=== PATIENT | female | born 1960 | race Caucasian/White ===

== ENCOUNTER 2020-05-23 21:23 | Inpatient (IN) | payer BC, OTHER ==
[2020-05-23] MEDS ORDERED: SODIUM CHLORIDE 0.9% 1,000 ML IV STA (22:02)
[2020-05-23] MEDS ORDERED: DILTIAZEM DRIP BOLUS FROM BAG 1 MG SOLN IV ONE (22:02)
--- NOTE | 2020-05-23 22:06 | ED ---
General Adult HPI - General Chief complaint: Arrhythmia/Palpitations Stated complaint: Chest Pain, Time Seen by Provider: 05/23/20 21:53 Source: patient, RN notes reviewed Mode of arrival: ambulatory Limitations: no limitations - History of Present Illness Initial comments: Patient is a pleasant 59-year-old female presenting to the emergency department chest discomfort. Onset of symptoms was a couple of hours ago. Discomfort is rated 7/10. Discomfort feels heavy. No radiation. He did have similar symptoms around 5 years ago associated with atrial fibrillation. No associated dyspnea. No palpitations. No leg pain or leg swelling. - Related Data Home Medications Medication Instructions Recorded Confirmed No Known Home Medications 05/23/20 05/23/20 Allergies Allergy/AdvReac Type Severity Reaction Status Date / Time No Known Allergies Allergy Verified 05/23/20 23:10 Review of Systems ROS Statement: Those systems with pertinent positive or pertinent negative responses have been documented in the HPI. ROS Other: All systems not noted in ROS Statement are negative. Constitutional: Denies: fever Eyes: Denies: eye pain ENT: Denies: ear pain Respiratory: Denies: cough Cardiovascular: Reports: chest pain. Denies: palpitations Endocrine: Denies: fatigue Gastrointestinal: Denies: abdominal pain Genitourinary: Denies: dysuria Musculoskeletal: Denies: back pain Skin: Denies: rash Neurological: Denies: weakness Past Medical History Past Medical History: Atrial Fibrillation, Thyroid Disorder Additional Past Medical History / Comment(s): 30 years ago hyperthyroidism had radioactive iodine tx History of Any Multi-Drug Resistant Organisms: None Reported Past Surgical History: Adenoidectomy, Tonsillectomy, Tubal Ligation Additional Past Surgical History / Comment(s): THYROID Past Psychological History: No Psychological Hx Reported Smoking Status: Current every day smoker Past Alcohol Use History: Daily Past Drug Use History: None Reported - Past Family History Mother Family Medical History: Dementia Additional Family Medical History / Comment(s): parkinsons Father Family Medical History: Cancer Additional Family Medical History / Comment(s): throat cancer(was heavy smoker) General Exam Limitations: no limitations General appearance: alert, in no apparent distress Head exam: Present: normocephalic Eye exam: Present: normal appearance Neck exam: Present: normal inspection Respiratory exam: Present: normal lung sounds bilaterally. Absent: chest wall tenderness Cardiovascular Exam: Present: tachycardia Expanded Peripheral pulses: 2+: Radial (R), Radial (L), Dorsalis Pedis (R), Dorsalis Pedis (L) GI/Abdominal exam: Present: soft. Absent: tenderness Extremities exam: Present: normal inspection. Absent: pedal edema, calf tenderness Neurological exam: Present: alert Psychiatric exam: Present: normal affect, normal mood Skin exam: Present: normal color Course Vital Signs 05/23/20 05/23/20 21:32 23:00 Temperature 98.3 F Pulse Rate 142 H Respiratory 20 Rate Blood Pressure 175/107 O2 Sat by Pulse 95 90 L Oximetry - Reevaluation(s) Reevaluation #1: 05/23/20 22:05 Patient is refusing adenosine. EKG has concern for likely atrial flutter with a 2-1 conduction. Cardizem will be started. 05/23/20 22:05 EKG #2 shows narrow complex tachycardia with a rate of 134. NH 148. QRS 86. QT to 72. QTC 406. Normal axis. Normal QRS. Nonspecific ST-T. EKG Findings - EKG Comments: EKG Findings:: Neuro complex a cardiac rate of 138. NH 148. QRS 86. QT 366. QTc 554. Normal axis. Normal QRS. Nonspecific ST-T. Medical Decision Making - Medical Decision Making Patient reevaluated and symptom-free. Heart rate 99 with sinus rhythm on the monitor. Patient and family updated on results and plan. Discussed with Dr. Lemon who agrees with heparin and will consult. He does want to be notified if patient's pain increases. Case also discussed with Dr. samson who will admit For hospital call. He is made aware of d-dimer being added. - Lab Data Result diagrams: 05/23/20 22:23 05/23/20 22:23 Lab Results 05/23/20 05/23/20 05/23/20 Range/Units 22:23 22:23 22:23 WBC 9.8 (3.8-10.6) k/uL RBC 4.13 (3.80-5.40) m/uL Hgb 13.6 (11.4-16.0) gm/dL Hct 40.0 (34.0-46.0) % MCV 96.9 (80.0-100.0) fL MCH 33.0 (25.0-35.0) pg MCHC 34.0 (31.0-37.0) g/dL RDW 13.2 (11.5-15.5) % Plt Count 238 (150-450) k/uL MPV 8.1 Neutrophils % 70 % Lymphocytes % 18 % Monocytes % 5 % Eosinophils % 3 % Basophils % 1 % Neutrophils # 6.9 (1.3-7.7) k/uL Lymphocytes # 1.8 (1.0-4.8) k/uL Monocytes # 0.5 (0-1.0) k/uL Eosinophils # 0.3 (0-0.7) k/uL Basophils # 0.1 (0-0.2) k/uL PT 9.5 (9.0-12.0) sec INR 0.9 (<1.2) APTT 24.8 (22.0-30.0) sec Sodium 141 (137-145) mmol/L Potassium 4.4 (3.5-5.1) mmol/L Chloride 110 H (98-107) mmol/L Carbon Dioxide 22 (22-30) mmol/L Anion Gap 9 mmol/L BUN 14 (7-17) mg/dL Creatinine 0.88 (0.52-1.04) mg/dL Est GFR (CKD-EPI)AfAm 84 (>60 ml/min/1.73 sqM) Est GFR (CKD-EPI)NonAf 73 (>60 ml/min/1.73 sqM) Glucose 104 H (74-99) mg/dL Calcium 10.1 (8.4-10.2) mg/dL Magnesium 2.1 (1.6-2.3) mg/dL Total Bilirubin 0.5 (0.2-1.3) mg/dL AST 56 H (14-36) U/L ALT 32 (4-34) U/L Alkaline Phosphatase 78 (38-126) U/L Troponin I (0.000-0.034) ng/mL Total Protein 8.0 (6.3-8.2) g/dL Albumin 4.8 (3.5-5.0) g/dL TSH 15.200 H (0.465-4.680) mIU/L 05/23/20 Range/Units 22:23 WBC (3.8-10.6) k/uL RBC (3.80-5.40) m/uL Hgb (11.4-16.0) gm/dL Hct (34.0-46.0) % MCV (80.0-100.0) fL MCH (25.0-35.0) pg MCHC (31.0-37.0) g/dL RDW (11.5-15.5) % Plt Count (150-450) k/uL MPV Neutrophils % % Lymphocytes % % Monocytes % % Eosinophils % % Basophils % % Neutrophils # (1.3-7.7) k/uL Lymphocytes # (1.0-4.8) k/uL Monocytes # (0-1.0) k/uL Eosinophils # (0-0.7) k/uL Basophils # (0-0.2) k/uL PT (9.0-12.0) sec INR (<1.2) APTT (22.0-30.0) sec Sodium (137-145) mmol/L Potassium (3.5-5.1) mmol/L Chloride (98-107) mmol/L Carbon Dioxide (22-30) mmol/L Anion Gap mmol/L BUN (7-17) mg/dL Creatinine (0.52-1.04) mg/dL Est GFR (CKD-EPI)AfAm (>60 ml/min/1.73 sqM) Est GFR (CKD-EPI)NonAf (>60 ml/min/1.73 sqM) Glucose (74-99) mg/dL Calcium (8.4-10.2) mg/dL Magnesium (1.6-2.3) mg/dL Total Bilirubin (0.2-1.3) mg/dL AST (14-36) U/L ALT (4-34) U/L Alkaline Phosphatase (38-126) U/L Troponin I 0.345 H* (0.000-0.034) ng/mL Total Protein (6.3-8.2) g/dL Albumin (3.5-5.0) g/dL TSH (0.465-4.680) mIU/L - Radiology Data Radiology results: image reviewed (Chest x-ray does show mild pulmonary interstitial increased density compared to previous.) Critical Care Time Critical Care Time: Yes Total Critical Care Time: 33 Disposition Clinical Impression: Atrial flutter, Tachycardia, NSTEMI (non-ST elevated myocardial infarction) Disposition: ADMITTED IP TO THIS HOSP Is patient prescribed a controlled substance at d/c from ED?: No Referrals: None,Stated [Primary Care Provider] - 1-2 days Decision Time: 23:19
[2020-05-23] MEDS ORDERED: DILTIAZEM 125 MG in SODIUM CHLORIDE 0.9% 100 ML IV SCH (22:30)
[2020-05-23 22:33] LABS: Basophils # (A) 0.1 k/uL (0-0.2); Basophils % (A) 1 %; Eosinophils # (A) 0.3 k/uL (0-0.7); Eosinophils % (A) 3 %; HGB 13.6 gm/dL (11.4-16.0); Lymphocytes # (A) 1.8 k/uL (1.0-4.8); Lymphocytes % (A) 18 %; MCV 96.9 fL (80.0-100.0); Mean Platelet Volume 8.1; Monocytes # (A) 0.5 k/uL (0-1.0); Monocytes % (A) 5 %; Neutrophils # (A) 6.9 k/uL (1.3-7.7); Neutrophils % (A) 70 %; Platelet Count 238 k/uL (150-450); RBC 4.13 m/uL (3.80-5.40); RDW 13.2 % (11.5-15.5); WBC 9.8 k/uL (3.8-10.6)
[2020-05-23 22:42] LABS: Albumin 4.8 g/dL (3.5-5.0); Calcium 10.1 mg/dL (8.4-10.2); Magnesium 2.1 mg/dL (1.6-2.3); Potassium 4.4 mmol/L (3.5-5.1); Total Bilirubin 0.5 mg/dL (0.2-1.3)
--- NOTE | 2020-05-23 22:42 | XR ---
EXAMINATION TYPE: XR chest 1V portable DATE OF EXAM: 05/23/2020 COMPARISON: 03/16/2015 HISTORY: Dysrhythmia. Chest pain TECHNIQUE: FINDINGS: There is mild pulmonary increased interstitial density. Heart size is normal. There is no c onsolidation. There is no heart failure. There is no pleural effusion. There are chest leads. Bony th orax is intact. IMPRESSION: Increased mild pulmonary interstitial density compared to old exam is nonspecific and cou ld relate to mild pneumonia.
[2020-05-23 22:52] LABS: INR 0.9 (<1.2); Partial Thromboplastin Time 24.8 sec (22.0-30.0); Prothrombin Time 9.5 sec (9.0-12.0)
[2020-05-23] MEDS ORDERED: NITROGLYCERIN SL TABS 0.4 MG TAB SUBLINGUAL PRN (23:20)
[2020-05-23] MEDS ORDERED: ASPIRIN 81 MG PO STA (23:20)
[2020-05-23] MEDS ORDERED: HEPARIN SODIUM,PORCINE 5,000 UNIT/ML 1 ML VIAL IV ONE (23:20)
[2020-05-23] MEDS ORDERED: HEPARIN SODIUM,PORCINE 5,000 UNIT/ML 1 ML VIAL IV PRN (23:20)
[2020-05-23] MEDS ORDERED: HEPARIN SOD,PORK IN 0.45% NACL 25,000 UNIT in 0.45% NACL 1 250ML.BAG IV SCH (23:30)
[2020-05-24] MEDS ORDERED: ATORVASTATIN 80 MG TAB PO STA ×2 (00:06→11:00)
[2020-05-24] MEDS ORDERED: CLOPIDOGREL 75 MG TAB PO STA (00:06)
--- NOTE | 2020-05-24 00:09 | P.HPIM ---
History of Present Illness H&P Date: 05/23/20 51-year-old female with a PMH of A. fib (not on anticoagulation due to poor follow-up), tobacco abuse (one pack per day for several decades) and hypothyroidism who presented to the emergency room with complaints of chest pain. Patient reports that over the past 1-1/2 years, she has been having exer tional substernal pressure-like chest discomfort, improved with rest, which began to worsen over the past 2 weeks. The pain would normally go away after resting for a few minutes. She notes that tonight at 7 PM, she was in her garage smoking a cigarette when she developed an 8 out of 10 substernal chest discomfort, similar nature but significantly more in intensity, nonpleuritic, with radiation to the left arm and associated nausea. She told her daughter who subsequently brought her to the emergency room. The patient notes that her pain began improving shortly after presenting to the emergency room, and had resolved by the time of interview. She reported feeling back to her baseline. Reported resolution of her nausea and also denied fever, chills, cough, abdominal pain, or diarrhea. The patient notes that she was previously following with Dr. Ambriz but has not seen him or any other provider for the past 2 years, and thereby has not been taking any medications. She underwent an extensive evaluation in the emergency room. Upon presentation her pulse was 142 with BP 175/107 and SpO2 95% on room air and afebrile at 98.3. EKG revealed sinus tachycardia at [address] depression inferolaterally in leads II, III, aVF, and V3 to V6. Chest x-ray revealed increased mild pulmonary interstitial density, suspicious for mild pneumonia. Laboratory evaluation was notable for troponin of 0.84 5, TSH 15.2, and a d-dimer of 0.35. Review of Systems Pertinent positives and negatives as discussed in HPI, a complete review of systems was performed and all other systems are negative. Past Medical History Past Medical History: Atrial Fibrillation, Thyroid Disorder Additional Past Medical History / Comment(s): 30 years ago hyperthyroidism had radioactive iodine tx History of Any Multi-Drug Resistant Organisms: None Reported Past Surgical History: Adenoidectomy, Tonsillectomy, Tubal Ligation Additional Past Surgical History / Comment(s): THYROID Past Psychological History: No Psychological Hx Reported Smoking Status: Current every day smoker Past Alcohol Use History: Daily Past Drug Use History: None Reported - Past Family History Mother Family Medical History: Dementia Additional Family Medical History / Comment(s): parkinsons Father Family Medical History: Cancer Additional Family Medical History / Comment(s): throat cancer(was heavy smoker) Medications and Allergies Home Medications Medication Instructions Recorded Confirmed Type No Known Home Medications 05/23/20 05/23/20 History Allergies Allergy/AdvReac Type Severity Reaction Status Date / Time No Known Allergies Allergy Verified 05/23/20 23:10 Physical Exam Vitals: Vital Signs Temp Pulse Resp BP Pulse Ox 05/23/20 23:00 90 L 05/23/20 21:32 98.3 F 142 H 20 175/107 95 Intake and Output 05/23/20 05/23/20 05/24/20 14:59 22:59 06:59 Other: Weight 69.853 kg General: non toxic, no distress, appears at stated age, normal weight Derm: no unusual rashes/lesions no unusual ecchymoses, warm, dry Head: atraumatic, normocephalic, symmetric Eyes: EOMI, no lid lag, anicteric sclera, pupils equal round reactive to light ENT: Nose and ears atraumatic, no thrush, no pharyngeal erythema Neck: No thyromegaly, no cervical lymphadenopathy, trachea midline, supple Mouth: no lip lesion, mucus membranes moist Cardiovascular: S1S2 reg, tachycardia, no murmur, positive posterior tibial pulse bilateral, no edema, capillary refill less than 2 seconds Lungs: CTA bilateral, no rhonchi, no rales , no accessory muscle use Abdominal: soft, nontender to palpation, no guarding, no appreciable organomegaly, normal bowel sounds Ext: no gross muscle atrophy, muscle strength 5 out of 5 in all 4 extremities grossly, no contractures, Neuro: CN II-XI grossly intact, light touch intact all 4 extremities, finger to nose within normal limits, Psych: Alert, oriented, appropriate affect Results CBC & Chem 7: 05/23/20 22:23 05/23/20 22:23 Labs: Abnormal Lab Results - Last 24 Hours (Table) 05/23/20 05/23/20 Range/Units 22:23 22:23 Chloride 110 H (98-107) mmol/L Glucose 104 H (74-99) mg/dL AST 56 H (14-36) U/L Troponin I 0.345 H* (0.000-0.034) ng/mL TSH 15.200 H (0.465-4.680) mIU/L Assessment and Plan Plan: Non-ST elevation FL -Case discussed with cardiology by ED physician -Continue with heparin infusion -Nitroglycerin when necessary -Start Plavix and Lipitor -Cardiac monitoring -Trend troponin -Cardiology consult -Check lipid panel and A1c Hypothyroidism -Patient will need to be started on Synthroid prior to discharge Medical abuse -Strongly advised on importance of cessation DVT prophylaxis -Heparin infusion The patient is admitted with an anticipated greater than 2 midnight stay for evaluation of NSTEMI CODE STATUS: Full Code Discussed with: Patient Anticipated discharge date: 2-[address]: Home A total of 40 minutes was spent on the care of this complex patient more than 50% of the time was spent in counseling and care coordination.
[2020-05-24 05:58] LABS: Platelet Count 223 k/uL (150-450)
[2020-05-24 06:15] LABS: Magnesium 2.1 mg/dL (1.6-2.3)
[2020-05-24] MEDS ORDERED: SODIUM CHLORIDE 0.9% 1,000 ML in EMPTY BAG 1 BAG IV ONE (08:22)
[2020-05-24] MEDS ORDERED: ALPRAZolam 0.5 MG TAB PO PRN (08:22)
[2020-05-24] MEDS: METOPROLOL TARTRATE 25 MG TAB PO SCH ×2 (08:31→20:49)
[2020-05-24] MEDS ORDERED: CLOPIDOGREL 75 MG TAB PO SCH (09:00)
[2020-05-24] MEDS ORDERED: ASPIRIN 325 MG TAB PO SCH (09:00)
[2020-05-24] MEDS ORDERED: IV FLUID CONTINUATION 400 ML IV ONE (09:00)
[2020-05-24 09:04] LABS: ALT 36 U/L (4-34); AST 220 U/L (14-36); African American GFR (CKD) >90 (>60 ml/min/1.73 sqM); Albumin 3.9 g/dL (3.5-5.0); Alkaline Phosphatase 61 U/L (38-126); Anion Gap 4 mmol/L; Blood Urea Nitrogen 14 mg/dL (7-17); Calcium 8.6 mg/dL (8.4-10.2); Carbon Dioxide 24 mmol/L (22-30); Chloride 111 mmol/L (98-107); Glucose 89 mg/dL (74-99); Non-African American GFR(CKD) 88 (>60 ml/min/1.73 sqM); Potassium 4.2 mmol/L (3.5-5.1); Sodium 139 mmol/L (137-145); Total Bilirubin 0.9 mg/dL (0.2-1.3); Total Protein 6.5 g/dL (6.3-8.2)
[2020-05-24] MEDS ORDERED: LIDOCAINE 1% INJ 10MG/ML (20 ML MDV) SQ ONE (09:25)
[2020-05-24] MEDS ORDERED: MIDAZOLAM 2 MG/2 ML VIAL IV ONE (09:25)
[2020-05-24] MEDS ORDERED: fentaNYL (PF) 50 MCG/ML 2 ML AMP IV ONE (09:29)
--- NOTE | 2020-05-24 09:40 | P.CRDCN ---
History of Present Illness History of present illness: HISTORY OF PRESENTING ILLNESS This is a pleasant 59-year-old female past medical history significant for supraventricular tachycardia, chronic nicotine dependence and daily alcohol intake. 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 We have been asked to see in consultation for chest pain. She states yesterday she was sitting out in her garage smoking cigarettes when she felt a heavy pressure sensation in the left precordial region that radiated down the left arm. It was associated with mild shortness of breath. She denies dizziness, nausea, vomiting or diaphores is. The discomfort lasted approximately 45 minutes. She was watching her grandchildren at the time and waited until her daughter got home from work to come to the hospital. On arrival she was having ongoing chest discomfort that did resolve slowly after she got here. She has had no further symptoms of chest discomfort since arriving at the hospital. DIAGNOSTICS EKG reveals sinus tachycardia heart rate of 138 with T-wave inversions in the inferior leads and ST depression anterior laterally. Telemetry tracings indicate sinus mechanism with nonsustained ventricular tachycardia this morning. Chest xray increased pulmonary interstitial density. Laboratory reviewed, CBC unremarkable, d-dimer 0.35, sodium 139, potassium 4.2, creatinine 0.75, magnesium 2.1, troponin 0.345, 15 and 31.4, LDL 221, HDL 59 and TSH 15.2 . She takes no daily cardiac medications. Most recent echocardiogram obtained in 2014 revealed preserved LV systolic function with ejection fraction 50-55% with mild tricuspid regurgitation noted. REVIEW OF SYSTEMS At the time of my exam: CONSTITUTIONAL: Denies fever or chills. CARDIOVASCULAR: Denies chest pain, shortness of breath, orthopnea, PND or palpitations. RESPIRATORY: Denies cough. GASTROINTESTINAL: Denies abdominal pain, diarrhea, constipation, nausea or vomit ing. MUSCULOSKELETAL: Denies myalgias. NEUROLOGIC: Denies numbness, tingling or weakness. ENDOCRINE: Denies fatigue, weight change, polydipsia or polyurina. GENITOURINARY: Denies burning, hematuria or urgency with micturation. HEMATOLOGIC: Denies history of anemia or bleeding. PHYSICAL EXAMINATION Blood pressure 126/77 heart rate 102 afebrile and maintaining oxygen saturation on room air. CONSTITUTIONAL: No apparent distress. HEENT: Head is normocephalic. Pupils are equal, round. Sclerae anicteric. Mucous membranes of the mouth are moist. No JVD. Left carotid bruit. CHEST EXAMINATION: Lungs are clear to auscultation. No chest wall tenderness is noted on palpation or with deep breathing. Diminished bilaterally. HEART EXAMINATION: Regular rate and rhythm. S1, S2 heard. Soft systolic ejection murmur at the left sternal border, no gallops or rub. ABDOMEN: Soft, nontender. Positive bowel sounds. EXTREMITIES: 2+ peripheral pulses, no lower extremity edema and no calf tenderness. NEUROLOGIC EXAMINATION: Patient is awake, alert and oriented x3. ASSESSMENT Non-ST elevated myocardial infarction Nonsustained ventricular tachycardia Dyslipidemia Hypertension Chronic nicotine dependence Daily alcohol use PLAN Recommend proceeding with cardiac catheterization. I have discussed the risks, benefits and alternative therapies for the above-mentioned procedure and for both sedation/analgesia as well as necessary blood product administration, if indicated, as they pertain to this patient. The patient has indicated understanding and acceptance of the risks and procedures discussed. Questions have been answered appropriately and she is agreeable to move forward with the above stated procedure. Her daughter has also been updated. Discontinue Cardizem infusion. Initiate Lopressor 25 mg twice a day. Echocardiogram reviewed at the bedside reveals wall motion abnormalities anterio rly. Obtain carotid Doppler secondary to bruit auscultated. Smoking and alcohol cessation recommended. Follow renal function in the morning. Further recommendations to follow based upon clinical course. Thank you kindly for this consultation. Nurse Practitioner note has been reviewed, I agree with a documented findings and plan of care. Patient was seen and examined. Past Medical History Past Medical History: Atrial Fibrillation, Thyroid Disorder Additional Past Medical History / Comment(s): 30 years ago hyperthyroidism had r adioactive iodine tx History of Any Multi-Drug Resistant Organisms: None Reported Past Surgical History: Adenoidectomy, Tonsillectomy, Tubal Ligation Additional Past Surgical History / Comment(s): THYROID Past Anesthesia/Blood Transfusion Reactions: No Reported Reaction Past Psychological History: No Psychological Hx Reported Additional Psychological History / Comment(s): pt lives at home with spouse and 1 daughter. is independant,works at [employer]. Smoking Status: Current every day smoker Past Alcohol Use History: Daily Additional Past Alcohol Use History / Comment(s): started smoking age 18 1ppd,smoking cessation booklet given to pt. pt admits to drinking 30 beers/week Past Drug Use History: None Reported - Past Family History Mother Family Medical History: Dementia Additional Family Medical History / Comment(s): parkinsons Father Family Medical History: Cancer Additional Family Medical History / Comment(s): throat cancer(was heavy smoker) Medications and Allergies Home Medications Medication Instructions Recorded Confirmed Type No Known Home Medications 05/23/20 05/23/20 History Allergies Allergy/AdvReac Type Severity Reaction Status Date / Time No Known Allergies Allergy Verified 05/23/20 23:10 Physical Exam Vitals: Vital Signs Temp Pulse Pulse Resp BP BP Pulse Ox 05/24/20 03:35 98.2 F 104 H 17 112/74 94 L 05/24/20 00:32 98 F 118 H 18 140/87 93 L 05/24/20 00:05 114 H 20 140/100 97 05/23/20 23:00 90 L 05/23/20 21:32 98.3 F 142 H 20 175/107 95 Intake and Output 05/23/20 05/24/20 05/24/20 22:59 06:59 14:59 Intake Total 61.468 Balance 61.468 Intake: Intake, IV Titration 61.468 Amount Heparin Sod,Pork in 0.45% 61.468 NaCl 25,000 unit In 0.45 % NaCl 1 250ml.bag @ 12 UNITS/KG/HR 8.382 mls/hr IV .Q24H [facility] Rx#: [id number] Other: # Voids 2 Weight 69.853 kg 64.3 kg Results 05/24/20 05:38 05/24/20 07:41 Cardiac Enzymes 05/23/20 05/23/20 05/24/20 Range/Units 22:23 22:23 01:31 AST 56 H (14-36) U/L Troponin I 0.345 H* 15.000 H* (0.000-0.034) ng/mL 05/24/20 Range/Units 05:38 AST (14-36) U/L Troponin I 31.400 H* (0.000-0.034) ng/mL Coagulation 05/23/20 05/24/20 Range/Units 22:23 05:38 PT 9.5 (9.0-12.0) sec APTT 24.8 70.9 H (22.0-30.0) sec Lipids 12/09/20 Range/Units 05:38 Triglycerides 122 (<150) mg/dL Cholesterol 304 H (<200) mg/dL HDL Cholesterol 59 (40-60) mg/dL CBC 05/23/20 05/24/20 Range/Units 22:23 05:38 WBC 9.8 (3.8-10.6) k/uL RBC 4.13 (3.80-5.40) m/uL Hgb 13.6 (11.4-16.0) gm/dL Hct 40.0 (34.0-46.0) % Plt Count 238 223 (150-450) k/uL Comprehensive Metabolic Panel 05/23/20 Range/Units 22:23 Sodium 141 (137-145) mmol/L Potassium 4.4 (3.5-5.1) mmol/L Chloride 110 H (98-107) mmol/L Carbon Dioxide 22 (22-30) mmol/L BUN 14 (7-17) mg/dL Creatinine 0.88 (0.52-1.04) mg/dL Glucose 104 H (74-99) mg/dL Calcium 10.1 (8.4-10.2) mg/dL AST 56 H (14-36) U/L ALT 32 (4-34) U/L Alkaline Phosphatase 78 (38-126) U/L Total Protein 8.0 (6.3-8.2) g/dL Albumin 4.8 (3.5-5.0) g/dL Current Medications Generic Name Dose Route Start Last Admin Trade Name Freq PRN Reason Stop Dose Admin Alprazolam 0.25 mg 05/24/20 08:22 Alprazolam 0.25 Mg Tab PO Q6HR PRN Mild Anxiety Alprazolam 0.5 mg 05/24/20 08:22 Alprazolam 0.5 Mg Tab PO Q6HR PRN Moderate Anxiety Aspirin 325 mg 05/24/20 09:00 12 08:31 Aspirin 325 Mg Tab PO 325 mg DAILY [facility] Administration Atorvastatin Calcium 80 mg 05/24/20 21:00 Atorvastatin 80 Mg Tab PO HS [facility] Clopidogrel Bisulfate 75 mg 05/24/20 09:00 12 08:31 Clopidogrel 75 Mg Tab PO 75 mg DAILY [facility] Administration Heparin Sodium (Porcine) 0 unit 05/23/20 23:20 Heparin Sodium,Porcine 5,000 Unit/Ml 1 Ml Vial IV Q6HR PRN Low PTT Protocol Sodium Chloride 1,000 mls @ 75 mls/hr 05/23/20 22:02 05/23/20 23:00 Saline 0.9% IV 05/24/20 11:21 75 mls/hr .[id number] STA Administration Heparin Sodium/Sodium Chloride 250 mls @ 8.382 mls/hr 05/23/20 23:30 05/24/20 07:21 25,000 unit/ Sodium Chloride IV 10 units/kg/hr .Q24H [facility] 6.985 mls/hr Titration Protocol 12 UNITS/KG/HR Sodium Chloride 1,000 ml/ IV 1,000 mls @ 64.3 mls/hr 05/24/20 08:22 Solution IV 05/24/20 23:55 .[id number] ONE 1 ML/KG/HR Metoprolol Tartrate 25 mg 05/24/20 09:00 05/24/20 08:31 Metoprolol Tartrate 25 Mg Tab PO 25 mg BID [facility] Administration Nitroglycerin 0.4 mg 05/23/20 23:20 Nitroglycerin Sl Tabs 0.4 Mg Tab SUBLINGUAL Q5M PRN Chest Pain Sodium Chloride 10 ml 05/24/20 09:00 Sodium Chloride 0.9% Flush 10 Ml Syringe IV BID [facility] Intake and Output 05/23/20 05/24/20 05/24/20 22:59 06:59 14:59 Intake Total 61.468 Balance 61.468 Intake: Intake, IV Titration 61.468 Amount Heparin Sod,Pork in 0.45% 61.468 NaCl 25,000 unit In 0.45 % NaCl 1 250ml.bag @ 12 UNITS/KG/HR 8.382 mls/hr IV .Q24H [facility] Rx#: [id number] Other: # Voids 2 Weight 69.853 kg 64.3 kg 05/24/20 05:38 05/23/20 22:23
[2020-05-24] MEDS ORDERED: IOPAMIDOL-370 125ML BTL INJ ONE (09:50)
[2020-05-24] MEDS ORDERED: HEPARIN SODIUM,PORCINE 5,000 UNIT/ML 1 ML VIAL IV PRN (10:26)
--- NOTE | 2020-05-24 11:46 | P.GSCN ---
History of Present Illness Consult date: 05/24/20 Reason for Consult: Triple-vessel coronary artery disease, non-STEMI Requesting physician: Mikel Flower History of present illness: This is a 59-year-old active female who does not follow with a primary care physician or any other physician on an outpatient basis. She has a previous medical history of SVT in 2015, hyperthyroidism treated with radioactive dye followed by hypothyroidism with initiation of Synthroid, hyperlipidemia, daily tobacco dependence, and near daily EtOH use. She presented to [facility] emergency room yesterday with complaints of constant aching in her chest with radiation to her jaw and arms, associated with shortness of breath and nausea. She states she has been having intermittent chest pain over the previous year and a half with activity and relieved with rest. This time her pain was at rest while sitting in her garage smoking a cigarette and she didn't experience any relief so she came into the emergency room for evaluation and treatment. Chest x-ray was completed demonstrating no acute cardiac process, EKG demonstrated sinus tach with rate in the 130s, with ST depression in the inferior leads. White blood cell count 9.8, hemoglobin 13.6, BUN 14, creatinine 0.75, troponin initially 0.345 which elevated to 31.4. By the time she got to the emergency room she states her pain was mostly resolved. She was admitted for evaluation and treatment with consultation placed to cardiology. She was recommended to undergo heart catheterization which was completed today and which demonstrated severe calcific triple-vessel coronary artery disease with 100% stenosis of the right coronary artery, and proximal LAD as well as circumflex stenosis of 95%. Due to these findings consultation was placed to Dr. Fernandes from cardiac thoracic surgery for surgical recommendations. Review of Systems Review of systems was completed and was negative except as noted - Cardiovascular Reports as per HPI, Reports chest pain, Reports shortness of breath - Gastrointestinal Reports as per HPI, Reports nausea Past Medical History Past Medical History: Atrial Fibrillation, Coronary Artery Disease (CAD), Hyperlipidemia, Hypertension, Myocardial Infarction (MS), Thyroid Disorder Additional Past Medical History / Comment(s): 30 years ago hyperthyroidism had radioactive iodine tx after which developed hypothyroidism and was placed on Synthroid, eventually stopped Synthroid, was hospitalized in 2014 with SVT and hypothyroidism and was discharged on Synthroid, not currently taking History of Any Multi-Drug Resistant Organisms: None Reported Past Surgical History: Adenoidectomy, Tonsillectomy, Tubal Ligation Additional Past Surgical History / Comment(s): THYROID Past Anesthesia/Blood Transfusion Reactions: No Reported Reaction Past Psychological History: No Psychological Hx Reported Additional Psychological History / Comment(s): pt lives at home with spouse and 1 daughter. 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 Smoking Status: Current every day smoker Past Alcohol Use History: Daily Additional Past Alcohol Use History / Comment(s): started smoking age 18 1ppd,smoking cessation booklet given to pt. pt admits to drinking 30 beers/week Past Drug Use History: None Reported - Past Family History Mother Family Medical History: Dementia Additional Family Medical History / Comment(s): parkinsons Father Family Medical History: Cancer, CVA/TIA Additional Family Medical History / Comment(s): Tongue cancer(was heavy smoker) Medications and Allergies Home Medications Medication Instructions Recorded Confirmed Type No Known Home Medications 05/23/20 05/23/20 History Allergies Allergy/AdvReac Type Severity Reaction Status Date / Time No Known Allergies Allergy Verified 05/23/20 23:10 Surgical - Exam Vital Signs Temp Pulse Resp BP Pulse Ox 98.3 F 142 H 20 175/107 95 05/23/20 21:32 05/23/20 21:32 05/23/20 21:32 05/23/20 21:32 05/23/20 21:32 - General well developed, well nourished, no distress, no pain - Eyes PERRL, normal ocular movement - ENT no hearing loss - Neck no masses, trachea midline carotid bruit: bilateral - Respiratory Lungs sounds diminished bilaterally. Respirations even, nonlabored. Currently on room air with oxygen saturation 94%. No chest wall deformities. No clubbing or cyanosis present. - Cardiovascular S1, S2 present. Regular rate and rhythm, sinus rhythm on telemetry. Palpable peripheral pulses bilaterally. No edema present. No calf pain or tenderness noted. Left radial Nura's test less than 8 seconds - Abdomen Abdomen: soft, non tender, bowel sounds - Genitourinary Deferred - Rectum Deferred - Integumentary no rash, no growths - Neurologic normal coordination, normal sensation - Musculoskeletal Laying flat in bed status post cardiac catheterization - Psychiatric oriented to time, oriented to person, oriented to place, speech is normal, memory intact Results - Labs 05/24/20 05:38 05/24/20 07:41 Abnormal Lab Results - Last 24 Hours (Table) 05/23/20 05/23/20 05/24/20 Range/Units 22:23 22:23 01:31 APTT (22.0-30.0) sec Chloride 110 H (98-107) mmol/L Glucose 104 H (74-99) mg/dL AST 56 H (14-36) U/L ALT (4-34) U/L Troponin I 0.345 H* 15.000 H* (0.000-0.034) ng/mL Cholesterol (<200) mg/dL LDL Cholesterol, Calc (0-99) mg/dL TSH 15.200 H (0.465-4.680) mIU/L 05/24/20 05/24/20 05/24/20 Range/Units 05:38 05:38 05:38 APTT 70.9 H (22.0-30.0) sec Chloride (98-107) mmol/L Glucose (74-99) mg/dL AST (14-36) U/L ALT (4-34) U/L Troponin I 31.400 H* (0.000-0.034) ng/mL Cholesterol 304 H (<200) mg/dL LDL Cholesterol, Calc 221 H (0-99) mg/dL TSH (0.465-4.680) mIU/L 05/24/20 Range/Units 07:41 APTT (22.0-30.0) sec Chloride 111 H (98-107) mmol/L Glucose (74-99) mg/dL AST 220 H (14-36) U/L ALT 36 H (4-34) U/L Troponin I (0.000-0.034) ng/mL Cholesterol (<200) mg/dL LDL Cholesterol, Calc (0-99) mg/dL TSH (0.465-4.680) mIU/L Diabetes panel 05/23/20 05/24/20 05/24/20 Range/Units 22:23 05:38 07:41 Sodium 141 139 (137-145) mmol/L Potassium 4.4 4.2 (3.5-5.1) mmol/L Chloride 110 H 111 H (98-107) mmol/L Carbon Dioxide 22 24 (22-30) mmol/L BUN 14 14 (7-17) mg/dL Creatinine 0.88 0.75 (0.52-1.04) mg/dL Glucose 104 H 89 (74-99) mg/dL Calcium 10.1 8.6 (8.4-10.2) mg/dL AST 56 H 220 H (14-36) U/L ALT 32 36 H (4-34) U/L Alkaline Phosphatase 78 61 (38-126) U/L Total Protein 8.0 6.5 (6.3-8.2) g/dL Albumin 4.8 3.9 (3.5-5.0) g/dL Triglycerides 122 (<150) mg/dL HDL Cholesterol 59 (40-60) mg/dL Thyroid panel 05/23/20 Range/Units 22:23 TSH 15.200 H (0.465-4.680) mIU/L Calcium panel 05/23/20 05/24/20 Range/Units 22:23 07:41 Calcium 10.1 8.6 (8.4-10.2) mg/dL Albumin 4.8 3.9 (3.5-5.0) g/dL Pituitary panel 05/23/20 05/24/20 Range/Units 22:23 07:41 Sodium 141 139 (137-145) mmol/L Potassium 4.4 4.2 (3.5-5.1) mmol/L Chloride 110 H 111 H (98-107) mmol/L Carbon Dioxide 22 24 (22-30) mmol/L BUN 14 14 (7-17) mg/dL Creatinine 0.88 0.75 (0.52-1.04) mg/dL Glucose 104 H 89 (74-99) mg/dL Calcium 10.1 8.6 (8.4-10.2) mg/dL TSH 15.200 H (0.465-4.680) mIU/L Adrenal panel 05/23/20 05/24/20 Range/Units 22:23 07:41 Sodium 141 139 (137-145) mmol/L Potassium 4.4 4.2 (3.5-5.1) mmol/L Chloride 110 H 111 H (98-107) mmol/L Carbon Dioxide 22 24 (22-30) mmol/L BUN 14 14 (7-17) mg/dL Creatinine 0.88 0.75 (0.52-1.04) mg/dL Glucose 104 H 89 (74-99) mg/dL Calcium 10.1 8.6 (8.4-10.2) mg/dL Total Bilirubin 0.5 0.9 (0.2-1.3) mg/dL AST 56 H 220 H (14-36) U/L ALT 32 36 H (4-34) U/L Alkaline Phosphatase 78 61 (38-126) U/L Total Protein 8.0 6.5 (6.3-8.2) g/dL Albumin 4.8 3.9 (3.5-5.0) g/dL - Imaging CT scan - chest: report reviewed, image reviewed EKG: image reviewed Additional studies: Heart catheterization images reviewed Assessment and Plan Assessment: 1. Triple-vessel coronary artery disease 2. Hypertension 3. Hyperlipidemia, cholesterol 304, LDL 221 4. History of SVT 5. Hypothyroidism, previous history of hyper-thyroid treated with radioactive dye, current TSH 15.2 6. Current daily tobacco dependence 7. Almost daily EtOH use without history of withdrawal Plan: The patient was seen and examined at the bedside in the extended stay unit. The chart/diagnostics were reviewed. The case was discussed in detail with Dr. Fernandes who will see the patient today. Our recommendation is to continue with aspirin, statin, beta ricky therapy. Hold Plavix. T4 was ordered, hypothyroidism should be treated by primary. The usual perioperative course of coronary artery bypass surgery was discussed in detail with the patient, risks and benefits were reviewed, all questions were answered and patient is willing to consent to surgery. Preoperative testing was initiated. Once testing has b een completed we will calculate STS risk score and discuss with the patient. More recommendations to follow regarding timing of surgery once Dr. Fernandes has had time to review the patient's heart catheterization films, dependent on preoperative testing completion. Thank you Dr. Flower for this consult. We look forward to working with you in the care of your patient Time with Patient: Greater than 30
--- NOTE | 2020-05-24 12:54 | US ---
EXAMINATION TYPE: US carotid duplex BILAT DATE OF EXAM: 05/24/2020 COMPARISON: NONE CLINICAL HISTORY: bruit. EXAM MEASUREMENTS: RIGHT: Peak Systolic Velocity (PSV) cm/sec ----- Right CCA: 65.5 ----- Right ICA: 127.2 ----- Right ECA: 67.2 ICA/CCA ratio: 2.0 RIGHT: End Diastole cm/sec ----- Right CCA: 23.7 ----- Right ICA: 64.0 ----- Right ECA: 11.6 LEFT: Peak Systolic Velocity (PSV) cm/sec ----- Left CCA: 51.7 ----- Left ICA: 140.2 ----- Left ECA: 135.3 ICA/CCA ratio: 2.7 LEFT: End Diastole cm/sec ----- Left CCA: 28.9 ----- Left ICA: 59.5 ----- Left ECA: 19.7 VERTEBRALS (direction of flow): Right Vertebral: Antegrade Left Vertebral: Antegrade Rhythm: normal Mild to moderate atherosclerotic changes with slight velocity increase seen on left, no significant v elocity increase seen on right. IMPRESSION: 1. Bilateral atherosclerotic plaque with findings suggestive of the 50-69% stenosis bilaterally great er involving the left internal carotid artery. Criteria for Assigning % of Stenosis / Diameter reduction (Estimation based on the indirect measurements of the internal carotid artery velocities (ICA PSV). 1. Normal (no stenosis)=ICA PSV < 125 cm/s: ratio < 2.0: ICA EDV<40 cm/s. 2. Less than 50% stenosis=ICA PSV < 125 cm/s: ratio < 2.0: ICA EDV<40 cm/s. 3. 50 to 69% stenosis=ICA PSV of 125 to 230 cm/s: ration 2.0 ? 4.0: ICA EDV 40-100 cm/s. 4. Greater than 70% stenosis to near occlusion= ICA PSV > 230 cm/s: ratio > 4.0: ICA EDV > 100 cm/s. 5. Near occlusion= ICA PSV velocities may be low or undetectable: variable ratio and ICA EDV. 6. Total occlusion=unable to detect flow.
[2020-05-24] MEDS ORDERED: SODIUM CHLORIDE 0.9% 1,000 ML IV ONE (13:00)
--- NOTE | 2020-05-24 13:02 | CC ---
CARDIAC CATHETERIZATION REPORT DATE OF SERVICE: 05/24/2020 PROCEDURE: Left heart catheterization, coronary angiography. PERFORMED BY: Dr. Gloria Flower. Moderate conscious sedation time was 25 minutes. The patient was administered Versed and fentanyl. Oxygen saturation, hemodynamics and EKG were monitored closely. CLINICAL INFORMATION: Mrs. Lacie Mack is a 59-year-old lady was has not seen a physician in the last couple of years. She smokes more than 1-1/2 pack daily. She also has a cholesterol which is high, LDL of about 221, also. Came into the hospital with episode of chest pain, had initial unremarkable EKG and troponin. Subsequently, troponin went up to 30. EKG revealed non ST elevation type picture, was advised cardiac cath after placing her on heparin through the night. Risks, benefits, options, rationale were explained. I talked to the patient and also spoke to her daughter by phone. Advised coronary angiography and intervention based on findings. PROCEDURE NOTE: Under local anesthesia and strict aseptic precautions, a 6-Maori sheath was placed in the right femoral artery. The patient has very diminished pulses in the lower extremities. A 6-Maori introducer was placed uneventfully using a micropuncture needle technique. Standard Ludwig catheters were used to perform coronary angiography and the same right catheter was used to check LV pressure but LV gram was not performed. The sheath was taken out and manual compression used to secure hemostasis and a Femstop applied. She will be sent to the ICU on heparin drip. Findings were discussed with the patient and also spoke to the daughter by phone and discussed with Dr. Fernandes for urgent aortocoronary bypass surgery. CARDIAC CATHETERIZATION FINDINGS: Left ventricular end-diastolic pressure was about 20 mmHg without any gradient across the aortic valve. CORONARY ANGIOGRAPHY FINDINGS: RIGHT CORONARY ARTERY: Dominant vessel, calcified, totally occluded in the midportion with limited antegrade flow. This appears to be a chronic occlusion. LEFT MAIN CORONARY ARTERY: Short patent vessel that immediately bifurcates into LAD and circumflex. No significant disease in the short left main. LEFT ANTERIOR DESCENDING CORONARY ARTERY: Very proximally there is a 90% stenosis in the LAD and again in the midportion is another 80% to 90% stenosis. There are septal branches which are free of significant disease in the fair-sized diagonal branch comes off in the midportion, supplies a sizable amount of myocardium. Distally, the caliber of the LAD is smaller in the distal 1/4. LAD provides rich collaterals to the RCA and the 2 distal branches of RCA are opacified and are visualized. RCA also appears to be graftable, based on the size of the vessel from the collaterals. LEFT POSTERIOR CIRCUMFLEX CORONARY ARTERY: Technically, a nondominant vessel of fair caliber and distribution, has a very proximal 80% to 90% lesion, long, calcified, tortuous vessel, but the distal branches, both of them are graftable. The circumflex therefore is a nondominant vessel with an 80% to 90% proximal lesion, graftable calcification noted. Left ventriculogram was not performed. IMPRESSION: This patient has elevated filling pressures. No gradient across the aortic valve. A right-dominant system has a total occlusion of mid RCA, fills by collaterals from the left system. LAD has a proximal and mid 90% and 85% lesion. Circumflex has a proximal 80% to 90% lesion. Collaterals are there from the left system mostly from the LAD to the distal branches of RCA. RECOMMENDATIONS: I am recommending IV heparin to ICU and urgent aortocoronary bypass surgery with a graft to the LAD, circumflex and the distal RCA/PDA branch of RCA. Discussed my thoughts with the patient, daughter and also spoke to Dr. Fernandes. MMODL / IJN: [id number] /
--- NOTE | 2020-05-24 13:27 | P.PN ---
Subjective Progress Note Date: 05/24/20 Patient underwent left heart catheterization showing triple-vessel disease. Cardiothoracic surgery consulted for CABG evaluation. Objective - Vital Signs Vital signs: Vital Signs Temp 98.3 F 05/24/20 08:20 Pulse 86 05/24/20 12:22 Resp 16 05/24/20 12:22 BP 112/72 05/24/20 12:22 Pulse Ox 94 L 05/24/20 12:22 Intake & Output 05/23/20 05/24/20 05/24/20 18:59 06:59 18:59 Intake Total 170.898 Balance 170.898 Weight 64.3 kg Intake: IV 100 Intake, IV Titration 70.898 Amount Heparin Sod,Pork in 0.45% 70.898 NaCl 25,000 unit In 0.45 % NaCl 1 250ml.bag @ 12 UNITS/KG/HR 8.382 mls/hr IV .Q24H MERISSA Rx#: [id number] Other: # Voids 2 - Exam General: The patient is awake and alert, in no distress Eye: there is normal conjunctiva bilaterally. Neck: The neck is supple, there is no JVD. Cardiovascular: Normal S1-S2, no S3-S4, no murmurs. Respiratory: Lungs clear to auscultation bilaterally Gastrointestinal: Abdomen is soft, nontender Musculoskeletal: There is no pedal edema. Neurological:. Speech is normal. Skin: Skin is warm and dry - Labs CBC & Chem 7: 05/24/20 05:38 05/24/20 07:41 Labs: Abnormal Lab Results - Last 24 Hours (Table) 05/23/20 05/23/20 05/24/20 Range/Units 22:23 22:23 01:31 APTT (22.0-30.0) sec Chloride 110 H (98-107) mmol/L Glucose 104 H (74-99) mg/dL AST 56 H (14-36) U/L ALT (4-34) U/L Troponin I 0.345 H* 15.000 H* (0.000-0.034) ng/mL Cholesterol (<200) mg/dL LDL Cholesterol, Calc (0-99) mg/dL TSH 15.200 H (0.465-4.680) mIU/L 05/24/20 05/24/20 05/24/20 Range/Units 05:38 05:38 05:38 APTT 70.9 H (22.0-30.0) sec Chloride (98-107) mmol/L Glucose (74-99) mg/dL AST (14-36) U/L ALT (4-34) U/L Troponin I 31.400 H* (0.000-0.034) ng/mL Cholesterol 304 H (<200) mg/dL LDL Cholesterol, Calc 221 H (0-99) mg/dL TSH (0.465-4.680) mIU/L 05/24/20 Range/Units 07:41 APTT (22.0-30.0) sec Chloride 111 H (98-107) mmol/L Glucose (74-99) mg/dL AST 220 H (14-36) U/L ALT 36 H (4-34) U/L Troponin I (0.000-0.034) ng/mL Cholesterol (<200) mg/dL LDL Cholesterol, Calc (0-99) mg/dL TSH (0.465-4.680) mIU/L Assessment and Plan Assessment: This is a 59-year-old female with past medical history noted below significant for medical noncompliance who presented to the emergency room with chest pain. Patient was evaluated in the ER and admitted to the hospital for further management of her medical problems noted below. 1. Non-ST elevation NC. Seen and evaluated by cardiology. Status post left heart catheterization showing triple-vessel disease. Continue optimal medical management. 2. Coronary artery disease: Noted on left heart catheterization. Cardiac surgery consulted for CABG evaluation. 3. Subclinical hypothyroidism, with elevated TSH and normal free T4. No need to start levothyroxine at this time. Repeat thyroid function tests in 3-4 weeks. 4. Tobacco abuse: Counseled to quit during this admission 5. Hyperlipidemia, started on Lipitor
[2020-05-24] MEDS: HEPARIN SOD,PORK IN 0.45% NACL 25,000 UNIT in 0.45% NACL 1 250ML.BAG IV SCH (15:30)
--- NOTE | 2020-05-24 16:17 | P.CNPUL ---
History of Present Illness Consult date: 05/24/20 Requesting physician: Nitesh Tong Reason for consult: other (Critical care management) Chief complaint: Chest pain History of present illness: This is a very pleasant 59-year-old female patient with a known history of hyperthyroidism with radioactive iodine, SVT approximately 5 years ago, daily alcohol use, chronic and ongoing tobacco dependence of 40 years at 1 pack per day. She presented to the emergency room last evening after developing chest heaviness with radiation into the left arm and jaw. She was found to have a non-ST segment elevation myocardial infarction and subsequently undergone cardiac catheterization today which revealed a 90% and 85% lesions in the LAD at the proximal and mid sections. Circumflex has a proximal 80 the 90 percent stenosis. Based on these findings she is recommended urgent coronary artery bypass surgery. She will be admitted to the intensive care unit. She is seen today in consultation on the extended stay unit. She is awake and alert in no a cute distress. She is currently pain-free. She is resting flat on the stretcher. No shortness of breath, cough or congestion. Maintaining O2 saturations in the low 90s on 2 L/m per nasal cannula. Sinus rhythm. Afebrile. Hemodynamically stable. White count 9.8. Hemoglobin 13.6. Platelet count 238. D-dimer 0.35. Sodium 141. Potassium 4.4. Chloride 110. Creatinine 0.88. Troponin 0.345, 15.0, 31.4. TSH 15.2. Cholesterol 304. LDH 221. HDL 59. Triglycerides 122. CoVID 19 screen pending. Chest x-ray revealed mild pulmonary interstitial edema. Carotid Dopplers revealed bilateral atherosclerotic plaque with findings suggested of the 50-69% stenosis bilaterally. Bedside spirometry pending. She remains on a heparin drip currently at 12 units per kilogram per hour. Review of Systems REVIEW OF SYSTEMS: CONSTITUTIONAL: Denies any recent significant weight loss or weight gain. EYES: Denies change in vision. EARS, NOSE, MOUTH, THROAT: Denies headaches, denies sore throat. CARDIOVASCULAR: Positive for chest pain radiating to the left arm and jaw, no palpitations or syncopal episodes. RESPIRATORY: Denies shortness of breath, cough, congestion or hemoptysis. GASTROINTESTINAL: Denies change in appetite, denies abdominal pain GENITOURINARY: Denies hematuria, denies infections. MUSKULOSKELETAL: Denies pain, denies swelling. INTEGUMENTARY: Denies rash, denies eczema. NEUROLOGICAL: Denies recent memory loss, no recent seizure activity. PSYCHIATRIC: Denies anxiety, denies depression. HEMATOLOGIC/LYMPHATIC: Denies anemia, denies enlarged lymph nodes. Past Medical History Past Medical History: Atrial Fibrillation, Coronary Artery Disease (CAD), Hyperlipidemia, Hypertension, Myocardial Infarction (AR), Thyroid Disorder Additional Past Medical History / Comment(s): 30 years ago hyperthyroidism had radioactive iodine tx after which developed hypothyroidism and was placed on Sy nthroid, eventually stopped Synthroid, was hospitalized in 2014 with SVT and hypothyroidism and was discharged on Synthroid, not currently taking History of Any Multi-Drug Resistant Organisms: None Reported Past Surgical History: Adenoidectomy, Tonsillectomy, Tubal Ligation Additional Past Surgical History / Comment(s): THYROID Past Anesthesia/Blood Transfusion Reactions: No Reported Reaction Past Psychological History: No Psychological Hx Reported Additional Psychological History / Comment(s): pt lives at home with spouse and 1 daughter. is independant,works at the [employer] in [employer]. Smoking Status: Current every day smoker Past Alcohol Use History: Daily Additional Past Alcohol Use History / Comment(s): started smoking age 18 1p pd,smoking cessation booklet given to pt. pt admits to drinking 30 beers/week Past Drug Use History: None Reported - Past Family History Mother Family Medical History: Dementia Additional Family Medical History / Comment(s): parkinsons Father Family Medical History: Cancer, CVA/TIA Additional Family Medical History / Comment(s): Tongue cancer(was heavy smoker) Medications and Allergies Home Medications Medication Instructions Recorded Confirmed Type No Known Home Medications 05/23/20 05/23/20 History Allergies Allergy/AdvReac Type Severity Reaction Status Date / Time No Known Allergies Allergy Verified 05/23/20 23:10 Physical Exam Vitals: Vital Signs Temp Pulse Pulse Resp BP BP Pulse Ox 05/24/20 13:22 88 16 108/74 91 L 05/24/20 12:22 86 16 112/72 94 L 05/24/20 11:52 89 16 111/69 92 L 05/24/20 11:22 81 16 108/67 91 L 05/24/20 11:07 84 16 113/75 91 L 05/24/20 10:52 83 16 123/75 98 05/24/20 10:37 82 16 111/74 97 05/24/20 10:22 84 16 110/69 98 05/24/20 08:20 98.3 F 102 H 16 126/77 94 L 05/24/20 03:35 98.2 F 104 H 17 112/74 94 L 05/24/20 00:32 98 F 118 H 18 140/87 93 L 05/24/20 00:05 114 H 20 140/100 97 05/23/20 23:00 90 L 05/23/20 21:32 98.3 F 142 H 20 175/107 95 Intake and Output 05/24/20 05/24/20 05/24/20 06:59 14:59 22:59 Intake Total 170.898 Balance 170.898 Intake: IV 100 Intake, IV Titration 70.898 Amount Heparin Sod,Pork in 0.45% 70.898 NaCl 25,000 unit In 0.45 % NaCl 1 250ml.bag @ 12 UNITS/KG/HR 8.382 mls/hr IV .Q24H [facility] Rx#: [id number] Other: # Voids 2 Weight 64.3 kg GENERAL EXAM: Alert, very pleasant 59-year-old female patient, on 2 L nasal cannula comfortable in no apparent distress. HEAD: Normocephalic. EYES: Normal reaction of pupils, equal size. NOSE: Clear with pink turbinates. THROAT: No erythema or exudates. NECK: No masses, no JVD. CHEST: No chest wall deformity. LUNGS: Equal air entry with no crackles, wheeze, rhonchi or dullness. CVS: S1 and S2 normal with no audible murmur, regular rhythm. ABDOMEN: No hepatosplenomegaly, normal bowel sounds, no guarding or rigidity. SPINE: No scoliosis or deformity SKIN: No rashes CENTRAL NERVOUS SYSTEM: No focal deficits, tone is normal in all 4 extremities. EXTREMITIES: There is no peripheral edema. No clubbing, no cyanosis. Peripheral pulses are intact. Results - Laboratory Findings CBC and BMP: 05/24/20 05:38 05/24/20 07:41 PT/INR, D-dimer PT 9.5 sec (9.0-12.0) 05/23/20 22:23 INR 0.9 (<1.2) 05/23/20 22:23 D-Dimer 0.35 mg/L FEU (<0.60) 05/23/20 22:23 Abnormal lab findings: Abnormal Labs 05/23/20 05/23/20 05/24/20 22:23 22:23 01:31 APTT Chloride 110 H Glucose 104 H AST 56 H ALT Troponin I 0.345 H* 15.000 H* Cholesterol LDL Cholesterol, Calc TSH 15.200 H 05/24/20 05/24/20 05/24/20 05:38 05:38 05:38 APTT 70.9 H Chloride Glucose AST ALT Troponin I 31.400 H* Cholesterol 304 H LDL Cholesterol, Calc 221 H TSH 05/24/20 07:41 APTT Chloride 111 H Glucose AST 220 H ALT 36 H Troponin I Cholesterol LDL Cholesterol, Calc TSH - Diagnostic Findings Chest x-ray: image reviewed Assessment and Plan Assessment: 1 Acute myocardial infarction was significant triple-vessel coronary artery disease pending coronary artery bypass grafting 2 Chronic and ongoing tobacco dependence 3 Hypertension 4 Hyperlipidemia 5 History of SVT 6 History of hyperthyroidism previously treated with radioactive iodine with subsequent hypothyroidism 7 Daily alcohol use Plan: The patient was seen and evaluated by Dr. Queen Chest x-ray and labs reviewed Bedside spirometry pending Continue aspirin, statins, beta blockers Continue heparin drip Surgical date and time pending We will continue to follow and make further recommendations based on her clinical status I, the cosigning physician, performed a history & physical examination of the patient. Lungs sounds are clear. Maintaining good O2 saturations in the 90s on 2 L/m per nasal cannula. I discussed the assessment and plan of care with my nurse practitioner, Radha Silva. I attest to the above consultation as dictated by her. Time with Patient: Greater than 30
[2020-05-24 16:38] LABS: Appearance,Urine Clear (Clear); Bilirubin,Urine Negative (Negative); Blood,Urine Small (Negative); Color,Urine Yellow; Glucose,Urine (UA) Negative (Negative); Ketones,Urine Negative (Negative); Leukocyte Esterase,Urine Negative (Negative); Mucus,Urine Rare /hpf; Nitrite,Urine Negative (Negative); PH, Urine 5.5 (5.0-8.0); Protein,Urine Negative (Negative); RBC,Urine 1 /hpf (0-5); Squamous Epithelial Cell,Urine 1 /hpf (0-4); Urobilinogen,Urine <2.0 mg/dL (<2.0); WBC,Urine <1 /hpf (0-5)
[2020-05-24 16:39] LABS: Specific Gravity,Urine >1.050 (1.001-1.035)
[2020-05-24 16:44] LABS: Hemoglobin A1C 5.8 % (4.0-6.0)
[2020-05-24 16:46] LABS: Glucose,Whole Blood 92 mg/dL (75-99)
[2020-05-24] MEDS: SODIUM CHLORIDE 0.9% 1,000 ML IV SCH (16:50)
[2020-05-24] MEDS: MUPIROCIN 2% OINT 22 GM TUBE NASAL SCH ×2 (20:49→20:50)
[2020-05-24] MEDS: LOSARTAN 25 MG TAB PO SCH (20:49)
[2020-05-24] MEDS: ALPRAZolam 0.25 MG TAB PO PRN (20:49)
[2020-05-24] MEDS: ATORVASTATIN 80 MG TAB PO SCH (20:52)
[2020-05-25 04:26] LABS: Basophils # (A) 0.1 k/uL (0-0.2); Basophils % (A) 1 %; Eosinophils # (A) 0.3 k/uL (0-0.7); Eosinophils % (A) 4 %; HGB 11.9 gm/dL (11.4-16.0); Lymphocytes # (A) 1.8 k/uL (1.0-4.8); Lymphocytes % (A) 23 %; MCH 31.7 pg (25.0-35.0); MCHC 32.1 g/dL (31.0-37.0); MCV 98.8 fL (80.0-100.0); Mean Platelet Volume 8.2; Monocytes # (A) 0.5 k/uL (0-1.0); Monocytes % (A) 6 %; Neutrophils # (A) 5.1 k/uL (1.3-7.7); Neutrophils % (A) 65 %; Platelet Count 217 k/uL (150-450); RBC 3.74 m/uL (3.80-5.40); RDW 13.7 % (11.5-15.5); WBC 7.9 k/uL (3.8-10.6)
[2020-05-25] MEDS: SODIUM CHLORIDE 0.9% 1,000 ML IV SCH ×2 (04:53→21:17)
[2020-05-25 05:13] LABS: African American GFR (CKD) >90 (>60 ml/min/1.73 sqM); Anion Gap 2 mmol/L; Blood Urea Nitrogen 13 mg/dL (7-17); Calcium 8.3 mg/dL (8.4-10.2); Carbon Dioxide 25 mmol/L (22-30); Chloride 112 mmol/L (98-107); Glucose 95 mg/dL (74-99); Non-African American GFR(CKD) 79 (>60 ml/min/1.73 sqM); Potassium 3.9 mmol/L (3.5-5.1); Sodium 139 mmol/L (137-145)
[2020-05-25] MEDS: METOPROLOL TARTRATE 25 MG TAB PO SCH ×2 (08:03→21:16)
[2020-05-25] MEDS: ASPIRIN 81 MG PO SCH (08:03)
[2020-05-25] MEDS: FOLIC ACID 1 MG TAB PO SCH (08:03)
[2020-05-25] MEDS: THIAMINE 100 MG TAB PO SCH (08:03)
--- NOTE | 2020-05-25 08:55 | P.PN ---
Subjective Progress Note Date: 05/25/20 Principal diagnosis: Triple-vessel coronary artery disease, nstemi this admission. Previous medical history of hypertension, hyperlipidemia, SVT, hypothyroidism, previous hyper-th yroid treated with radioactive dye, daily tobacco dependence, severe COPD with preoperative FEV1 45% of predicted, daily EtOH use without history of withdrawal. Bilateral internal carotid artery stenosis 50-69% The patient is sitting up in bed in the ICU in no acute distress. Denies chest pain, SOB. IV heparin infusing. Preoperative teaching continues, no new questions Objective - Vital Signs Vital signs: Vital Signs Temp 98.1 F 05/25/20 08:00 Pulse 85 05/25/20 08:00 Resp 22 05/25/20 08:00 BP 109/64 05/25/20 08:00 Pulse Ox 94 L 05/25/20 08:00 Intake & Output 05/24/20 05/25/20 05/25/20 18:59 06:59 18:59 Intake Total 730.360 7894.219 150 Output Total 0 Balance 471.522 3010.219 150 Weight 64.8 kg Intake: IV 700 900 150 Sodium Chloride 0.9% 1, 150 900 150 000 ml @ 75 mls/hr IV . [id number] [facility] Rx#:[id number] Intake, IV Titration 70.898 117.219 Amount Heparin Sod,Pork in 0.45% 117.219 NaCl 25,000 unit In 0.45 % NaCl 1 250ml.bag @ 12 UNITS/KG/HR 7.716 mls/hr IV .Q24H [facility] Rx#: [id number] Heparin Sod,Pork in 0.45% 70.898 NaCl 25,000 unit In 0.45 % NaCl 1 250ml.bag @ 12 UNITS/KG/HR 8.382 mls/hr IV .Q24H [facility] Rx#: [id number] Oral 250 Output: Urine 0 Other: Voiding Method Toilet # Voids 1 1 - Constitutional General appearance: Present: cooperative, no acute distress - Respiratory Details: Lungs sounds diminished bilaterally. Respirations even, nonlabored. Currently on room air with oxygen saturation 94%. Only able to achieve 750 mL on her incentive spirometry - Cardiovascular Details: S1, S2 present. Regular rate and rhythm, sinus rhythm on telemetry. Palpable peripheral pulses bilaterally. No edema present. No calf pain or tenderness noted. - Gastrointestinal Gastrointestinal Comment(s): Abdomen soft, non-tender, non-distentded. Active bowel sounds x 4 quadrants. Tolerating diet - Genitourinary Genitourinary Comment(s): Continues to void - Integumentary Integumentary Comment(s): Skin is warm and dry - Neurologic Neurologic: Present: CNII-XII intact - Musculoskeletal Musculoskeletal: Present: gait normal, strength equal bilaterally - Psychiatric Psychiatric: Present: A&O x's 3, appropriate affect, intact judgment & insight - Allied health notes Allied health notes reviewed: nursing - Labs CBC & Chem 7: 05/25/20 03:50 05/25/20 03:50 Labs: Abnormal Lab Results - Last 24 Hours (Table) 05/24/20 05/24/20 05/24/20 Range/Units 07:41 16:00 20:32 RBC (3.80-5.40) m/uL APTT 32.9 H (22.0-30.0) sec Chloride 111 H (98-107) mmol/L Calcium (8.4-10.2) mg/dL AST 220 H (14-36) U/L ALT 36 H (4-34) U/L Troponin I (0.000-0.034) ng/mL Ur Specific [place] >1.050 H (1.001-1.035) Urine Blood Small H (Negative) Urine Mucus Rare H (None) /hpf 05/25/20 05/25/20 05/25/20 Range/Units 03:50 03:50 03:50 RBC 3.74 L (3.80-5.40) m/uL APTT (22.0-30.0) sec Chloride 112 H (98-107) mmol/L Calcium 8.3 L (8.4-10.2) mg/dL AST (14-36) U/L ALT (4-34) U/L Troponin I 18.500 H* (0.000-0.034) ng/mL Ur Specific [place] (1.001-1.035) Urine Blood (Negative) Urine Mucus (None) /hpf 05/25/20 Range/Units 03:50 RBC (3.80-5.40) m/uL APTT 79.0 H (22.0-30.0) sec Chloride (98-107) mmol/L Calcium (8.4-10.2) mg/dL AST (14-36) U/L ALT (4-34) U/L Troponin I (0.000-0.034) ng/mL Ur Specific [place] (1.001-1.035) Urine Blood (Negative) Urine Mucus (None) /hpf Microbiology - Last 24 Hours (Table) 05/24/20 15:00 Nasal Screen MRSA/MSSA - Preliminary Nasal Swab Assessment and Plan Assessment: 1. Triple-vessel coronary artery disease, nstemi this admission 2. Hypertension 3. Hyperlipidemia, cholesterol 304, LDL 221 4. History of SVT 5. Hypothyroidism, previous history of hyper-thyroid treated with radioactive dye, current TSH 15.2, T4 2.16 6. Current daily tobacco dependence 7. Severe COPD with preoperative FEV1 45% of predicted 8. Almost daily EtOH use without history of withdrawal 9. Bilateral carotid artery stenosis 50-69% Plan: 1. Continue with aspirin, statin, beta ricky therapy, hold Plavix 2. Encourage incentive spirometry use 3. Smoking cessation counseling offered, encouraged 4. Increase activity as tolerated 5. 5 meter walk test completed without difficulty. #1 4.45 sec, #2 3.88 sec, #3 3.94 sec 6. CIWA protocol. Continue thiamine, folic acid 7. Will calculate STS risk score and discuss with the patient 8. Medical management of other comorbidities per primary care service 9. More recommendations to follow regarding timing of surgery Time with Patient: Greater than 30
--- NOTE | 2020-05-25 08:58 | P.PN ---
Subjective Progress Note Date: 05/25/20 Principal diagnosis: NSTEMI This is a very pleasant 59-year-old female patient with a known history of hyperthyroidism with radioactive iodine, SVT approximately 5 years ago, daily alcohol use, chronic and ongoing tobacco dependence of 40 years at 1 pack per day. She presented to the emergency room last evening after developing chest heaviness with radiation into the left arm and jaw. She was found to have a non-ST segment elevation myocardial infarction and subsequently undergone cardiac catheterization today which revealed a 90% and 85% lesions in the LAD at the proximal and mid sections. Circumflex has a proximal 80 the 90 percent stenosis. Based on these findings she is recommended urgent coronary artery bypass surgery. She will be admitted to the intensive care unit. She is seen today in consultation on the extended stay unit. She is awake and alert in no acute distress. She is currently pain-free. She is resting flat on the stretcher. No shortness of breath, cough or congestion. Maintaining O2 saturations in the low 90s on 2 L/m per nasal cannula. Sinus rhythm. Afebrile. Hemodynamically stable. White count 9.8. Hemoglobin 13.6. Platelet count 238. D-dimer 0.35. Sodium 141. Potassium 4.4. Chloride 110. Creatinine 0.88. Troponin 0.345, 15.0, 31.4. TSH 15.2. Cholesterol 304. LDH 221. HDL 59. Triglycerides 122. CoVID 19 screen pending. Chest x-ray revealed mild pulmonary interstitial edema. Carotid Dopplers revealed bilateral atherosclerotic plaque with findings suggested of the 50-69% stenosis bilaterally. Bedside spirometry pending. She remains on a heparin drip currently at 12 units per kilogram per hour. Patient is seen today 05/25/2020 in follow-up in the intensive care unit. She is currently awake and alert in no acute distress. Maintaining O2 saturations in the 90s on room air. She denies any recurrent chest discomfort. No left arm pain. No jaw pain. She remains hemodynamically stable. Her FEV1 value is 47% of predicted. Objective - Vital Signs Vital signs: Vital Signs Temp 98.1 F 05/25/20 08:00 Pulse 85 05/25/20 08:00 Resp 22 05/25/20 08:00 BP 109/64 05/25/20 08:00 Pulse Ox 94 L 05/25/20 08:00 Intake & Output 05/24/20 05/25/20 05/25/20 18:59 06:59 18:59 Intake Total 287.736 5561.219 150 Output Total 0 Balance 732.270 9113.219 150 Weight 64.8 kg Intake: IV 700 900 150 Sodium Chloride 0.9% 1, 150 900 150 000 ml @ 75 mls/hr IV . [id number] [facility] Rx#:[id number] Intake, IV Titration 70.898 117.219 Amount Heparin Sod,Pork in 0.45% 117.219 NaCl 25,000 unit In 0.45 % NaCl 1 250ml.bag @ 12 UNITS/KG/HR 7.716 mls/hr IV .Q24H [facility] Rx#: [id number] Heparin Sod,Pork in 0.45% 70.898 NaCl 25,000 unit In 0.45 % NaCl 1 250ml.bag @ 12 UNITS/KG/HR 8.382 mls/hr IV .Q24H [facility] Rx#: [id number] Oral 250 Output: Urine 0 Other: Voiding Method Toilet # Voids 1 1 - Exam GENERAL EXAM: Alert, active, very pleasant 59-year-old female patient, on room air, comfortable in no apparent distress. HEAD: Normocephalic. EYES: Normal reaction of pupils, equal size. NOSE: Clear with pink turbinates. THROAT: No erythema or exudates. NECK: No masses, no JVD. CHEST: No chest wall deformity. LUNGS: Equal air entry with no crackles, wheeze, rhonchi or dullness. CVS: S1 and S2 normal with no audible murmur, regular rhythm. ABDOMEN: No hepatosplenomegaly, normal bowel sounds, no guarding or rigidity. SPINE: No scoliosis or deformity SKIN: No rashes CENTRAL NERVOUS SYSTEM: No focal deficits, tone is normal in all 4 extremities. EXTREMITIES: There is no peripheral edema. No clubbing, no cyanosis. Peripheral pulses are intact. - Labs CBC & Chem 7: 05/25/20 03:50 05/25/20 03:50 Labs: Abnormal Lab Results - Last 24 Hours (Table) 05/24/20 05/24/20 05/24/20 Range/Units 07:41 16:00 20:32 RBC (3.80-5.40) m/uL APTT 32.9 H (22.0-30.0) sec Chloride 111 H (98-107) mmol/L Calcium (8.4-10.2) mg/dL AST 220 H (14-36) U/L ALT 36 H (4-34) U/L Troponin I (0.000-0.034) ng/mL Ur Specific [place] >1.050 H (1.001-1.035) Urine Blood Small H (Negative) Urine Mucus Rare H (None) /hpf 05/25/20 05/25/20 05/25/20 Range/Units 03:50 03:50 03:50 RBC 3.74 L (3.80-5.40) m/uL APTT (22.0-30.0) sec Chloride 112 H (98-107) mmol/L Calcium 8.3 L (8.4-10.2) mg/dL AST (14-36) U/L ALT (4-34) U/L Troponin I 18.500 H* (0.000-0.034) ng/mL Ur Specific [place] (1.001-1.035) Urine Blood (Negative) Urine Mucus (None) /hpf 05/25/20 Range/Units 03:50 RBC (3.80-5.40) m/uL APTT 79.0 H (22.0-30.0) sec Chloride (98-107) mmol/L Calcium (8.4-10.2) mg/dL AST (14-36) U/L ALT (4-34) U/L Troponin I (0.000-0.034) ng/mL Ur Specific [place] (1.001-1.035) Urine Blood (Negative) Urine Mucus (None) /hpf Microbiology - Last 24 Hours (Table) 05/24/20 15:00 Nasal Screen MRSA/MSSA - Preliminary Nasal Swab Assessment and Plan Assessment: 1 Acute myocardial infarction was significant triple-vessel coronary artery disease pending coronary artery bypass grafting 2 Chronic and ongoing tobacco dependence 3 Hypertension 4 Hyperlipidemia 5 History of SVT 6 History of hyperthyroidism previously treated with radioactive iodine with subsequent hypothyroidism 7 Daily alcohol use Plan: The patient was seen and evaluated by Dr. Queen Bedside spirometry with FEV1 value 47% of predicted Add NicoDerm patch per patient request Educated regarding the importance of complete smoking cessation Continue aspirin, statins, beta blockers Continue heparin drip Surgical date and time pending We will continue to follow and make further recommendations based on her clinical status I, the cosigning physician, performed a history & physical examination of the patient. Lungs sounds are clear. Maintaining good O2 saturations in the 90s on room air. I discussed the assessment and plan of care with my nurse practitioner, Radha Silva. I attest to the above consultation as dictated by her.
[2020-05-25] MEDS ORDERED: POTASSIUM CHLORIDE ER 20 MEQ TAB.ER PO SCH (09:00)
--- NOTE | 2020-05-25 09:17 | CONS ---
CONSULTATION DATE OF CONSULTATION: 05/24/20 I have seen, examined, and agree with the midlevel's findings. MMODL / IJN: [id number] /
--- NOTE | 2020-05-25 09:32 | PN ---
PROGRESS NOTE Mrs Mack is in sinus rhythm, comfortable, resting. No chest pain. Right groin is clean and dry. Vitals are stable. Labs are good. The patient was advised aortocoronary bypass surgery, was seen by Cardiac Surgery. I have no communication from them yet. I will try and reach Dr. Wolf in this regard. Plan is to continue intravenous heparin until surgery. I would recommend surgery to be performed tomorrow, given the patient's significant coronary disease. Prognosis remains guarded. Vitals are stable. Physical exam, otherwise, there are no new significant findings. MMODL / IJN: [id number] /
--- NOTE | 2020-05-25 10:00 | ECHOF ---
Referral Reason:septal wall motion MEASUREMENTS -------- HEIGHT: 157.5 cm WEIGHT: 64.0 kg BP: RVIDd: 2.0 cm (< 3.3) IVSd: 0.9 cm (0.6 - 1.1) LVIDd: 4.3 cm (3.9 - 5.3) LVPWd: 1.1 cm (0.6 - 1.1) IVSs: 1.4 cm LVIDs: 3.5 cm LVPWs: 1.5 cm LAESV Index (A-L): 29.08 ml/m Ao Diam: 2.5 cm (2.0 - 3.7) AV Cusp: 1.3 cm (1.5 - 2.6) LA Diam: 2.3 cm (2.7 - 3.8) MV EXCURSION: 12.703 mm (> 18.000) MV EF SLOPE: 86 mm/s (70 - 150) EPSS: 1.2 cm MV E Vern: 1.16 m/s MV DecT: 157 ms MV A Vern: 0.70 m/s MV E/A Ratio: 1.65 RAP: 5.00 mmHg RVSP: 31.10 mmHg FINDINGS -------- This was a technically difficult study with suboptimal views. The left ventricular size is normal. Left ventricular wall thickness is normal. Overall left vent ricular systolic function is moderately impaired with, an EF between 35 - 40 %. Normal LAP Grade 1 Diastolic Dysfunction Apical septum LV wall motion is hypokinetic. Lateral hypokinesis Inferio rlateral Hypokinesis The right ventricle is normal in size. The left atrial size is normal. Normal LA size by volume 22+/-6 ml/m2. The right atrial size is normal. 5.0mg of Lumason was utilized for enhancement of images The aortic valve is trileaflet and appears structurally normal. The mitral valve is normal. [id number]-[id number] mitral regurgitation is present. The tricuspid valve appears structurally normal. Mild tricuspid regurgitation present. Right vent ricular systolic pressure is normal at < 35 mmHg. There is no pulmonic regurgitation present. The aortic root size is normal. IVC Not well visulized. There is no pericardial effusion. CONCLUSIONS -------- 1. The left ventricular size is normal. 2. Left ventricular wall thickness is normal. 3. Overall left ventricular systolic function is moderately impaired with, an EF between 35 - 40 %. 4. Normal LAP Grade 1 Diastolic Dysfunction 5. Apical septum LV wall motion is hypokinetic. 6. Lateral hypokinesis 7. Inferiorlateral Hypokinesis 8. Ybpkevpl-[id number]-casdtg mitral regurgitation is present. 9. Mild tricuspid regurgitation present. 10. There is no pericardial effusion. HORSE SHOW JUDGE: Ginette Lowe RDCS
[2020-05-25] MEDS: NICOTINE 14MG/24HR PATCH TRANSDERM SCH (10:12)
[2020-05-25] MEDS: HEPARIN SOD,PORK IN 0.45% NACL 25,000 UNIT in 0.45% NACL 1 250ML.BAG IV SCH ×2 (12:28→21:18)
--- NOTE | 2020-05-25 17:52 | P.PN ---
Subjective Progress Note Date: 05/25/20 Objective - Vital Signs Vital signs: Vital Signs Temp 98.9 F 05/25/20 16:00 Pulse 103 H 05/25/20 17:00 Resp 18 05/25/20 17:00 BP 117/90 05/25/20 17:00 Pulse Ox 97 05/25/20 17:00 Intake & Output 05/24/20 05/25/20 05/25/20 18:59 06:59 18:59 Intake Total 399.337 4688.219 724.161 Output Total 0 Balance 386.398 9709.219 724.161 Weight 64.8 kg Intake: IV 700 900 660 Sodium Chloride 0.9% 1, 150 900 660 000 ml @ 75 mls/hr IV . [id number] [facility] Rx#:[id number] Intake, IV Titration 70.898 117.219 64.161 Amount Heparin Sod,Pork in 0.45% 117.219 64.161 NaCl 25,000 unit In 0.45 % NaCl 1 250ml.bag @ 12 UNITS/KG/HR 7.716 mls/hr IV .Q24H [facility] Rx#: [id number] Heparin Sod,Pork in 0.45% 70.898 NaCl 25,000 unit In 0.45 % NaCl 1 250ml.bag @ 12 UNITS/KG/HR 8.382 mls/hr IV .Q24H [facility] Rx#: [id number] Oral 250 Output: Urine 0 Other: Voiding Method Toilet Toilet # Voids 1 1 1 - Constitutional General appearance: Present: no acute distress - Respiratory Respiratory: bilateral: CTA - Cardiovascular Rhythm: regular - Gastrointestinal General gastrointestinal: Present: normal bowel sounds - Integumentary Integumentary: Present: normal - Labs CBC & Chem 7: 05/25/20 03:50 05/25/20 03:50 Labs: Abnormal Lab Results - Last 24 Hours (Table) 05/24/20 05/25/20 05/25/20 Range/Units 20:32 03:50 03:50 RBC 3.74 L (3.80-5.40) m/uL APTT 32.9 H (22.0-30.0) sec Chloride 112 H (98-107) mmol/L Calcium 8.3 L (8.4-10.2) mg/dL Troponin I (0.000-0.034) ng/mL 05/25/20 05/25/20 05/25/20 Range/Units 03:50 03:50 11:33 RBC (3.80-5.40) m/uL APTT 79.0 H 38.4 H (22.0-30.0) sec Chloride (98-107) mmol/L Calcium (8.4-10.2) mg/dL Troponin I 18.500 H* (0.000-0.034) ng/mL Microbiology - Last 24 Hours (Table) 05/24/20 15:00 Nasal Screen MRSA/MSSA - Preliminary Nasal Swab Assessment and Plan (1) NSTEMI (non-ST elevated myocardial infarction) Narrative/Plan: Status post cath, triple vessel disease, CABG pending on a heparin drip denies chest pain or shortness of breath Current Visit: Yes Status: Acute Code(s): I21.4 - NON-ST ELEVATION (NSTEMI) MYOCARDIAL INFARCTION SNOMED Code(s): 29051110 (2) Hypothyroidism Narrative/Plan: History of hyperthyroidism and radioactive treatment in the past, no need for medications at this time patient follow-up on repeat testing 3-4 weeks Current Visit: No Status: Acute Code(s): E03.9 - HYPOTHYROIDISM, UNSPECIFIED SNOMED Code(s): 29429220 (3) Tobacco abuse Narrative/Plan: Counseled about smoking cessation Current Visit: Yes Status: Acute Code(s): Z72.0 - TOBACCO USE SNOMED Code(s): 269789142
[2020-05-25] MEDS: LOSARTAN 25 MG TAB PO SCH (21:16)
[2020-05-25] MEDS: ATORVASTATIN 80 MG TAB PO SCH (21:16)
[2020-05-25] MEDS: ALPRAZolam 0.25 MG TAB PO PRN (21:16)
[2020-05-25] MEDS: MUPIROCIN 2% OINT 22 GM TUBE NASAL SCH (21:19)
[2020-05-26] MEDS: SODIUM CHLORIDE 0.9% 1,000 ML IV SCH (06:49)
--- NOTE | 2020-05-26 09:36 | XR ---
EXAMINATION TYPE: XR chest 2V DATE OF EXAM: 05/26/2020 COMPARISON: Prior chest x-ray 05/23/2020 HISTORY: Preop coronary artery bypass graft TECHNIQUE: Frontal and lateral views of the chest are obtained. FINDINGS: There is some blunting of the left costophrenic angle, patchy basilar density not seen on prior exam. Cardiac mediastinal silhouette is stable. Interstitium appears mildly increased. There is no evident pneumothorax. IMPRESSION: Possible basilar atelectasis, small effusion, correlate to exclude pneumonia, interstiti al edema.
--- NOTE | 2020-05-26 09:51 | P.PN ---
Subjective Progress Note Date: 05/26/20 Principal diagnosis: Triple-vessel coronary artery disease, nstemi this admission. Previous medical history of hypertension, hyperlipidemia, SVT, hypothyroidism, previous hyper-th yroid treated with radioactive dye, daily tobacco dependence, severe COPD with preoperative FEV1 45% of predicted, daily EtOH use without history of withdrawal. Bilateral internal carotid artery stenosis 50-69% The patient is walking around in her room on the cardiac stepdown unit in no acute distress. Denies chest pain, SOB. IV heparin infusing. Preoperative teaching continues, no new questions Objective - Vital Signs Vital signs: Vital Signs Temp 97.9 F 05/25/20 23:08 Pulse 66 05/26/20 04:00 Resp 18 05/26/20 04:00 BP 109/70 05/26/20 04:00 Pulse Ox 91 L 05/26/20 04:00 Intake & Output 05/25/20 05/26/20 05/26/20 18:59 06:59 18:59 Intake Total 724.161 125.197 Balance 724.161 125.197 Weight 66.8 kg Intake: IV 660 40 Invasive Line 2 10 Sodium Chloride 0.9% 1, 660 30 000 ml @ 75 mls/hr IV . [id number] [facility] Rx#:[id number] Intake, IV Titration 64.161 85.197 Amount Heparin Sod,Pork in 0.45% 64.161 85.197 NaCl 25,000 unit In 0.45 % NaCl 1 250ml.bag @ 12 UNITS/KG/HR 7.716 mls/hr IV .Q24H [facility] Rx#: [id number] Other: Voiding Method Toilet Toilet # Voids 1 - Constitutional General appearance: Present: cooperative, no acute distress - Respiratory Details: Lungs sounds diminished bilaterally. Respirations even, nonlabored. Currently on room air with oxygen saturation 91%. Only able to achieve 750 mL on her incentive spirometry - Cardiovascular Details: S1, S2 present. Regular rate and rhythm, sinus rhythm on telemetry. Palpable peripheral pulses bilaterally. No edema present. No calf pain or tenderness noted. - Gastrointestinal Gastrointestinal Comment(s): Abdomen soft, non-tender, non-distentded. Active bowel sounds x 4 quadrants. Tolerating diet - Genitourinary Genitourinary Comment(s): Continues to void - Integumentary Integumentary Comment(s): Skin is warm and dry - Neurologic Neurologic: Present: CNII-XII intact - Musculoskeletal Musculoskeletal: Present: gait normal, strength equal bilaterally - Psychiatric Psychiatric: Present: A&O x's 3, appropriate affect, intact judgment & insight - Allied health notes Allied health notes reviewed: nursing - Labs CBC & Chem 7: 05/25/20 03:50 05/25/20 03:50 Labs: Abnormal Lab Results - Last 24 Hours (Table) 05/25/20 05/25/20 Range/Units 11:33 17:51 APTT 38.4 H 60.2 H (22.0-30.0) sec Microbiology - Last 24 Hours (Table) 05/24/20 15:00 Nasal Screen MRSA/MSSA - Final Nasal Swab - Imaging and Cardiology Chest x-ray: report reviewed, image reviewed Assessment and Plan Assessment: 1. Triple-vessel coronary artery disease, nstemi this admission 2. Hypertension 3. Hyperlipidemia, cholesterol 304, LDL 221 4. History of SVT 5. Hypothyroidism, previous history of hyper-thyroid treated with radioactive dye, current TSH 15.2, T4 2.16 6. Current daily tobacco dependence 7. Severe COPD with preoperative FEV1 45% of predicted 8. Almost daily EtOH use without history of withdrawal 9. Bilateral carotid artery stenosis 50-69% Plan: 1. Continue with aspirin, statin, beta ricky therapy, hold Plavix. Will hold Cozaar 48 hours prior to surgery to decrease incidence of intraoperative and postoperative hypotension 2. Encourage incentive spirometry use 3. Smoking cessation counseling offered, encouraged 4. Increase activity as tolerated 5. CIWA protocol. Continue thiamine, folic acid 6. Our plan is for coronary artery bypass surgery with left internal mammary artery, endoscopic vein harvesting and intraoperative transesophageal echocardiogram to be completed 05/29/[address] Contreras. 7. Medical management of other comorbidities per primary care service 9. More recommendations to follow Time with Patient: Greater than 30
[2020-05-26] MEDS: THIAMINE 100 MG TAB PO SCH (10:18)
[2020-05-26] MEDS: METOPROLOL TARTRATE 25 MG TAB PO SCH ×2 (10:18→21:32)
[2020-05-26] MEDS: ASPIRIN 81 MG PO SCH (10:18)
[2020-05-26] MEDS: NICOTINE 14MG/24HR PATCH TRANSDERM SCH (10:18)
[2020-05-26] MEDS: FOLIC ACID 1 MG TAB PO SCH (10:18)
[2020-05-26] MEDS: MUPIROCIN 2% OINT 22 GM TUBE NASAL SCH ×2 (10:19→21:33)
[2020-05-26 10:41] LABS: Basophils # (A) 0.1 k/uL (0-0.2); Basophils % (A) 1 %; Eosinophils # (A) 0.4 k/uL (0-0.7); Eosinophils % (A) 4 %; HCT 35.7 % (34.0-46.0); HGB 11.8 gm/dL (11.4-16.0); Lymphocytes # (A) 1.7 k/uL (1.0-4.8); Lymphocytes % (A) 19 %; MCH 32.7 pg (25.0-35.0); MCV 99.1 fL (80.0-100.0); Mean Platelet Volume 8.8; Monocytes # (A) 0.6 k/uL (0-1.0); Monocytes % (A) 7 %; Neutrophils # (A) 5.8 k/uL (1.3-7.7); Neutrophils % (A) 67 %; Platelet Count 208 k/uL (150-450); RBC 3.61 m/uL (3.80-5.40); RDW 13.3 % (11.5-15.5); WBC 8.8 k/uL (3.8-10.6)
[2020-05-26 11:39] LABS: Albumin 3.7 g/dL (3.5-5.0); Calcium 9.3 mg/dL (8.4-10.2); Potassium 4.4 mmol/L (3.5-5.1); Total Bilirubin 0.5 mg/dL (0.2-1.3); Total Protein 6.3 g/dL (6.3-8.2)
--- NOTE | 2020-05-26 12:11 | P.PN ---
Subjective HISTORY OF PRESENTING ILLNESS This is a pleasant 59-year-old female past medical history significant for supraventricular tachycardia, chronic nicotine dependence and daily alcohol intake. 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 patient is seen and examined resting comfortably in bed in no acute distress. She has no symptoms of chest pain, shortness of breath, dizziness or palpitations. She is scheduled to undergo bypass grafting on Friday. Blood pressure 119/74 heart rate 84 afebrile maintaining oxygen saturation on room air. Laboratory data reviewed, WBC 8.8, hemoglobin 11.8, platelets 208, sodium 142, potassium 4.4, creatinine 0.84. PHYSICAL EXAMINATION CONSTITUTIONAL: No apparent distress. HEENT: Head is normocephalic. Pupils are equal, round. Sclerae anicteric. Mucous membranes of the mouth are moist. No JVD. Left carotid bruit. CHEST EXAMINATION: Lungs are clear to auscultation. No chest wall tenderness is noted on palpation or with deep breathing. Diminished bilaterally. HEART EXAMINATION: Regular rate and rhythm. S1, S2 heard. Soft systolic ejection murmur at the left sternal border, no gallops or rub. EXTREMITIES: 2+ peripheral pulses, no lower extremity edema and no calf tenderness. ASSESSMENT Non-ST elevated myocardial infarction coronary artery disease, severe triple vessel Nonsustained ventricular tachycardia acute systolic heart failure Dyslipidemia Hypertension Chronic nicotine dependence Daily alcohol use PLAN Discontinue IV heparin and initiate subcu Lovenox 60 mg twice a day to start tonight. Continue beta blockers, aspirin, atorvastatin and ARB as previously ordered. Scheduled for bypass grafting Friday. Nurse Practitioner note has been reviewed, I agree with a documented findings and plan of care. Patient was seen and examined. Objective - Vital Signs Vital signs: Vital Signs Temp 98.2 F 05/26/20 10:16 Pulse 80 05/26/20 10:16 Resp 16 05/26/20 10:16 BP 120/69 05/26/20 10:16 Pulse Ox 95 05/26/20 12:02 Intake & Output 05/25/20 05/26/20 05/26/20 18:59 06:59 18:59 Intake Total 724.161 125.197 Balance 724.161 125.197 Weight 66.8 kg Intake: IV 660 40 Invasive Line 2 10 Sodium Chloride 0.9% 1, 660 30 000 ml @ 75 mls/hr IV . [id number] [facility] Rx#:[id number] Intake, IV Titration 64.161 85.197 Amount Heparin Sod,Pork in 0.45% 64.161 85.197 NaCl 25,000 unit In 0.45 % NaCl 1 250ml.bag @ 12 UNITS/KG/HR 7.716 mls/hr IV .Q24H [facility] Rx#: [id number] Other: Voiding Method Toilet Toilet # Voids 1 - Labs CBC & Chem 7: 05/26/20 10:12 05/26/20 10:12 Labs: Abnormal Lab Results - Last 24 Hours (Table) 05/25/20 05/25/20 05/26/20 Range/Units 11:33 17:51 10:12 RBC 3.61 L (3.80-5.40) m/uL APTT 38.4 H 60.2 H (22.0-30.0) sec Chloride (98-107) mmol/L AST (14-36) U/L Troponin I (0.000-0.034) ng/mL 05/26/20 05/26/20 05/26/20 Range/Units 10:12 10:12 10:12 RBC (3.80-5.40) m/uL APTT 62.4 H (22.0-30.0) sec Chloride 112 H (98-107) mmol/L AST 79 H (14-36) U/L Troponin I 5.830 H* (0.000-0.034) ng/mL Microbiology - Last 24 Hours (Table) 05/24/20 15:00 Nasal Screen MRSA/MSSA - Final Nasal Swab
--- NOTE | 2020-05-26 15:15 | P.PN ---
Subjective Progress Note Date: 05/26/20 Objective - Vital Signs Vital signs: Vital Signs Temp 98.2 F 05/26/20 10:16 Pulse 84 05/26/20 12:00 Resp 16 05/26/20 12:00 BP 119/74 05/26/20 12:00 Pulse Ox 95 05/26/20 12:02 Intake & Output 05/25/20 05/26/20 05/26/20 18:59 06:59 18:59 Intake Total 724.161 125.197 Balance 724.161 125.197 Weight 66.8 kg Intake: IV 660 40 Invasive Line 2 10 Sodium Chloride 0.9% 1, 660 30 000 ml @ 75 mls/hr IV . [id number] [facility] Rx#:[id number] Intake, IV Titration 64.161 85.197 Amount Heparin Sod,Pork in 0.45% 64.161 85.197 NaCl 25,000 unit In 0.45 % NaCl 1 250ml.bag @ 12 UNITS/KG/HR 7.716 mls/hr IV .Q24H [facility] Rx#: [id number] Other: Voiding Method Toilet Toilet # Voids 1 - Respiratory Respiratory: bilateral: CTA - Cardiovascular Rhythm: regular - Gastrointestinal General gastrointestinal: Present: normal bowel sounds - Integumentary Integumentary: Present: normal - Psychiatric Psychiatric: Present: appropriate affect - Labs CBC & Chem 7: 05/26/20 10:12 05/26/20 10:12 Labs: Abnormal Lab Results - Last 24 Hours (Table) 05/25/20 05/26/20 05/26/20 Range/Units 17:51 10:12 10:12 RBC 3.61 L (3.80-5.40) m/uL APTT 60.2 H (22.0-30.0) sec Chloride 112 H (98-107) mmol/L AST 79 H (14-36) U/L Troponin I (0.000-0.034) ng/mL 05/26/20 05/26/20 Range/Units 10:12 10:12 RBC (3.80-5.40) m/uL APTT 62.4 H (22.0-30.0) sec Chloride (98-107) mmol/L AST (14-36) U/L Troponin I 5.830 H* (0.000-0.034) ng/mL Microbiology - Last 24 Hours (Table) 05/24/20 15:00 Nasal Screen MRSA/MSSA - Final Nasal Swab Assessment and Plan (1) NSTEMI (non-ST elevated myocardial infarction) Narrative/Plan: Non-ST elevation AR status post cardiac catheterization with evidence of severe triple vessel disease plan for CABG on Friday appreciated cardiology and surgery input. The patient will be started on Lovenox twice a day her heparin was discontinued Current Visit: Yes Status: Acute Code(s): I21.4 - NON-ST ELEVATION (NSTEMI) MYOCARDIAL INFARCTION SNOMED Code(s): 29429856 (2) Hypothyroidism Narrative/Plan: Recheck as an outpatient elevated TSH with normal T4 she has a history of hyperthyroidism status post DUFFY Current Visit: No Status: Acute Code(s): E03.9 - HYPOTHYROIDISM, UNSPECIFIED SNOMED Code(s): 92929585 (3) Tobacco abuse Narrative/Plan: The patient was counseled as a patient pulmonary input Current Visit: Yes Status: Acute Code(s): Z72.0 - TOBACCO USE SNOMED Code(s): 669312109 (4) COPD (chronic obstructive pulmonary disease) Narrative/Plan: Severe COPD appreciate pulmonary input not in any acute exacerbation Current Visit: Yes Status: Acute Code(s): J44.9 - CHRONIC OBSTRUCTIVE PULMONARY DISEASE, UNSPECIFIED SNOMED Code(s): 41255866 Plan: Patient is awaiting CABG on 05/29. Continue to monitor she is currently chest pain-free she doesn't his have a history of daily alcohol use but has had no evidence of withdrawal during her hospitalization.
--- NOTE | 2020-05-26 17:18 | P.PN ---
Subjective Progress Note Date: 05/26/20 This is a very pleasant 59-year-old female patient with a known history of hyperthyroidism with radioactive iodine, SVT approximately 5 years ago, daily alcohol use, chronic and ongoing tobacco dependence of 40 years at 1 pack per day. She presented to the emergency room last evening after developing chest heaviness with radiation into the left arm and jaw. She was found to have a non-ST segment elevation myocardial infarction and subsequently undergone cardiac catheterization today which revealed a 90% and 85% lesions in the LAD at the proximal and mid sections. Circumflex has a proximal 80 the 90 percent stenosis. Based on these findings she is recommended urgent coronary artery bypass surgery. She will be admitted to the intensive care unit. She is seen today in consultation on the extended stay unit. She is awake and alert in no acute distress. She is currently pain-free. She is resting flat on the stretcher. No shortness of breath, cough or congestion. Maintaining O2 saturat ions in the low 90s on 2 L/m per nasal cannula. Sinus rhythm. Afebrile. Hemodynamically stable. White count 9.8. Hemoglobin 13.6. Platelet count 238. D-dimer 0.35. Sodium 141. Potassium 4.4. Chloride 110. Creatinine 0.88. Troponin 0.345, 15.0, 31.4. TSH 15.2. Cholesterol 304. LDH 221. HDL 59. Triglycerides 122. CoVID 19 screen pending. Chest x-ray revealed mild pulmonary interstitial edema. Carotid Dopplers revealed bilateral atherosclerotic plaque with findings suggested of the 50-69% stenosis bilaterally. Bedside spirometry pending. She remains on a heparin drip current ly at 12 units per kilogram per hour. Patient is seen today 05/25/2020 in follow-up in the intensive care unit. She is currently awake and alert in no acute distress. Maintaining O2 saturations in the 90s on room air. She denies any recurrent chest discomfort. No left arm pain. No jaw pain. She remains hemodynamically stable. Her FEV1 value is 47% of predicted. On 05/26/2020, the patient is a specific complaints. She is free of any chest pain. She is emanating within her room. She is on Lovenox 60 mg subcu every 12 hours. She is also on high-dose statin with Lipitor 80 mg by mouth daily and metoprolol 25 mg by mouth twice a day and Cozaar 25 mg by mouth daily. No angina. No palpitations. No syncope. The tentative plan is to proceed with coronary artery bypass surgery on this patient on Friday. Objective - Vital Signs Vital signs: Vital Signs Temp 98.4 F 05/26/20 16:45 Pulse 89 05/26/20 16:45 Resp 16 05/26/20 16:45 BP 129/85 05/26/20 16:45 Pulse Ox 97 05/26/20 16:45 Intake & Output 05/25/20 05/26/20 05/26/20 18:59 06:59 18:59 Intake Total 724.161 125.197 20 Balance 724.161 125.197 20 Weight 66.8 kg Intake: IV 660 40 20 Invasive Line 2 10 20 Sodium Chloride 0.9% 1, 660 30 000 ml @ 75 mls/hr IV . [id number] [facility] Rx#:[id number] Intake, IV Titration 64.161 85.197 Amount Heparin Sod,Pork in 0.45% 64.161 85.197 NaCl 25,000 unit In 0.45 % NaCl 1 250ml.bag @ 12 UNITS/KG/HR 7.716 mls/hr IV .Q24H [facility] Rx#: [id number] Other: Voiding Method Toilet Toilet Toilet # Voids 1 - Exam GENERAL EXAM: Alert, active, very pleasant 59-year-old female patient, on room air, comfortable in no apparent distress. HEAD: Normocephalic. EYES: Normal reaction of pupils, equal size. NOSE: Clear with pink turbinates. THROAT: No erythema or exudates. NECK: No masses, no JVD. CHEST: No chest wall deformity. LUNGS: Equal air entry with no crackles, wheeze, rhonchi or dullness. CVS: S1 and S2 normal with no audible murmur, regular rhythm. ABDOMEN: No hepatosplenomegaly, normal bowel sounds, no guarding or rigidity. SPINE: No scoliosis or deformity SKIN: No rashes CENTRAL NERVOUS SYSTEM: No focal deficits, tone is normal in all 4 extremities. EXTREMITIES: There is no peripheral edema. No clubbing, no cyanosis. Peripheral pulses are intact. - Labs CBC & Chem 7: 05/26/20 10:12 05/26/20 10:12 Labs: Abnormal Lab Results - Last 24 Hours (Table) 05/25/20 05/26/20 05/26/20 Range/Units 17:51 10:12 10:12 RBC 3.61 L (3.80-5.40) m/uL APTT 60.2 H (22.0-30.0) sec Chloride 112 H (98-107) mmol/L AST 79 H (14-36) U/L Troponin I (0.000-0.034) ng/mL 05/26/20 05/26/20 Range/Units 10:12 10:12 RBC (3.80-5.40) m/uL APTT 62.4 H (22.0-30.0) sec Chloride (98-107) mmol/L AST (14-36) U/L Troponin I 5.830 H* (0.000-0.034) ng/mL Microbiology - Last 24 Hours (Table) 05/24/20 15:00 Nasal Screen MRSA/MSSA - Final Nasal Swab Assessment and Plan Plan: 1 Acute myocardial infarction was significant triple-vessel coronary artery disease pending coronary artery bypass grafting 2 Chronic and ongoing tobacco dependence 3 Hypertension 4 Hyperlipidemia 5 History of SVT 6 History of hyperthyroidism previously treated with radioactive iodine with subsequent hypothyroidism 7 Daily alcohol use Plan: Continue monitoring this patient Currently she is free of any chest pain Continue same cardiac medication Tentative plan is to proceed with coronary artery bypass surgery by Friday IV heparin has been switched to Lovenox Pulmonary status is stable and will continue to follow
[2020-05-26 20:24] LABS: Hepatitis A Antibody IgM Non-Reactive (Non-Reactive); Hepatitis B Core IgM Non-Reactive (Non-Reactive); Hepatitis B Surface Antigen Non-Reactive (Non-Reactive); Hepatitis C IgG Antibody Non-Reactive (Non-Reactive)
[2020-05-26] MEDS: LOSARTAN 25 MG TAB PO SCH (21:32)
[2020-05-26] MEDS: ENOXAPARIN 60 MG/0.6 ML SYRINGE SQ SCH (21:32)
[2020-05-26] MEDS: ATORVASTATIN 80 MG TAB PO SCH (21:32)
[2020-05-26] MEDS: ALPRAZolam 0.25 MG TAB PO PRN (21:46)
[2020-05-27] MEDS: SODIUM CHLORIDE 0.9% 1,000 ML IV SCH ×2 (05:52→05:53)
[2020-05-27] MEDS ORDERED: MD COMMUNICATION TO PHARMACY 1 EACH MISC PO ONE ×2 (08:40)
[2020-05-27] MEDS: ENOXAPARIN 60 MG/0.6 ML SYRINGE SQ SCH ×2 (09:30→21:55)
[2020-05-27] MEDS: NICOTINE 14MG/24HR PATCH TRANSDERM SCH (09:31)
[2020-05-27] MEDS: THIAMINE 100 MG TAB PO SCH (09:31)
[2020-05-27] MEDS: METOPROLOL TARTRATE 25 MG TAB PO SCH ×2 (09:31→21:55)
[2020-05-27] MEDS: FOLIC ACID 1 MG TAB PO SCH (09:31)
[2020-05-27] MEDS: ASPIRIN 81 MG PO SCH (09:31)
--- NOTE | 2020-05-27 09:42 | P.PN ---
Subjective Progress Note Date: 05/27/20 Principal diagnosis: Triple-vessel coronary artery disease, nstemi this admission. Previous medical history of hypertension, hyperlipidemia, SVT, hypothyroidism, previous hyper-th yroid treated with radioactive dye, daily tobacco dependence, severe COPD with preoperative FEV1 45% of predicted, daily EtOH use without history of withdrawal. Bilateral internal carotid artery stenosis 50-69% The patient is walking around in her room on the cardiac stepdown unit in no acute distress. Denies chest pain, SOB. Preoperative teaching continues, no new questions, anticipating surgery on Friday Objective - Vital Signs Vital signs: Vital Signs Temp 98.5 F 05/26/20 20:00 Pulse 75 05/27/20 04:00 Resp 18 05/27/20 04:00 BP 97/57 05/27/20 04:00 Pulse Ox 92 L 05/27/20 04:00 Intake & Output 05/26/20 05/27/20 05/27/20 18:59 06:59 18:59 Intake Total 20 20 Balance 20 20 Weight 65.9 kg Intake: IV 20 20 Invasive Line 2 20 20 Other: Voiding Method Toilet Toilet - Constitutional General appearance: Present: cooperative, no acute distress - Respiratory Details: Lungs sounds diminished bilaterally. Respirations even, nonlabored. Currently on room air with oxygen saturation 92%. Able to achieve 1000 mL on her incentive spirometry - Cardiovascular Details: S1, S2 present. Regular rate and rhythm, sinus rhythm on telemetry. Palpable peripheral pulses bilaterally. No edema present. No calf pain or tenderness noted. - Gastrointestinal Gastrointestinal Comment(s): Abdomen soft, non-tender, non-distentded. Active bowel sounds x 4 quadrants. Tolerating diet - Genitourinary Genitourinary Comment(s): Continues to void - Integumentary Integumentary Comment(s): Skin is warm and dry - Neurologic Neurologic: Present: CNII-XII intact - Musculoskeletal Musculoskeletal: Present: gait normal, strength equal bilaterally - Psychiatric Psychiatric: Present: A&O x's 3, appropriate affect, intact judgment & insight - Allied health notes Allied health notes reviewed: nursing - Labs CBC & Chem 7: 05/26/20 10:12 05/26/20 10:12 Labs: Abnormal Lab Results - Last 24 Hours (Table) 05/26/20 05/26/20 05/26/20 Range/Units 10:12 10:12 10:12 RBC 3.61 L (3.80-5.40) m/uL APTT 62.4 H (22.0-30.0) sec Chloride 112 H (98-107) mmol/L AST 79 H (14-36) U/L Troponin I (0.000-0.034) ng/mL 05/26/20 Range/Units 10:12 RBC (3.80-5.40) m/uL APTT (22.0-30.0) sec Chloride (98-107) mmol/L AST (14-36) U/L Troponin I 5.830 H* (0.000-0.034) ng/mL - Imaging and Cardiology Chest x-ray: report reviewed, image reviewed Assessment and Plan Assessment: 1. Triple-vessel coronary artery disease, nstemi this admission 2. Hypertension 3. Hyperlipidemia, cholesterol 304, LDL 221 4. History of SVT 5. Hypothyroidism, previous history of hyper-thyroid treated with radioactive dye, current TSH 15.2, T4 2.16 6. Current daily tobacco dependence 7. Severe COPD with preoperative FEV1 45% of predicted 8. Almost daily EtOH use without history of withdrawal 9. Bilateral carotid artery stenosis 50-69% Plan: 1. Continue with aspirin, statin, beta ricky therapy, hold Plavix. Will hold Cozaar 48 hours prior to surgery to decrease incidence of intraoperative and postoperative hypotension 2. Encourage incentive spirometry use 3. Smoking cessation counseling offered, encouraged 4. Increase activity as tolerated 5. CIWA protocol. Continue thiamine, folic acid 6. Our plan is for coronary artery bypass surgery with left internal mammary artery, endoscopic vein harvesting and intraoperative transesophageal echocardiogram to be completed 05/29/[address] Contreras. 7. Medical management of other comorbidities per primary care service 8. More recommendations to follow Time with Patient: Greater than 30
[2020-05-27] MEDS: MUPIROCIN 2% OINT 22 GM TUBE NASAL SCH ×2 (09:46→21:57)
--- NOTE | 2020-05-27 10:56 | P.PN ---
Subjective Progress Note Date: 05/27/20 This is a very pleasant 59-year-old female patient with a known history of hyperthyroidism with radioactive iodine, SVT approximately 5 years ago, daily alcohol use, chronic and ongoing tobacco dependence of 40 years at 1 pack per day. She presented to the emergency room last evening after developing chest heaviness with radiation into the left arm and jaw. She was found to have a non-ST segment elevation myocardial infarction and subsequently undergone cardiac catheterization today which revealed a 90% and 85% lesions in the LAD at the proximal and mid sections. Circumflex has a proximal 80 the 90 percent stenosis. Based on these findings she is recommended urgent coronary artery bypass surgery. She will be admitted to the intensive care unit. She is seen today in consultation on the extended stay unit. She is awake and alert in no acute distress. She is currently pain-free. She is resting flat on the stretcher. No shortness of breath, cough or congestion. Maintaining O2 saturat ions in the low 90s on 2 L/m per nasal cannula. Sinus rhythm. Afebrile. Hemodynamically stable. White count 9.8. Hemoglobin 13.6. Platelet count 238. D-dimer 0.35. Sodium 141. Potassium 4.4. Chloride 110. Creatinine 0.88. Troponin 0.345, 15.0, 31.4. TSH 15.2. Cholesterol 304. LDH 221. HDL 59. Triglycerides 122. CoVID 19 screen pending. Chest x-ray revealed mild pulmonary interstitial edema. Carotid Dopplers revealed bilateral atherosclerotic plaque with findings suggested of the 50-69% stenosis bilaterally. Bedside spirometry pending. She remains on a heparin drip current ly at 12 units per kilogram per hour. Patient is seen today 05/25/2020 in follow-up in the intensive care unit. She is currently awake and alert in no acute distress. Maintaining O2 saturations in the 90s on room air. She denies any recurrent chest discomfort. No left arm pain. No jaw pain. She remains hemodynamically stable. Her FEV1 value is 47% of predicted. On 05/26/2020, the patient is a specific complaints. She is free of any chest pain. She is emanating within her room. She is on Lovenox 60 mg subcu every 12 hours. She is also on high-dose statin with Lipitor 80 mg by mouth daily and metoprolol 25 mg by mouth twice a day and Cozaar 25 mg by mouth daily. No angina. No palpitations. No syncope. The tentative plan is to proceed with coronary artery bypass surgery on this patient on Friday. 05/27/2020, the patient is still free of any chest pain. She was switched to Lovenox and his injection. She still awaiting her bypass surgery this is tentatively scheduled on Friday. No new complaints. No cardiac arrhythmias features ambulate safely she's using incentive spirometer. She is on oxygen at room air and she is not having any Objective - Vital Signs Vital signs: Vital Signs Temp 98.1 F 05/27/20 08:00 Pulse 90 05/27/20 08:00 Resp 16 05/27/20 08:00 BP 103/66 05/27/20 08:00 Pulse Ox 97 05/27/20 08:00 Intake & Output 05/26/20 05/27/20 05/27/20 18:59 06:59 18:59 Intake Total 20 20 Balance 20 20 Weight 65.9 kg Intake: IV 20 20 Invasive Line 2 20 20 Other: Voiding Method Toilet Toilet - Exam GENERAL EXAM: Alert, active, very pleasant 59-year-old female patient, on room air, comfortable in no apparent distress. HEAD: Normocephalic. EYES: Normal reaction of pupils, equal size. NOSE: Clear with pink turbinates. THROAT: No erythema or exudates. NECK: No masses, no JVD. CHEST: No chest wall deformity. LUNGS: Equal air entry with no crackles, wheeze, rhonchi or dullness. CVS: S1 and S2 normal with no audible murmur, regular rhythm. ABDOMEN: No hepatosplenomegaly, normal bowel sounds, no guarding or rigidity. SPINE: No scoliosis or deformity SKIN: No rashes CENTRAL NERVOUS SYSTEM: No focal deficits, tone is normal in all 4 extremities. EXTREMITIES: There is no peripheral edema. No clubbing, no cyanosis. Peripheral pulses are intact. - Labs CBC & Chem 7: 05/26/20 10:12 05/26/20 10:12 Labs: Abnormal Lab Results - Last 24 Hours (Table) 05/26/20 05/26/20 05/26/20 Range/Units 10:12 10:12 10:12 APTT 62.4 H (22.0-30.0) sec Chloride 112 H (98-107) mmol/L AST 79 H (14-36) U/L Troponin I 5.830 H* (0.000-0.034) ng/mL Assessment and Plan Plan: 1 Acute myocardial infarction was significant triple-vessel coronary artery disease pending coronary artery bypass grafting 2 Chronic and ongoing tobacco dependence 3 Hypertension 4 Hyperlipidemia 5 History of SVT 6 History of hyperthyroidism previously treated with radioactive iodine with subsequent hypothyroidism 7 Daily alcohol use Plan: Continue monitoring this patient, No change in her condition over the past 24 hours. Currently she is free of any chest pain Continue same cardiac medication Tentative plan is to proceed with coronary artery bypass surgery by Friday IV heparin has been switched to Lovenox Pulmonary status is stable and will continue to follow
--- NOTE | 2020-05-27 13:20 | P.PN ---
Subjective HISTORY OF PRESENTING ILLNESS This is a pleasant 59-year-old female past medical history significant for supraventricular tachycardia, chronic nicotine dependence and daily alcohol intake. 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 patient is seen and examined resting comfortably in bed in no acute distress. She has no symptoms of chest pain, shortness of breath, dizziness or palpitations. She is scheduled to undergo bypass grafting on Friday. Blood pressure 112/70 heart rate 70 afebrile maintaining oxygen saturation on room air. PHYSICAL EXAMINATION CONSTITUTIONAL: No apparent distress. HEENT: Head is normocephalic. Pupils are equal, round. Sclerae anicteric. Mucous membranes of the mouth are moist. No JVD. Left carotid bruit. CHEST EXAMINATION: Lungs are clear to auscultation. No chest wall tenderness is noted on palpation or with deep breathing. Diminished bilaterally. HEART EXAMINATION: Regular rate and rhythm. S1, S2 heard. Soft systolic ejection murmur at the left sternal border, no gallops or rub. EXTREMITIES: 2+ peripheral pulses, no lower extremity edema and no calf tenderness. ASSESSMENT Non-ST elevated myocardial infarction coronary artery disease, severe triple vessel Nonsustained ventricular tachycardia acute systolic heart failure Dyslipidemia Hypertension Chronic nicotine dependence Daily alcohol use PLAN Continue beta blockers, aspirin, atorvastatin and ARB as previously ordered. Scheduled for bypass grafting Friday. Nurse Practitioner note has been reviewed, I agree with a documented findings and plan of care. Patient was seen and examined. Objective - Vital Signs Vital signs: Vital Signs Temp 98 F 05/27/20 11:44 Pulse 70 05/27/20 11:44 Resp 18 05/27/20 11:44 BP 112/70 05/27/20 11:44 Pulse Ox 99 05/27/20 11:44 Intake & Output 05/26/20 05/27/20 05/27/20 18:59 06:59 18:59 Intake Total 20 20 10 Balance 20 20 10 Weight 65.9 kg Intake: IV 20 20 10 Invasive Line 2 20 20 10 Other: Voiding Method Toilet Toilet - Labs CBC & Chem 7: 05/26/20 10:12 05/26/20 10:12
--- NOTE | 2020-05-27 20:41 | P.PN ---
Subjective Progress Note Date: 05/27/20 (delayed charting seen at 1130) Principal diagnosis: chest pain Patient is a 59-year-old female with a history of A. fib not on anticoagulation secondary to no follow-up with PCP, tobacco abuse, and hypothyroidism who presented to the emergency Department complaints of chest pain. She was ultimately found have a non-ST segment elevated myocardial infarction. She was placed on a heparin drip and admitted. She was seen by cardiology and underwent cardiac catheterization. She is requiring urgent cardiac bypass surgery which is planned for 05/28/2020. Patient seen and examined at bedside. She denies any current chest pain, shortness breath, nausea, or vomiting. We had a long discussion regarding anticipated postoperative course and need for help at home. All questions were answered best of my ability. General: non toxic, no distress, appears at stated age Derm: warm, dry Head: atraumatic, normocephalic, symmetric Eyes: EOMI, no lid lag, anicteric sclera Mouth: no lip lesion, mucus membranes moist Cardiovascular: S1S2 reg, no murmur, positive posterior tibial pulse bilateral, Lungs: CTA bilateral, no rhonchi, no rales , no accessory muscle use Abdominal: soft, nontender to palpation, no guarding, no appreciable organomegaly Ext: no gross muscle atrophy, no edema, no contractures Neuro: CN II-XI grossly intact, no focal neuro deficits Psych: Alert, oriented, appropriate affect Non-ST segment elevated myocardial infarction, triple vessel coronary artery disease -Cardiology and cardiothoracic surgery recommendations. Plan is for coronary artery bypass grafting on 05/29/2020 -Aspirin, statin, beta ricky -Hold Plavix -Heparin switched to Lovenox Dyslipidemia -Statin therapy Hypertension -controlled -Continue with metoprolol -Cozaar on hold secondary planned procedure Hypothyroidism -TSH is 15, T4 reportedly normal however I wonder if this is secondary to thyroid auto antibodies. Recommend outpatient follow-up with endocrinology -Repeat TSH adn Free T4 to confirm numbers. Severe COPD with FEV1 45% of the predicted - pulmonary recommendations Tobacco abuse -Cessation -Nicotine replacement EtOH misuse -Cessation encouraged Bilateral Clay artery disease 50-69% -Aspirin, statin, outpatient follow-up History of SVT DVT prophylaxis: Heparin Discussed with: Patient, nursing Anticipated discharge: 7-[address]: A total of 35 minutes was spent on the care of this complex patient more than 50% of the time was spent in counseling and care coordination. Objective - Vital Signs Vital signs: Vital Signs Temp 97.9 F 05/27/20 16:00 Pulse 82 05/27/20 16:00 Resp 16 05/27/20 16:00 BP 124/78 05/27/20 16:00 Pulse Ox 96 05/27/20 16:00 Intake & Output 05/27/20 05/27/20 05/28/20 06:59 18:59 06:59 Intake Total 20 20 Balance 20 20 Weight 65.9 kg Intake: IV 20 20 Invasive Line 2 20 20 Other: Voiding Method Toilet - Labs CBC & Chem 7: 05/26/20 10:12 05/26/20 10:12
[2020-05-27] MEDS: ALPRAZolam 0.25 MG TAB PO PRN (21:55)
[2020-05-27] MEDS: ATORVASTATIN 80 MG TAB PO SCH (21:55)
[2020-05-28 09:03] LABS: Basophils # (A) 0.1 k/uL (0-0.2); Basophils % (A) 1 %; Eosinophils # (A) 0.4 k/uL (0-0.7); Eosinophils % (A) 5 %; HGB 12.5 gm/dL (11.4-16.0); Lymphocytes # (A) 1.7 k/uL (1.0-4.8); Lymphocytes % (A) 21 %; MCH 33.5 pg (25.0-35.0); MCHC 33.8 g/dL (31.0-37.0); MCV 99.1 fL (80.0-100.0); Mean Platelet Volume 8.7; Monocytes # (A) 0.7 k/uL (0-1.0); Monocytes % (A) 9 %; Neutrophils # (A) 4.9 k/uL (1.3-7.7); Neutrophils % (A) 62 %; Platelet Count 251 k/uL (150-450); RBC 3.74 m/uL (3.80-5.40); RDW 13.4 % (11.5-15.5)
[2020-05-28 09:10] LABS: Calcium 9.6 mg/dL (8.4-10.2); Magnesium 2.1 mg/dL (1.6-2.3); Potassium 4.8 mmol/L (3.5-5.1); Total Bilirubin 0.4 mg/dL (0.2-1.3); Total Protein 6.6 g/dL (6.3-8.2)
[2020-05-28 09:20] LABS: INR 0.9 (<1.2)
[2020-05-28 09:21] LABS: Partial Thromboplastin Time 26.5 sec (22.0-30.0); Prothrombin Time 9.4 sec (9.0-12.0)
[2020-05-28] MEDS: MUPIROCIN 2% OINT 22 GM TUBE NASAL SCH ×2 (10:00→21:37)
[2020-05-28 10:06] LABS: T4, Free (Free Thyroxine) 1.05 ng/dL (0.78-2.19)
[2020-05-28] MEDS: THIAMINE 100 MG TAB PO SCH (10:31)
[2020-05-28] MEDS: ASPIRIN 81 MG PO SCH (10:31)
[2020-05-28] MEDS: NICOTINE 14MG/24HR PATCH TRANSDERM SCH (10:31)
[2020-05-28] MEDS: METOPROLOL TARTRATE 25 MG TAB PO SCH ×2 (10:32→21:37)
[2020-05-28] MEDS: FOLIC ACID 1 MG TAB PO SCH (10:33)
--- NOTE | 2020-05-28 10:45 | P.PN ---
Subjective Progress Note Date: 05/28/20 This is a very pleasant 59-year-old female patient with a known history of hyperthyroidism with radioactive iodine, SVT approximately 5 years ago, daily alcohol use, chronic and ongoing tobacco dependence of 40 years at 1 pack per day. She presented to the emergency room last evening after developing chest heaviness with radiation into the left arm and jaw. She was found to have a non-ST segment elevation myocardial infarction and subsequently undergone cardiac catheterization today which revealed a 90% and 85% lesions in the LAD at the proximal and mid sections. Circumflex has a proximal 80 the 90 percent stenosis. Based on these findings she is recommended urgent coronary artery bypass surgery. She will be admitted to the intensive care unit. She is seen today in consultation on the extended stay unit. She is awake and alert in no acute distress. She is currently pain-free. She is resting flat on the stretcher. No shortness of breath, cough or congestion. Maintaining O2 saturat ions in the low 90s on 2 L/m per nasal cannula. Sinus rhythm. Afebrile. Hemodynamically stable. White count 9.8. Hemoglobin 13.6. Platelet count 238. D-dimer 0.35. Sodium 141. Potassium 4.4. Chloride 110. Creatinine 0.88. Troponin 0.345, 15.0, 31.4. TSH 15.2. Cholesterol 304. LDH 221. HDL 59. Triglycerides 122. CoVID 19 screen pending. Chest x-ray revealed mild pulmonary interstitial edema. Carotid Dopplers revealed bilateral atherosclerotic plaque with findings suggested of the 50-69% stenosis bilaterally. Bedside spirometry pending. She remains on a heparin drip current ly at 12 units per kilogram per hour. Patient is seen today 05/25/2020 in follow-up in the intensive care unit. She is currently awake and alert in no acute distress. Maintaining O2 saturations in the 90s on room air. She denies any recurrent chest discomfort. No left arm pain. No jaw pain. She remains hemodynamically stable. Her FEV1 value is 47% of predicted. On 05/26/2020, the patient is a specific complaints. She is free of any chest pain. She is emanating within her room. She is on Lovenox 60 mg subcu every 12 hours. She is also on high-dose statin with Lipitor 80 mg by mouth daily and metoprolol 25 mg by mouth twice a day and Cozaar 25 mg by mouth daily. No angina. No palpitations. No syncope. The tentative plan is to proceed with coronary artery bypass surgery on this patient on Friday. 05/27/2020, the patient is still free of any chest pain. She was switched to Lovenox and his injection. She still awaiting her bypass surgery this is tentatively scheduled on Friday. No new complaints. No cardiac arrhythmias features ambulate safely she's using incentive spirometer. She is on oxygen at room air and she is not having any On 05/28/2020, the patient is status. The plan is for surgery tomorrow. Cardiology chest pain. She may to surgery yesterday. Her pulmonary status remains stable. She is using incentive spirometer. The tentative plan is to pr oceed with coronary artery bypass surgery tomorrow. Objective - Vital Signs Vital signs: Vital Signs Temp 98.4 F 05/28/20 09:00 Pulse 79 05/28/20 09:00 Resp 16 05/28/20 09:00 BP 123/83 05/28/20 09:00 Pulse Ox 97 05/28/20 09:00 Intake & Output 05/27/20 05/28/20 05/28/20 18:59 06:59 18:59 Intake Total 20 20 240 Balance 20 20 240 Weight 65.5 kg Intake: IV 20 20 Invasive Line 2 20 20 Oral 240 Other: Voiding Method Toilet # Voids 1 - Exam GENERAL EXAM: Alert, active, very pleasant 59-year-old female patient, on room a ir, comfortable in no apparent distress. HEAD: Normocephalic. EYES: Normal reaction of pupils, equal size. NOSE: Clear with pink turbinates. THROAT: No erythema or exudates. NECK: No masses, no JVD. CHEST: No chest wall deformity. LUNGS: Equal air entry with no crackles, wheeze, rhonchi or dullness. CVS: S1 and S2 normal with no audible murmur, regular rhythm. ABDOMEN: No hepatosplenomegaly, normal bowel sounds, no guarding or rigidity. SPINE: No scoliosis or deformity SKIN: No rashes CENTRAL NERVOUS SYSTEM: No focal deficits, tone is normal in all 4 extremities. EXTREMITIES: There is no peripheral edema. No clubbing, no cyanosis. Peripheral pulses are intact. - Labs CBC & Chem 7: 05/28/20 08:28 12/13/20 08:28 Labs: Abnormal Lab Results - Last 24 Hours (Table) 05/28/20 05/28/20 Range/Units 08:28 08:28 RBC 3.74 L (3.80-5.40) m/uL Chloride 109 H (98-107) mmol/L BUN 20 H (7-17) mg/dL AST 44 H (14-36) U/L TSH 15.500 H (0.465-4.680) mIU/L Free T3 pg/mL 2.6 L (2.8-5.3) pg/ml Assessment and Plan Plan: 1 Acute myocardial infarction was significant triple-vessel coronary artery disease pending coronary artery bypass grafting awaiting bypass surgery, methods surgery yesterday, no new complaints, no chest pain. 2 Chronic and ongoing tobacco dependence 3 Hypertension 4 Hyperlipidemia 5 History of SVT 6 History of hyperthyroidism previously treated with radioactive iodine with subsequent hypothyroidism 7 Daily alcohol use Plan: Continue monitoring this patient Currently she is free of any chest pain Continue same cardiac medication Tentative plan is to proceed with coronary artery bypass surgery by Friday IV heparin has been switched to Lovenox Pulmonary status is stable and will continue to follow
--- NOTE | 2020-05-28 11:35 | P.PN ---
Subjective Progress Note Date: 05/28/20 Principal diagnosis: Triple-vessel coronary artery disease, nstemi this admission. Previous medical history of hypertension, hyperlipidemia, SVT, hypothyroidism, previous hyper-th yroid treated with radioactive dye, daily tobacco dependence, severe COPD with preoperative FEV1 45% of predicted, daily EtOH use without history of withdrawal. Bilateral internal carotid artery stenosis 50-69% The patient is walking around in her room on the cardiac stepdown unit in no acute distress. Denies chest pain, SOB. Preoperative teaching continues, no new questions, anticipating surgery on Friday. No new issues overnight Objective - Vital Signs Vital signs: Vital Signs Temp 98.4 F 05/28/20 09:00 Pulse 79 05/28/20 09:00 Resp 16 05/28/20 09:00 BP 123/83 05/28/20 09:00 Pulse Ox 97 05/28/20 09:00 Intake & Output 05/27/20 05/28/20 05/28/20 18:59 06:59 18:59 Intake Total 20 20 240 Balance 20 20 240 Weight 65.5 kg Intake: IV 20 20 Invasive Line 2 20 20 Oral 240 Other: Voiding Method Toilet # Voids 1 - Constitutional General appearance: Present: cooperative, no acute distress - Respiratory Details: Lungs sounds diminished bilaterally. Respirations even, nonlabored. Currently on room air with oxygen saturation 94%. Able to achieve 1250 mL on her incentive spirometry - Cardiovascular Details: S1, S2 present. Regular rate and rhythm, sinus rhythm on telemetry. Palpable peripheral pulses bilaterally. No edema present. No calf pain or tenderness noted. - Gastrointestinal Gastrointestinal Comment(s): Abdomen soft, non-tender, non-distentded. Active bowel sounds x 4 quadrants. Tolerating diet - Genitourinary Genitourinary Comment(s): Continues to void - Integumentary Integumentary Comment(s): Skin is warm and dry - Neurologic Neurologic: Present: CNII-XII intact - Musculoskeletal Musculoskeletal: Present: gait normal, strength equal bilaterally - Psychiatric Psychiatric: Present: A&O x's 3, appropriate affect, intact judgment & insight - Allied health notes Allied health notes reviewed: nursing - Labs CBC & Chem 7: 05/28/20 08:28 05/28/20 08:28 Labs: Abnormal Lab Results - Last 24 Hours (Table) 05/28/20 05/28/20 Range/Units 08:28 08:28 RBC 3.74 L (3.80-5.40) m/uL Chloride 109 H (98-107) mmol/L BUN 20 H (7-17) mg/dL AST 44 H (14-36) U/L TSH 15.500 H (0.465-4.680) mIU/L Free T3 pg/mL 2.6 L (2.8-5.3) pg/ml Assessment and Plan Assessment: 1. Triple-vessel coronary artery disease, nstemi this admission 2. Hypertension 3. Hyperlipidemia, cholesterol 304, LDL 221 4. History of SVT 5. Hypothyroidism, previous history of hyper-thyroid treated with radioactive dye, current TSH 15.5, T4 1.05, T3 2.6 6. Current daily tobacco dependence 7. Severe COPD with preoperative FEV1 45% of predicted 8. Almost daily EtOH use without history of withdrawal 9. Bilateral carotid artery stenosis 50-69% Plan: 1. Continue with aspirin, statin, beta ricky therapy, hold Plavix. Will hold Cozaar 48 hours prior to surgery to decrease incidence of intraoperative and postoperative hypotension 2. Encourage incentive spirometry use 3. Smoking cessation counseling offered, encouraged 4. Increase activity as tolerated 5. CIWA protocol. Continue thiamine, folic acid 6. Our plan is for coronary artery bypass surgery with left internal mammary artery, endoscopic vein harvesting and intraoperative transesophageal echocardiogram to be completed 05/29/[address] Contreras. NPO after midnight. Hold evening dose of Lovenox 7. Medical management of other comorbidities per primary care service 8. More recommendations to follow Time with Patient: Greater than 30
--- NOTE | 2020-05-28 12:34 | P.PN ---
Subjective HISTORY OF PRESENTING ILLNESS This is a pleasant 59-year-old female past medical history significant for supraventricular tachycardia, chronic nicotine dependence and daily alcohol intake. She does not follow regularly with a benefits specialist. She is seen and examined up walking around the room getting ready to shower. she denies chest pain, shortness of breath, dizziness or palpitations. Blood pressure 123/83 heart rate 79 afebrile maintaining oxygen saturation on room air. PHYSICAL EXAMINATION CONSTITUTIONAL: No apparent distress. HEENT: Head is normocephalic. Pupils are equal, round. Sclerae anicteric. Mucous membranes of the mouth are moist. No JVD. Left carotid bruit. CHEST EXAMINATION: Lungs are clear to auscultation. No chest wall tenderness is noted on palpation or with deep breathing. Diminished bilaterally. HEART EXAMINATION: Regular rate and rhythm. S1, S2 heard. Soft systolic ejection murmur at the left sternal border, no gallops or rub. EXTREMITIES: 2+ peripheral pulses, no lower extremity edema and no calf tenderness. ASSESSMENT Non-ST elevated myocardial infarction coronary artery disease, severe triple vessel Nonsustained ventricular tachycardia acute systolic heart failure Dyslipidemia Hypertension Chronic nicotine dependence Daily alcohol use PLAN Continue beta blockers, aspirin, atorvastatin and ARB as previously ordered. Scheduled for bypass grafting Friday. Nurse Practitioner note has been reviewed, I agree with a documented findings and plan of care. Patient was seen and examined. Objective - Vital Signs Vital signs: Vital Signs Temp 98.4 F 05/28/20 09:00 Pulse 79 05/28/20 09:00 Resp 16 05/28/20 09:00 BP 123/83 05/28/20 09:00 Pulse Ox 97 05/28/20 09:00 Intake & Output 05/27/20 05/28/20 05/28/20 18:59 06:59 18:59 Intake Total 20 20 240 Balance 20 20 240 Weight 65.5 kg Intake: IV 20 20 Invasive Line 2 20 20 Oral 240 Other: Voiding Method Toilet # Voids 1 - Labs CBC & Chem 7: 05/28/20 08:28 05/28/20 08:28 Labs: Abnormal Lab Results - Last 24 Hours (Table) 05/28/20 05/28/20 05/28/20 Range/Units 08:28 08:28 08:28 RBC 3.74 L (3.80-5.40) m/uL Chloride 109 H (98-107) mmol/L BUN 20 H (7-17) mg/dL AST 44 H (14-36) U/L TSH 15.500 H (0.465-4.680) mIU/L Free T3 pg/mL 2.6 L (2.8-5.3) pg/ml Crossmatch See Detail
[2020-05-28] MEDS: ENOXAPARIN 60 MG/0.6 ML SYRINGE SQ SCH (12:46)
[2020-05-28] MEDS: SODIUM CHLORIDE 0.9% 1,000 ML IV SCH (16:01)
--- NOTE | 2020-05-28 20:04 | P.PN ---
Subjective Progress Note Date: 05/28/20 (delayed charting seen at 1015) Principal diagnosis: chest pain Patient is a 59-year-old female with a history of A. fib not on anticoagulation secondary to no follow-up with PCP, tobacco abuse, and hypothyroidism who presented to the emergency Department complaints of chest pain. She was ultimately found have a non-ST segment elevated myocardial infarction. She was placed on a heparin drip and admitted. She was seen by cardiology and underwent cardiac catheterization. She is requiring urgent cardiac bypass surgery which is planned for 05/29/2020. Patient seen and examined at bedside. Feeling slightly anxious about surgery tomorrow. No chest pain or shortness of breath. All questions answered. General: non toxic, no distress, appears at stated age Derm: warm, dry Head: atraumatic, normocephalic, symmetric Eyes: EOMI, no lid lag, anicteric sclera Mouth: no lip lesion, mucus membranes moist Cardiovascular: S1S2 reg, no murmur, positive posterior tibial pulse bilateral, Lungs: CTA bilateral, no rhonchi, no rales , no accessory muscle use Abdominal: soft, nontender to palpation, no guarding, no appreciable organomegaly Ext: no gross muscle atrophy, no edema, no contractures Neuro: CN II-XI grossly intact, no focal neuro deficits Psych: Alert, oriented, appropriate affect Non-ST segment elevated myocardial infarction, triple vessel coronary artery di sease -Cardiology and cardiothoracic surgery recommendations. Plan is for coronary artery bypass grafting on 05/29/2020 -Aspirin, statin, beta ricky -Hold Plavix -Heparin switched to Lovenox Dyslipidemia -Statin therapy Hypertension -controlled -Continue with metoprolol -Cozaar on hold secondary planned procedure Subclinical hypothyroidism, in the setting of prior Graves' disease with radioa ctive iodine -TSH is 15, this was repeated and confirmed at 15. Even though free T4 is normal she should be treated for the subclinical hypothyroidism as her TSH is greater than 10. She is suffering both from cardiovascular and dyslipidemia consequences of overt subclinical hypothyroidism and those in their 50s and 60s should be treated she was TSH of less than 10 and subclinical hypothyroidism to prevent further development of complications. I discussed with her at length that she should follow up with trousseau consultant for further identification. She has not had her TSH tested in 5 years. She was placed on Synthroid but stopped taking this when she was lost to follow-up. Severe COPD with FEV1 45% of the predicted - pulmonary recommendations Tobacco abuse -Cessation -Nicotine replacement EtOH misuse -Cessation encouraged Bilateral [place] artery disease 50-69% -Aspirin, statin, outpatient follow-up History of SVT DVT prophylaxis: Heparin Discussed with: Patient, nursing Anticipated discharge: 7-[address]: A total of 35 minutes was spent on the care of this complex patient more than 50% of the time was spent in counseling and care coordination. Objective - Vital Signs Vital signs: Vital Signs Temp 98.2 F 05/28/20 16:00 Pulse 82 05/28/20 16:00 Resp 16 05/28/20 16:00 BP 120/76 05/28/20 16:00 Pulse Ox 97 05/28/20 16:00 Intake & Output 05/28/20 05/28/20 05/29/20 06:59 18:59 06:59 Intake Total 20 500 10 Balance 20 500 10 Weight 65.5 kg Intake: IV 20 20 10 Invasive Line 2 20 20 10 Oral 480 Other: Voiding Method Toilet # Voids 1 - Labs CBC & Chem 7: 05/28/20 08:28 05/28/20 08:28 Labs: Abnormal Lab Results - Last 24 Hours (Table) 05/28/20 05/28/20 05/28/20 Range/Units 08:28 08:28 08:28 RBC 3.74 L (3.80-5.40) m/uL Chloride 109 H (98-107) mmol/L BUN 20 H (7-17) mg/dL AST 44 H (14-36) U/L TSH 15.500 H (0.465-4.680) mIU/L Free T3 pg/mL 2.6 L (2.8-5.3) pg/ml Crossmatch See Detail
[2020-05-28] MEDS: ATORVASTATIN 80 MG TAB PO SCH (21:37)
[2020-05-28] MEDS: ALPRAZolam 0.25 MG TAB PO PRN (21:39)
[2020-05-29] MEDS ORDERED: CALCIUM CHLORIDE 100 MG/ML 10 ML SYRINGE IVP ONE (05:00)
[2020-05-29] MEDS ORDERED: SODIUM BICARB 8.4% 50 ML SYR (1 MEQ/ML) IV ONE (05:00)
[2020-05-29] MEDS ORDERED: PAPAVERINE 360 MG in SODIUM CHLORIDE 0.9% 90 ML IV ONE (05:00)
[2020-05-29] MEDS ORDERED: ceFAZolin 2,000 MG in SODIUM CHLORIDE 0.9% 30 ML IVPB ONE (05:00)
[2020-05-29] MEDS ORDERED: NITROGLYCERIN-D5W PMX 50 MG in DEXTROSE/WATER 1 250ML.BAG IV SCH ×2 (05:00→13:46)
[2020-05-29] MEDS ORDERED: CHLORHEXIDINE GLUCONATE 15 ML CUP MUCOUS MEM ONE (05:00)
[2020-05-29] MEDS ORDERED: MAGNESIUM SULFATE SYG 4.06 MEQ/ML SYRINGE IV ONE (05:00)
[2020-05-29] MEDS ORDERED: NITROGLYCERIN-D5W PMX 25 MG/250 ML BTL IV ONE (05:00)
[2020-05-29] MEDS ORDERED: TRANEXAMIC ACID 2,000 MG in SODIUM CHLORIDE 0.9% 80 ML IV ONE (05:00)
[2020-05-29] MEDS ORDERED: INSULIN REGULAR 100 UNIT in SODIUM CHLORIDE 0.9% 100 ML IV SCH (05:00)
[2020-05-29] MEDS ORDERED: PROTAMINE SULFATE 250 MG in EMPTY BAG 1 BAG IV ONE (05:00)
[2020-05-29] MEDS ORDERED: ALBUMIN HUMAN 25% 50 ML in EMPTY BAG 1 BAG IVPB ONE (05:00)
[2020-05-29] MEDS ORDERED: DEXTROSE 5% IN WATER 1,000 ML with POTASSIUM CHLORIDE 110 MEQ, MAGNESIUM SULFATE 16 MEQ... IV SCH ×5 (05:00)
[2020-05-29] MEDS ORDERED: MANNITOL 25% 12.5 GM/50 ML VIAL IV ONE ×2 (05:00)
[2020-05-29] MEDS ORDERED: PHENYLEPHRINE 40 MG in SODIUM CHLORIDE 0.9% 250 ML IV ONE (05:00)
[2020-05-29] MEDS ORDERED: ALBUMIN HUMAN 5% 500 ML in EMPTY BAG 1 BAG IVPB ONE ×6 (05:00)
[2020-05-29] MEDS ORDERED: HEPARIN SODIUM,PORCINE 5,000 UNIT in SODIUM CHLORIDE 0.9% 500 ML 500 ML IV ONE (05:00)
[2020-05-29] MEDS ORDERED: DEXTROSE 5% IN WATER 1,000 ML with POTASSIUM CHLORIDE 25 MEQ, SODIUM CHLORIDE 2.5MEQ/ML... IV SCH ×6 (05:00)
[2020-05-29] MEDS ORDERED: ceFAZolin 2 GM in SODIUM CHLORIDE 0.9% 30 ML IVPB ONE (05:00)
[2020-05-29] MEDS ORDERED: HEPARIN SODIUM 1,000 UN/ML (10ML VL) IV ONE (05:00)
[2020-05-29] MEDS ORDERED: PHENYLEPHRINE 10 MG/ML VIAL IV ONE (05:00)
[2020-05-29] MEDS ORDERED: PROTAMINE SULFATE 10 MG/ML 25 ML VIAL IV ONE ×2 (05:00→07:53)
[2020-05-29] MEDS ORDERED: CLEVIDIPINE BUTYRATE 25 MG in EMPTY BAG 1 BAG IV SCH (05:00)
[2020-05-29] MEDS ORDERED: NOREPINEPHRINE 4 MG in SODIUM CHLORIDE 0.9% 250 ML IV SCH (05:00)
[2020-05-29] MEDS ORDERED: ATORVASTATIN 10 MG TAB PO STA (05:22)
[2020-05-29] MEDS ORDERED: METOPROLOL TARTRATE 12.5 MG TAB PO STA (05:22)
[2020-05-29] MEDS ORDERED: ASPIRIN 325 MG TAB PO STA (05:23)
[2020-05-29] MEDS ORDERED: IV FLUID CONTINUATION 1,000 ML IV ONE (06:30)
[2020-05-29] MEDS ORDERED: ALBUMIN HUMAN 5% (25gm) 500 ML VIAL IVPB ONE (07:53)
[2020-05-29] MEDS ORDERED: PROPOFOL 10 MG/ML 20 ML VIAL IV ONE (07:53)
[2020-05-29] MEDS ORDERED: MIDAZOLAM 2 MG/2 ML VIAL ONE (07:53)
[2020-05-29] MEDS ORDERED: fentaNYL (PF) 50 MCG/ML 50 ML VIAL ONE (07:53)
[2020-05-29] MEDS ORDERED: PHENYLEPHRINE 10 MG/ML VIAL ONE (07:53)
[2020-05-29] MEDS ORDERED: fentaNYL (PF) 50 MCG/ML 2 ML AMP ONE (07:53)
[2020-05-29] MEDS ORDERED: LIDOCAINE 2% SYG (PF) 100 MG/5 ML ONE (07:53)
[2020-05-29] MEDS ORDERED: POTASSIUM CHLORIDE OPEN HEART 20 MEQ/50 ML BAG IVPB ONE (07:53)
[2020-05-29] MEDS ORDERED: MAGNESIUM SULFATE 4 MEQ/ML 10ML VIAL ONE (07:53)
[2020-05-29] MEDS ORDERED: HEPARIN SODIUM,PORCINE 10,000 UNIT/ML 1 ML VIAL ONE (07:53)
[2020-05-29] MEDS ORDERED: SODIUM CHLORIDE 0.9% IRRIG 1,000 ML BTL IRRIGATION ONE (07:53)
[2020-05-29] MEDS ORDERED: VECURONIUM 10 MG VIAL IV ONE (07:53)
[2020-05-29] MEDS ORDERED: CALCIUM CHLORIDE 100 MG/ML 10 ML SYRINGE ONE (07:53)
[2020-05-29] MEDS ORDERED: ELECTROLYTE-R (PH 7.4) 1,000 ML IV.SOLN IV ONE (07:53)
[2020-05-29 08:37] LABS: ABG Base Excess 0.6 mmol/L; ABG Glucose Whole Blood 89 mg/dL (75-99); ABG HCO3 24 mmol/L (21-25); ABG Hematocrit 29 % (34.0-46.0); ABG Ionized Calcium 4.7 mg/dL (4.5-5.3); ABG Oxygen Saturation 99.9 % (94-97); ABG PCO2 33 mmHg (35-45); ABG PH 7.47 (7.35-7.45); ABG PO2 388 mmHg (83-108); ABG Potassium Whole Blood 3.7 mmol/L (3.4-4.5); ABG Sodium Whole Blood 141 mmol/L (135-146); ABG TCO2 25 mmol/L (19-24)
[2020-05-29] MEDS: ceFAZolin 1,000 MG in SODIUM CHLORIDE 0.9% IRRIGATIO 1,000 ML IRRIGATION ONE ×2 (09:56→13:08)
[2020-05-29 09:59] LABS: ABG Base Excess -0.4 mmol/L; ABG Glucose Whole Blood 109 mg/dL (75-99); ABG HCO3 25 mmol/L (21-25); ABG Hematocrit 26 % (34.0-46.0); ABG Ionized Calcium 4.8 mg/dL (4.5-5.3); ABG Oxygen Saturation 99.4 % (94-97); ABG PCO2 42 mmHg (35-45); ABG PH 7.38 (7.35-7.45); ABG PO2 193 mmHg (83-108); ABG Sodium Whole Blood 142 mmol/L (135-146); ABG TCO2 26 mmol/L (19-24)
[2020-05-29 10:37] LABS: ABG Base Excess 0.3 mmol/L; ABG Glucose Whole Blood 108 mg/dL (75-99); ABG HCO3 24 mmol/L (21-25); ABG Ionized Calcium 4.1 mg/dL (4.5-5.3); ABG PCO2 33 mmHg (35-45); ABG PH 7.47 (7.35-7.45); ABG Potassium Whole Blood 4.2 mmol/L (3.4-4.5); ABG Sodium Whole Blood 142 mmol/L (135-146); ABG TCO2 25 mmol/L (19-24)
[2020-05-29 11:15] LABS: ABG Base Excess 1.3 mmol/L; ABG Glucose Whole Blood 177 mg/dL (75-99); ABG HCO3 25 mmol/L (21-25); ABG Ionized Calcium 4.2 mg/dL (4.5-5.3); ABG PCO2 36 mmHg (35-45); ABG PH 7.46 (7.35-7.45); ABG PO2 376 mmHg (83-108); ABG Potassium Whole Blood 4.9 mmol/L (3.4-4.5); ABG Sodium Whole Blood 137 mmol/L (135-146); ABG TCO2 27 mmol/L (19-24)
--- NOTE | 2020-05-29 11:21 | P.ANPRN ---
Procedure Note - Anesthesia - Invasive Line Right Central Line Time Out Performed: Yes (714) Time of Procedure: 07:15 Location of Patient: Phase I Preparation: Sterile Prep Arterial Line Location: Brachial Ultrasound Used: Yes Purpose - Visualization and Identification of Vasculature: Yes Needle Guage: 18g angio Image Stored and Saved: Yes Narrative: Central line placement per sterile protocol utilized. right neck prepped. +local +cvp + jwire + uneventful dilation and introduction right IJ cordis. Lumen bled and flushed. Non pulsitile free flow. Right [place] Brandie Time Out Performed: Yes (714) Date of Procedure: 05/29/20 Time of Procedure: 07:28 Location of Patient: Phase I Preparation: Sterile Prep Arterial Line Location: Brachial Ultrasound Used: No Purpose - Visualization and Identification of Vasculature: No Image Stored and Saved: No Narrative: Central line placement per sterile protocol utilized. PA floated in sheath to PA wedge at 48cm. W/d and secured with balloon down at 43cm. CELENA
[2020-05-29 11:43] LABS: ABG Glucose Whole Blood 171 mg/dL (75-99); ABG HCO3 25 mmol/L (21-25); ABG Ionized Calcium 4.3 mg/dL (4.5-5.3); ABG PCO2 38 mmHg (35-45); ABG PH 7.44 (7.35-7.45); ABG PO2 365 mmHg (83-108); ABG Potassium Whole Blood 4.7 mmol/L (3.4-4.5); ABG Sodium Whole Blood 138 mmol/L (135-146); ABG TCO2 27 mmol/L (19-24)
[2020-05-29 12:12] LABS: ABG Base Excess -0.2 mmol/L; ABG Glucose Whole Blood 176 mg/dL (75-99); ABG HCO3 25 mmol/L (21-25); ABG Ionized Calcium 4.3 mg/dL (4.5-5.3); ABG PCO2 39 mmHg (35-45); ABG PH 7.41 (7.35-7.45); ABG Potassium Whole Blood 4.7 mmol/L (3.4-4.5); ABG Sodium Whole Blood 138 mmol/L (135-146); ABG TCO2 26 mmol/L (19-24)
[2020-05-29 13:07] LABS: ABG Base Excess -3.5 mmol/L; ABG Glucose Whole Blood 114 mg/dL (75-99); ABG HCO3 21 mmol/L (21-25); ABG Ionized Calcium 4.1 mg/dL (4.5-5.3); ABG PCO2 34 mmHg (35-45); ABG PO2 389 mmHg (83-108); ABG Sodium Whole Blood 143 mmol/L (135-146); ABG TCO2 22 mmol/L (19-24)
[2020-05-29] MEDS ORDERED: Phosphorus Replacement Protoco 1 EACH MISC MISCELLANE PRN (13:46)
[2020-05-29] MEDS ORDERED: AMIODARONE 300 MG in DEXTROSE 5% IN WATER 250 ML IV PRN ×2 (13:46)
[2020-05-29] MEDS ORDERED: Magnesium Replacement Protocol 1 EACH MISC MISCELLANE PRN (13:46)
[2020-05-29] MEDS ORDERED: CALCIUM GLUCONATE 2 GM in SODIUM CHLORIDE 0.9% 100 ML IVPB PRN (13:46)
[2020-05-29] MEDS ORDERED: METOCLOPRAMIDE 5 MG/ML 2 ML VIAL IVP PRN (13:46)
[2020-05-29] MEDS ORDERED: Potassium Replacement Protocol 1 EACH MISC MISCELLANE PRN (13:46)
[2020-05-29] MEDS ORDERED: DEXTROSE 5% IN WATER 100 ML with AMIODARONE 150 MG IV PRN (13:46)
[2020-05-29] MEDS ORDERED: DEXMEDETOMIDINE/0.9% NACL(PMX) 400 MCG in EMPTY BAG 1 BAG IV SCH (13:46)
[2020-05-29] MEDS ORDERED: hydrALAZINE HCL 20 MG/ML 1 ML VIAL IVP PRN (13:46)
[2020-05-29] MEDS ORDERED: IPRATROPIUM-ALBUTEROL 3 ML NEB INHALATION PRN (13:46)
[2020-05-29] MEDS ORDERED: BENZOCAINE/MENTHOL LOZENG 1 EACH LOZENGE MUCOUS MEM PRN (13:46)
[2020-05-29] MEDS ORDERED: ONDANSETRON 4 MG/2 ML VIAL IVP PRN (13:46)
[2020-05-29] MEDS ORDERED: AMIODARONE 360 MG in DEXTROSE 5% IN WATER 200 ML IV PRN ×2 (13:46)
[2020-05-29 13:52] LABS: ABG Lactic Acid Whole Blood 1.6 mmol/L (0.5-1.6)
[2020-05-29 13:53] LABS: ABG Hematocrit 21 % (34.0-46.0); ABG Lactic Acid Whole Blood 0.7 mmol/L (0.5-1.6); ABG PO2 >420 mmHg (83-108)
[2020-05-29 13:54] LABS: ABG Lactic Acid Whole Blood 0.9 mmol/L (0.5-1.6)
[2020-05-29 13:55] LABS: ABG Hematocrit 18 % (34.0-46.0)
[2020-05-29 13:55] LABS: ABG Lactic Acid Whole Blood 1.5 mmol/L (0.5-1.6)
[2020-05-29 13:56] LABS: ABG Hematocrit 18 % (34.0-46.0)
[2020-05-29 13:57] LABS: ABG Hematocrit 17 % (34.0-46.0); ABG Lactic Acid Whole Blood 2.2 mmol/L (0.5-1.6); ABG PO2 >420 mmHg (83-108)
[2020-05-29 13:58] LABS: ABG Hematocrit 18 % (34.0-46.0); ABG Lactic Acid Whole Blood 1.5 mmol/L (0.5-1.6); ABG Potassium Whole Blood 2.9 mmol/L (3.4-4.5)
[2020-05-29 14:02] LABS: Glucose,Whole Blood 105 mg/dL (75-99)
[2020-05-29 14:04] LABS: Basophils % (A) 0 %; Eosinophils # (A) 0.1 k/uL (0-0.7); Eosinophils % (A) 1 %; HCT 23.7 % (34.0-46.0); Lymphocytes # (A) 1.2 k/uL (1.0-4.8); Lymphocytes % (A) 16 %; MCH 33.2 pg (25.0-35.0); MCHC 34.8 g/dL (31.0-37.0); MCV 95.4 fL (80.0-100.0); Monocytes # (A) 0.5 k/uL (0-1.0); Monocytes % (A) 7 %; Neutrophils # (A) 5.4 k/uL (1.3-7.7); Neutrophils % (A) 74 %; RBC 2.48 m/uL (3.80-5.40); RDW 14.1 % (11.5-15.5); WBC 7.3 k/uL (3.8-10.6)
[2020-05-29 14:05] LABS: ABG Base Excess 1.6 mmol/L; ABG Glucose Whole Blood 109 mg/dL (75-99); ABG HCO3 26 mmol/L (21-25); ABG Ionized Calcium 4.7 mg/dL (4.5-5.3); ABG Oxygen Saturation 99.9 % (94-97); ABG PCO2 39 mmHg (35-45); ABG PH 7.43 (7.35-7.45); ABG PO2 362 mmHg (83-108); ABG Potassium Whole Blood 3.9 mmol/L (3.4-4.5); ABG Sodium Whole Blood 144 mmol/L (135-146); ABG TCO2 27 mmol/L (19-24)
[2020-05-29 14:06] LABS: ABG Hematocrit 24 % (34.0-46.0); ABG Lactic Acid Whole Blood 1.4 mmol/L (0.5-1.6)
--- NOTE | 2020-05-29 14:10 | XR ---
EXAMINATION TYPE: XR chest 1V portable DATE OF EXAM: 05/29/2020 COMPARISON: 05/26/2020 HISTORY: Post cardiac surgery TECHNIQUE: Single frontal view of the chest is obtained. FINDINGS: ET tube is approximately 2.5 cm above the ilda. NG tube is in left upper quadrant. Chest tube and mediastinal drain suspected with epicardial lead. [place]-Brandie catheter overlies proximal pulm onary outflow tract. Interstitial pattern seen with subsegmental areas of consolidation and no sizabl e pneumothorax. Does appear to be basilar consolidation. Tiny effusion suspected. Underlying COPD ashli pected. IMPRESSION: 1. Postoperative change with bilateral infiltrate and small effusion correlate for mild venous conges tion.
[2020-05-29 14:12] LABS: HGB 8.2 gm/dL (11.4-16.0)
[2020-05-29 14:16] LABS: INR 1.2 (<1.2); Partial Thromboplastin Time 38.8 sec (22.0-30.0); Prothrombin Time 12.1 sec (9.0-12.0)
[2020-05-29 14:22] LABS: Ionized Calcium 5.1 mg/dL (4.5-5.3)
[2020-05-29 14:22] LABS: ABG Base Excess 0.9 mmol/L; ABG HCO3 26 mmol/L (21-25); ABG PCO2 44 mmHg (35-45); ABG PH 7.38 (7.35-7.45); ABG PO2 293 mmHg (83-108); ABG TCO2 27 mmol/L (19-24)
[2020-05-29 14:23] LABS: Allen Test Performed? NO
[2020-05-29 14:33] LABS: ALT 12 U/L (4-34); AST 32 U/L (14-36); African American GFR (CKD) >90 (>60 ml/min/1.73 sqM); Albumin 2.2 g/dL (3.5-5.0); Alkaline Phosphatase <20 U/L (38-126); Anion Gap -1 mmol/L; Blood Urea Nitrogen 12 mg/dL (7-17); Calcium 7.7 mg/dL (8.4-10.2); Carbon Dioxide 27 mmol/L (22-30); Chloride 115 mmol/L (98-107); Glucose 99 mg/dL (74-99); Magnesium 2.5 mg/dL (1.6-2.3); Non-African American GFR(CKD) >90 (>60 ml/min/1.73 sqM); Potassium 3.5 mmol/L (3.5-5.1); Sodium 141 mmol/L (137-145); Total Bilirubin 0.4 mg/dL (0.2-1.3); Total Protein 3.7 g/dL (6.3-8.2)
[2020-05-29] MEDS: CLEVIDIPINE BUTYRATE 25 MG in EMPTY BAG 1 BAG IV SCH (14:45)
[2020-05-29 14:47] LABS: Toxic Granulation Present
[2020-05-29 14:51] LABS: Platelet Count 96 k/uL (150-450)
[2020-05-29 15:11] LABS: Glucose,Whole Blood 83 mg/dL (75-99)
[2020-05-29] MEDS: IPRATROPIUM-ALBUTEROL 3 ML NEB INHALATION SCH ×4 (15:16→18:37)
[2020-05-29] MEDS: NICOTINE 14MG/24HR PATCH TRANSDERM SCH (15:20)
[2020-05-29] MEDS: FOLIC ACID 1 MG TAB PO SCH (15:20)
[2020-05-29] MEDS: POTASSIUM CHLORIDE 20 MEQ in WATER FOR INJECTION 1 100ML.BAG IVPB SCH ×2 (15:21→17:47)
[2020-05-29] MEDS: THIAMINE 100 MG TAB PO SCH (15:21)
[2020-05-29] MEDS: SODIUM CHLORIDE 0.9% 1,000 ML IV SCH (15:22)
--- NOTE | 2020-05-29 15:41 | P.PN ---
Subjective Progress Note Date: 05/29/20 Principal diagnosis: chest pain Patient is a 59-year-old female with a history of A. fib not on anticoagulation secondary to no follow-up with PCP, tobacco abuse, and hypothyroidism who presented to the emergency Department complaints of chest pain. She was ultimately found have a non-ST segment elevated myocardial infarction. She was placed on a heparin drip and admitted. She was seen by cardiology and underwent cardiac catheterization. She underwent urgent 3 vessel cardiac bypass surgery on 05/29/2020. Patient seen and examined at bedside. sedated on vent in the ICU General: non toxic, no distress, appears at stated age Derm: warm, dry, dressings in place b/l LE Head: atraumatic, normocephalic, symmetric Eyes: EOMI, no lid lag, anicteric sclera Mouth: no lip lesion, mucus membranes moist Cardiovascular: S1S2 reg, no murmur, positive posterior tibial pulse bilateral, Lungs: Course bs bilateral, no rhonchi, no rales , no accessory muscle use, + vent, + chest tube and mediastinal tube Abdominal: soft, nontender to palpation, no guarding, no appreciable organ omegaly Ext: no gross muscle atrophy, no edema, no contractures Neuro: CN II-XI grossly intact, no focal neuro deficits Psych: Alert, oriented, appropriate affect Non-ST segment elevated myocardial infarction, triple vessel coronary artery disease s/p 3 vessel bypass. - Management per cardiothorasic surgery Acute blood loss anemia, and thrombocytopenia, an anticipated outcome of surgery - follow CBC - Transfuse as indicated Subclinical hypothyroidism, in the setting of prior Graves' disease with radioactive iodine -TSH is 15, this was repeated and confirmed at 15. Even though free T4 is normal she should be treated for the subclinical hypothyroidism as her TSH is greater than 10. She is suffering both from cardiovascular and dyslipidemia consequences of overt subclinical hypothyroidism and those in their 50s and 60s should be treated she was TSH of less than 10 and subclinical hypothyroidism to prevent further development of complications. I discussed with her at length that she should follow up with bessemer converter blower for further identification. She has not had her TSH tested in 5 years. She was placed on Synthroid but stopped taking this when she was lost to follow-up. Dyslipidemia -Statin therapy Hypertension -controlled -Continue with metoprolol -Cozaar on hold secondary planned procedure Severe COPD with FEV1 45% of the predicted - pulmonary recommendations Tobacco abuse -Cessation -Nicotine replacement EtOH misuse -Cessation encouraged Bilateral Carotid artery disease 50-69% -Aspirin, statin, outpatient follow-up History of SVT DVT prophylaxis: Heparin Discussed with: Patient, nursing, CT surgery Anticipated discharge: 5-[address]: A total of 35 minutes was spent on the care of this complex patient more than 50% of the time was spent in counseling and care coordination. Objective - Vital Signs Vital signs: Vital Signs Temp 98 F 05/29/20 06:11 Pulse 87 05/29/20 15:25 Resp 18 05/29/20 05:42 BP 124/80 05/29/20 06:11 Pulse Ox 99 05/29/20 06:11 Intake & Output 05/28/20 05/29/20 05/29/20 18:59 06:59 18:59 Intake Total 500 20 373 Output Total 2200 Balance 500 20 -1827 Weight 65.3 kg Intake: IV 20 20 63 Invasive Line 2 20 20 Oral 480 Blood Product 310 Rc As-1 Unit 310 [id number] Output: Urine 1200 Estimated Blood Loss 1000 Other: Voiding Method Toilet # Voids 1 - Labs CBC & Chem 7: 05/29/20 13:56 05/29/20 13:56 Labs: Abnormal Lab Results - Last 24 Hours (Table) 05/28/20 05/29/20 05/29/20 Range/Units 08:28 08:37 10:37 RBC (3.80-5.40) m/uL Hgb (11.4-16.0) gm/dL Hct (34.0-46.0) % Plt Count (150-450) k/uL PT (9.0-12.0) sec INR (<1.2) APTT (22.0-30.0) sec ABG pH 7.47 H (7.35-7.45) ABG pCO2 33 L (35-45) mmHg ABG pO2 388 H 193 H (83-108) mmHg ABG HCO3 (21-25) mmol/L ABG Total CO2 25 H 26 H (19-24) mmol/L ABG O2 Saturation 99.9 H 99.4 H (94-97) % ABG Hematocrit 29 L 26 L (34.0-46.0) % ABG Potassium (3.4-4.5) mmol/L ABG Ionized Calcium (4.5-5.3) mg/dL ABG Glucose 109 H (75-99) mg/dL ABG Lactic Acid (0.5-1.6) mmol/L Hemoglobin 9.4 L 8.6 L (11.4-16.0) gm/dL Chloride (98-107) mmol/L POC Glucose (mg/dL) (75-99) mg/dL Calcium (8.4-10.2) mg/dL Magnesium (1.6-2.3) mg/dL Alkaline Phosphatase (38-126) U/L Total Protein (6.3-8.2) g/dL Albumin (3.5-5.0) g/dL Arterial Blood Potassium (3.4-4.5) mmol/L Arterial Blood Glucose 109 H (75-99) mg/dL Crossmatch See Detail 05/29/20 05/29/20 05/29/20 Range/Units 10:40 11:15 11:43 RBC (3.80-5.40) m/uL Hgb (11.4-16.0) gm/dL Hct (34.0-46.0) % Plt Count (150-450) k/uL PT (9.0-12.0) sec INR (<1.2) APTT (22.0-30.0) sec ABG pH 7.47 H 7.46 H (7.35-7.45) ABG pCO2 33 L (35-45) mmHg ABG pO2 >420 H 376 H 365 H (83-108) mmHg ABG HCO3 (21-25) mmol/L ABG Total CO2 25 H 27 H 27 H (19-24) mmol/L ABG O2 Saturation 100.0 H 100.0 H 100.0 H (94-97) % ABG Hematocrit 21 L 18 L* 18 L* (34.0-46.0) % ABG Potassium 4.9 H 4.7 H (3.4-4.5) mmol/L ABG Ionized Calcium 4.1 L 4.2 L 4.3 L (4.5-5.3) mg/dL ABG Glucose 108 H 177 H 171 H (75-99) mg/dL ABG Lactic Acid (0.5-1.6) mmol/L Hemoglobin 6.9 L* 5.9 L* 5.8 L* (11.4-16.0) gm/dL Chloride (98-107) mmol/L POC Glucose (mg/dL) (75-99) mg/dL Calcium (8.4-10.2) mg/dL Magnesium (1.6-2.3) mg/dL Alkaline Phosphatase (38-126) U/L Total Protein (6.3-8.2) g/dL Albumin (3.5-5.0) g/dL Arterial Blood Potassium 4.9 H 4.7 H (3.4-4.5) mmol/L Arterial Blood Glucose 108 H 177 H 171 H (75-99) mg/dL Crossmatch 05/29/20 05/29/20 05/29/20 Range/Units 12:12 13:07 13:39 RBC (3.80-5.40) m/uL Hgb (11.4-16.0) gm/dL Hct (34.0-46.0) % Plt Count (150-450) k/uL PT (9.0-12.0) sec INR (<1.2) APTT (22.0-30.0) sec ABG pH (7.35-7.45) ABG pCO2 34 L (35-45) mmHg ABG pO2 >420 H 389 H 362 H (83-108) mmHg ABG HCO3 26 H (21-25) mmol/L ABG Total CO2 26 H 27 H (19-24) mmol/L ABG O2 Saturation 100.0 H 100.0 H 99.9 H (94-97) % ABG Hematocrit 17 L* 18 L* 24 L (34.0-46.0) % ABG Potassium 4.7 H 2.9 L* (3.4-4.5) mmol/L ABG Ionized Calcium 4.3 L 4.1 L (4.5-5.3) mg/dL ABG Glucose 176 H 114 H 109 H (75-99) mg/dL ABG Lactic Acid 2.2 H* (0.5-1.6) mmol/L Hemoglobin 5.5 L* 5.8 L* 7.9 L (11.4-16.0) gm/dL Chloride (98-107) mmol/L POC Glucose (mg/dL) (75-99) mg/dL Calcium (8.4-10.2) mg/dL Magnesium (1.6-2.3) mg/dL Alkaline Phosphatase (38-126) U/L Total Protein (6.3-8.2) g/dL Albumin (3.5-5.0) g/dL Arterial Blood Potassium 4.7 H 2.9 L* (3.4-4.5) mmol/L Arterial Blood Glucose 176 H 114 H 109 H (75-99) mg/dL Crossmatch 05/29/20 05/29/20 05/29/20 Range/Units 13:39 13:56 13:56 RBC 2.48 L (3.80-5.40) m/uL Hgb 8.2 L D (11.4-16.0) gm/dL Hct 23.7 L (34.0-46.0) % Plt Count 96 L D (150-450) k/uL PT 12.1 H (9.0-12.0) sec INR 1.2 H (<1.2) APTT 38.8 H (22.0-30.0) sec ABG pH (7.35-7.45) ABG pCO2 (35-45) mmHg ABG pO2 293 H (83-108) mmHg ABG HCO3 26 H (21-25) mmol/L ABG Total CO2 27 H (19-24) mmol/L ABG O2 Saturation 100.0 H (94-97) % ABG Hematocrit (34.0-46.0) % ABG Potassium (3.4-4.5) mmol/L ABG Ionized Calcium (4.5-5.3) mg/dL ABG Glucose (75-99) mg/dL ABG Lactic Acid (0.5-1.6) mmol/L Hemoglobin (11.4-16.0) gm/dL Chloride (98-107) mmol/L POC Glucose (mg/dL) (75-99) mg/dL Calcium (8.4-10.2) mg/dL Magnesium (1.6-2.3) mg/dL Alkaline Phosphatase (38-126) U/L Total Protein (6.3-8.2) g/dL Albumin (3.5-5.0) g/dL Arterial Blood Potassium (3.4-4.5) mmol/L Arterial Blood Glucose (75-99) mg/dL Crossmatch 05/29/20 05/29/20 Range/Units 13:56 13:56 RBC (3.80-5.40) m/uL Hgb (11.4-16.0) gm/dL Hct (34.0-46.0) % Plt Count (150-450) k/uL PT (9.0-12.0) sec INR (<1.2) APTT (22.0-30.0) sec ABG pH (7.35-7.45) ABG pCO2 (35-45) mmHg ABG pO2 (83-108) mmHg ABG HCO3 (21-25) mmol/L ABG Total CO2 (19-24) mmol/L ABG O2 Saturation (94-97) % ABG Hematocrit (34.0-46.0) % ABG Potassium (3.4-4.5) mmol/L ABG Ionized Calcium (4.5-5.3) mg/dL ABG Glucose (75-99) mg/dL ABG Lactic Acid (0.5-1.6) mmol/L Hemoglobin (11.4-16.0) gm/dL Chloride 115 H (98-107) mmol/L POC Glucose (mg/dL) 105 H (75-99) mg/dL Calcium 7.7 L (8.4-10.2) mg/dL Magnesium 2.5 H (1.6-2.3) mg/dL Alkaline Phosphatase <20 L (38-126) U/L Total Protein 3.7 L (6.3-8.2) g/dL Albumin 2.2 L (3.5-5.0) g/dL Arterial Blood Potassium (3.4-4.5) mmol/L Arterial Blood Glucose (75-99) mg/dL Crossmatch
[2020-05-29 15:45] LABS: ABG Base Excess -0.3 mmol/L; ABG HCO3 26 mmol/L (21-25); ABG Oxygen Saturation 97.3 % (94-97); ABG PCO2 48 mmHg (35-45); ABG PH 7.34 (7.35-7.45); ABG PO2 90 mmHg (83-108); ABG TCO2 27 mmol/L (19-24); Allen Test Performed? Yes
[2020-05-29 15:48] LABS: Glucose,Whole Blood 102 mg/dL (75-99)
--- NOTE | 2020-05-29 16:20 | XR ---
EXAMINATION TYPE: XR chest 1V portable DATE OF EXAM: 05/29/2020 CLINICAL HISTORY: Difficulty breathing and hypoxia progress study. Post open cardiac surgery. TECHNIQUE: Single AP portable supine view of the chest is obtained. COMPARISON: Chest x-ray from earlier today and older studies FINDINGS: Stable endotracheal and orogastric tubes. Stable bilateral chest tubes and mediastinal artemio inage catheters. Stable right internal jugular [place]-Brandie catheter. Overlying Sternal wires and mediastinal clips along with left atrial appendage clip are all redemonstrated. Car diac silhouette size stable and within normal limits. Multifocal increased alveolar interstitial opac ities bilaterally. Probable small left pleural effusion. No pneumothorax noted bilaterally. Osseous s tructures are intact. IMPRESSION: Persistent multiple tiny left pleural effusion and bilateral interstitial and alveolar ed reza and/or infiltrates. No significant change from most recent x-ray.
[2020-05-29] MEDS: MORPHINE SULFATE 2 MG/ML SYRINGE IVP PRN (16:21)
--- NOTE | 2020-05-29 16:50 | P.PN ---
Subjective Progress Note Date: 05/29/20 Principal diagnosis: Coronary artery disease, symptomatic This is a very pleasant 59-year-old female patient with a known history of hyperthyroidism with radioactive iodine, SVT approximately 5 years ago, daily alcohol use, chronic and ongoing tobacco dependence of 40 years at 1 pack per day. She presented to the emergency room last evening after developing chest heaviness with radiation into the left arm and jaw. She was found to have a non-ST segment elevation myocardial infarction and subsequently undergone cardiac catheterization today which revealed a 90% and 85% lesions in the LAD at the proximal and mid sections. Circumflex has a proximal 80 the 90 percent sten osis. Based on these findings she is recommended urgent coronary artery bypass surgery. She will be admitted to the intensive care unit. She is seen today in consultation on the extended stay unit. She is awake and alert in no acute distress. She is currently pain-free. She is resting flat on the stretcher. No shortness of breath, cough or congestion. Maintaining O2 saturations in the low 90s on 2 L/m per nasal cannula. Sinus rhythm. Afebrile. Hemodynamically stable. White count 9.8. Hemoglobin 13.6. Platelet count 238. D-dimer 0.35. Sodium 141. Potassium 4.4. Chloride 110. Creatinine 0.88. Troponin 0.345, 15.0, 31.4. TSH 15.2. Cholesterol 304. LDH 221. HDL 59. Triglycerides 122. CoVID 19 screen pending. Chest x-ray revealed mild pulmonary interstitial edema. Carotid Dopplers revealed bilateral atherosclerotic plaque with findings suggested of the 50-69% stenosis bilaterally. Bedside spirometry pending. She remains on a heparin drip currently at 12 units per kilogram per hour. Patient is seen today 05/25/2020 in follow-up in the intensive care unit. She is currently awake and alert in no acute distress. Maintaining O2 saturations in the 90s on room air. She denies any recurrent chest discomfort. No left arm pain. No jaw pain. She remains hemodynamically stable. Her FEV1 value is 47% of predicted. On 05/26/2020, the patient is a specific complaints. She is free of any chest pain. She is emanating within her room. She is on Lovenox 60 mg subcu every 12 hours. She is also on high-dose statin with Lipitor 80 mg by mouth daily and metoprolol 25 mg by mouth twice a day and Cozaar 25 mg by mouth daily. No angina. No palpitations. No syncope. The tentative plan is to proceed with coronary artery bypass surgery on this patient on Friday. 05/27/2020, the patient is still free of any chest pain. She was switched to Lovenox and his injection. She still awaiting her bypass surgery this is tentatively scheduled on Friday. No new complaints. No cardiac arrhythmias features ambulate safely she's using incentive spirometer. She is on oxygen at room air and she is not having any On 05/28/2020, the patient is status. The plan is for surgery tomorrow. Cardiology chest pain. She may to surgery yesterday. Her pulmonary status remains stable. She is using incentive spirometer. The tentative plan is to proceed with coronary artery bypass surgery tomorrow. On 05/19/2020 patient seen in follow-up in the intensive care unit following her 3 vessel cardiac bypass surgery. Patient remains intubated, sedated on mechanical ventilator, initial vent settings were assist control with a rate of 14, tidal vital 450, FiO2 of 70% and PEEP of 5, postoperative blood gases were reviewed showing pH of 7.38, pCO2 44, and pO2 of 293, and this was done on FiO2 of 100%, and subsequently FiO2 was dropped down to 70%. Patient is on 0.9 normal saline at a rate of 50 ML per hour, Diprivan is a 25 mics per kilo per minute, nitroglycerin at 5 mics per kilo per minute, including PACs was started at 6 mg/h. Cardiac output is 4.0, and cardiac index is 2.4, PEEP pressures of 44/32, CVP is 25, patient is sinus mechanism, with a controlled rate, epicardial pacemaker wires to external pacemaker with the backup rate. Postoperative labs revealed a white blood cell count is 7.3, hemoglobin is 8.2, INR is 1.2, sodium is 141, potassium is 3.5, chloride is 115, CO2 is 27, B1 is 12 crit 0.63. Chest x-ray showed bilateral infiltrates and small pleural effusion with mild venous congestion, and fluid overload, ET tube was approximately 2-1/2 cm above the ilda, NG tube in appropriate position, patient has 3 chest tubes, right common mediastinal and left with small amount of sanguinous output in the Pleur-evac, no evidence of any leak, no evidence of pneumothorax on chest x-ray. The initial postoperative blood gas was satisfactory, however in the course of the following 2 hours patient was noted to be desaturating to 85, and her PEEP was increased to 10, and FiO2 was increased to 100%, repeat chest x-ray was obtained, showing persistent tiny left pleural effusion and bilateral interstitial and alveolar edema. However patient is diuresing quite well, he has produced 2.2 L in urine output since arrival from the OR. Intraoperatively patient received 1 unit of packed red blood cells, current hemoglobin is 8.2. Objective - Vital Signs Vital signs: Vital Signs Temp 98 F 05/29/20 06:11 Pulse 87 05/29/20 15:25 Resp 18 05/29/20 05:42 BP 124/80 05/29/20 06:11 Pulse Ox 99 05/29/20 06:11 Intake & Output 05/28/20 05/29/20 05/29/20 18:59 06:59 18:59 Intake Total 500 20 373 Output Total 2200 Balance 500 20 -1827 Weight 65.3 kg Intake: IV 20 20 63 Invasive Line 2 20 20 Oral 480 Blood Product 310 Rc As-1 Unit 310 [id number] Output: Urine 1200 Estimated Blood Loss 1000 Other: Voiding Method Toilet # Voids 1 - Exam GENERAL EXAM: Sedated, intubated, 59-year-old white female, on assist control mode of ventilation with the FiO2 100% and PEEP of 10, seen in the postoperative period following her three-vessel coronary artery bypass grafting surgery HEAD: Normocephalic/atraumatic. EYES: Normal reaction of pupils, equal size. Conjunctiva pink, sclera white. NOSE: Clear with pink turbinates. THROAT: No erythema or exudates. NECK: No masses, no JVD, no thyroid enlargement, no adenopathy. CHEST: No chest wall deformity. Symmetrical expansion. Midsternal incision is clean dry and intact, 3 chest tubes including right, mediastinal and left chest tubes with small amount of serosanguineous output in the atrium's, with no evidence of air leak LUNGS: Equal air entry with no crackles, wheeze, rhonchi or dullness. CVS: Regular rate and rhythm, normal S1 and S2, no gallops, no murmurs, no rubs ABDOMEN: Soft, nontender. No hepatosplenomegaly, normal bowel sounds, no guarding or rigidity. EXTREMITIES: No clubbing, no edema, no cyanosis, 2+ pulses and upper and lower extremities. Left lower extremity harvest site, covered with surgical dressings, Ge wrapped MUSCULOSKELETAL: Muscle strength and tone normal. SPINE: No scoliosis or deformity SKIN: No rashes CENTRAL NERVOUS SYSTEM: Sedated, intubated No focal deficits, tone is normal in all 4 extremities. - Labs CBC & Chem 7: 05/29/20 13:56 05/29/20 13:56 Labs: Abnormal Lab Results - Last 24 Hours (Table) 05/28/20 05/29/20 05/29/20 Range/Units 08:28 08:37 10:37 RBC (3.80-5.40) m/uL Hgb (11.4-16.0) gm/dL Hct (34.0-46.0) % Plt Count (150-450) k/uL PT (9.0-12.0) sec INR (<1.2) APTT (22.0-30.0) sec ABG pH 7.47 H (7.35-7.45) ABG pCO2 33 L (35-45) mmHg ABG pO2 388 H 193 H (83-108) mmHg ABG HCO3 (21-25) mmol/L ABG Total CO2 25 H 26 H (19-24) mmol/L ABG O2 Saturation 99.9 H 99.4 H (94-97) % ABG Hematocrit 29 L 26 L (34.0-46.0) % ABG Potassium (3.4-4.5) mmol/L ABG Ionized Calcium (4.5-5.3) mg/dL ABG Glucose 109 H (75-99) mg/dL ABG Lactic Acid (0.5-1.6) mmol/L Hemoglobin 9.4 L 8.6 L (11.4-16.0) gm/dL Chloride (98-107) mmol/L POC Glucose (mg/dL) (75-99) mg/dL Calcium (8.4-10.2) mg/dL Magnesium (1.6-2.3) mg/dL Alkaline Phosphatase (38-126) U/L Total Protein (6.3-8.2) g/dL Albumin (3.5-5.0) g/dL Arterial Blood Potassium (3.4-4.5) mmol/L Arterial Blood Glucose 109 H (75-99) mg/dL Crossmatch See Detail 05/29/20 05/29/20 05/29/20 Range/Units 10:40 11:15 11:43 RBC (3.80-5.40) m/uL Hgb (11.4-16.0) gm/dL Hct (34.0-46.0) % Plt Count (150-450) k/uL PT (9.0-12.0) sec INR (<1.2) APTT (22.0-30.0) sec ABG pH 7.47 H 7.46 H (7.35-7.45) ABG pCO2 33 L (35-45) mmHg ABG pO2 >420 H 376 H 365 H (83-108) mmHg ABG HCO3 (21-25) mmol/L ABG Total CO2 25 H 27 H 27 H (19-24) mmol/L ABG O2 Saturation 100.0 H 100.0 H 100.0 H (94-97) % ABG Hematocrit 21 L 18 L* 18 L* (34.0-46.0) % ABG Potassium 4.9 H 4.7 H (3.4-4.5) mmol/L ABG Ionized Calcium 4.1 L 4.2 L 4.3 L (4.5-5.3) mg/dL ABG Glucose 108 H 177 H 171 H (75-99) mg/dL ABG Lactic Acid (0.5-1.6) mmol/L Hemoglobin 6.9 L* 5.9 L* 5.8 L* (11.4-16.0) gm/dL Chloride (98-107) mmol/L POC Glucose (mg/dL) (75-99) mg/dL Calcium (8.4-10.2) mg/dL Magnesium (1.6-2.3) mg/dL Alkaline Phosphatase (38-126) U/L Total Protein (6.3-8.2) g/dL Albumin (3.5-5.0) g/dL Arterial Blood Potassium 4.9 H 4.7 H (3.4-4.5) mmol/L Arterial Blood Glucose 108 H 177 H 171 H (75-99) mg/dL Crossmatch 05/29/20 05/29/20 05/29/20 Range/Units 12:12 13:07 13:39 RBC (3.80-5.40) m/uL Hgb (11.4-16.0) gm/dL Hct (34.0-46.0) % Plt Count (150-450) k/uL PT (9.0-12.0) sec INR (<1.2) APTT (22.0-30.0) sec ABG pH (7.35-7.45) ABG pCO2 34 L (35-45) mmHg ABG pO2 >420 H 389 H 362 H (83-108) mmHg ABG HCO3 26 H (21-25) mmol/L ABG Total CO2 26 H 27 H (19-24) mmol/L ABG O2 Saturation 100.0 H 100.0 H 99.9 H (94-97) % ABG Hematocrit 17 L* 18 L* 24 L (34.0-46.0) % ABG Potassium 4.7 H 2.9 L* (3.4-4.5) mmol/L ABG Ionized Calcium 4.3 L 4.1 L (4.5-5.3) mg/dL ABG Glucose 176 H 114 H 109 H (75-99) mg/dL ABG Lactic Acid 2.2 H* (0.5-1.6) mmol/L Hemoglobin 5.5 L* 5.8 L* 7.9 L (11.4-16.0) gm/dL Chloride (98-107) mmol/L POC Glucose (mg/dL) (75-99) mg/dL Calcium (8.4-10.2) mg/dL Magnesium (1.6-2.3) mg/dL Alkaline Phosphatase (38-126) U/L Total Protein (6.3-8.2) g/dL Albumin (3.5-5.0) g/dL Arterial Blood Potassium 4.7 H 2.9 L* (3.4-4.5) mmol/L Arterial Blood Glucose 176 H 114 H 109 H (75-99) mg/dL Crossmatch 05/29/20 05/29/20 05/29/20 Range/Units 13:39 13:56 13:56 RBC 2.48 L (3.80-5.40) m/uL Hgb 8.2 L D (11.4-16.0) gm/dL Hct 23.7 L (34.0-46.0) % Plt Count 96 L D (150-450) k/uL PT 12.1 H (9.0-12.0) sec INR 1.2 H (<1.2) APTT 38.8 H (22.0-30.0) sec ABG pH (7.35-7.45) ABG pCO2 (35-45) mmHg ABG pO2 293 H (83-108) mmHg ABG HCO3 26 H (21-25) mmol/L ABG Total CO2 27 H (19-24) mmol/L ABG O2 Saturation 100.0 H (94-97) % ABG Hematocrit (34.0-46.0) % ABG Potassium (3.4-4.5) mmol/L ABG Ionized Calcium (4.5-5.3) mg/dL ABG Glucose (75-99) mg/dL ABG Lactic Acid (0.5-1.6) mmol/L Hemoglobin (11.4-16.0) gm/dL Chloride (98-107) mmol/L POC Glucose (mg/dL) (75-99) mg/dL Calcium (8.4-10.2) mg/dL Magnesium (1.6-2.3) mg/dL Alkaline Phosphatase (38-126) U/L Total Protein (6.3-8.2) g/dL Albumin (3.5-5.0) g/dL Arterial Blood Potassium (3.4-4.5) mmol/L Arterial Blood Glucose (75-99) mg/dL Crossmatch 05/29/20 05/29/20 05/29/20 Range/Units 13:56 13:56 15:40 RBC (3.80-5.40) m/uL Hgb (11.4-16.0) gm/dL Hct (34.0-46.0) % Plt Count (150-450) k/uL PT (9.0-12.0) sec INR (<1.2) APTT (22.0-30.0) sec ABG pH 7.34 L (7.35-7.45) ABG pCO2 48 H (35-45) mmHg ABG pO2 (83-108) mmHg ABG HCO3 26 H (21-25) mmol/L ABG Total CO2 27 H (19-24) mmol/L ABG O2 Saturation 97.3 H (94-97) % ABG Hematocrit (34.0-46.0) % ABG Potassium (3.4-4.5) mmol/L ABG Ionized Calcium (4.5-5.3) mg/dL ABG Glucose (75-99) mg/dL ABG Lactic Acid (0.5-1.6) mmol/L Hemoglobin (11.4-16.0) gm/dL Chloride 115 H (98-107) mmol/L POC Glucose (mg/dL) 105 H (75-99) mg/dL Calcium 7.7 L (8.4-10.2) mg/dL Magnesium 2.5 H (1.6-2.3) mg/dL Alkaline Phosphatase <20 L (38-126) U/L Total Protein 3.7 L (6.3-8.2) g/dL Albumin 2.2 L (3.5-5.0) g/dL Arterial Blood Potassium (3.4-4.5) mmol/L Arterial Blood Glucose (75-99) mg/dL Crossmatch 05/29/20 Range/Units 15:46 RBC (3.80-5.40) m/uL Hgb (11.4-16.0) gm/dL Hct (34.0-46.0) % Plt Count (150-450) k/uL PT (9.0-12.0) sec INR (<1.2) APTT (22.0-30.0) sec ABG pH (7.35-7.45) ABG pCO2 (35-45) mmHg ABG pO2 (83-108) mmHg ABG HCO3 (21-25) mmol/L ABG Total CO2 (19-24) mmol/L ABG O2 Saturation (94-97) % ABG Hematocrit (34.0-46.0) % ABG Potassium (3.4-4.5) mmol/L ABG Ionized Calcium (4.5-5.3) mg/dL ABG Glucose (75-99) mg/dL ABG Lactic Acid (0.5-1.6) mmol/L Hemoglobin (11.4-16.0) gm/dL Chloride (98-107) mmol/L POC Glucose (mg/dL) 102 H (75-99) mg/dL Calcium (8.4-10.2) mg/dL Magnesium (1.6-2.3) mg/dL Alkaline Phosphatase (38-126) U/L Total Protein (6.3-8.2) g/dL Albumin (3.5-5.0) g/dL Arterial Blood Potassium (3.4-4.5) mmol/L Arterial Blood Glucose (75-99) mg/dL Crossmatch Assessment and Plan Plan: Assessment: #1. Multivessel coronary artery disease, status post three-vessel coronary artery bypass grafting, with JOSE to the LAD, SVG to the PDA, and SVG to the OM 1, with endoscopic vein harvest of the left lower extremity, exclusion of the left atrial appendage using a 35 mm atrial clip, and intraoperative transesophageal echocardiogram, postoperative day 0 #2. Acute hypoxic respiratory failure, related to possibility of fluid overload versus ARDS/acute lung injury. Shortly after arrival from the OR, patient's oxy genation has worsened, and patient had to have PEEP increased, and FiO2 increased to 100%. Chest x-ray showing bilateral infiltrates, and a small pleural effusions consistent with interstitial edema. Patient is diuresing extensively, has produced 2.2 L in urine output since arrival from the operating room #3. Postoperative blood loss anemia, expected outcome of bypass grafting surgery #4. Acute myocardial infarction #5. Chronic and ongoing tobacco dependence #5. Hypertension #6. Hyperlipidemia #7. History of SVT #8. History of hyperthyroidism status post radial active iodine with subsequent hypothyroidism #9. Daily alcohol use Plan: Ventilator adjustments have been made, PEEP was increased to 10, FiO2 was increased to 100%, repeat chest x-ray was obtained showing persistent interstitial edema, small pleural effusions, findings were consistent with acute fluid overload, pulmonary edema, patient is diuresing from the dose of mannitol given intraoperatively. No significant bleeding from the chest tubes, will not attempt to extubate tonight, keep the patient sedated, continue breathing treatments, continue diuresis, continue close hemodynamic monitoring, follow-up chest x-ray in the morning. GI and DVT prophylaxis per CT surgery follow up labs in the morning, and continue to closely monitor and follow up with CT surgery I performed a history & physical examination of the patient and discussed their management with my nurse practitioner, Micaela Cano. I reviewed the nurse practitioner's note and agree with the documented findings and plan of care. Lung sounds are positive for diminished breath sounds. The findings and the impression was discussed with the patient. I attest to the documentation by the nurse practitioner. Time with Patient: Greater than 30
[2020-05-29 16:53] LABS: Glucose,Whole Blood 108 mg/dL (75-99)
[2020-05-29 17:02] LABS: Basophils % (A) 0 %; Eosinophils # (A) 0.1 k/uL (0-0.7); Eosinophils % (A) 1 %; HCT 32.3 % (34.0-46.0); HGB 10.7 gm/dL (11.4-16.0); Lymphocytes # (A) 1.1 k/uL (1.0-4.8); Lymphocytes % (A) 11 %; MCH 31.6 pg (25.0-35.0); MCV 95.7 fL (80.0-100.0); Mean Platelet Volume 9.4; Monocytes # (A) 0.6 k/uL (0-1.0); Monocytes % (A) 7 %; Neutrophils # (A) 7.4 k/uL (1.3-7.7); Neutrophils % (A) 80 %; RBC 3.37 m/uL (3.80-5.40); WBC 9.3 k/uL (3.8-10.6)
[2020-05-29 17:05] LABS: Platelet Count 153 k/uL (150-450)
[2020-05-29 17:12] LABS: ABG Base Excess -1.6 mmol/L; ABG HCO3 25 mmol/L (21-25); ABG PCO2 49 mmHg (35-45); ABG PH 7.31 (7.35-7.45); ABG PO2 276 mmHg (83-108); ABG TCO2 26 mmol/L (19-24); Allen Test Performed? Yes
[2020-05-29] MEDS ORDERED: DEXAMETHASONE SOD PHOSPHATE 10 MG/ML 1 ML VIAL IV ONE (17:35)
--- NOTE | 2020-05-29 17:53 | OP ---
OPERATIVE REPORT DATE OF SURGERY: 05/29/2020. SURGEON: Dr. Jason Contreras. ASSISTANTS: 1. Rafael Lerner, RUPINDER. 2. RUPINDER Bush. PREOPERATIVE DIAGNOSES: 1. [id number] myocardial infarction. 2. Totally occluded chronic right coronary artery. 3. Moderate left ventricular dysfunction. 4. Moderate mitral valve regurgitation. 5. Hypertension. 6. Hyperlipidemia. 7. Tobacco abuse. 8. Chronic obstructive pulmonary disease. 9. Thyroid disorder. POSTOPERATIVE DIAGNOSES: 1. Gvj-MI-qmwwrnofs myocardial infarction. 2. Totally occluded chronic right coronary artery. 3. Moderate left ventricular dysfunction. 4. Moderate mitral valve regurgitation. 5. Hypertension. 6. Hyperlipidemia. 7. Tobacco abuse. 8. Chronic obstructive pulmonary disease. 9. Thyroid disorder. 10.Mild mitral valve regurgitation. PROCEDURES: 1. Triple-vessel coronary artery bypass grafting using the left internal mammary artery to the left anterior descending artery, reverse saphenous vein graft from the aorta to the first obtuse marginal artery before it bifurcated, reverse saphenous vein graft from the aorta to the posterior descending artery. 2. Exclusion of the left atrial appendage using a 35 mm AtriClip. 3. Intraoperative graft flow measurements using the [employer]-Stim system. 4. Endoscopic harvesting the left greater saphenous vein. 5. Intraoperative transesophageal echocardiogram and epiaortic scanning. INDICATION FOR SURGERY: The patient is a 59-year-old lady with the above risk factors, admitted with chest pain, and had positive troponins. Cardiac catheterization followed, and that showed a totally occluded collateralized right coronary artery system with severe stenosis of the LAD and the circumflex artery. Her ejection fraction was estimated around 35% to 40%. Mitral regurgitation was judged as moderate to severe by the official reading; however, that was checked and we did not think from a surgical standpoint that she had moderate mitral valve regurgitation. In any event, the mitral valve will be checked by MARCIE intraoperatively. Her left atrium is not dilated. The patient had a history of one episode of SVT five years ago, but no atrial fibrillation. The patient has been taken today for coronary artery bypass grafting with clipping of her appendage. The STS risk was discussed with her. She understood it and agreed to proceed. DESCRIPTION OF THE PROCEDURE: The patient was in supine position in the preoperative holding area. Right internal jugular [place]-Brandie catheter and right radial arterial line were placed. The patient's cardiac index was 2.1. Pressure was 30/15. Subsequently she was brought to the operating room, where general endotracheal anesthesia was induced uneventfully. Mcdonald catheter was inserted. The patient received 2 grams of cefazolin intravenously. The chest, abdomen and both lower extremities were prepped and draped using ChloraPrep. Ioban was used to cover the skin. Transesophageal echocardiogram confirmed the preoperative finding of moderate left ventricular dysfunction with inferior hypokinesia and mild mitral valve regurgitation despite high mean arterial pressure. Midline sternotomy was performed, and the bone was mildly osteoporotic. The left hemisternum was elevated and the left internal mammary artery was harvested in a somewhat skeletonized fashion. The left pleura was intentionally opened in this process and was drained with a 19-Green[place]ic Santi drain. The right pleura was also opened and was drained with another 19-Green[place]ic Santi drain. No bone wax was used. Bone Seal was applied to the sternal edges. In the same setting, the left greater saphenous vein was harvested endoscopically from groin to above ankle level after administration of 2000 units of heparin. The branches were tied. The leg incisions were closed over a drain. The vein appeared to be of good quality, around 4 mm in diameter. Mediastinal fat was transected between 2 ties and epiaortic scanning revealed concentric intimal thickening but no protruding atheroma in the ascending aorta. Pericardium was opened in an inverted T-fashion and a pericardial cradle was created. Findings included a normal soft short aorta and a mildly fatty heart with evidence of skipped intermediate calcific coronary artery disease. After systemic heparinization, after placement of respective pledgeted pursestrings, aortic cannulation with a 21-Green[place]ic Soft Flow cannula and venous cannulation with a two- stage 29/37 venous cannula was performed. Antegrade as well as retrograde cardioplegia catheters were placed. The mammary artery was clipped distally and transected. It had an excellent pulsatile flow in it and was around 1.5 mm in diameter. Cardiopulmonary bypass was initiated, and with the heart empty and beating we looked at the target. It appeared that the mid PDA after a plaque, the obtuse marginal artery by the left atrial appendage before it bifurcated, and the mid aspect of the left anterior descending artery, which was intraepicardial, would be the sites for bypass. Aorta was clamped, and during aortic clamping myocardial protection was achieved with an initial dose of antegrade cold blood cardioplegia followed by a dose of retrograde cold blood cardioplegia. All subsequent doses were given retrograde every 15 minutes and additional plegia was given via the constructed vein graft to the posterior descending artery to ensure optimal right ventricular protection. The first distal anastomosis was between a segment of vein of good quality and the mid aspect of the posterior descending artery which was opened through a plaque into a healthy artery, and the anastomosis was completed using Prolene 7-0 in continuous fashion. The second distal anastomosis was between another segment of vein and the obtuse marginal artery before it bifurcated. It was around 1.75 mm in diameter at that level and the anastomosis was completed using Prolene 7-0 in continuous fashion. The arterial wall was soft. The third and last distal anastomosis was between the left internal mammary artery and the mid aspect of the left anterior descending artery, which was around 1.5 mm in diameter, intrapericardial, using Prolene 7-0 in continuous fashion. At least 1 mm shunt in each anastomosis and the shunt was removed before completing it. At this point I excluded the left atrial appendage by deploying a 35 mm AtriClip at its base. The vein of the obtuse marginal artery passed posterior to that clip. Satisfied with the distal anastomoses, rewarming was started as we punched out 2 buttons of the ascending aorta and the 2 proximal anastomoses of the 2 vein grafts were completed using Prolene 6-0 in continuous fashion. The patient was given lidocaine and magnesium and de-airing maneuvers were done before unclamping the aorta. The patient regained spontaneous sinus rhythm. All anastomoses appeared to be hemostatic. Preliminary graft signal was satisfactory. After around 15 minutes of reperfusion, we were able to wean off cardiopulmonary bypass without the need of any inotropic or vasopressor support. MARCIE showed improved left ventricular function. At this point we proceeded with graft flow measurements. A 4 mm probe was selected, and the flow into the vein graft to the posterior descending artery was 26 mL/minute, pulsatility index of 3.6, diastolic filling of 40%, showing a well-functioning graft. The flow into the vein to the obtuse marginal artery was 18 mL/minute, pulsatility index of 1.7, diastolic filling of 67%, showing an excellent functioning graft. The flow into the JOSE to the LAD was 44 mL/minute, pulsatility index of 2.3, diastolic filling of 77%. With that, all pump suckers were stopped as we gave test-dose then full-dose protamine. Decannulation followed. The retrograde cardioplegia site required reinforcement with a couple of pledgeted 4-0 Prolene. Two monopolar atrial pacing wires were affixed, one to the pursestring of the right atrial appendage and another one at the medial aspect of the junction of the SVC to the right atrium. No ventricular pacing wires were placed. A groove was made in the left pleuropericardial fat to accommodate the mammary artery medial to the lung and away from the posterior sternal table. There was a paucity of pericardial fat. However, the mediastinal fat was approximated over the aorta and the graft going to the PDA. After ensuring adequate hemostasis and hemodynamics and after correct sponge, instrument and needle counts, the sternum was closed using 5 [id number] pineal cables after interposing Fibrillar between the sternal edges. Thorough irrigation of cefazolin followed. The rest of the closure proceeded in layers. Skin glue was applied. The patient received one unit of packed red blood cells and 300 mL of Cell Saver blood. She was transferred to the ICU in stable condition with a cardiac index of 2.8, mean arterial pressure of 86, atrial paced at 80 for sinus bradycardia at 60, CVP of 11, PA of 37/27. MMODL / IJN: [id number] / MTDD
[2020-05-29 18:00] LABS: Glucose,Whole Blood 107 mg/dL (75-99)
[2020-05-29] MEDS: BUDESONIDE 1 MG/2 ML NEBU INHALATION SCH (18:37)
[2020-05-29] MEDS: ACETAMINOPHEN IV (For NPO) 1,000 MG in EMPTY BAG 1 BAG IVPB SCH (18:41)
[2020-05-29 18:53] LABS: Glucose,Whole Blood 109 mg/dL (75-99)
[2020-05-29 20:08] LABS: Glucose,Whole Blood 136 mg/dL (75-99)
[2020-05-29 20:15] LABS: Basophils % (A) 0 %; Eosinophils # (A) 0.1 k/uL (0-0.7); Eosinophils % (A) 1 %; HCT 28.6 % (34.0-46.0); HGB 9.9 gm/dL (11.4-16.0); Lymphocytes # (A) 0.5 k/uL (1.0-4.8); Lymphocytes % (A) 6 %; MCH 33.1 pg (25.0-35.0); MCHC 34.7 g/dL (31.0-37.0); MCV 95.3 fL (80.0-100.0); Mean Platelet Volume 9.8; Monocytes # (A) 0.6 k/uL (0-1.0); Monocytes % (A) 7 %; Neutrophils # (A) 7.4 k/uL (1.3-7.7); Neutrophils % (A) 86 %; Platelet Count 127 k/uL (150-450); Poikilocytosis Slight; RDW 14.5 % (11.5-15.5); WBC 8.5 k/uL (3.8-10.6)
[2020-05-29 21:03] LABS: Glucose,Whole Blood 133 mg/dL (75-99)
[2020-05-29] MEDS: ATORVASTATIN 80 MG TAB PO SCH (21:13)
[2020-05-29] MEDS: HEPARIN SODIUM,PORCINE 5,000 UNIT/ML 1 ML VIAL SQ SCH (21:13)
[2020-05-29 22:02] LABS: Glucose,Whole Blood 146 mg/dL (75-99)
[2020-05-29] MEDS: INSULIN REGULAR 100 UNIT in SODIUM CHLORIDE 0.9% 100 ML IV SCH (22:04)
[2020-05-29 23:02] LABS: Glucose,Whole Blood 146 mg/dL (75-99)
[2020-05-30 00:07] LABS: Glucose,Whole Blood 129 mg/dL (75-99)
[2020-05-30] MEDS: ACETAMINOPHEN IV (For NPO) 1,000 MG in EMPTY BAG 1 BAG IVPB SCH (00:17)
[2020-05-30 01:09] LABS: Glucose,Whole Blood 132 mg/dL (75-99)
[2020-05-30 02:09] LABS: Glucose,Whole Blood 138 mg/dL (75-99)
[2020-05-30 02:59] LABS: Glucose,Whole Blood 123 mg/dL (75-99)
[2020-05-30 03:59] LABS: Glucose,Whole Blood 123 mg/dL (75-99)
[2020-05-30 04:04] LABS: Basophils # (A) 0.1 k/uL (0-0.2); Basophils % (A) 1 %; Eosinophils % (A) 0 %; HCT 28.9 % (34.0-46.0); HGB 9.8 gm/dL (11.4-16.0); Lymphocytes # (A) 0.7 k/uL (1.0-4.8); Lymphocytes % (A) 7 %; MCH 32.5 pg (25.0-35.0); MCHC 34.1 g/dL (31.0-37.0); MCV 95.3 fL (80.0-100.0); Mean Platelet Volume 10.5; Monocytes # (A) 0.7 k/uL (0-1.0); Monocytes % (A) 8 %; Neutrophils # (A) 7.4 k/uL (1.3-7.7); Neutrophils % (A) 83 %; Platelet Count 143 k/uL (150-450); RBC 3.03 m/uL (3.80-5.40); RDW 14.6 % (11.5-15.5)
[2020-05-30 04:22] LABS: ALT 16 U/L (4-34); AST 40 U/L (14-36); African American GFR (CKD) >90 (>60 ml/min/1.73 sqM); Alkaline Phosphatase 38 U/L (38-126); Anion Gap 2 mmol/L; Blood Urea Nitrogen 11 mg/dL (7-17); Calcium 8.2 mg/dL (8.4-10.2); Carbon Dioxide 25 mmol/L (22-30); Chloride 112 mmol/L (98-107); Glucose 119 mg/dL (74-99); Magnesium 2.4 mg/dL (1.6-2.3); Non-African American GFR(CKD) >90 (>60 ml/min/1.73 sqM); Potassium 4.7 mmol/L (3.5-5.1); Sodium 139 mmol/L (137-145); Total Bilirubin 0.3 mg/dL (0.2-1.3); Total Protein 4.9 g/dL (6.3-8.2)
[2020-05-30 05:23] LABS: ABG Base Excess -0.3 mmol/L; ABG HCO3 24 mmol/L (21-25); ABG PCO2 36 mmHg (35-45); ABG PH 7.43 (7.35-7.45); ABG PO2 110 mmHg (83-108); ABG TCO2 25 mmol/L (19-24)
[2020-05-30] MEDS: HEPARIN SODIUM,PORCINE 5,000 UNIT/ML 1 ML VIAL SQ SCH ×3 (05:54→22:29)
[2020-05-30 05:55] LABS: Glucose,Whole Blood 106 mg/dL (75-99)
[2020-05-30 06:55] LABS: Glucose,Whole Blood 116 mg/dL (75-99)
[2020-05-30] MEDS: KETOROLAC 15 MG/ML 1 ML VIAL IVP SCH ×3 (07:09→20:44)
[2020-05-30] MEDS: BUDESONIDE 1 MG/2 ML NEBU INHALATION SCH ×2 (07:28→19:55)
[2020-05-30] MEDS: IPRATROPIUM-ALBUTEROL 3 ML NEB INHALATION SCH ×4 (07:29→19:55)
[2020-05-30 07:56] LABS: Glucose,Whole Blood 108 mg/dL (75-99)
[2020-05-30] MEDS: FOLIC ACID 1 MG TAB PO SCH (08:10)
[2020-05-30] MEDS: CLOPIDOGREL 75 MG TAB PO SCH (08:10)
[2020-05-30] MEDS: THIAMINE 100 MG TAB PO SCH (08:10)
[2020-05-30] MEDS: ASPIRIN 325 MG TAB PO SCH (08:10)
--- NOTE | 2020-05-30 08:46 | XR ---
EXAMINATION TYPE: XR chest 1V portable DATE OF EXAM: 05/30/2020 COMPARISON: 05/29/2020 HISTORY: Shortness of breath TECHNIQUE: Single frontal view of the chest is obtained. FINDINGS: Postoperative change seen with mediastinal drain, chest tube, Spraggs-Brandie catheter, ET tube and NG tube stable in position. Diffuse interstitial pattern with bilateral areas of consolidation an d small effusion stable. No sizable pneumothorax. IMPRESSION: 1. Stable x-ray correlate for CHF with bilateral infiltrate and small effusion.
[2020-05-30] MEDS ORDERED: FUROSEMIDE 10 MG/ML 4 ML VIAL IV STA (08:51)
[2020-05-30 08:58] LABS: Glucose,Whole Blood 112 mg/dL (75-99)
[2020-05-30] MEDS ORDERED: MAGNESIUM HYDROXIDE 2,400 MG/10 ML CUP PO PRN (09:00)
[2020-05-30] MEDS ORDERED: ATORVASTATIN 40 MG TAB PO SCH (09:00)
[2020-05-30] MEDS ORDERED: METOPROLOL TARTRATE 12.5 MG TAB PO SCH (09:00)
[2020-05-30] MEDS ORDERED: METOPROLOL TARTRATE 25 MG TAB PO SCH (09:00)
[2020-05-30] MEDS ORDERED: bisacodyL 10 MG SUPP RECTAL PRN (09:00)
[2020-05-30] MEDS ORDERED: PANTOPRAZOLE 40 MG/10 ML VIAL IVP SCH (09:00)
--- NOTE | 2020-05-30 09:01 | P.PN ---
Subjective Progress Note Date: 05/30/20 Principal diagnosis: Triple-vessel coronary artery disease with totally occluded chronic right coronary artery, nstemi this admission, moderate left ventricular dysfunction, moderate mitral valve regurgitation. Previous medical history of hypertension, hyperlipidemia, SVT, hypothyroidism, previous hyper-thyroid treated with radioactive dye, daily tobacco dependence, severe COPD with preoperative FEV1 45% of predicted, daily EtOH use without history of withdrawal. Bilateral internal carotid artery stenosis 50-69% POD #1 triple vessel coronary artery bypass grafting using the left internal mammary artery to the left anterior descending artery, reverse saphenous vein graft from the aorta to the first obtuse marginal artery before its bifurcation, reverse saphenous vein graft from the aorta to the posterior descending artery, exclusion of the left atrial appendage using a 35 mm AtriClip, intraoperative graft flow measurements using the OneSpot system, endoscopic harvesting of the left greater saphenous vein from the groin to above the ankle level, intraoperative transesophageal echocardiogram and epi-aortic scanning. Acute blood loss anemia, expected outcome given hemodilution and cardiopulmonary bypass pump The patient is currently laying in the intensive care unit in no acute distress, continues on mechanical ventilation. Remains in normal sinus rhythm and hemodynamically stable on no inotropes or pressors. After OR yesterday afternoon she did have an episode of hypoxia, ventilator changes were made per pulmonology, patient was allowed to rest on the ventilator overnight, currently much more stable. Right internal jugular Gladstone/Cordis, right brachial arterial line, mediastinal/left/right pleural chest tubes all remain. Sedation is being changed from propofol to Precedex in anticipation of weaning and extubation this morning. The patient does open her eyes and follows commands. No other new concerns. Objective - Vital Signs Vital signs: Vital Signs Temp 98 F 05/29/20 06:11 Pulse 92 05/30/20 07:40 Resp 18 05/30/20 06:00 BP 125/77 05/30/20 06:00 Pulse Ox 99 05/30/20 06:00 Intake & Output 05/29/20 05/30/20 05/30/20 18:59 06:59 18:59 Intake Total 990.5 1197.267 79 Output Total 4717 1130 70 Balance -3726.5 67.267 9 Weight 68.9 kg Intake: IV 677 1002.5 79 ACETAMINOPHEN IV (For NPO 100 ) 1,000 mg In Empty Bag 1 bag @ 400 mls/hr IVPB Q6HR [facility] Rx#:[id number] Nitroglycerin-D5w Pmx 50 30 13.5 mg In Dextrose/Water 1 250ml.bag @ 5 MCG/MIN 1.5 mls/hr IV .Q24H [facility] Rx#: [id number] Sodium Chloride 0.9% 1, 300 550 50 000 ml @ 20 mls/hr IV . Q24H [facility] Rx#:[id number] cardiac output 180 140 20 ceFAZolin 2 gm In Sodium 50 100 Chloride 0.9% 50 ml @ 100 mls/hr IVPB Q8H [facility] Rx#: [id number] pressure bag 54 99 9 Intake, IV Titration 3.5 194.767 Amount Clevidipine Butyrate 25 3.5 mg In Empty Bag 1 bag @ 1 MG/HR 2 mls/hr IV .Q24H [facility] Rx#:[id number] Insulin Regular 100 unit 12.515 In Sodium Chloride 0.9% 100 ml @ Per Protocol IV .Q0M [facility] Rx#:[id number] propofoL 1,000 mg In 182.252 Empty Bag 1 bag @ Titrate IV .Q0M [facility] Rx#: [id number] Blood Product 310 Rc As-1 Unit 310 [id number] Output: Chest Tube Drainage 517 170 10 Left Pleural 200 40 0 Right Pleural 115 40 0 mediastinal 202 90 10 Urine 3200 960 60 Estimated Blood Loss 1000 Other: Voiding Method Indwelling Catheter Indwelling Catheter Indwelling Catheter ABP, PAP, CO, CI - Last Documented Arterial Blood Pressure 145/70 Pulmonary Artery Pressure 32/21 Cardiac Output 3.7 Cardiac Index 2.2 - Constitutional General appearance: Present: cooperative, no acute distress - Respiratory Details: Lungs sounds diminished bilaterally. Respirations even, nonlabored. Currently on mechanical ventilation, assist control mode, FiO2 50%, tidal volume 450, resp iratory rate 18, PEEP 5. ABGs on those settings 7.43/36/110/24/99%/ -0.3. 8.0 ET tube present, 24 at the lip. Mediastinal, left pleural, right pleural chest tubes all present and connected to continuous wall suction. Mediastinal chest tube with 72 mL serosanguineous drainage overnight, 350 mL since surgery. Left pleural chest tube with 10 mL serosanguineous drainage overnight, 250 mL since surgery. Right pleural chest tube with 20 mL serosanguineous drainage overnight, 150 mL since surgery. No air leaks present. - Cardiovascular Details: S1, S2 present. Regular rate and rhythm, sinus rhythm on telemetry. Sternum stable. Atrial epicardial pacemaker wires present, connected to generator, AAI mode with backup rate 50 bpm. Palpable peripheral pulses bilaterally. Trace generalized edema present. No calf pain or tenderness noted. Right internal jugular Gladstone/Cordis, right radial arterial line present. Last CO/CI 3.7/2.2 on no inotropes or pressors, CVP 13-14. Heart hugger, SCDs, antiembolism stockings present. - Gastrointestinal Gastrointestinal Comment(s): Abdomen soft, non-tender, non-distentded. Hypoactive bowel sounds x 4 quadrants. NG tube present to low intermittent suction with minimal output - Genitourinary Genitourinary Comment(s): Mcdonald present draining clear, yellow urine. Output 50-60 mL/h overnight - Integumentary Integumentary Comment(s): Skin is warm and dry with evidence of good perfusion. Anterior chest incision well approximated and covered with dry intact dressing. Left lower extremity EVH site well approximated without redness or drainage - Neurologic Neurologic: Present: CNII-XII intact - Musculoskeletal Musculoskeletal: Present: strength equal bilaterally - Psychiatric Psychiatric: Present: A&O x's 3, appropriate affect - Allied health notes Allied health notes reviewed: nursing - Labs CBC & Chem 7: 05/30/20 04:00 05/30/20 04:00 Labs: Abnormal Lab Results - Last 24 Hours (Table) 05/28/20 05/29/20 05/29/20 Range/Units 08:28 08:37 10:37 RBC (3.80-5.40) m/uL Hgb (11.4-16.0) gm/dL Hct (34.0-46.0) % Plt Count (150-450) k/uL Lymphocytes # (1.0-4.8) k/uL PT (9.0-12.0) sec INR (<1.2) APTT (22.0-30.0) sec ABG pH 7.47 H (7.35-7.45) ABG pCO2 33 L (35-45) mmHg ABG pO2 388 H 193 H (83-108) mmHg ABG HCO3 (21-25) mmol/L ABG Total CO2 25 H 26 H (19-24) mmol/L ABG O2 Saturation 99.9 H 99.4 H (94-97) % ABG Hematocrit 29 L 26 L (34.0-46.0) % ABG Potassium (3.4-4.5) mmol/L ABG Ionized Calcium (4.5-5.3) mg/dL ABG Glucose 109 H (75-99) mg/dL ABG Lactic Acid (0.5-1.6) mmol/L Hemoglobin 9.4 L 8.6 L (11.4-16.0) gm/dL Chloride (98-107) mmol/L Glucose (74-99) mg/dL POC Glucose (mg/dL) (75-99) mg/dL Calcium (8.4-10.2) mg/dL Magnesium (1.6-2.3) mg/dL AST (14-36) U/L Alkaline Phosphatase (38-126) U/L Total Protein (6.3-8.2) g/dL Albumin (3.5-5.0) g/dL Arterial Blood Potassium (3.4-4.5) mmol/L Arterial Blood Glucose 109 H (75-99) mg/dL Crossmatch See Detail 05/29/20 05/29/20 05/29/20 Range/Units 10:40 11:15 11:43 RBC (3.80-5.40) m/uL Hgb (11.4-16.0) gm/dL Hct (34.0-46.0) % Plt Count (150-450) k/uL Lymphocytes # (1.0-4.8) k/uL PT (9.0-12.0) sec INR (<1.2) APTT (22.0-30.0) sec ABG pH 7.47 H 7.46 H (7.35-7.45) ABG pCO2 33 L (35-45) mmHg ABG pO2 >420 H 376 H 365 H (83-108) mmHg ABG HCO3 (21-25) mmol/L ABG Total CO2 25 H 27 H 27 H (19-24) mmol/L ABG O2 Saturation 100.0 H 100.0 H 100.0 H (94-97) % ABG Hematocrit 21 L 18 L* 18 L* (34.0-46.0) % ABG Potassium 4.9 H 4.7 H (3.4-4.5) mmol/L ABG Ionized Calcium 4.1 L 4.2 L 4.3 L (4.5-5.3) mg/dL ABG Glucose 108 H 177 H 171 H (75-99) mg/dL ABG Lactic Acid (0.5-1.6) mmol/L Hemoglobin 6.9 L* 5.9 L* 5.8 L* (11.4-16.0) gm/dL Chloride (98-107) mmol/L Glucose (74-99) mg/dL POC Glucose (mg/dL) (75-99) mg/dL Calcium (8.4-10.2) mg/dL Magnesium (1.6-2.3) mg/dL AST (14-36) U/L Alkaline Phosphatase (38-126) U/L Total Protein (6.3-8.2) g/dL Albumin (3.5-5.0) g/dL Arterial Blood Potassium 4.9 H 4.7 H (3.4-4.5) mmol/L Arterial Blood Glucose 108 H 177 H 171 H (75-99) mg/dL Crossmatch 05/29/20 05/29/20 05/29/20 Range/Units 12:12 13:07 13:39 RBC (3.80-5.40) m/uL Hgb (11.4-16.0) gm/dL Hct (34.0-46.0) % Plt Count (150-450) k/uL Lymphocytes # (1.0-4.8) k/uL PT (9.0-12.0) sec INR (<1.2) APTT (22.0-30.0) sec ABG pH (7.35-7.45) ABG pCO2 34 L (35-45) mmHg ABG pO2 >420 H 389 H 362 H (83-108) mmHg ABG HCO3 26 H (21-25) mmol/L ABG Total CO2 26 H 27 H (19-24) mmol/L ABG O2 Saturation 100.0 H 100.0 H 99.9 H (94-97) % ABG Hematocrit 17 L* 18 L* 24 L (34.0-46.0) % ABG Potassium 4.7 H 2.9 L* (3.4-4.5) mmol/L ABG Ionized Calcium 4.3 L 4.1 L (4.5-5.3) mg/dL ABG Glucose 176 H 114 H 109 H (75-99) mg/dL ABG Lactic Acid 2.2 H* (0.5-1.6) mmol/L Hemoglobin 5.5 L* 5.8 L* 7.9 L (11.4-16.0) gm/dL Chloride (98-107) mmol/L Glucose (74-99) mg/dL POC Glucose (mg/dL) (75-99) mg/dL Calcium (8.4-10.2) mg/dL Magnesium (1.6-2.3) mg/dL AST (14-36) U/L Alkaline Phosphatase (38-126) U/L Total Protein (6.3-8.2) g/dL Albumin (3.5-5.0) g/dL Arterial Blood Potassium 4.7 H 2.9 L* (3.4-4.5) mmol/L Arterial Blood Glucose 176 H 114 H 109 H (75-99) mg/dL Crossmatch 05/29/20 05/29/20 05/29/20 Range/Units 13:39 13:56 13:56 RBC 2.48 L (3.80-5.40) m/uL Hgb 8.2 L D (11.4-16.0) gm/dL Hct 23.7 L (34.0-46.0) % Plt Count 96 L D (150-450) k/uL Lymphocytes # (1.0-4.8) k/uL PT 12.1 H (9.0-12.0) sec INR 1.2 H (<1.2) APTT 38.8 H (22.0-30.0) sec ABG pH (7.35-7.45) ABG pCO2 (35-45) mmHg ABG pO2 293 H (83-108) mmHg ABG HCO3 26 H (21-25) mmol/L ABG Total CO2 27 H (19-24) mmol/L ABG O2 Saturation 100.0 H (94-97) % ABG Hematocrit (34.0-46.0) % ABG Potassium (3.4-4.5) mmol/L ABG Ionized Calcium (4.5-5.3) mg/dL ABG Glucose (75-99) mg/dL ABG Lactic Acid (0.5-1.6) mmol/L Hemoglobin (11.4-16.0) gm/dL Chloride (98-107) mmol/L Glucose (74-99) mg/dL POC Glucose (mg/dL) (75-99) mg/dL Calcium (8.4-10.2) mg/dL Magnesium (1.6-2.3) mg/dL AST (14-36) U/L Alkaline Phosphatase (38-126) U/L Total Protein (6.3-8.2) g/dL Albumin (3.5-5.0) g/dL Arterial Blood Potassium (3.4-4.5) mmol/L Arterial Blood Glucose (75-99) mg/dL Crossmatch 05/29/20 05/29/20 05/29/20 Range/Units 13:56 13:56 15:40 RBC (3.80-5.40) m/uL Hgb (11.4-16.0) gm/dL Hct (34.0-46.0) % Plt Count (150-450) k/uL Lymphocytes # (1.0-4.8) k/uL PT (9.0-12.0) sec INR (<1.2) APTT (22.0-30.0) sec ABG pH 7.34 L (7.35-7.45) ABG pCO2 48 H (35-45) mmHg ABG pO2 (83-108) mmHg ABG HCO3 26 H (21-25) mmol/L ABG Total CO2 27 H (19-24) mmol/L ABG O2 Saturation 97.3 H (94-97) % ABG Hematocrit (34.0-46.0) % ABG Potassium (3.4-4.5) mmol/L ABG Ionized Calcium (4.5-5.3) mg/dL ABG Glucose (75-99) mg/dL ABG Lactic Acid (0.5-1.6) mmol/L Hemoglobin (11.4-16.0) gm/dL Chloride 115 H (98-107) mmol/L Glucose (74-99) mg/dL POC Glucose (mg/dL) 105 H (75-99) mg/dL Calcium 7.7 L (8.4-10.2) mg/dL Magnesium 2.5 H (1.6-2.3) mg/dL AST (14-36) U/L Alkaline Phosphatase <20 L (38-126) U/L Total Protein 3.7 L (6.3-8.2) g/dL Albumin 2.2 L (3.5-5.0) g/dL Arterial Blood Potassium (3.4-4.5) mmol/L Arterial Blood Glucose (75-99) mg/dL Crossmatch 05/29/20 05/29/20 05/29/20 Range/Units 15:46 16:50 16:55 RBC 3.37 L (3.80-5.40) m/uL Hgb 10.7 L (11.4-16.0) gm/dL Hct 32.3 L (34.0-46.0) % Plt Count (150-450) k/uL Lymphocytes # (1.0-4.8) k/uL PT (9.0-12.0) sec INR (<1.2) APTT (22.0-30.0) sec ABG pH (7.35-7.45) ABG pCO2 (35-45) mmHg ABG pO2 (83-108) mmHg ABG HCO3 (21-25) mmol/L ABG Total CO2 (19-24) mmol/L ABG O2 Saturation (94-97) % ABG Hematocrit (34.0-46.0) % ABG Potassium (3.4-4.5) mmol/L ABG Ionized Calcium (4.5-5.3) mg/dL ABG Glucose (75-99) mg/dL ABG Lactic Acid (0.5-1.6) mmol/L Hemoglobin (11.4-16.0) gm/dL Chloride (98-107) mmol/L Glucose (74-99) mg/dL POC Glucose (mg/dL) 102 H 108 H (75-99) mg/dL Calcium (8.4-10.2) mg/dL Magnesium (1.6-2.3) mg/dL AST (14-36) U/L Alkaline Phosphatase (38-126) U/L Total Protein (6.3-8.2) g/dL Albumin (3.5-5.0) g/dL Arterial Blood Potassium (3.4-4.5) mmol/L Arterial Blood Glucose (75-99) mg/dL Crossmatch 05/29/20 05/29/20 05/29/20 Range/Units 17:07 17:58 18:51 RBC (3.80-5.40) m/uL Hgb (11.4-16.0) gm/dL Hct (34.0-46.0) % Plt Count (150-450) k/uL Lymphocytes # (1.0-4.8) k/uL PT (9.0-12.0) sec INR (<1.2) APTT (22.0-30.0) sec ABG pH 7.31 L (7.35-7.45) ABG pCO2 49 H (35-45) mmHg ABG pO2 276 H (83-108) mmHg ABG HCO3 (21-25) mmol/L ABG Total CO2 26 H (19-24) mmol/L ABG O2 Saturation 99.0 H (94-97) % ABG Hematocrit (34.0-46.0) % ABG Potassium (3.4-4.5) mmol/L ABG Ionized Calcium (4.5-5.3) mg/dL ABG Glucose (75-99) mg/dL ABG Lactic Acid (0.5-1.6) mmol/L Hemoglobin (11.4-16.0) gm/dL Chloride (98-107) mmol/L Glucose (74-99) mg/dL POC Glucose (mg/dL) 107 H 109 H (75-99) mg/dL Calcium (8.4-10.2) mg/dL Magnesium (1.6-2.3) mg/dL AST (14-36) U/L Alkaline Phosphatase (38-126) U/L Total Protein (6.3-8.2) g/dL Albumin (3.5-5.0) g/dL Arterial Blood Potassium (3.4-4.5) mmol/L Arterial Blood Glucose (75-99) mg/dL Crossmatch 05/29/20 05/29/20 05/29/20 Range/Units 20:00 20:06 21:02 RBC 3.00 L (3.80-5.40) m/uL Hgb 9.9 L (11.4-16.0) gm/dL Hct 28.6 L (34.0-46.0) % Plt Count 127 L (150-450) k/uL Lymphocytes # 0.5 L (1.0-4.8) k/uL PT (9.0-12.0) sec INR (<1.2) APTT (22.0-30.0) sec ABG pH (7.35-7.45) ABG pCO2 (35-45) mmHg ABG pO2 (83-108) mmHg ABG HCO3 (21-25) mmol/L ABG Total CO2 (19-24) mmol/L ABG O2 Saturation (94-97) % ABG Hematocrit (34.0-46.0) % ABG Potassium (3.4-4.5) mmol/L ABG Ionized Calcium (4.5-5.3) mg/dL ABG Glucose (75-99) mg/dL ABG Lactic Acid (0.5-1.6) mmol/L Hemoglobin (11.4-16.0) gm/dL Chloride (98-107) mmol/L Glucose (74-99) mg/dL POC Glucose (mg/dL) 136 H 133 H (75-99) mg/dL Calcium (8.4-10.2) mg/dL Magnesium (1.6-2.3) mg/dL AST (14-36) U/L Alkaline Phosphatase (38-126) U/L Total Protein (6.3-8.2) g/dL Albumin (3.5-5.0) g/dL Arterial Blood Potassium (3.4-4.5) mmol/L Arterial Blood Glucose (75-99) mg/dL Crossmatch 05/29/20 05/29/20 05/30/20 Range/Units 22:01 23:01 00:06 RBC (3.80-5.40) m/uL Hgb (11.4-16.0) gm/dL Hct (34.0-46.0) % Plt Count (150-450) k/uL Lymphocytes # (1.0-4.8) k/uL PT (9.0-12.0) sec INR (<1.2) APTT (22.0-30.0) sec ABG pH (7.35-7.45) ABG pCO2 (35-45) mmHg ABG pO2 (83-108) mmHg ABG HCO3 (21-25) mmol/L ABG Total CO2 (19-24) mmol/L ABG O2 Saturation (94-97) % ABG Hematocrit (34.0-46.0) % ABG Potassium (3.4-4.5) mmol/L ABG Ionized Calcium (4.5-5.3) mg/dL ABG Glucose (75-99) mg/dL ABG Lactic Acid (0.5-1.6) mmol/L Hemoglobin (11.4-16.0) gm/dL Chloride (98-107) mmol/L Glucose (74-99) mg/dL POC Glucose (mg/dL) 146 H 146 H 129 H (75-99) mg/dL Calcium (8.4-10.2) mg/dL Magnesium (1.6-2.3) mg/dL AST (14-36) U/L Alkaline Phosphatase (38-126) U/L Total Protein (6.3-8.2) g/dL Albumin (3.5-5.0) g/dL Arterial Blood Potassium (3.4-4.5) mmol/L Arterial Blood Glucose (75-99) mg/dL Crossmatch 05/30/20 05/30/20 05/30/20 Range/Units 01:08 02:07 02:57 RBC (3.80-5.40) m/uL Hgb (11.4-16.0) gm/dL Hct (34.0-46.0) % Plt Count (150-450) k/uL Lymphocytes # (1.0-4.8) k/uL PT (9.0-12.0) sec INR (<1.2) APTT (22.0-30.0) sec ABG pH (7.35-7.45) ABG pCO2 (35-45) mmHg ABG pO2 (83-108) mmHg ABG HCO3 (21-25) mmol/L ABG Total CO2 (19-24) mmol/L ABG O2 Saturation (94-97) % ABG Hematocrit (34.0-46.0) % ABG Potassium (3.4-4.5) mmol/L ABG Ionized Calcium (4.5-5.3) mg/dL ABG Glucose (75-99) mg/dL ABG Lactic Acid (0.5-1.6) mmol/L Hemoglobin (11.4-16.0) gm/dL Chloride (98-107) mmol/L Glucose (74-99) mg/dL POC Glucose (mg/dL) 132 H 138 H 123 H (75-99) mg/dL Calcium (8.4-10.2) mg/dL Magnesium (1.6-2.3) mg/dL AST (14-36) U/L Alkaline Phosphatase (38-126) U/L Total Protein (6.3-8.2) g/dL Albumin (3.5-5.0) g/dL Arterial Blood Potassium (3.4-4.5) mmol/L Arterial Blood Glucose (75-99) mg/dL Crossmatch 05/30/20 05/30/20 05/30/20 Range/Units 03:57 04:00 04:00 RBC 3.03 L (3.80-5.40) m/uL Hgb 9.8 L (11.4-16.0) gm/dL Hct 28.9 L (34.0-46.0) % Plt Count 143 L (150-450) k/uL Lymphocytes # 0.7 L (1.0-4.8) k/uL PT (9.0-12.0) sec INR (<1.2) APTT (22.0-30.0) sec ABG pH (7.35-7.45) ABG pCO2 (35-45) mmHg ABG pO2 (83-108) mmHg ABG HCO3 (21-25) mmol/L ABG Total CO2 (19-24) mmol/L ABG O2 Saturation (94-97) % ABG Hematocrit (34.0-46.0) % ABG Potassium (3.4-4.5) mmol/L ABG Ionized Calcium (4.5-5.3) mg/dL ABG Glucose (75-99) mg/dL ABG Lactic Acid (0.5-1.6) mmol/L Hemoglobin (11.4-16.0) gm/dL Chloride 112 H (98-107) mmol/L Glucose 119 H (74-99) mg/dL POC Glucose (mg/dL) 123 H (75-99) mg/dL Calcium 8.2 L (8.4-10.2) mg/dL Magnesium 2.4 H (1.6-2.3) mg/dL AST 40 H (14-36) U/L Alkaline Phosphatase (38-126) U/L Total Protein 4.9 L (6.3-8.2) g/dL Albumin 3.0 L (3.5-5.0) g/dL Arterial Blood Potassium (3.4-4.5) mmol/L Arterial Blood Glucose (75-99) mg/dL Crossmatch 05/30/20 05/30/20 05/30/20 Range/Units 05:22 05:53 06:54 RBC (3.80-5.40) m/uL Hgb (11.4-16.0) gm/dL Hct (34.0-46.0) % Plt Count (150-450) k/uL Lymphocytes # (1.0-4.8) k/uL PT (9.0-12.0) sec INR (<1.2) APTT (22.0-30.0) sec ABG pH (7.35-7.45) ABG pCO2 (35-45) mmHg ABG pO2 110 H (83-108) mmHg ABG HCO3 (21-25) mmol/L ABG Total CO2 25 H (19-24) mmol/L ABG O2 Saturation 99.0 H (94-97) % ABG Hematocrit (34.0-46.0) % ABG Potassium (3.4-4.5) mmol/L ABG Ionized Calcium (4.5-5.3) mg/dL ABG Glucose (75-99) mg/dL ABG Lactic Acid (0.5-1.6) mmol/L Hemoglobin (11.4-16.0) gm/dL Chloride (98-107) mmol/L Glucose (74-99) mg/dL POC Glucose (mg/dL) 106 H 116 H (75-99) mg/dL Calcium (8.4-10.2) mg/dL Magnesium (1.6-2.3) mg/dL AST (14-36) U/L Alkaline Phosphatase (38-126) U/L Total Protein (6.3-8.2) g/dL Albumin (3.5-5.0) g/dL Arterial Blood Potassium (3.4-4.5) mmol/L Arterial Blood Glucose (75-99) mg/dL Crossmatch 05/30/20 Range/Units 07:55 RBC (3.80-5.40) m/uL Hgb (11.4-16.0) gm/dL Hct (34.0-46.0) % Plt Count (150-450) k/uL Lymphocytes # (1.0-4.8) k/uL PT (9.0-12.0) sec INR (<1.2) APTT (22.0-30.0) sec ABG pH (7.35-7.45) ABG pCO2 (35-45) mmHg ABG pO2 (83-108) mmHg ABG HCO3 (21-25) mmol/L ABG Total CO2 (19-24) mmol/L ABG O2 Saturation (94-97) % ABG Hematocrit (34.0-46.0) % ABG Potassium (3.4-4.5) mmol/L ABG Ionized Calcium (4.5-5.3) mg/dL ABG Glucose (75-99) mg/dL ABG Lactic Acid (0.5-1.6) mmol/L Hemoglobin (11.4-16.0) gm/dL Chloride (98-107) mmol/L Glucose (74-99) mg/dL POC Glucose (mg/dL) 108 H (75-99) mg/dL Calcium (8.4-10.2) mg/dL Magnesium (1.6-2.3) mg/dL AST (14-36) U/L Alkaline Phosphatase (38-126) U/L Total Protein (6.3-8.2) g/dL Albumin (3.5-5.0) g/dL Arterial Blood Potassium (3.4-4.5) mmol/L Arterial Blood Glucose (75-99) mg/dL Crossmatch - Imaging and Cardiology Chest x-ray: report reviewed, image reviewed Assessment and Plan Assessment: 1. Triple-vessel coronary artery disease, nstemi this admission, status post three-vessel CABG 2. Hypertension 3. Hyperlipidemia, cholesterol 304, LDL 221 4. History of SVT 5. Hypothyroidism, previous history of hyper-thyroid treated with radioactive dye, current TSH 15.5, T4 1.05, T3 2.6 6. Current daily tobacco dependence 7. Severe COPD with preoperative FEV1 45% of predicted 8. Almost daily EtOH use without history of withdrawal 9. Bilateral carotid artery stenosis 50-69% 10. Acute blood loss anemia, expected Plan: 1. Continue with aspirin, statin, Plavix, beta ricky therapy. Will increase beta ricky therapy as tolerated 2. Wean from mechanical ventilation per pulmonology. Once extubated encourage incentive spirometry is 10 times every hour while awake. Bronchodilators, inhaled steroids per pulmonology 3. Once extubated increase activity as tolerated, PT/OT/cardiac rehab consulted 4. Will monitor daily labs and x-rays. Electrolyte replacement per protocol. No transfusion. We'll give 40 mg IV push Lasix 1 today 5. CIWA protocol. Continue thiamine, folic acid 6. GI/DVT prophylaxis 7. Pain control with current medication regimen. Toradol added 8. Insulin management per primary care service. Patient is not diabetic, hemoglobin A1c 5.8% 9. Continue chest tubes, Cordis for another 24 hours. Likely will discontinue [place] later today 10. Continue Mcdonadl catheter for another 24 hours for strict accurate intake and output. Daily weights 11. Continue to encourage smoking cessation 12. More recommendations to follow Time with Patient: Greater than 30
[2020-05-30] MEDS: MORPHINE SULFATE 2 MG/ML SYRINGE IVP PRN (09:58)
[2020-05-30 10:12] LABS: Glucose,Whole Blood 97 mg/dL (75-99)
[2020-05-30 11:06] LABS: Glucose,Whole Blood 103 mg/dL (75-99)
[2020-05-30 11:14] VITALS: BMI 27.8
[2020-05-30] MEDS: HYDROcodone/APAP 5-325MG 1 EACH TAB PO PRN ×2 (12:03→17:02)
--- NOTE | 2020-05-30 12:13 | P.PN ---
Subjective Progress Note Date: 05/30/20 Principal diagnosis: Status post CABG, postoperative day #1. On 05/29/2020 patient seen in follow-up in the intensive care unit following her 3 vessel cardiac bypass surgery. Patient remains intubated, sedated on mechanical ventilator, initial vent settings were assist control with a rate of 14, tidal vital 450, FiO2 of 70% and PEEP of 5, postoperative blood gases were reviewed showing pH of 7.38, pCO2 44, and pO2 of 293, and this was done on FiO2 of 100%, and subsequently FiO2 was dropped down to 70%. Patient is on 0.9 normal saline at a rate of 50 ML per hour, Diprivan is a 25 mics per kilo per minute, nitroglycerin at 5 mics per kilo per minute, including PACs was started at 6 mg/h. Cardiac output is 4.0, and cardiac index is 2.4, PEEP pressures of 44/32, CVP is 25, patient is sinus mechanism, with a controlled rate, epicardial pacemaker wires to external pacemaker with the backup rate. Postoperative labs revealed a white blood cell count is 7.3, hemoglobin is 8.2, INR is 1.2, sodium is 141, potassium is 3.5, chloride is 115, CO2 is 27, B1 is 12 crit 0.63. Chest x-ray showed bilateral infiltrates and small pleural effusion with mild venous congestion, and fluid overload, ET tube was approximately 2-1/2 cm above the ilda, NG tube in appropriate position, patient has 3 chest tubes, right common mediastinal and left with small amount of sanguinous output in the Pleur-evac, no evidence of any leak, no evidence of pneumothorax on chest x-ray. The in itial postoperative blood gas was satisfactory, however in the course of the following 2 hours patient was noted to be desaturating to 85, and her PEEP was increased to 10, and FiO2 was increased to 100%, repeat chest x-ray was obtained, showing persistent tiny left pleural effusion and bilateral in terstitial and alveolar edema. However patient is diuresing quite well, he has produced 2.2 L in urine output since arrival from the OR. Intraoperatively patient received 1 unit of packed red blood cells, current hemoglobin is 8.2. Patient was reevaluated today on 05/30/20, patient remains intubated and mechanically ventilated. Patient is status post CABG, postoperative day #1. Her ventilator settings are assist control rate of 18 tidal volume is 450 FiO2 50% and PEEP of 5. Patient remains on multiple drips including nitro glycerin drip at 5 per hour, she is also on IV fluid at 50 mL per hour, patient is on propofol which I have discontinued. Her cardiac output is 4.0, cardiac index is 2.4, CVP is 13. Mediastinal and chest tube drainage was noted, roughly in the range of 150-270 mL over night from each. Patient is on minimal dose of propofol, 20 mcg/kg/m, I recommended stopping the propofol as soon as the evaluating the patient, shortly after I came back and switch the patient to a pressure support of 8 and CPAP. 20 minutes later, came back and evaluated the patient, she was doing very well on pressure support and CPAP, and she was moving good tidal volume in the range of 500 mL, and her rate was in the low 20s. Chest x-ray showed mild interstitial edema. Patient was extubated uneventfully to a nasal cannula. Objective - Vital Signs Vital signs: Vital Signs Temp 98 F 05/29/20 06:11 Pulse 87 05/30/20 11:37 Resp 22 05/30/20 11:00 BP 112/67 05/30/20 11:00 Pulse Ox 98 05/30/20 11:00 Intake & Output 05/29/20 05/30/20 05/30/20 18:59 06:59 18:59 Intake Total 990.5 1197.267 343.491 Output Total 4717 1130 580 Balance -3726.5 67.267 -236.509 Weight 68.9 kg 68.9 kg Intake: IV 677 1002.5 316 ACETAMINOPHEN IV (For NPO 100 ) 1,000 mg In Empty Bag 1 bag @ 400 mls/hr IVPB Q6HR [facility] Rx#:[id number] Nitroglycerin-D5w Pmx 50 30 13.5 mg In Dextrose/Water 1 250ml.bag @ 5 MCG/MIN 1.5 mls/hr IV .Q24H [facility] Rx#: [id number] Sodium Chloride 0.9% 1, 300 550 200 000 ml @ 20 mls/hr IV . Q24H [facility] Rx#:[id number] cardiac output 180 140 80 ceFAZolin 2 gm In Sodium 50 100 Chloride 0.9% 50 ml @ 100 mls/hr IVPB Q8H [facility] Rx#: [id number] pressure bag 54 99 36 Intake, IV Titration 3.5 194.767 27.491 Amount Clevidipine Butyrate 25 3.5 mg In Empty Bag 1 bag @ 1 MG/HR 2 mls/hr IV .Q24H [facility] Rx#:[id number] Insulin Regular 100 unit 12.515 In Sodium Chloride 0.9% 100 ml @ Per Protocol IV .Q0M [facility] Rx#:[id number] propofoL 1,000 mg In 182.252 27.491 Empty Bag 1 bag @ Titrate IV .Q0M [facility] Rx#: [id number] Blood Product 310 Rc As-1 Unit 310 [id number] Output: Chest Tube Drainage 517 170 90 Left Pleural 200 40 40 Right Pleural 115 40 20 mediastinal 202 90 30 Urine 3200 960 490 Estimated Blood Loss 1000 Other: Voiding Method Indwelling Catheter Indwelling Catheter Indwelling Catheter ABP, PAP, CO, CI - Last Documented Arterial Blood Pressure 121/65 Pulmonary Artery Pressure 35/21 Cardiac Output 4 Cardiac Index 2.4 - Exam GENERAL EXAM: Revealed a 59-year-old female, intubated, mechanically ventilated, arousable, follows simple instructions. HEAD: Normocephalic/atraumatic. EENT: PERRLA, EOMI, no icterus, moist mucous membranes. CHEST: No chest wall deformity. Symmetrical expansion. Midsternal incision is clean dry and intact, 3 chest tubes including right, mediastinal and left chest tubes with small amount of serosanguineous output in the atrium's, with no evidence of air leak LUNGS: Minimal fine crackles at the bases. No rhonchi and no wheezes. CVS: Regular rate and rhythm, normal S1 and S2, no gallops, no murmurs, no rubs ABDOMEN: Soft, nontender. No hepatosplenomegaly, normal bowel sounds, no guarding or rigidity. EXTREMITIES: No clubbing, no edema, no cyanosis, 2+ pulses and upper and lower extremities. Left lower extremity harvest site, covered with surgical dressings, Ge wrapped MUSCULOSKELETAL: Muscle strength and tone normal. SPINE: No scoliosis or deformity SKIN: No rashes CENTRAL NERVOUS SYSTEM: Patient seems to be arousable, oriented, no gross focal neurologic deficits.. - Labs CBC & Chem 7: 05/30/20 04:00 05/30/20 04:00 Labs: Abnormal Lab Results - Last 24 Hours (Table) 05/28/20 05/29/20 05/29/20 Range/Units 08:28 08:37 10:37 RBC (3.80-5.40) m/uL Hgb (11.4-16.0) gm/dL Hct (34.0-46.0) % Plt Count (150-450) k/uL Lymphocytes # (1.0-4.8) k/uL PT (9.0-12.0) sec INR (<1.2) APTT (22.0-30.0) sec ABG pH 7.47 H (7.35-7.45) ABG pCO2 33 L (35-45) mmHg ABG pO2 388 H 193 H (83-108) mmHg ABG HCO3 (21-25) mmol/L ABG Total CO2 25 H 26 H (19-24) mmol/L ABG O2 Saturation 99.9 H 99.4 H (94-97) % ABG Hematocrit 29 L 26 L (34.0-46.0) % ABG Potassium (3.4-4.5) mmol/L ABG Ionized Calcium (4.5-5.3) mg/dL ABG Glucose 109 H (75-99) mg/dL ABG Lactic Acid (0.5-1.6) mmol/L Hemoglobin 9.4 L 8.6 L (11.4-16.0) gm/dL Chloride (98-107) mmol/L Glucose (74-99) mg/dL POC Glucose (mg/dL) (75-99) mg/dL Calcium (8.4-10.2) mg/dL Magnesium (1.6-2.3) mg/dL AST (14-36) U/L Alkaline Phosphatase (38-126) U/L Total Protein (6.3-8.2) g/dL Albumin (3.5-5.0) g/dL Arterial Blood Potassium (3.4-4.5) mmol/L Arterial Blood Glucose 109 H (75-99) mg/dL Crossmatch See Detail 05/29/20 05/29/20 05/29/20 Range/Units 10:40 11:15 11:43 RBC (3.80-5.40) m/uL Hgb (11.4-16.0) gm/dL Hct (34.0-46.0) % Plt Count (150-450) k/uL Lymphocytes # (1.0-4.8) k/uL PT (9.0-12.0) sec INR (<1.2) APTT (22.0-30.0) sec ABG pH 7.47 H 7.46 H (7.35-7.45) ABG pCO2 33 L (35-45) mmHg ABG pO2 >420 H 376 H 365 H (83-108) mmHg ABG HCO3 (21-25) mmol/L ABG Total CO2 25 H 27 H 27 H (19-24) mmol/L ABG O2 Saturation 100.0 H 100.0 H 100.0 H (94-97) % ABG Hematocrit 21 L 18 L* 18 L* (34.0-46.0) % ABG Potassium 4.9 H 4.7 H (3.4-4.5) mmol/L ABG Ionized Calcium 4.1 L 4.2 L 4.3 L (4.5-5.3) mg/dL ABG Glucose 108 H 177 H 171 H (75-99) mg/dL ABG Lactic Acid (0.5-1.6) mmol/L Hemoglobin 6.9 L* 5.9 L* 5.8 L* (11.4-16.0) gm/dL Chloride (98-107) mmol/L Glucose (74-99) mg/dL POC Glucose (mg/dL) (75-99) mg/dL Calcium (8.4-10.2) mg/dL Magnesium (1.6-2.3) mg/dL AST (14-36) U/L Alkaline Phosphatase (38-126) U/L Total Protein (6.3-8.2) g/dL Albumin (3.5-5.0) g/dL Arterial Blood Potassium 4.9 H 4.7 H (3.4-4.5) mmol/L Arterial Blood Glucose 108 H 177 H 171 H (75-99) mg/dL Crossmatch 05/29/20 05/29/20 05/29/20 Range/Units 12:12 13:07 13:39 RBC (3.80-5.40) m/uL Hgb (11.4-16.0) gm/dL Hct (34.0-46.0) % Plt Count (150-450) k/uL Lymphocytes # (1.0-4.8) k/uL PT (9.0-12.0) sec INR (<1.2) APTT (22.0-30.0) sec ABG pH (7.35-7.45) ABG pCO2 34 L (35-45) mmHg ABG pO2 >420 H 389 H 362 H (83-108) mmHg ABG HCO3 26 H (21-25) mmol/L ABG Total CO2 26 H 27 H (19-24) mmol/L ABG O2 Saturation 100.0 H 100.0 H 99.9 H (94-97) % ABG Hematocrit 17 L* 18 L* 24 L (34.0-46.0) % ABG Potassium 4.7 H 2.9 L* (3.4-4.5) mmol/L ABG Ionized Calcium 4.3 L 4.1 L (4.5-5.3) mg/dL ABG Glucose 176 H 114 H 109 H (75-99) mg/dL ABG Lactic Acid 2.2 H* (0.5-1.6) mmol/L Hemoglobin 5.5 L* 5.8 L* 7.9 L (11.4-16.0) gm/dL Chloride (98-107) mmol/L Glucose (74-99) mg/dL POC Glucose (mg/dL) (75-99) mg/dL Calcium (8.4-10.2) mg/dL Magnesium (1.6-2.3) mg/dL AST (14-36) U/L Alkaline Phosphatase (38-126) U/L Total Protein (6.3-8.2) g/dL Albumin (3.5-5.0) g/dL Arterial Blood Potassium 4.7 H 2.9 L* (3.4-4.5) mmol/L Arterial Blood Glucose 176 H 114 H 109 H (75-99) mg/dL Crossmatch 05/29/20 05/29/20 05/29/20 Range/Units 13:39 13:56 13:56 RBC 2.48 L (3.80-5.40) m/uL Hgb 8.2 L D (11.4-16.0) gm/dL Hct 23.7 L (34.0-46.0) % Plt Count 96 L D (150-450) k/uL Lymphocytes # (1.0-4.8) k/uL PT 12.1 H (9.0-12.0) sec INR 1.2 H (<1.2) APTT 38.8 H (22.0-30.0) sec ABG pH (7.35-7.45) ABG pCO2 (35-45) mmHg ABG pO2 293 H (83-108) mmHg ABG HCO3 26 H (21-25) mmol/L ABG Total CO2 27 H (19-24) mmol/L ABG O2 Saturation 100.0 H (94-97) % ABG Hematocrit (34.0-46.0) % ABG Potassium (3.4-4.5) mmol/L ABG Ionized Calcium (4.5-5.3) mg/dL ABG Glucose (75-99) mg/dL ABG Lactic Acid (0.5-1.6) mmol/L Hemoglobin (11.4-16.0) gm/dL Chloride (98-107) mmol/L Glucose (74-99) mg/dL POC Glucose (mg/dL) (75-99) mg/dL Calcium (8.4-10.2) mg/dL Magnesium (1.6-2.3) mg/dL AST (14-36) U/L Alkaline Phosphatase (38-126) U/L Total Protein (6.3-8.2) g/dL Albumin (3.5-5.0) g/dL Arterial Blood Potassium (3.4-4.5) mmol/L Arterial Blood Glucose (75-99) mg/dL Crossmatch 05/29/20 05/29/20 05/29/20 Range/Units 13:56 13:56 15:40 RBC (3.80-5.40) m/uL Hgb (11.4-16.0) gm/dL Hct (34.0-46.0) % Plt Count (150-450) k/uL Lymphocytes # (1.0-4.8) k/uL PT (9.0-12.0) sec INR (<1.2) APTT (22.0-30.0) sec ABG pH 7.34 L (7.35-7.45) ABG pCO2 48 H (35-45) mmHg ABG pO2 (83-108) mmHg ABG HCO3 26 H (21-25) mmol/L ABG Total CO2 27 H (19-24) mmol/L ABG O2 Saturation 97.3 H (94-97) % ABG Hematocrit (34.0-46.0) % ABG Potassium (3.4-4.5) mmol/L ABG Ionized Calcium (4.5-5.3) mg/dL ABG Glucose (75-99) mg/dL ABG Lactic Acid (0.5-1.6) mmol/L Hemoglobin (11.4-16.0) gm/dL Chloride 115 H (98-107) mmol/L Glucose (74-99) mg/dL POC Glucose (mg/dL) 105 H (75-99) mg/dL Calcium 7.7 L (8.4-10.2) mg/dL Magnesium 2.5 H (1.6-2.3) mg/dL AST (14-36) U/L Alkaline Phosphatase <20 L (38-126) U/L Total Protein 3.7 L (6.3-8.2) g/dL Albumin 2.2 L (3.5-5.0) g/dL Arterial Blood Potassium (3.4-4.5) mmol/L Arterial Blood Glucose (75-99) mg/dL Crossmatch 05/29/20 05/29/20 05/29/20 Range/Units 15:46 16:50 16:55 RBC 3.37 L (3.80-5.40) m/uL Hgb 10.7 L (11.4-16.0) gm/dL Hct 32.3 L (34.0-46.0) % Plt Count (150-450) k/uL Lymphocytes # (1.0-4.8) k/uL PT (9.0-12.0) sec INR (<1.2) APTT (22.0-30.0) sec ABG pH (7.35-7.45) ABG pCO2 (35-45) mmHg ABG pO2 (83-108) mmHg ABG HCO3 (21-25) mmol/L ABG Total CO2 (19-24) mmol/L ABG O2 Saturation (94-97) % ABG Hematocrit (34.0-46.0) % ABG Potassium (3.4-4.5) mmol/L ABG Ionized Calcium (4.5-5.3) mg/dL ABG Glucose (75-99) mg/dL ABG Lactic Acid (0.5-1.6) mmol/L Hemoglobin (11.4-16.0) gm/dL Chloride (98-107) mmol/L Glucose (74-99) mg/dL POC Glucose (mg/dL) 102 H 108 H (75-99) mg/dL Calcium (8.4-10.2) mg/dL Magnesium (1.6-2.3) mg/dL AST (14-36) U/L Alkaline Phosphatase (38-126) U/L Total Protein (6.3-8.2) g/dL Albumin (3.5-5.0) g/dL Arterial Blood Potassium (3.4-4.5) mmol/L Arterial Blood Glucose (75-99) mg/dL Crossmatch 05/29/20 05/29/20 05/29/20 Range/Units 17:07 17:58 18:51 RBC (3.80-5.40) m/uL Hgb (11.4-16.0) gm/dL Hct (34.0-46.0) % Plt Count (150-450) k/uL Lymphocytes # (1.0-4.8) k/uL PT (9.0-12.0) sec INR (<1.2) APTT (22.0-30.0) sec ABG pH 7.31 L (7.35-7.45) ABG pCO2 49 H (35-45) mmHg ABG pO2 276 H (83-108) mmHg ABG HCO3 (21-25) mmol/L ABG Total CO2 26 H (19-24) mmol/L ABG O2 Saturation 99.0 H (94-97) % ABG Hematocrit (34.0-46.0) % ABG Potassium (3.4-4.5) mmol/L ABG Ionized Calcium (4.5-5.3) mg/dL ABG Glucose (75-99) mg/dL ABG Lactic Acid (0.5-1.6) mmol/L Hemoglobin (11.4-16.0) gm/dL Chloride (98-107) mmol/L Glucose (74-99) mg/dL POC Glucose (mg/dL) 107 H 109 H (75-99) mg/dL Calcium (8.4-10.2) mg/dL Magnesium (1.6-2.3) mg/dL AST (14-36) U/L Alkaline Phosphatase (38-126) U/L Total Protein (6.3-8.2) g/dL Albumin (3.5-5.0) g/dL Arterial Blood Potassium (3.4-4.5) mmol/L Arterial Blood Glucose (75-99) mg/dL Crossmatch 05/29/20 05/29/20 05/29/20 Range/Units 20:00 20:06 21:02 RBC 3.00 L (3.80-5.40) m/uL Hgb 9.9 L (11.4-16.0) gm/dL Hct 28.6 L (34.0-46.0) % Plt Count 127 L (150-450) k/uL Lymphocytes # 0.5 L (1.0-4.8) k/uL PT (9.0-12.0) sec INR (<1.2) APTT (22.0-30.0) sec ABG pH (7.35-7.45) ABG pCO2 (35-45) mmHg ABG pO2 (83-108) mmHg ABG HCO3 (21-25) mmol/L ABG Total CO2 (19-24) mmol/L ABG O2 Saturation (94-97) % ABG Hematocrit (34.0-46.0) % ABG Potassium (3.4-4.5) mmol/L ABG Ionized Calcium (4.5-5.3) mg/dL ABG Glucose (75-99) mg/dL ABG Lactic Acid (0.5-1.6) mmol/L Hemoglobin (11.4-16.0) gm/dL Chloride (98-107) mmol/L Glucose (74-99) mg/dL POC Glucose (mg/dL) 136 H 133 H (75-99) mg/dL Calcium (8.4-10.2) mg/dL Magnesium (1.6-2.3) mg/dL AST (14-36) U/L Alkaline Phosphatase (38-126) U/L Total Protein (6.3-8.2) g/dL Albumin (3.5-5.0) g/dL Arterial Blood Potassium (3.4-4.5) mmol/L Arterial Blood Glucose (75-99) mg/dL Crossmatch 05/29/20 05/29/20 05/30/20 Range/Units 22:01 23:01 00:06 RBC (3.80-5.40) m/uL Hgb (11.4-16.0) gm/dL Hct (34.0-46.0) % Plt Count (150-450) k/uL Lymphocytes # (1.0-4.8) k/uL PT (9.0-12.0) sec INR (<1.2) APTT (22.0-30.0) sec ABG pH (7.35-7.45) ABG pCO2 (35-45) mmHg ABG pO2 (83-108) mmHg ABG HCO3 (21-25) mmol/L ABG Total CO2 (19-24) mmol/L ABG O2 Saturation (94-97) % ABG Hematocrit (34.0-46.0) % ABG Potassium (3.4-4.5) mmol/L ABG Ionized Calcium (4.5-5.3) mg/dL ABG Glucose (75-99) mg/dL ABG Lactic Acid (0.5-1.6) mmol/L Hemoglobin (11.4-16.0) gm/dL Chloride (98-107) mmol/L Glucose (74-99) mg/dL POC Glucose (mg/dL) 146 H 146 H 129 H (75-99) mg/dL Calcium (8.4-10.2) mg/dL Magnesium (1.6-2.3) mg/dL AST (14-36) U/L Alkaline Phosphatase (38-126) U/L Total Protein (6.3-8.2) g/dL Albumin (3.5-5.0) g/dL Arterial Blood Potassium (3.4-4.5) mmol/L Arterial Blood Glucose (75-99) mg/dL Crossmatch 05/30/20 05/30/20 05/30/20 Range/Units 01:08 02:07 02:57 RBC (3.80-5.40) m/uL Hgb (11.4-16.0) gm/dL Hct (34.0-46.0) % Plt Count (150-450) k/uL Lymphocytes # (1.0-4.8) k/uL PT (9.0-12.0) sec INR (<1.2) APTT (22.0-30.0) sec ABG pH (7.35-7.45) ABG pCO2 (35-45) mmHg ABG pO2 (83-108) mmHg ABG HCO3 (21-25) mmol/L ABG Total CO2 (19-24) mmol/L ABG O2 Saturation (94-97) % ABG Hematocrit (34.0-46.0) % ABG Potassium (3.4-4.5) mmol/L ABG Ionized Calcium (4.5-5.3) mg/dL ABG Glucose (75-99) mg/dL ABG Lactic Acid (0.5-1.6) mmol/L Hemoglobin (11.4-16.0) gm/dL Chloride (98-107) mmol/L Glucose (74-99) mg/dL POC Glucose (mg/dL) 132 H 138 H 123 H (75-99) mg/dL Calcium (8.4-10.2) mg/dL Magnesium (1.6-2.3) mg/dL AST (14-36) U/L Alkaline Phosphatase (38-126) U/L Total Protein (6.3-8.2) g/dL Albumin (3.5-5.0) g/dL Arterial Blood Potassium (3.4-4.5) mmol/L Arterial Blood Glucose (75-99) mg/dL Crossmatch 05/30/20 05/30/20 05/30/20 Range/Units 03:57 04:00 04:00 RBC 3.03 L (3.80-5.40) m/uL Hgb 9.8 L (11.4-16.0) gm/dL Hct 28.9 L (34.0-46.0) % Plt Count 143 L (150-450) k/uL Lymphocytes # 0.7 L (1.0-4.8) k/uL PT (9.0-12.0) sec INR (<1.2) APTT (22.0-30.0) sec ABG pH (7.35-7.45) ABG pCO2 (35-45) mmHg ABG pO2 (83-108) mmHg ABG HCO3 (21-25) mmol/L ABG Total CO2 (19-24) mmol/L ABG O2 Saturation (94-97) % ABG Hematocrit (34.0-46.0) % ABG Potassium (3.4-4.5) mmol/L ABG Ionized Calcium (4.5-5.3) mg/dL ABG Glucose (75-99) mg/dL ABG Lactic Acid (0.5-1.6) mmol/L Hemoglobin (11.4-16.0) gm/dL Chloride 112 H (98-107) mmol/L Glucose 119 H (74-99) mg/dL POC Glucose (mg/dL) 123 H (75-99) mg/dL Calcium 8.2 L (8.4-10.2) mg/dL Magnesium 2.4 H (1.6-2.3) mg/dL AST 40 H (14-36) U/L Alkaline Phosphatase (38-126) U/L Total Protein 4.9 L (6.3-8.2) g/dL Albumin 3.0 L (3.5-5.0) g/dL Arterial Blood Potassium (3.4-4.5) mmol/L Arterial Blood Glucose (75-99) mg/dL Crossmatch 05/30/20 05/30/20 05/30/20 Range/Units 05:22 05:53 06:54 RBC (3.80-5.40) m/uL Hgb (11.4-16.0) gm/dL Hct (34.0-46.0) % Plt Count (150-450) k/uL Lymphocytes # (1.0-4.8) k/uL PT (9.0-12.0) sec INR (<1.2) APTT (22.0-30.0) sec ABG pH (7.35-7.45) ABG pCO2 (35-45) mmHg ABG pO2 110 H (83-108) mmHg ABG HCO3 (21-25) mmol/L ABG Total CO2 25 H (19-24) mmol/L ABG O2 Saturation 99.0 H (94-97) % ABG Hematocrit (34.0-46.0) % ABG Potassium (3.4-4.5) mmol/L ABG Ionized Calcium (4.5-5.3) mg/dL ABG Glucose (75-99) mg/dL ABG Lactic Acid (0.5-1.6) mmol/L Hemoglobin (11.4-16.0) gm/dL Chloride (98-107) mmol/L Glucose (74-99) mg/dL POC Glucose (mg/dL) 106 H 116 H (75-99) mg/dL Calcium (8.4-10.2) mg/dL Magnesium (1.6-2.3) mg/dL AST (14-36) U/L Alkaline Phosphatase (38-126) U/L Total Protein (6.3-8.2) g/dL Albumin (3.5-5.0) g/dL Arterial Blood Potassium (3.4-4.5) mmol/L Arterial Blood Glucose (75-99) mg/dL Crossmatch 05/30/20 05/30/20 05/30/20 Range/Units 07:55 08:56 11:04 RBC (3.80-5.40) m/uL Hgb (11.4-16.0) gm/dL Hct (34.0-46.0) % Plt Count (150-450) k/uL Lymphocytes # (1.0-4.8) k/uL PT (9.0-12.0) sec INR (<1.2) APTT (22.0-30.0) sec ABG pH (7.35-7.45) ABG pCO2 (35-45) mmHg ABG pO2 (83-108) mmHg ABG HCO3 (21-25) mmol/L ABG Total CO2 (19-24) mmol/L ABG O2 Saturation (94-97) % ABG Hematocrit (34.0-46.0) % ABG Potassium (3.4-4.5) mmol/L ABG Ionized Calcium (4.5-5.3) mg/dL ABG Glucose (75-99) mg/dL ABG Lactic Acid (0.5-1.6) mmol/L Hemoglobin (11.4-16.0) gm/dL Chloride (98-107) mmol/L Glucose (74-99) mg/dL POC Glucose (mg/dL) 108 H 112 H 103 H (75-99) mg/dL Calcium (8.4-10.2) mg/dL Magnesium (1.6-2.3) mg/dL AST (14-36) U/L Alkaline Phosphatase (38-126) U/L Total Protein (6.3-8.2) g/dL Albumin (3.5-5.0) g/dL Arterial Blood Potassium (3.4-4.5) mmol/L Arterial Blood Glucose (75-99) mg/dL Crossmatch Assessment and Plan Assessment: Impression: Status post CABG, three-vessel bypass surgery, JOSE to LAD, SVG to PDA, SVG to obtuse marginal 1. Postoperative day #1. Postoperative blood loss anemia, expected. Hypertension. Dyslipidemia. History of SVT. History of hyperthyroidism Postoperative fluid overload, no evidence of acute lung injury, resolved, expected. He required temporary increase in FiO2 on mechanical ventilation. However it has resolved overnight Recommendation: Awaken to the patient and propofol was discontinued. Given a trial of pressure support and CPAP while I was at bedside. Extubated the patient to a nasal cannula. We'll continue present supportive care measures, patient would benefit from gentle diuresis this morning. We'll continue to follow. Continue GI and DVT prophylaxis. Continue aspirin statins Plavix and beta blockers Continue CIWA protocol. Continue pain control management. Continue sugar control management. Early ambulation. Discontinue unnecessary catheters. We'll continue to follow. Time with Patient: Less than 30
[2020-05-30 12:26] LABS: Glucose,Whole Blood 110 mg/dL (75-99)
[2020-05-30] MEDS ORDERED: fentaNYL (PF) 50 MCG/ML 2 ML AMP IVP ONE (12:30)
[2020-05-30 12:54] LABS: Glucose,Whole Blood 104 mg/dL (75-99)
[2020-05-30] MEDS: CLEVIDIPINE BUTYRATE 25 MG in EMPTY BAG 1 BAG IV SCH (14:09)
[2020-05-30] MEDS: SODIUM CHLORIDE 0.9% 1,000 ML IV SCH (14:10)
[2020-05-30 15:18] LABS: Glucose,Whole Blood 109 mg/dL (75-99)
[2020-05-30 16:13] LABS: Glucose,Whole Blood 111 mg/dL (75-99)
[2020-05-30] MEDS: METOPROLOL TARTRATE 25 MG TAB PO SCH ×2 (17:02→22:30)
[2020-05-30 17:08] LABS: Glucose,Whole Blood 109 mg/dL (75-99)
--- NOTE | 2020-05-30 17:10 | P.PN ---
Subjective Progress Note Date: 05/30/20 (delayed charting seen at 0830) Principal diagnosis: chest pain Patient is a 59-year-old female with a history of A. fib not on anticoagulation secondary to no follow-up with PCP, tobacco abuse, and hypothyroidism who presented to the emergency Department complaints of chest pain. She was ultimately found have a non-ST segment elevated myocardial infarction. She was placed on a heparin drip and admitted. She was seen by cardiology and underwent cardiac catheterization. She underwent urgent 3 vessel cardiac bypass surgery on 05/29/2020. She returned to the ICU intubated. She remained intubated overnight on 05/29. Patient seen and examined at bedside. Awake on vent in the ICU General: non toxic, no distress, appears at stated age Derm: warm, dry, dressings in place b/l LE Head: atraumatic, normocephalic, symmetric Eyes: EOMI, no lid lag, anicteric sclera Mouth: no lip lesion, mucus membranes moist Cardiovascular: S1S2 reg, no murmur, positive posterior tibial pulse bilateral, Lungs: Course bs bilateral, no rhonchi, no rales , no accessory muscle use, + vent, + chest tube and mediastinal tube Abdominal: soft, nontender to palpation, no guarding, no appreciable organomegaly Ext: no gross muscle atrophy, no edema, no contractures Neuro: CN II-XI grossly intact, no focal neuro deficits Psych: awake, following commands, nodding yes and no appropriately. Non-ST segment elevated myocardial infarction, triple vessel coronary artery disease s/p 3 vessel bypass. - Management per cardiothorasic surgery - ASA, plavix, lipitor, metoprolol Acute blood loss anemia, and thrombocytopenia, an anticipated outcome of surgery - follow CBC - Transfuse as indicated Subclinical hypothyroidism, in the setting of prior Graves' disease with radioactive iodine -TSH is 15, this was repeated and confirmed at 15. Even though free T4 is normal she should be treated for the subclinical hypothyroidism as her TSH is greater than 10. She is suffering both from cardiovascular and dyslipidemia consequences of overt subclinical hypothyroidism and those in their 50s and 60s should be treated she was TSH of less than 10 and subclinical hypothyroidism to prevent further development of complications. I discussed with her at length that she should follow up with [facility] for further identification. She has not had her TSH tested in 5 years. She was placed on Synthroid but stopped taking this when she was lost to follow-up. Dyslipidemia -Statin therapy Hypertension -controlled -Continue with metoprolol -Cozaar on hold Severe COPD with FEV1 45% of the predicted - pulmonary recommendations Tobacco abuse -Cessation -Nicotine replacement EtOH misuse -Cessation encouraged Bilateral Carotid artery disease 50-69% -Aspirin, statin, outpatient follow-up History of SVT DVT prophylaxis: Heparin Discussed with: Patient, nursing, CT surgery Anticipated discharge: per CT surgery Anticipated discharge place: A total of 35 minutes was spent on the care of this complex patient more than 50% of the time was spent in counseling and care coordination. Objective - Vital Signs Vital signs: Vital Signs Temp 98 F 05/29/20 06:11 Pulse 87 05/30/20 11:37 Resp 22 05/30/20 11:00 BP 112/67 05/30/20 11:00 Pulse Ox 98 05/30/20 11:00 Intake & Output 05/29/20 05/30/20 05/30/20 18:59 06:59 18:59 Intake Total 990.5 1197.267 343.491 Output Total 4717 1130 580 Balance -3726.5 67.267 -236.509 Weight 68.9 kg 68.9 kg Intake: IV 677 1002.5 316 ACETAMINOPHEN IV (For NPO 100 ) 1,000 mg In Empty Bag 1 bag @ 400 mls/hr IVPB Q6HR [facility] Rx#:[id number] Nitroglycerin-D5w Pmx 50 30 13.5 mg In Dextrose/Water 1 250ml.bag @ 5 MCG/MIN 1.5 mls/hr IV .Q24H [facility] Rx#: [id number] Sodium Chloride 0.9% 1, 300 550 200 000 ml @ 20 mls/hr IV . Q24H [facility] Rx#:[id number] cardiac output 180 140 80 ceFAZolin 2 gm In Sodium 50 100 Chloride 0.9% 50 ml @ 100 mls/hr IVPB Q8H [facility] Rx#: [id number] pressure bag 54 99 36 Intake, IV Titration 3.5 194.767 27.491 Amount Clevidipine Butyrate 25 3.5 mg In Empty Bag 1 bag @ 1 MG/HR 2 mls/hr IV .Q24H [facility] Rx#:[id number] Insulin Regular 100 unit 12.515 In Sodium Chloride 0.9% 100 ml @ Per Protocol IV .Q0M [facility] Rx#:[id number] propofoL 1,000 mg In 182.252 27.491 Empty Bag 1 bag @ Titrate IV .Q0M COUNTS INCLUDE 234 BEDS AT THE [facility] Rx#: [id number] Blood Product 310 Rc As-1 Unit 310 [id number] Output: Chest Tube Drainage 517 170 90 Left Pleural 200 40 40 Right Pleural 115 40 20 mediastinal 202 90 30 Urine 3200 960 490 Estimated Blood Loss 1000 Other: Voiding Method Indwelling Catheter Indwelling Catheter Indwelling Catheter ABP, PAP, CO, CI - Last Documented Arterial Blood Pressure 121/65 Pulmonary Artery Pressure 35/21 Cardiac Output 4 Cardiac Index 2.4 - Labs CBC & Chem 7: 05/30/20 04:00 05/30/20 04:00 Labs: Abnormal Lab Results - Last 24 Hours (Table) 05/28/20 05/29/20 05/29/20 Range/Units 08:28 08:37 10:37 RBC (3.80-5.40) m/uL Hgb (11.4-16.0) gm/dL Hct (34.0-46.0) % Plt Count (150-450) k/uL Lymphocytes # (1.0-4.8) k/uL PT (9.0-12.0) sec INR (<1.2) APTT (22.0-30.0) sec ABG pH 7.47 H (7.35-7.45) ABG pCO2 33 L (35-45) mmHg ABG pO2 388 H 193 H (83-108) mmHg ABG HCO3 (21-25) mmol/L ABG Total CO2 25 H 26 H (19-24) mmol/L ABG O2 Saturation 99.9 H 99.4 H (94-97) % ABG Hematocrit 29 L 26 L (34.0-46.0) % ABG Potassium (3.4-4.5) mmol/L ABG Ionized Calcium (4.5-5.3) mg/dL ABG Glucose 109 H (75-99) mg/dL ABG Lactic Acid (0.5-1.6) mmol/L Hemoglobin 9.4 L 8.6 L (11.4-16.0) gm/dL Chloride (98-107) mmol/L Glucose (74-99) mg/dL POC Glucose (mg/dL) (75-99) mg/dL Calcium (8.4-10.2) mg/dL Magnesium (1.6-2.3) mg/dL AST (14-36) U/L Alkaline Phosphatase (38-126) U/L Total Protein (6.3-8.2) g/dL Albumin (3.5-5.0) g/dL Arterial Blood Potassium (3.4-4.5) mmol/L Arterial Blood Glucose 109 H (75-99) mg/dL Crossmatch See Detail 05/29/20 05/29/20 05/29/20 Range/Units 10:40 11:15 11:43 RBC (3.80-5.40) m/uL Hgb (11.4-16.0) gm/dL Hct (34.0-46.0) % Plt Count (150-450) k/uL Lymphocytes # (1.0-4.8) k/uL PT (9.0-12.0) sec INR (<1.2) APTT (22.0-30.0) sec ABG pH 7.47 H 7.46 H (7.35-7.45) ABG pCO2 33 L (35-45) mmHg ABG pO2 >420 H 376 H 365 H (83-108) mmHg ABG HCO3 (21-25) mmol/L ABG Total CO2 25 H 27 H 27 H (19-24) mmol/L ABG O2 Saturation 100.0 H 100.0 H 100.0 H (94-97) % ABG Hematocrit 21 L 18 L* 18 L* (34.0-46.0) % ABG Potassium 4.9 H 4.7 H (3.4-4.5) mmol/L ABG Ionized Calcium 4.1 L 4.2 L 4.3 L (4.5-5.3) mg/dL ABG Glucose 108 H 177 H 171 H (75-99) mg/dL ABG Lactic Acid (0.5-1.6) mmol/L Hemoglobin 6.9 L* 5.9 L* 5.8 L* (11.4-16.0) gm/dL Chloride (98-107) mmol/L Glucose (74-99) mg/dL POC Glucose (mg/dL) (75-99) mg/dL Calcium (8.4-10.2) mg/dL Magnesium (1.6-2.3) mg/dL AST (14-36) U/L Alkaline Phosphatase (38-126) U/L Total Protein (6.3-8.2) g/dL Albumin (3.5-5.0) g/dL Arterial Blood Potassium 4.9 H 4.7 H (3.4-4.5) mmol/L Arterial Blood Glucose 108 H 177 H 171 H (75-99) mg/dL Crossmatch 05/29/20 05/29/20 05/29/20 Range/Units 12:12 13:07 13:39 RBC (3.80-5.40) m/uL Hgb (11.4-16.0) gm/dL Hct (34.0-46.0) % Plt Count (150-450) k/uL Lymphocytes # (1.0-4.8) k/uL PT (9.0-12.0) sec INR (<1.2) APTT (22.0-30.0) sec ABG pH (7.35-7.45) ABG pCO2 34 L (35-45) mmHg ABG pO2 >420 H 389 H 362 H (83-108) mmHg ABG HCO3 26 H (21-25) mmol/L ABG Total CO2 26 H 27 H (19-24) mmol/L ABG O2 Saturation 100.0 H 100.0 H 99.9 H (94-97) % ABG Hematocrit 17 L* 18 L* 24 L (34.0-46.0) % ABG Potassium 4.7 H 2.9 L* (3.4-4.5) mmol/L ABG Ionized Calcium 4.3 L 4.1 L (4.5-5.3) mg/dL ABG Glucose 176 H 114 H 109 H (75-99) mg/dL ABG Lactic Acid 2.2 H* (0.5-1.6) mmol/L Hemoglobin 5.5 L* 5.8 L* 7.9 L (11.4-16.0) gm/dL Chloride (98-107) mmol/L Glucose (74-99) mg/dL POC Glucose (mg/dL) (75-99) mg/dL Calcium (8.4-10.2) mg/dL Magnesium (1.6-2.3) mg/dL AST (14-36) U/L Alkaline Phosphatase (38-126) U/L Total Protein (6.3-8.2) g/dL Albumin (3.5-5.0) g/dL Arterial Blood Potassium 4.7 H 2.9 L* (3.4-4.5) mmol/L Arterial Blood Glucose 176 H 114 H 109 H (75-99) mg/dL Crossmatch 05/29/20 05/29/20 05/29/20 Range/Units 13:39 13:56 13:56 RBC 2.48 L (3.80-5.40) m/uL Hgb 8.2 L D (11.4-16.0) gm/dL Hct 23.7 L (34.0-46.0) % Plt Count 96 L D (150-450) k/uL Lymphocytes # (1.0-4.8) k/uL PT 12.1 H (9.0-12.0) sec INR 1.2 H (<1.2) APTT 38.8 H (22.0-30.0) sec ABG pH (7.35-7.45) ABG pCO2 (35-45) mmHg ABG pO2 293 H (83-108) mmHg ABG HCO3 26 H (21-25) mmol/L ABG Total CO2 27 H (19-24) mmol/L ABG O2 Saturation 100.0 H (94-97) % ABG Hematocrit (34.0-46.0) % ABG Potassium (3.4-4.5) mmol/L ABG Ionized Calcium (4.5-5.3) mg/dL ABG Glucose (75-99) mg/dL ABG Lactic Acid (0.5-1.6) mmol/L Hemoglobin (11.4-16.0) gm/dL Chloride (98-107) mmol/L Glucose (74-99) mg/dL POC Glucose (mg/dL) (75-99) mg/dL Calcium (8.4-10.2) mg/dL Magnesium (1.6-2.3) mg/dL AST (14-36) U/L Alkaline Phosphatase (38-126) U/L Total Protein (6.3-8.2) g/dL Albumin (3.5-5.0) g/dL Arterial Blood Potassium (3.4-4.5) mmol/L Arterial Blood Glucose (75-99) mg/dL Crossmatch 05/29/20 05/29/20 05/29/20 Range/Units 13:56 13:56 15:40 RBC (3.80-5.40) m/uL Hgb (11.4-16.0) gm/dL Hct (34.0-46.0) % Plt Count (150-450) k/uL Lymphocytes # (1.0-4.8) k/uL PT (9.0-12.0) sec INR (<1.2) APTT (22.0-30.0) sec ABG pH 7.34 L (7.35-7.45) ABG pCO2 48 H (35-45) mmHg ABG pO2 (83-108) mmHg ABG HCO3 26 H (21-25) mmol/L ABG Total CO2 27 H (19-24) mmol/L ABG O2 Saturation 97.3 H (94-97) % ABG Hematocrit (34.0-46.0) % ABG Potassium (3.4-4.5) mmol/L ABG Ionized Calcium (4.5-5.3) mg/dL ABG Glucose (75-99) mg/dL ABG Lactic Acid (0.5-1.6) mmol/L Hemoglobin (11.4-16.0) gm/dL Chloride 115 H (98-107) mmol/L Glucose (74-99) mg/dL POC Glucose (mg/dL) 105 H (75-99) mg/dL Calcium 7.7 L (8.4-10.2) mg/dL Magnesium 2.5 H (1.6-2.3) mg/dL AST (14-36) U/L Alkaline Phosphatase <20 L (38-126) U/L Total Protein 3.7 L (6.3-8.2) g/dL Albumin 2.2 L (3.5-5.0) g/dL Arterial Blood Potassium (3.4-4.5) mmol/L Arterial Blood Glucose (75-99) mg/dL Crossmatch 05/29/20 05/29/20 05/29/20 Range/Units 15:46 16:50 16:55 RBC 3.37 L (3.80-5.40) m/uL Hgb 10.7 L (11.4-16.0) gm/dL Hct 32.3 L (34.0-46.0) % Plt Count (150-450) k/uL Lymphocytes # (1.0-4.8) k/uL PT (9.0-12.0) sec INR (<1.2) APTT (22.0-30.0) sec ABG pH (7.35-7.45) ABG pCO2 (35-45) mmHg ABG pO2 (83-108) mmHg ABG HCO3 (21-25) mmol/L ABG Total CO2 (19-24) mmol/L ABG O2 Saturation (94-97) % ABG Hematocrit (34.0-46.0) % ABG Potassium (3.4-4.5) mmol/L ABG Ionized Calcium (4.5-5.3) mg/dL ABG Glucose (75-99) mg/dL ABG Lactic Acid (0.5-1.6) mmol/L Hemoglobin (11.4-16.0) gm/dL Chloride (98-107) mmol/L Glucose (74-99) mg/dL POC Glucose (mg/dL) 102 H 108 H (75-99) mg/dL Calcium (8.4-10.2) mg/dL Magnesium (1.6-2.3) mg/dL AST (14-36) U/L Alkaline Phosphatase (38-126) U/L Total Protein (6.3-8.2) g/dL Albumin (3.5-5.0) g/dL Arterial Blood Potassium (3.4-4.5) mmol/L Arterial Blood Glucose (75-99) mg/dL Crossmatch 05/29/20 05/29/20 05/29/20 Range/Units 17:07 17:58 18:51 RBC (3.80-5.40) m/uL Hgb (11.4-16.0) gm/dL Hct (34.0-46.0) % Plt Count (150-450) k/uL Lymphocytes # (1.0-4.8) k/uL PT (9.0-12.0) sec INR (<1.2) APTT (22.0-30.0) sec ABG pH 7.31 L (7.35-7.45) ABG pCO2 49 H (35-45) mmHg ABG pO2 276 H (83-108) mmHg ABG HCO3 (21-25) mmol/L ABG Total CO2 26 H (19-24) mmol/L ABG O2 Saturation 99.0 H (94-97) % ABG Hematocrit (34.0-46.0) % ABG Potassium (3.4-4.5) mmol/L ABG Ionized Calcium (4.5-5.3) mg/dL ABG Glucose (75-99) mg/dL ABG Lactic Acid (0.5-1.6) mmol/L Hemoglobin (11.4-16.0) gm/dL Chloride (98-107) mmol/L Glucose (74-99) mg/dL POC Glucose (mg/dL) 107 H 109 H (75-99) mg/dL Calcium (8.4-10.2) mg/dL Magnesium (1.6-2.3) mg/dL AST (14-36) U/L Alkaline Phosphatase (38-126) U/L Total Protein (6.3-8.2) g/dL Albumin (3.5-5.0) g/dL Arterial Blood Potassium (3.4-4.5) mmol/L Arterial Blood Glucose (75-99) mg/dL Crossmatch 05/29/20 05/29/20 05/29/20 Range/Units 20:00 20:06 21:02 RBC 3.00 L (3.80-5.40) m/uL Hgb 9.9 L (11.4-16.0) gm/dL Hct 28.6 L (34.0-46.0) % Plt Count 127 L (150-450) k/uL Lymphocytes # 0.5 L (1.0-4.8) k/uL PT (9.0-12.0) sec INR (<1.2) APTT (22.0-30.0) sec ABG pH (7.35-7.45) ABG pCO2 (35-45) mmHg ABG pO2 (83-108) mmHg ABG HCO3 (21-25) mmol/L ABG Total CO2 (19-24) mmol/L ABG O2 Saturation (94-97) % ABG Hematocrit (34.0-46.0) % ABG Potassium (3.4-4.5) mmol/L ABG Ionized Calcium (4.5-5.3) mg/dL ABG Glucose (75-99) mg/dL ABG Lactic Acid (0.5-1.6) mmol/L Hemoglobin (11.4-16.0) gm/dL Chloride (98-107) mmol/L Glucose (74-99) mg/dL POC Glucose (mg/dL) 136 H 133 H (75-99) mg/dL Calcium (8.4-10.2) mg/dL Magnesium (1.6-2.3) mg/dL AST (14-36) U/L Alkaline Phosphatase (38-126) U/L Total Protein (6.3-8.2) g/dL Albumin (3.5-5.0) g/dL Arterial Blood Potassium (3.4-4.5) mmol/L Arterial Blood Glucose (75-99) mg/dL Crossmatch 05/29/20 05/29/20 05/30/20 Range/Units 22:01 23:01 00:06 RBC (3.80-5.40) m/uL Hgb (11.4-16.0) gm/dL Hct (34.0-46.0) % Plt Count (150-450) k/uL Lymphocytes # (1.0-4.8) k/uL PT (9.0-12.0) sec INR (<1.2) APTT (22.0-30.0) sec ABG pH (7.35-7.45) ABG pCO2 (35-45) mmHg ABG pO2 (83-108) mmHg ABG HCO3 (21-25) mmol/L ABG Total CO2 (19-24) mmol/L ABG O2 Saturation (94-97) % ABG Hematocrit (34.0-46.0) % ABG Potassium (3.4-4.5) mmol/L ABG Ionized Calcium (4.5-5.3) mg/dL ABG Glucose (75-99) mg/dL ABG Lactic Acid (0.5-1.6) mmol/L Hemoglobin (11.4-16.0) gm/dL Chloride (98-107) mmol/L Glucose (74-99) mg/dL POC Glucose (mg/dL) 146 H 146 H 129 H (75-99) mg/dL Calcium (8.4-10.2) mg/dL Magnesium (1.6-2.3) mg/dL AST (14-36) U/L Alkaline Phosphatase (38-126) U/L Total Protein (6.3-8.2) g/dL Albumin (3.5-5.0) g/dL Arterial Blood Potassium (3.4-4.5) mmol/L Arterial Blood Glucose (75-99) mg/dL Crossmatch 05/30/20 05/30/20 05/30/20 Range/Units 01:08 02:07 02:57 RBC (3.80-5.40) m/uL Hgb (11.4-16.0) gm/dL Hct (34.0-46.0) % Plt Count (150-450) k/uL Lymphocytes # (1.0-4.8) k/uL PT (9.0-12.0) sec INR (<1.2) APTT (22.0-30.0) sec ABG pH (7.35-7.45) ABG pCO2 (35-45) mmHg ABG pO2 (83-108) mmHg ABG HCO3 (21-25) mmol/L ABG Total CO2 (19-24) mmol/L ABG O2 Saturation (94-97) % ABG Hematocrit (34.0-46.0) % ABG Potassium (3.4-4.5) mmol/L ABG Ionized Calcium (4.5-5.3) mg/dL ABG Glucose (75-99) mg/dL ABG Lactic Acid (0.5-1.6) mmol/L Hemoglobin (11.4-16.0) gm/dL Chloride (98-107) mmol/L Glucose (74-99) mg/dL POC Glucose (mg/dL) 132 H 138 H 123 H (75-99) mg/dL Calcium (8.4-10.2) mg/dL Magnesium (1.6-2.3) mg/dL AST (14-36) U/L Alkaline Phosphatase (38-126) U/L Total Protein (6.3-8.2) g/dL Albumin (3.5-5.0) g/dL Arterial Blood Potassium (3.4-4.5) mmol/L Arterial Blood Glucose (75-99) mg/dL Crossmatch 05/30/20 05/30/20 05/30/20 Range/Units 03:57 04:00 04:00 RBC 3.03 L (3.80-5.40) m/uL Hgb 9.8 L (11.4-16.0) gm/dL Hct 28.9 L (34.0-46.0) % Plt Count 143 L (150-450) k/uL Lymphocytes # 0.7 L (1.0-4.8) k/uL PT (9.0-12.0) sec INR (<1.2) APTT (22.0-30.0) sec ABG pH (7.35-7.45) ABG pCO2 (35-45) mmHg ABG pO2 (83-108) mmHg ABG HCO3 (21-25) mmol/L ABG Total CO2 (19-24) mmol/L ABG O2 Saturation (94-97) % ABG Hematocrit (34.0-46.0) % ABG Potassium (3.4-4.5) mmol/L ABG Ionized Calcium (4.5-5.3) mg/dL ABG Glucose (75-99) mg/dL ABG Lactic Acid (0.5-1.6) mmol/L Hemoglobin (11.4-16.0) gm/dL Chloride 112 H (98-107) mmol/L Glucose 119 H (74-99) mg/dL POC Glucose (mg/dL) 123 H (75-99) mg/dL Calcium 8.2 L (8.4-10.2) mg/dL Magnesium 2.4 H (1.6-2.3) mg/dL AST 40 H (14-36) U/L Alkaline Phosphatase (38-126) U/L Total Protein 4.9 L (6.3-8.2) g/dL Albumin 3.0 L (3.5-5.0) g/dL Arterial Blood Potassium (3.4-4.5) mmol/L Arterial Blood Glucose (75-99) mg/dL Crossmatch 05/30/20 05/30/2005/30/20 Range/Units 05:22 05:53 06:54 RBC (3.80-5.40) m/uL Hgb (11.4-16.0) gm/dL Hct (34.0-46.0) % Plt Count (150-450) k/uL Lymphocytes # (1.0-4.8) k/uL PT (9.0-12.0) sec INR (<1.2) APTT (22.0-30.0) sec ABG pH (7.35-7.45) ABG pCO2 (35-45) mmHg ABG pO2 110 H (83-108) mmHg ABG HCO3 (21-25) mmol/L ABG Total CO2 25 H (19-24) mmol/L ABG O2 Saturation 99.0 H (94-97) % ABG Hematocrit (34.0-46.0) % ABG Potassium (3.4-4.5) mmol/L ABG Ionized Calcium (4.5-5.3) mg/dL ABG Glucose (75-99) mg/dL ABG Lactic Acid (0.5-1.6) mmol/L Hemoglobin (11.4-16.0) gm/dL Chloride (98-107) mmol/L Glucose (74-99) mg/dL POC Glucose (mg/dL) 106 H 116 H (75-99) mg/dL Calcium (8.4-10.2) mg/dL Magnesium (1.6-2.3) mg/dL AST (14-36) U/L Alkaline Phosphatase (38-126) U/L Total Protein (6.3-8.2) g/dL Albumin (3.5-5.0) g/dL Arterial Blood Potassium (3.4-4.5) mmol/L Arterial Blood Glucose (75-99) mg/dL Crossmatch 05/30/20 05/30/20 05/30/20 Range/Units 07:55 08:56 11:04 RBC (3.80-5.40) m/uL Hgb (11.4-16.0) gm/dL Hct (34.0-46.0) % Plt Count (150-450) k/uL Lymphocytes # (1.0-4.8) k/uL PT (9.0-12.0) sec INR (<1.2) APTT (22.0-30.0) sec ABG pH (7.35-7.45) ABG pCO2 (35-45) mmHg ABG pO2 (83-108) mmHg ABG HCO3 (21-25) mmol/L ABG Total CO2 (19-24) mmol/L ABG O2 Saturation (94-97) % ABG Hematocrit (34.0-46.0) % ABG Potassium (3.4-4.5) mmol/L ABG Ionized Calcium (4.5-5.3) mg/dL ABG Glucose (75-99) mg/dL ABG Lactic Acid (0.5-1.6) mmol/L Hemoglobin (11.4-16.0) gm/dL Chloride (98-107) mmol/L Glucose (74-99) mg/dL POC Glucose (mg/dL) 108 H 112 H 103 H (75-99) mg/dL Calcium (8.4-10.2) mg/dL Magnesium (1.6-2.3) mg/dL AST (14-36) U/L Alkaline Phosphatase (38-126) U/L Total Protein (6.3-8.2) g/dL Albumin (3.5-5.0) g/dL Arterial Blood Potassium (3.4-4.5) mmol/L Arterial Blood Glucose (75-99) mg/dL Crossmatch 05/30/20 05/30/20 Range/Units 12:25 12:53 RBC (3.80-5.40) m/uL Hgb (11.4-16.0) gm/dL Hct (34.0-46.0) % Plt Count (150-450) k/uL Lymphocytes # (1.0-4.8) k/uL PT (9.0-12.0) sec INR (<1.2) APTT (22.0-30.0) sec ABG pH (7.35-7.45) ABG pCO2 (35-45) mmHg ABG pO2 (83-108) mmHg ABG HCO3 (21-25) mmol/L ABG Total CO2 (19-24) mmol/L ABG O2 Saturation (94-97) % ABG Hematocrit (34.0-46.0) % ABG Potassium (3.4-4.5) mmol/L ABG Ionized Calcium (4.5-5.3) mg/dL ABG Glucose (75-99) mg/dL ABG Lactic Acid (0.5-1.6) mmol/L Hemoglobin (11.4-16.0) gm/dL Chloride (98-107) mmol/L Glucose (74-99) mg/dL POC Glucose (mg/dL) 110 H 104 H (75-99) mg/dL Calcium (8.4-10.2) mg/dL Magnesium (1.6-2.3) mg/dL AST (14-36) U/L Alkaline Phosphatase (38-126) U/L Total Protein (6.3-8.2) g/dL Albumin (3.5-5.0) g/dL Arterial Blood Potassium (3.4-4.5) mmol/L Arterial Blood Glucose (75-99) mg/dL Crossmatch
[2020-05-30 18:13] LABS: Glucose,Whole Blood 123 mg/dL (75-99)
[2020-05-30 19:16] LABS: Glucose,Whole Blood 148 mg/dL (75-99)
[2020-05-30] MEDS: INSULIN REGULAR 100 UNIT in SODIUM CHLORIDE 0.9% 100 ML IV SCH (20:45)
[2020-05-30] MEDS: ATORVASTATIN 80 MG TAB PO SCH (20:45)
[2020-05-30] MEDS: SENNOSIDES-DOCUSATE SODIUM 1 EACH TAB PO SCH (20:45)
[2020-05-30 20:55] LABS: Glucose,Whole Blood 131 mg/dL (75-99)
[2020-05-30 22:10] LABS: Glucose,Whole Blood 136 mg/dL (75-99)
[2020-05-30] MEDS: ALBUMIN HUMAN 5% 250 ML in EMPTY BAG 1 BAG IVPB PRN (22:28)
[2020-05-30 23:11] LABS: Glucose,Whole Blood 117 mg/dL (75-99)
[2020-05-31 00:17] LABS: Glucose,Whole Blood 120 mg/dL (75-99)
[2020-05-31] MEDS: HYDROcodone/APAP 5-325MG 1 EACH TAB PO PRN ×5 (00:25→20:52)
[2020-05-31] MEDS: KETOROLAC 15 MG/ML 1 ML VIAL IVP SCH ×4 (02:01→20:18)
[2020-05-31 02:06] LABS: Glucose,Whole Blood 118 mg/dL (75-99)
[2020-05-31 03:43] LABS: Glucose,Whole Blood 106 mg/dL (75-99)
[2020-05-31 05:08] LABS: Glucose,Whole Blood 109 mg/dL (75-99)
[2020-05-31 05:40] LABS: Glucose,Whole Blood 115 mg/dL (75-99)
[2020-05-31 05:53] LABS: Basophils % (A) 0 %; Eosinophils # (A) 0.2 k/uL (0-0.7); Eosinophils % (A) 2 %; HCT 27.9 % (34.0-46.0); HGB 9.5 gm/dL (11.4-16.0); Lymphocytes % (A) 9 %; MCH 33.1 pg (25.0-35.0); MCHC 34.1 g/dL (31.0-37.0); Mean Platelet Volume 9.9; Monocytes # (A) 0.6 k/uL (0-1.0); Monocytes % (A) 6 %; Neutrophils # (A) 8.6 k/uL (1.3-7.7); Neutrophils % (A) 81 %; Platelet Count 147 k/uL (150-450); RBC 2.88 m/uL (3.80-5.40); RDW 14.1 % (11.5-15.5); WBC 10.6 k/uL (3.8-10.6)
[2020-05-31] MEDS: HEPARIN SODIUM,PORCINE 5,000 UNIT/ML 1 ML VIAL SQ SCH ×3 (06:01→20:53)
[2020-05-31 06:27] LABS: Ionized Calcium 5.1 mg/dL (4.5-5.3)
[2020-05-31 06:38] LABS: Albumin 3.4 g/dL (3.5-5.0); Calcium 8.4 mg/dL (8.4-10.2); Potassium 4.3 mmol/L (3.5-5.1); Total Bilirubin 0.9 mg/dL (0.2-1.3); Total Protein 5.6 g/dL (6.3-8.2)
[2020-05-31 07:27] LABS: Glucose,Whole Blood 106 mg/dL (75-99)
[2020-05-31] MEDS: ASPIRIN 325 MG TAB PO SCH (07:56)
[2020-05-31] MEDS: CLOPIDOGREL 75 MG TAB PO SCH (07:56)
[2020-05-31] MEDS: FOLIC ACID 1 MG TAB PO SCH (07:57)
[2020-05-31] MEDS: METOPROLOL TARTRATE 25 MG TAB PO SCH ×2 (07:57→22:12)
[2020-05-31] MEDS: THIAMINE 100 MG TAB PO SCH (07:57)
[2020-05-31] MEDS: PANTOPRAZOLE 40 MG TABLET PO SCH (07:59)
[2020-05-31] MEDS ORDERED: FUROSEMIDE 10 MG/ML 4 ML VIAL IV STA (08:05)
--- NOTE | 2020-05-31 08:40 | P.PN ---
Subjective Progress Note Date: 05/31/20 Principal diagnosis: chest pain Patient is a 59-year-old female with a history of A. fib not on anticoagulation secondary to no follow-up with PCP, tobacco abuse, and hypothyroidism who presented to the emergency Department complaints of chest pain. She was ultimately found have a non-ST segment elevated myocardial infarction. She was placed on a heparin drip and admitted. She was seen by cardiology and underwent cardiac catheterization. She underwent urgent 3 vessel cardiac bypass surgery on 05/29/2020. She returned to the ICU intubated. She remained intubated overnight on 05/29 and was successfully extubated on 05/30. Patient seen and examined at bedside. having pain that is controlled, intermittent shortness of breath, no lightheadedness, no nausea, no vomiting. General: non toxic, no distress, appears at stated age Derm: warm, dry, Head: atraumatic, normocephalic, symmetric Eyes: EOMI, no lid lag, anicteric sclera Mouth: no lip lesion, mucus membranes moist Cardiovascular: S1S2 reg, no murmur, positive posterior tibial pulse bilateral, Lungs: decreased bs bilateral, no rhonchi, no rales , no accessory muscle use, + chest tube and mediastinal tube Abdominal: soft, nontender to palpation, no guarding, no appreciable organomegaly Ext: no gross muscle atrophy, trace edema bilateral, no contractures Neuro: CN II-XI grossly intact, no focal neuro deficits Psych: awake, following commands, nodding yes and no appropriately. Non-ST segment elevated myocardial infarction, triple vessel coronary artery disease s/p 3 vessel bypass. - Management per cardiothorasic surgery - ASA, plavix, lipitor, metoprolol Acute blood loss anemia, and thrombocytopenia, an anticipated outcome of surgery, stable and improving - follow CBC - Transfuse as indicated Subclinical hypothyroidism, in the setting of prior Graves' disease with radioactive iodine - start levothyroxine 50 mcg on 06/01. -TSH is 15, this was repeated and confirmed at 15. Even though free T4 is normal she should be treated for the subclinical hypothyroidism as her TSH is greater than 10. She is suffering both from cardiovascular and dyslipidemia consequences of overt subclinical hypothyroidism and those in their 50s and 60s should be treated she was TSH of less than 10 and subclinical hypothyroidism to prevent further development of complications. 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 She has not had her TSH tested in 5 years. She was placed on Synthroid but stopped taking this when she was lost to follow-up. Dyslipidemia -Statin therapy Hypertension -controlled -Continue with metoprolol -Cozaar on hold Severe COPD with FEV1 45% of the predicted - pulmonary recommendations Tobacco abuse -Cessation -Nicotine replacement EtOH misuse -Cessation encouraged Bilateral Carotid artery disease 50-69% -Aspirin, statin, outpatient follow-up History of SVT DVT prophylaxis: Heparin Discussed with: Patient, nursing Anticipated discharge: per CT surgery Anticipated discharge place: A total of 35 minutes was spent on the care of this complex patient more than 50% of the time was spent in counseling and care coordination. Objective - Vital Signs Vital signs: Vital Signs Temp 98.7 F 05/31/20 08:00 Pulse 96 05/31/20 08:00 Resp 30 H 05/31/20 08:00 BP 90/53 05/31/20 02:00 Pulse Ox 89 L 05/31/20 08:00 Intake & Output 05/30/20 05/31/20 05/31/20 18:59 06:59 18:59 Intake Total 820.491 693.451 72 Output Total 1735 522 60 Balance -914.509 171.451 12 Weight 68.9 kg 69.1 kg Intake: IV 643 679 72 Albumin Human 5% 250 ml 250 In Empty Bag 1 bag @ 250 mls/hr IVPB Q1HR PRN Rx#: [id number] Sodium Chloride 0.9% 1, 410 360 60 000 ml @ 20 mls/hr IV . Q24H [facility] Rx#:[id number] cardiac output 140 pressure bag 93 69 12 Intake, IV Titration 27.491 14.451 Amount Insulin Regular 100 unit 14.451 In Sodium Chloride 0.9% 100 ml @ Per Protocol IV .Q0M [facility] Rx#:[id number] propofoL 1,000 mg In 27.491 Empty Bag 1 bag @ Titrate IV .Q0M [facility] Rx#: [id number] Oral 150 Output: Chest Tube Drainage 260 170 20 Left Pleural 160 30 10 Right Pleural 40 70 10 mediastinal 60 70 Urine 1475 352 40 Other: Voiding Method Indwelling Catheter Indwelling Catheter ABP, PAP, CO, CI - Last Documented Arterial Blood Pressure 103/46 Pulmonary Artery Pressure 33/18 Cardiac Output 4.3 Cardiac Index 2.6 - Labs CBC & Chem 7: 05/31/20 05:40 05/31/20 05:40 Labs: Abnormal Lab Results - Last 24 Hours (Table) 05/30/20 05/30/20 05/30/20 Range/Units 08:56 11:04 12:25 RBC (3.80-5.40) m/uL Hgb (11.4-16.0) gm/dL Hct (34.0-46.0) % Plt Count (150-450) k/uL Neutrophils # (1.3-7.7) k/uL Chloride (98-107) mmol/L BUN (7-17) mg/dL Glucose (74-99) mg/dL POC Glucose (mg/dL) 112 H 103 H 110 H (75-99) mg/dL Total Protein (6.3-8.2) g/dL Albumin (3.5-5.0) g/dL 05/30/20 05/30/20 05/30/20 Range/Units 12:53 15:17 16:11 RBC (3.80-5.40) m/uL Hgb (11.4-16.0) gm/dL Hct (34.0-46.0) % Plt Count (150-450) k/uL Neutrophils # (1.3-7.7) k/uL Chloride (98-107) mmol/L BUN (7-17) mg/dL Glucose (74-99) mg/dL POC Glucose (mg/dL) 104 H 109 H 111 H (75-99) mg/dL Total Protein (6.3-8.2) g/dL Albumin (3.5-5.0) g/dL 05/30/20 05/30/20 05/30/20 Range/Units 17:06 18:11 19:13 RBC (3.80-5.40) m/uL Hgb (11.4-16.0) gm/dL Hct (34.0-46.0) % Plt Count (150-450) k/uL Neutrophils # (1.3-7.7) k/uL Chloride (98-107) mmol/L BUN (7-17) mg/dL Glucose (74-99) mg/dL POC Glucose (mg/dL) 109 H 123 H 148 H (75-99) mg/dL Total Protein (6.3-8.2) g/dL Albumin (3.5-5.0) g/dL 05/30/20 05/30/20 05/30/20 Range/Units 20:54 22:09 23:09 RBC (3.80-5.40) m/uL Hgb (11.4-16.0) gm/dL Hct (34.0-46.0) % Plt Count (150-450) k/uL Neutrophils # (1.3-7.7) k/uL Chloride (98-107) mmol/L BUN (7-17) mg/dL Glucose (74-99) mg/dL POC Glucose (mg/dL) 131 H 136 H 117 H (75-99) mg/dL Total Protein (6.3-8.2) g/dL Albumin (3.5-5.0) g/dL 05/31/20 05/31/20 05/31/20 Range/Units 00:16 02:05 03:41 RBC (3.80-5.40) m/uL Hgb (11.4-16.0) gm/dL Hct (34.0-46.0) % Plt Count (150-450) k/uL Neutrophils # (1.3-7.7) k/uL Chloride (98-107) mmol/L BUN (7-17) mg/dL Glucose (74-99) mg/dL POC Glucose (mg/dL) 120 H 118 H 106 H (75-99) mg/dL Total Protein (6.3-8.2) g/dL Albumin (3.5-5.0) g/dL 05/31/20 05/31/20 05/31/20 Range/Units 05:07 05:38 05:40 RBC 2.88 L (3.80-5.40) m/uL Hgb 9.5 L (11.4-16.0) gm/dL Hct 27.9 L (34.0-46.0) % Plt Count 147 L (150-450) k/uL Neutrophils # 8.6 H (1.3-7.7) k/uL Chloride (98-107) mmol/L BUN (7-17) mg/dL Glucose (74-99) mg/dL POC Glucose (mg/dL) 109 H 115 H (75-99) mg/dL Total Protein (6.3-8.2) g/dL Albumin (3.5-5.0) g/dL 05/31/20 05/31/20 Range/Units 05:40 07:25 RBC (3.80-5.40) m/uL Hgb (11.4-16.0) gm/dL Hct (34.0-46.0) % Plt Count (150-450) k/uL Neutrophils # (1.3-7.7) k/uL Chloride 109 H (98-107) mmol/L BUN 19 H (7-17) mg/dL Glucose 107 H (74-99) mg/dL POC Glucose (mg/dL) 106 H (75-99) mg/dL Total Protein 5.6 L (6.3-8.2) g/dL Albumin 3.4 L (3.5-5.0) g/dL
--- NOTE | 2020-05-31 08:53 | P.PN ---
Subjective Progress Note Date: 05/31/20 Principal diagnosis: Triple-vessel coronary artery disease with a totally occluded chronic right coronary artery, non-ST elevated myocardial infarction this admission, moderate left ventricular dysfunction, moderate mitral valve regurgitation. Past medical history significant for hypertension, hyperlipidemia, SVT, hypothyroidism, previous hyperthyroid treated with radioactive dye, ongoing daily tobacco dependence, severe COPD with preoperative FEV1 45% of predicted, daily EtOH use without history of withdrawal. Bilateral internal carotid artery stenosis 50- 69%. POD #2 triple vessel coronary artery bypass grafting using the left internal mammary artery to the left anterior descending artery, a reverse greater saphenous vein graft from the aorta to the first obtuse marginal artery before its bifurcation, a reverse greater saphenous vein graft from the aorta to the p osterior descending coronary artery, exclusion of the left atrial appendage using a 35 mm AtriClip, intraoperative graft flow measurements using the Medistim system, endoscopic harvesting of the left greater saphenous vein from the groin to above the ankle level, intraoperative transesophageal echoc ardiogram and epi-aortic scanning. Acute blood loss anemia, expected outcome given hemodilution and cardiopulmonary bypass pump. The patient was seen in follow-up today on 05/31/2020 at her bedside in the intensive care unit. She is currently sitting up to the bedside chair, is awake, alert and oriented 3 and denies any complaints of shortness of breath or pain at this time. She does complain of some intermittent surgical type pain to her chest tube insertion sites with taking a deep breath and coughing. She remained hemodynamically stable and is currently on no inotropic or pressor supp ort. Right IJ cordis remains in place with continuous CVP monitoring, current CVP pressure is 10 mmHg. Oxygen saturations are 92% on 4 L nasal cannula. She is achieving 500 mL on her incentive spirometry with much encouragement. Mediastinal, left and right pleural chest tubes remain in place to low continuous wall suction -20 cm H2O. No air leak is present. Draining thin serosanguineous drainage. The patient reports that she has been ambulating in her room with minimal assistance from nursing staff. Objective - Vital Signs Vital signs: Vital Signs Temp 98.7 F 05/31/20 08:00 Pulse 96 05/31/20 08:00 Resp 30 H 05/31/20 08:00 BP 90/53 05/31/20 02:00 Pulse Ox 89 L 05/31/20 08:00 Intake & Output 05/30/20 05/31/20 05/31/20 18:59 06:59 18:59 Intake Total 820.491 693.451 72 Output Total 1735 522 60 Balance -914.509 171.451 12 Weight 68.9 kg 69.1 kg Intake: IV 643 679 72 Albumin Human 5% 250 ml 250 In Empty Bag 1 bag @ 250 mls/hr IVPB Q1HR PRN Rx#: [id number] Sodium Chloride 0.9% 1, 410 360 60 000 ml @ 20 mls/hr IV . Q24H [facility] Rx#:[id number] cardiac output 140 pressure bag 93 69 12 Intake, IV Titration 27.491 14.451 Amount Insulin Regular 100 unit 14.451 In Sodium Chloride 0.9% 100 ml @ Per Protocol IV .Q0M [facility] Rx#:[id number] propofoL 1,000 mg In 27.491 Empty Bag 1 bag @ Titrate IV .Q0M [facility] Rx#: [id number] Oral 150 Output: Chest Tube Drainage 260 170 20 Left Pleural 160 30 10 Right Pleural 40 70 10 mediastinal 60 70 Urine 1475 352 40 Other: Voiding Method Indwelling Catheter Indwelling Catheter ABP, PAP, CO, CI - Last Documented Arterial Blood Pressure 103/46 Pulmonary Artery Pressure 33/18 Cardiac Output 4.3 Cardiac Index 2.6 - Constitutional General appearance: Present: average body habitus, cooperative, no acute distress - EENT Eyes: Present: PERRLA, normal appearance. Absent: scleral icterus ENT: Present: hearing grossly normal - Neck Details: Neck is supple, no JVD. - Respiratory Details: Lung sounds essentially clear throughout, diminished bilateral bases. No wheezes, rhonchi or crackles. Respirations are symmetrical and nonlabored. Oxy gen saturation 92% on 4 L nasal cannula. Achieving 500 mL on her incentive spirometry with much encouragement. Mediastinal, left and right pleural chest tubes remain in place to low continuous wall suction -20 cm H2O. No air leak is present. Draining thin serosanguineous drainage. Left pleural chest tube drained 170 mL output in the last 24 hours, 10 mL output in the last 8 hours. Right pleural chest tube drained 130 mL output in the last 24 hours, 60 mL output in the last 8 hours. It is tunneled chest tube drained 110 mL output in the last 24 hours, 60 mL output in the last 8 hours. - Cardiovascular Details: Regular rhythm and rate. S1 and S2 present, negative for S3, gallop or murmur. Sternum is stable. Bedside telemetry showing normal sinus rhythm heart rate 99 BPM. Trace pedal edema. Knee-high MOE hose and sequential compression devices in place to bilateral lower externally's. Heart hugger is in place and she is demonstrating appropriate use. Atrial epicardial pacemaker wires in place and grounded. Right IJ Cordis with continuous CVP monitoring, Current CVP pressure 10 mmHg. - Gastrointestinal Gastrointestinal Comment(s): Abdomen is soft, nontender and nondistended. Active bowel sounds present in all 4 abdominal quadrants. No guarding or rigidity. No organomegaly appreciated. Tolerating oral intake. - Genitourinary Genitourinary Comment(s): Mcdonald catheter for accurate I&O. Draining clear donita urine. - Integumentary Integumentary Comment(s): Skin is warm and dry. No clubbing or cyanosis is present. Midline sternal incision is clean, dry and approximated. No drainage or redness is present. Left lower extremity EVH site is clean, dry and approximated. No drainage or redness is present. - Neurologic Neurologic: Present: CNII-XII intact - Musculoskeletal Musculoskeletal: Present: gait normal, generalized weakness, strength equal bilaterally - Psychiatric Psychiatric: Present: A&O x's 3, appropriate affect, intact judgment & insight - Allied health notes Allied health notes reviewed: nursing - Labs CBC & Chem 7: 05/31/20 05:40 05/31/20 05:40 Labs: Abnormal Lab Results - Last 24 Hours (Table) 05/30/20 05/30/20 05/30/20 Range/Units 08:56 11:04 12:25 RBC (3.80-5.40) m/uL Hgb (11.4-16.0) gm/dL Hct (34.0-46.0) % Plt Count (150-450) k/uL Neutrophils # (1.3-7.7) k/uL Chloride (98-107) mmol/L BUN (7-17) mg/dL Glucose (74-99) mg/dL POC Glucose (mg/dL) 112 H 103 H 110 H (75-99) mg/dL Total Protein (6.3-8.2) g/dL Albumin (3.5-5.0) g/dL 05/30/20 05/30/20 05/30/20 Range/Units 12:53 15:17 16:11 RBC (3.80-5.40) m/uL Hgb (11.4-16.0) gm/dL Hct (34.0-46.0) % Plt Count (150-450) k/uL Neutrophils # (1.3-7.7) k/uL Chloride (98-107) mmol/L BUN (7-17) mg/dL Glucose (74-99) mg/dL POC Glucose (mg/dL) 104 H 109 H 111 H (75-99) mg/dL Total Protein (6.3-8.2) g/dL Albumin (3.5-5.0) g/dL 05/30/20 05/30/20 05/30/20 Range/Units 17:06 18:11 19:13 RBC (3.80-5.40) m/uL Hgb (11.4-16.0) gm/dL Hct (34.0-46.0) % Plt Count (150-450) k/uL Neutrophils # (1.3-7.7) k/uL Chloride (98-107) mmol/L BUN (7-17) mg/dL Glucose (74-99) mg/dL POC Glucose (mg/dL) 109 H 123 H 148 H (75-99) mg/dL Total Protein (6.3-8.2) g/dL Albumin (3.5-5.0) g/dL 05/30/20 05/30/20 05/30/20 Range/Units 20:54 22:09 23:09 RBC (3.80-5.40) m/uL Hgb (11.4-16.0) gm/dL Hct (34.0-46.0) % Plt Count (150-450) k/uL Neutrophils # (1.3-7.7) k/uL Chloride (98-107) mmol/L BUN (7-17) mg/dL Glucose (74-99) mg/dL POC Glucose (mg/dL) 131 H 136 H 117 H (75-99) mg/dL Total Protein (6.3-8.2) g/dL Albumin (3.5-5.0) g/dL 05/31/20 05/31/20 05/31/20 Range/Units 00:16 02:05 03:41 RBC (3.80-5.40) m/uL Hgb (11.4-16.0) gm/dL Hct (34.0-46.0) % Plt Count (150-450) k/uL Neutrophils # (1.3-7.7) k/uL Chloride (98-107) mmol/L BUN (7-17) mg/dL Glucose (74-99) mg/dL POC Glucose (mg/dL) 120 H 118 H 106 H (75-99) mg/dL Total Protein (6.3-8.2) g/dL Albumin (3.5-5.0) g/dL 05/31/20 05/31/20 05/31/20 Range/Units 05:07 05:38 05:40 RBC 2.88 L (3.80-5.40) m/uL Hgb 9.5 L (11.4-16.0) gm/dL Hct 27.9 L (34.0-46.0) % Plt Count 147 L (150-450) k/uL Neutrophils # 8.6 H (1.3-7.7) k/uL Chloride (98-107) mmol/L BUN (7-17) mg/dL Glucose (74-99) mg/dL POC Glucose (mg/dL) 109 H 115 H (75-99) mg/dL Total Protein (6.3-8.2) g/dL Albumin (3.5-5.0) g/dL 05/31/20 05/31/20 Range/Units 05:40 07:25 RBC (3.80-5.40) m/uL Hgb (11.4-16.0) gm/dL Hct (34.0-46.0) % Plt Count (150-450) k/uL Neutrophils # (1.3-7.7) k/uL Chloride 109 H (98-107) mmol/L BUN 19 H (7-17) mg/dL Glucose 107 H (74-99) mg/dL POC Glucose (mg/dL) 106 H (75-99) mg/dL Total Protein 5.6 L (6.3-8.2) g/dL Albumin 3.4 L (3.5-5.0) g/dL - Imaging and Cardiology Chest x-ray: report reviewed, image reviewed Assessment and Plan Assessment: 1. Triple-vessel coronary artery disease, non-ST elevated by color infarction this admission, status post three-vessel CABG 2. Hypertension 3. Hyperlipidemia, cholesterol 304, LDL 221 4. History of preoperative SVT 5. Hypothyroidism, previous history of hyper-thyroid treated with radioactive dye, current TSH 15.5, T4 1.05, T3 2.6 6. Current daily tobacco dependence 7. Severe COPD with preoperative FEV1 45% of predicted 8. Almost daily EtOH use without history of withdrawal 9. Bilateral carotid artery stenosis 50-69% 10. Acute blood loss anemia, expected Plan: 1. Continue with aspirin, statin, Plavix, beta ricky. Will increase metoprolol tartrate to 50 mg by mouth twice a day. 2. Wean oxygen as tolerated. Encourage incentive spirometry 10 times every hour while awake. Bronchodilators, inhaled steroids per pulmonology support/critical care management. 3. Increase activity as tolerated. Out of bed for all meals. PT/OT/cardiac rehab following. 4. Will monitor daily labs and chest x-rays. Electrolyte replacement per protocol. No transfusion. Lasix 40 mg IV 1 now. 5. CIWA protocol. Continue thiamine, folic acid. 6. GI/DVT prophylaxis. 7. Pain control with current medication regimen. 8. Insulin management per primary care service. Patient is not diabetic, preoperative hemoglobin A1c 5.8%. 9. Discontinue mediastinal chest tube. Keep right and left pleural chest tubes in place to low continuous wall suction -20 cm H2O. 10. Discontinue Mcdonald catheter, continue to record strict accurate intake and output. Daily weights with standing scale. 11. Continue to encourage smoking cessation. 12. More recommendations to follow based on patient's clinical course. Time with Patient: Greater than 30
[2020-05-31] MEDS ORDERED: METOPROLOL TARTRATE 50 MG TAB PO SCH (09:00)
--- NOTE | 2020-05-31 09:02 | XR ---
EXAMINATION TYPE: XR chest 1V portable DATE OF EXAM: 05/31/2020 COMPARISON: 05/30/2020 HISTORY: Postop TECHNIQUE: Single frontal view of the chest is obtained. FINDINGS: Diffuse bilateral airspace disease with small effusions. Suggestion of a mediastinal drain and chest tubes. No sizable pneumothorax. Vascular sheath is seen and there is been removal of the S wan-Brandie catheter, ET tube and NG tube. Question epicardial lead. IMPRESSION: Diffuse bilateral airspace disease correlate for pulmonary edema versus diffuse pneumoni a. Findings are mildly progressed from prior exam.
[2020-05-31] MEDS: BUDESONIDE 1 MG/2 ML NEBU INHALATION SCH ×2 (09:04→21:09)
[2020-05-31] MEDS: IPRATROPIUM-ALBUTEROL 3 ML NEB INHALATION SCH ×4 (09:04→21:09)
[2020-05-31] MEDS: METOPROLOL TARTRATE 25 MG TAB PO STA ×2 (11:32→14:15)
[2020-05-31 11:38] LABS: Glucose,Whole Blood 112 mg/dL (75-99)
--- NOTE | 2020-05-31 12:37 | P.PN ---
Subjective Patient is doing well. She sitting up in a chair. She has discomfort in the chest and has not been using an incentive spirometer regularly. But she looks comfortable she's not short of breath lungs sounds are diminished bilaterally Soft heart sounds normal S1 normal S2 Respiratory rate is 2024 blood pressure 105/46. His mercury afebrile Labs are reviewed hemoglobin 9.5 Sodium and potassium normal BUN 19 creatinine 0.86 Impression CAD triple-vessel disease Status post coronary artery bypass grafting History of SVT History of current smoking Severe COPD FEV1 45% to 99 alcohol use Plan Continue current medications. Her beta ricky dose was just increased lying incentive spirometry use emphasized Objective - Vital Signs Vital signs: Vital Signs Temp 98.7 F 05/31/20 08:00 Pulse 100 05/31/20 12:00 Resp 25 H 05/31/20 11:00 BP 90/53 05/31/20 02:00 Pulse Ox 94 L 05/31/20 11:46 Intake & Output 05/30/20 05/31/20 05/31/20 18:59 06:59 18:59 Intake Total 820.491 693.451 180 Output Total 1735 522 685 Balance -914.509 171.451 -505 Weight 68.9 kg 69.1 kg 69.1 kg Intake: IV 643 679 180 Albumin Human 5% 250 ml 250 In Empty Bag 1 bag @ 250 mls/hr IVPB Q1HR PRN Rx#: [id number] Sodium Chloride 0.9% 1, 410 360 150 000 ml @ 20 mls/hr IV . Q24H [facility] Rx#:[id number] cardiac output 140 pressure bag 93 69 30 Intake, IV Titration 27.491 14.451 Amount Insulin Regular 100 unit 14.451 In Sodium Chloride 0.9% 100 ml @ Per Protocol IV .Q0M [facility] Rx#:[id number] propofoL 1,000 mg In 27.491 Empty Bag 1 bag @ Titrate IV .Q0M [facility] Rx#: [id number] Oral 150 Output: Chest Tube Drainage 260 170 20 Left Pleural 160 30 10 Right Pleural 40 70 10 mediastinal 60 70 Urine 1475 352 665 Other: Voiding Method Indwelling Catheter Indwelling Catheter Indwelling Catheter ABP, PAP, CO, CI - Last Documented Arterial Blood Pressure 96/45 Pulmonary Artery Pressure 33/18 Cardiac Output 4.3 Cardiac Index 2.6 - Labs CBC & Chem 7: 05/31/20 05:40 05/31/20 05:40 Labs: Abnormal Lab Results - Last 24 Hours (Table) 05/30/20 05/30/20 05/30/20 Range/Units 12:53 15:17 16:11 RBC (3.80-5.40) m/uL Hgb (11.4-16.0) gm/dL Hct (34.0-46.0) % Plt Count (150-450) k/uL Neutrophils # (1.3-7.7) k/uL Chloride (98-107) mmol/L BUN (7-17) mg/dL Glucose (74-99) mg/dL POC Glucose (mg/dL) 104 H 109 H 111 H (75-99) mg/dL Total Protein (6.3-8.2) g/dL Albumin (3.5-5.0) g/dL 05/30/20 05/30/20 05/30/20 Range/Units 17:06 18:11 19:13 RBC (3.80-5.40) m/uL Hgb (11.4-16.0) gm/dL Hct (34.0-46.0) % Plt Count (150-450) k/uL Neutrophils # (1.3-7.7) k/uL Chloride (98-107) mmol/L BUN (7-17) mg/dL Glucose (74-99) mg/dL POC Glucose (mg/dL) 109 H 123 H 148 H (75-99) mg/dL Total Protein (6.3-8.2) g/dL Albumin (3.5-5.0) g/dL 05/30/20 05/30/20 05/30/20 Range/Units 20:54 22:09 23:09 RBC (3.80-5.40) m/uL Hgb (11.4-16.0) gm/dL Hct (34.0-46.0) % Plt Count (150-450) k/uL Neutrophils # (1.3-7.7) k/uL Chloride (98-107) mmol/L BUN (7-17) mg/dL Glucose (74-99) mg/dL POC Glucose (mg/dL) 131 H 136 H 117 H (75-99) mg/dL Total Protein (6.3-8.2) g/dL Albumin (3.5-5.0) g/dL 05/31/20 05/31/20 05/31/20 Range/Units 00:16 02:05 03:41 RBC (3.80-5.40) m/uL Hgb (11.4-16.0) gm/dL Hct (34.0-46.0) % Plt Count (150-450) k/uL Neutrophils # (1.3-7.7) k/uL Chloride (98-107) mmol/L BUN (7-17) mg/dL Glucose (74-99) mg/dL POC Glucose (mg/dL) 120 H 118 H 106 H (75-99) mg/dL Total Protein (6.3-8.2) g/dL Albumin (3.5-5.0) g/dL 05/31/20 05/31/20 05/31/20 Range/Units 05:07 05:38 05:40 RBC 2.88 L (3.80-5.40) m/uL Hgb 9.5 L (11.4-16.0) gm/dL Hct 27.9 L (34.0-46.0) % Plt Count 147 L (150-450) k/uL Neutrophils # 8.6 H (1.3-7.7) k/uL Chloride (98-107) mmol/L BUN (7-17) mg/dL Glucose (74-99) mg/dL POC Glucose (mg/dL) 109 H 115 H (75-99) mg/dL Total Protein (6.3-8.2) g/dL Albumin (3.5-5.0) g/dL 05/31/20 05/31/20 05/31/20 Range/Units 05:40 07:25 11:36 RBC (3.80-5.40) m/uL Hgb (11.4-16.0) gm/dL Hct (34.0-46.0) % Plt Count (150-450) k/uL Neutrophils # (1.3-7.7) k/uL Chloride 109 H (98-107) mmol/L BUN 19 H (7-17) mg/dL Glucose 107 H (74-99) mg/dL POC Glucose (mg/dL) 106 H 112 H (75-99) mg/dL Total Protein 5.6 L (6.3-8.2) g/dL Albumin 3.4 L (3.5-5.0) g/dL
[2020-05-31] MEDS: INSULIN ASPART (NovoLOG) 100 UNIT/ML VIAL SQ SCH ×3 (13:01→20:55)
[2020-05-31] MEDS: SODIUM CHLORIDE 0.9% 1,000 ML IV SCH (13:02)
--- NOTE | 2020-05-31 13:02 | P.PN ---
Subjective Progress Note Date: 05/31/20 Principal diagnosis: Status post CABG, postoperative day #2 On 05/29/2020 patient seen in follow-up in the intensive care unit following her 3 vessel cardiac bypass surgery. Patient remains intubated, sedated on mechanical ventilator, initial vent settings were assist control with a rate of 14, tidal vital 450, FiO2 of 70% and PEEP of 5, postoperative blood gases were reviewed showing pH of 7.38, pCO2 44, and pO2 of 293, and this was done on FiO2 of 100%, and subsequently FiO2 was dropped down to 70%. Patient is on 0.9 normal saline at a rate of 50 ML per hour, Diprivan is a 25 mics per kilo per minute, nitroglycerin at 5 mics per kilo per minute, including PACs was started at 6 mg/h. Cardiac output is 4.0, and cardiac index is 2.4, PEEP pressures of 44/32, CVP is 25, patient is sinus mechanism, with a controlled rate, epicardial pacemaker wires to external pacemaker with the backup rate. Postoperative labs revealed a white blood cell count is 7.3, hemoglobin is 8.2, INR is 1.2, sodium is 141, potassium is 3.5, chloride is 115, CO2 is 27, B1 is 12 crit 0.63. Chest x-ray showed bilateral infiltrates and small pleural effusion with mild venous congestion, and fluid overload, ET tube was approximately 2-1/2 cm above the ilda, NG tube in appropriate position, patient has 3 chest tubes, right common mediastinal and left with small amount of sanguinous output in the Pleur-evac, no evidence of any leak, no evidence of pneumothorax on chest x-ray. [facility], however in the course of the following 2 hours patient was noted to be desaturating to 85, and her PEEP was increased to 10, and FiO2 was increased to 100%, repeat chest x-ray was obtained, showing persistent tiny left pleural effusion and bilateral int erstitial and alveolar edema. However patient is diuresing quite well, he has produced 2.2 L in urine output since arrival from the OR. Intraoperatively patient received 1 unit of packed red blood cells, current hemoglobin is 8.2. Patient was reevaluated today on 05/30/20, patient remains intubated and mechanically ventilated. Patient is status post CABG, postoperative day #1. Her ventilator settings are assist control rate of 18 tidal volume is 450 FiO2 50% and PEEP of 5. Patient remains on multiple drips including nitro glycerin drip at 5 per hour, she is also on IV fluid at 50 mL per hour, patient is on propofol which I have discontinued. Her cardiac output is 4.0, cardiac index is 2.4, CVP is 13. Mediastinal and chest tube drainage was noted, roughly in the range of 150-270 mL over night from each. Patient is on minimal dose of propofol, 20 mcg/kg/m, I recommended stopping the propofol as soon as the evaluating the patient, shortly after I came back and switch the patient to a pressure support of 8 and CPAP. 20 minutes later, came back and evaluated the patient, she was doing very well on pressure support and CPAP, and she was moving good tidal volume in the range of 500 mL, and her rate was in the low 20s. Chest x-ray showed mild interstitial edema. Patient was extubated uneventfully to a nasal cannula. Reevaluated today on 05/31/20, patient remains in the ICU, he was extubated yesterday, patient is relatively asymptomatic, sitting in bed, however she is re quiring more FiO2, she is on 8 L high flow nasal cannula, and O2 saturation is in the low 90s. Chest x-ray showed bilateral pulmonary interstitial edema/possible infiltrates. However considering the findings are overnight, I believe these are findings of interstitial edema, patient did receive Lasix earlier by thoracic surgery. Recommended increasing Lasix to twice a day and possibly repeat chest x-ray in the next 24 hours. In the meantime continue incentive spirometry, continue present bronchodilators. Continue present medications. And again will recommend repeat chest x-ray in the morning. If the chest x-ray improves significantly with diuretics, that will imply that the findings are mostly findings of interstitial edema and not interstitial infiltrates. Objective - Vital Signs Vital signs: Vital Signs Temp 98.7 F 05/31/20 08:00 Pulse 100 05/31/20 12:00 Resp 25 H 05/31/20 11:00 BP 90/53 05/31/20 02:00 Pulse Ox 94 L 05/31/20 11:46 Intake & Output 05/30/20 05/31/20 05/31/20 18:59 06:59 18:59 Intake Total 820.491 693.451 180 Output Total 1735 522 685 Balance -914.509 171.451 -505 Weight 68.9 kg 69.1 kg 69.1 kg Intake: IV 643 679 180 Albumin Human 5% 250 ml 250 In Empty Bag 1 bag @ 250 mls/hr IVPB Q1HR PRN Rx#: [id number] Sodium Chloride 0.9% 1, 410 360 150 000 ml @ 20 mls/hr IV . Q24H [facility] Rx#:[id number] cardiac output 140 pressure bag 93 69 30 Intake, IV Titration 27.491 14.451 Amount Insulin Regular 100 unit 14.451 In Sodium Chloride 0.9% 100 ml @ Per Protocol IV .Q0M [facility] Rx#:[id number] propofoL 1,000 mg In 27.491 Empty Bag 1 bag @ Titrate IV .Q0M [facility] Rx#: [id number] Oral 150 Output: Chest Tube Drainage 260 170 20 Left Pleural 160 30 10 Right Pleural 40 70 10 mediastinal 60 70 Urine 1475 352 665 Other: Voiding Method Indwelling Catheter Indwelling Catheter Indwelling Catheter ABP, PAP, CO, CI - Last Documented Arterial Blood Pressure 96/45 Pulmonary Artery Pressure 33/18 Cardiac Output 4.3 Cardiac Index 2.6 - Exam GENERAL EXAM: Revealed a 59-year-old female, on nasal cannula, in no distress. She is presently on 8 L high flow nasal cannula. HEAD: Normocephalic/atraumatic. EENT: PERRLA, EOMI, no icterus, moist mucous membranes. CHEST: No chest wall deformity. Symmetrical expansion. Midsternal incision is clean dry and intact, 3 chest tubes including right, mediastinal and left chest tubes with small amount of serosanguineous output in the atrium's, with no evidence of air leak LUNGS: Fine crackles at the bases. CVS: Regular rate and rhythm, normal S1 and S2, no gallops, no murmurs, no rubs ABDOMEN: Soft, nontender. No hepatosplenomegaly, normal bowel sounds, no guarding or rigidity. EXTREMITIES: No clubbing, no edema, no cyanosis, 2+ pulses and upper and lower extremities. MUSCULOSKELETAL: Muscle strength and tone normal. SPINE: No scoliosis or deformity SKIN: No rashes CENTRAL NERVOUS SYSTEM: Alert and oriented 3 focal deficits. - Labs CBC & Chem 7: 05/31/20 05:40 05/31/20 05:40 Labs: Abnormal Lab Results - Last 24 Hours (Table) 05/30/20 05/30/20 05/30/20 Range/Units 12:53 15:17 16:11 RBC (3.80-5.40) m/uL Hgb (11.4-16.0) gm/dL Hct (34.0-46.0) % Plt Count (150-450) k/uL Neutrophils # (1.3-7.7) k/uL Chloride (98-107) mmol/L BUN (7-17) mg/dL Glucose (74-99) mg/dL POC Glucose (mg/dL) 104 H 109 H 111 H (75-99) mg/dL Total Protein (6.3-8.2) g/dL Albumin (3.5-5.0) g/dL 05/30/20 05/30/20 05/30/20 Range/Units 17:06 18:11 19:13 RBC (3.80-5.40) m/uL Hgb (11.4-16.0) gm/dL Hct (34.0-46.0) % Plt Count (150-450) k/uL Neutrophils # (1.3-7.7) k/uL Chloride (98-107) mmol/L BUN (7-17) mg/dL Glucose (74-99) mg/dL POC Glucose (mg/dL) 109 H 123 H 148 H (75-99) mg/dL Total Protein (6.3-8.2) g/dL Albumin (3.5-5.0) g/dL 05/30/20 05/30/20 05/30/20 Range/Units 20:54 22:09 23:09 RBC (3.80-5.40) m/uL Hgb (11.4-16.0) gm/dL Hct (34.0-46.0) % Plt Count (150-450) k/uL Neutrophils # (1.3-7.7) k/uL Chloride (98-107) mmol/L BUN (7-17) mg/dL Glucose (74-99) mg/dL POC Glucose (mg/dL) 131 H 136 H 117 H (75-99) mg/dL Total Protein (6.3-8.2) g/dL Albumin (3.5-5.0) g/dL 05/31/20 05/31/20 05/31/20 Range/Units 00:16 02:05 03:41 RBC (3.80-5.40) m/uL Hgb (11.4-16.0) gm/dL Hct (34.0-46.0) % Plt Count (150-450) k/uL Neutrophils # (1.3-7.7) k/uL Chloride (98-107) mmol/L BUN (7-17) mg/dL Glucose (74-99) mg/dL POC Glucose (mg/dL) 120 H 118 H 106 H (75-99) mg/dL Total Protein (6.3-8.2) g/dL Albumin (3.5-5.0) g/dL 05/31/20 05/31/20 05/31/20 Range/Units 05:07 05:38 05:40 RBC 2.88 L (3.80-5.40) m/uL Hgb 9.5 L (11.4-16.0) gm/dL Hct 27.9 L (34.0-46.0) % Plt Count 147 L (150-450) k/uL Neutrophils # 8.6 H (1.3-7.7) k/uL Chloride (98-107) mmol/L BUN (7-17) mg/dL Glucose (74-99) mg/dL POC Glucose (mg/dL) 109 H 115 H (75-99) mg/dL Total Protein (6.3-8.2) g/dL Albumin (3.5-5.0) g/dL 05/31/20 05/31/20 05/31/20 Range/Units 05:40 07:25 11:36 RBC (3.80-5.40) m/uL Hgb (11.4-16.0) gm/dL Hct (34.0-46.0) % Plt Count (150-450) k/uL Neutrophils # (1.3-7.7) k/uL Chloride 109 H (98-107) mmol/L BUN 19 H (7-17) mg/dL Glucose 107 H (74-99) mg/dL POC Glucose (mg/dL) 106 H 112 H (75-99) mg/dL Total Protein 5.6 L (6.3-8.2) g/dL Albumin 3.4 L (3.5-5.0) g/dL Assessment and Plan Assessment: Impression: Status post CABG, three-vessel bypass surgery, JOSE to LAD, SVG to PDA, SVG to obtuse marginal 1. Postoperative day #2 Postoperative blood loss anemia, expected. Hypertension. Dyslipidemia. History of SVT. History of hyperthyroidism Postoperative fluid overload, no evidence of acute lung injury, resolved, expected. He required temporary increase in FiO2 on mechanical ventilation. However it has resolved overnight Acute diastolic congestive heart failure is strongly suspected. Doubt pneumonia based on chest x-ray findings and based on the clinical history. Recommendation: Start patient on Lasix 40 mg twice a day. We'll continue present supportive care measures, Continue GI and DVT prophylaxis. Continue aspirin statins Plavix and beta blockers Continue CIWA protocol. Continue pain control management. Continue sugar control management. Ambulate as tolerated. Follow-up chest x-ray in a.m. We'll continue to follow. Time with Patient: Less than 30
[2020-05-31] MEDS ORDERED: ALBUMIN HUMAN 5% 500 ML IVPB ONE (15:31)
[2020-05-31] MEDS: ALBUMIN HUMAN 5% 250 ML in EMPTY BAG 1 BAG IVPB PRN ×2 (15:35→15:55)
[2020-05-31 15:48] LABS: Glucose,Whole Blood 165 mg/dL (75-99)
[2020-05-31 17:48] LABS: Glucose,Whole Blood 137 mg/dL (75-99)
[2020-05-31 19:08] LABS: Glucose,Whole Blood 120 mg/dL (75-99)
[2020-05-31] MEDS: SENNOSIDES-DOCUSATE SODIUM 1 EACH TAB PO SCH (20:41)
[2020-05-31] MEDS: ATORVASTATIN 80 MG TAB PO SCH (20:42)
[2020-05-31] MEDS ORDERED: METOPROLOL TARTRATE 12.5 MG TAB PO STA (22:01)
[2020-05-31] MEDS ORDERED: ALBUMIN HUMAN 5% 250 ML in EMPTY BAG 1 BAG IVPB PRN (22:04)
[2020-06-01] MEDS: KETOROLAC 15 MG/ML 1 ML VIAL IVP SCH ×4 (01:14→20:19)
[2020-06-01 01:26] LABS: Glucose,Whole Blood 114 mg/dL (75-99)
[2020-06-01 04:17] LABS: Basophils # (A) 0.1 k/uL (0-0.2); Basophils % (A) 1 %; Eosinophils # (A) 0.3 k/uL (0-0.7); Eosinophils % (A) 3 %; HCT 25.7 % (34.0-46.0); HGB 8.4 gm/dL (11.4-16.0); Lymphocytes # (A) 0.9 k/uL (1.0-4.8); Lymphocytes % (A) 9 %; MCH 31.7 pg (25.0-35.0); MCHC 32.6 g/dL (31.0-37.0); MCV 97.2 fL (80.0-100.0); Mean Platelet Volume 9.6; Monocytes # (A) 0.5 k/uL (0-1.0); Monocytes % (A) 5 %; Neutrophils # (A) 7.7 k/uL (1.3-7.7); Neutrophils % (A) 80 %; Platelet Count 157 k/uL (150-450); RBC 2.64 m/uL (3.80-5.40); RDW 13.9 % (11.5-15.5); WBC 9.6 k/uL (3.8-10.6)
[2020-06-01 04:41] LABS: ALT 11 U/L (4-34); AST 35 U/L (14-36); African American GFR (CKD) >90 (>60 ml/min/1.73 sqM); Albumin 3.2 g/dL (3.5-5.0); Alkaline Phosphatase 53 U/L (38-126); Anion Gap 1 mmol/L; Blood Urea Nitrogen 23 mg/dL (7-17); Calcium 8.4 mg/dL (8.4-10.2); Carbon Dioxide 27 mmol/L (22-30); Chloride 110 mmol/L (98-107); Glucose 110 mg/dL (74-99); Non-African American GFR(CKD) 81 (>60 ml/min/1.73 sqM); Sodium 138 mmol/L (137-145); Total Bilirubin 0.8 mg/dL (0.2-1.3); Total Protein 5.4 g/dL (6.3-8.2)
[2020-06-01] MEDS: HEPARIN SODIUM,PORCINE 5,000 UNIT/ML 1 ML VIAL SQ SCH ×3 (05:21→21:19)
[2020-06-01] MEDS: HYDROcodone/APAP 5-325MG 1 EACH TAB PO PRN ×3 (05:21→12:33)
[2020-06-01 06:18] LABS: Glucose,Whole Blood 130 mg/dL (75-99)
[2020-06-01] MEDS: INSULIN ASPART (NovoLOG) 100 UNIT/ML VIAL SQ SCH ×4 (06:18→21:19)
[2020-06-01] MEDS: LEVOTHYROXINE 50 MCG TAB PO SCH (06:22)
[2020-06-01] MEDS: PANTOPRAZOLE 40 MG TABLET PO SCH (06:22)
[2020-06-01] MEDS ORDERED: FUROSEMIDE 10 MG/ML 4 ML VIAL IV STA (08:27)
[2020-06-01] MEDS: CLOPIDOGREL 75 MG TAB PO SCH (09:01)
[2020-06-01] MEDS: ASPIRIN 325 MG TAB PO SCH (09:01)
[2020-06-01] MEDS: FOLIC ACID 1 MG TAB PO SCH (09:01)
[2020-06-01] MEDS: THIAMINE 100 MG TAB PO SCH (09:02)
[2020-06-01] MEDS: METOPROLOL TARTRATE 25 MG TAB PO SCH ×3 (09:02→21:19)
[2020-06-01] MEDS: methylPREDNISolone SOD SUCCI 125 MG/2 ML VIAL IV SCH ×3 (09:08→18:34)
[2020-06-01] MEDS: PIPERACILLIN-TAZOBACTAM 3.375 GM in SODIUM CHLORIDE 0.9% 100 ML IVPB SCH ×2 (09:08→15:53)
[2020-06-01] MEDS: BUDESONIDE 1 MG/2 ML NEBU INHALATION SCH ×2 (09:22→20:15)
[2020-06-01] MEDS: IPRATROPIUM-ALBUTEROL 3 ML NEB INHALATION SCH ×4 (09:22→20:15)
--- NOTE | 2020-06-01 09:26 | XR ---
EXAMINATION TYPE: XR chest 1V portable DATE OF EXAM: 06/01/2020 COMPARISON: 05/31/2020 HISTORY: Postop TECHNIQUE: Single frontal view of the chest is obtained. FINDINGS: Diffuse bilateral airspace disease with small effusions. Suggestion of a mediastinal drain and chest tubes. No sizable pneumothorax. Epicardial lead noted. Mediastinal drain not seen on today 's exam. Left-sided chest tube persists. IMPRESSION: Postsurgical changes with diffuse bilateral airspace disease stable in appearance.
--- NOTE | 2020-06-01 09:37 | ECHOF ---
Referral Reason:chf MEASUREMENTS -------- HEIGHT: 157.5 cm WEIGHT: 69.4 kg BP: RVIDd: 1.9 cm (< 3.3) IVSd: 0.8 cm (0.6 - 1.1) LVIDd: 4.2 cm (3.9 - 5.3) LVPWd: 1.1 cm (0.6 - 1.1) IVSs: 1.3 cm LVIDs: 2.4 cm LVPWs: 1.2 cm RAP: 5.00 mmHg RVSP: 17.98 mmHg FINDINGS -------- Limited study for LV function. Overall left ventricular systolic function is low-normal with, an EF between 50 - 55 %. Lumason used There is no pericardial effusion. CONCLUSIONS -------- 1. Limited study for LV function. 2. Overall left ventricular systolic function is low-normal with, an EF between 50 - 55 %. 3. There is no pericardial effusion. DIRECTOR EXPERIMENTAL MEDICINE: Ginette Lowe RDCS
--- NOTE | 2020-06-01 10:34 | P.PN ---
Subjective Progress Note Date: 06/01/20 Principal diagnosis: Triple-vessel coronary artery disease with totally occluded chronic right coronary artery, nstemi this admission, moderate left ventricular dysfunction, moderate mitral valve regurgitation. Previous medical history of hypertension, hyperlipidemia, SVT, hypothyroidism, previous hyper-thyroid treated with radioactive dye, daily tobacco dependence, severe COPD with preoperative FEV1 45% of predicted, daily EtOH use without history of withdrawal. Bilateral internal carotid artery stenosis 50-69% POD #3 triple vessel coronary artery bypass grafting using the left internal mammary artery to the left anterior descending artery, reverse saphenous vein graft from the aorta to the first obtuse marginal artery before its bifurcation, reverse saphenous vein graft from the aorta to the posterior descending artery, exclusion of the left atrial appendage using a 35 mm AtriClip, intraoperative graft flow measurements using the Becovillage system, endoscopic harvesting of the left greater saphenous vein from the groin to above the ankle level, intraoperative transesophageal echocardiogram and epi-aortic scanning. Acute blood loss anemia, expected outcome given hemodilution and cardiopulmonary bypass pump The patient is currently sitting up in a recliner in the intensive care unit in no acute distress. Remains in sinus tach, hemodynamically stable although blood pressure is on the low normal side. Doesn't complain of incisional type pain, somewhat short of breath. Poor effort with incentive spirometry. She did receive IV Lasix yesterday and increased dose of Lopressor with decrease in blood pressure, Lopressor was dropped back down to 25 mg twice daily. Right internal jugular Cordis, right brachial arterial line, left/right pleural chest tubes all remain. Objective - Vital Signs Vital signs: Vital Signs Temp 97.6 F 06/01/20 08:00 Pulse 104 H 06/01/20 10:00 Resp 27 H 06/01/20 10:00 BP 112/67 06/01/20 10:00 Pulse Ox 91 L 06/01/20 10:00 Intake & Output 05/31/20 06/01/20 06/01/20 18:59 06:59 18:59 Intake Total 799 411 166 Output Total 1250 743 80 Balance -451 -332 86 Weight 69.1 kg 69.4 kg Intake: IV 799 261 166 Albumin Human 5% 250 ml 500 In Empty Bag 1 bag @ 250 mls/hr IVPB Q1HR PRN Rx#: [id number] Piperacillin-Tazobactam 3 100 .375 gm In Sodium Chloride 0.9% 100 ml @ 25 mls/hr IVPB Q8HR [facility] Rx# :[id number] Sodium Chloride 0.9% 1, 260 240 60 000 ml @ 20 mls/hr IV . Q24H [facility] Rx#:[id number] pressure bag 39 21 6 Oral 150 Output: Chest Tube Drainage 50 60 80 Left Pleural 30 30 50 Right Pleural 20 30 30 Urine 1200 545 0 Post Void Residual 138 Other: Voiding Method Indwelling Catheter Bedside Commode Bedside Commode ABP, PAP, CO, CI - Last Documented Arterial Blood Pressure 92/79 Pulmonary Artery Pressure 33/18 Cardiac Output 4.3 Cardiac Index 2.6 - Constitutional General appearance: Present: cooperative, no acute distress - Respiratory Details: Lungs sounds diminished bilaterally with coarse breath sounds in the bases. Respirations even, nonlabored. Currently on 2 L high flow nasal cannula with oxygen saturation in the low to mid 90s. Barely able to achieve 500 mL on her incentive spirometry, poor effort. Strong, productive cough. Left and right pleural chest tube draining to continuous wall suction, left pleural chest tube with 30 mL serosanguineous drainage overnight, 50 mL the last 24 hours. Right pleural chest tube with 30 mL serosanguineous drainage overnight, 100 mL the last 24 hours. No air leaks present. - Cardiovascular Details: S1, S2 present. Tachycardic but regular rate and rhythm, sinus tach on telemetry with heart rate in the low 100s. Sternum stable. Atrial epicardial pacemaker wires present, grounded. Palpable peripheral pulses bilaterally. Trace bilateral lower extremity edema present. No calf pain or tenderness noted. Heart hugger in place with patient demonstrating appropriate use. Antiembolism stockings, SCDs present. - Gastrointestinal Gastrointestinal Comment(s): Abdomen soft, nontender, nondistended. Active bowel sounds present 4 quadrants. Tolerating diet. Positive flatus, negative bowel movement - Genitourinary Genitourinary Comment(s): Mcdonald discontinued yesterday, continues to void clear, yellow urine - Integumentary Integumentary Comment(s): Skin is warm and dry with evidence of good perfusion. Anterior chest incision well approximated and covered with dry intact dressing. Left lower extremity EVH site well approximated without redness or drainage - Neurologic Neurologic: Present: CNII-XII intact - Musculoskeletal Musculoskeletal: Present: gait normal, strength equal bilaterally - Psychiatric Psychiatric: Present: A&O x's 3, appropriate affect, intact judgment & insight - Allied health notes Allied health notes reviewed: nursing - Labs CBC & Chem 7: 06/01/20 04:10 06/01/20 04:10 Labs: Abnormal Lab Results - Last 24 Hours (Table) 05/31/20 05/31/20 05/31/20 Range/Units 11:36 15:36 17:46 RBC (3.80-5.40) m/uL Hgb (11.4-16.0) gm/dL Hct (34.0-46.0) % Lymphocytes # (1.0-4.8) k/uL Chloride (98-107) mmol/L BUN (7-17) mg/dL Glucose (74-99) mg/dL POC Glucose (mg/dL) 112 H 165 H 137 H (75-99) mg/dL Total Protein (6.3-8.2) g/dL Albumin (3.5-5.0) g/dL 05/31/20 06/01/20 06/01/20 Range/Units 19:06 01:25 04:10 RBC 2.64 L (3.80-5.40) m/uL Hgb 8.4 L (11.4-16.0) gm/dL Hct 25.7 L (34.0-46.0) % Lymphocytes # 0.9 L (1.0-4.8) k/uL Chloride (98-107) mmol/L BUN (7-17) mg/dL Glucose (74-99) mg/dL POC Glucose (mg/dL) 120 H 114 H (75-99) mg/dL Total Protein (6.3-8.2) g/dL Albumin (3.5-5.0) g/dL 06/01/20 06/01/20 Range/Units 04:10 06:17 RBC (3.80-5.40) m/uL Hgb (11.4-16.0) gm/dL Hct (34.0-46.0) % Lymphocytes # (1.0-4.8) k/uL Chloride 110 H (98-107) mmol/L BUN 23 H (7-17) mg/dL Glucose 110 H (74-99) mg/dL POC Glucose (mg/dL) 130 H (75-99) mg/dL Total Protein 5.4 L (6.3-8.2) g/dL Albumin 3.2 L (3.5-5.0) g/dL - Imaging and Cardiology Chest x-ray: report reviewed, image reviewed Limited echo results reviewed Assessment and Plan Assessment: 1. Triple-vessel coronary artery disease, nstemi this admission, status post three-vessel CABG 2. Hypertension 3. Hyperlipidemia, cholesterol 304, LDL 221 4. History of SVT 5. Hypothyroidism, previous history of hyper-thyroid treated with radioactive dye, current TSH 15.5, T4 1.05, T3 2.6 6. Current daily tobacco dependence 7. Severe COPD with preoperative FEV1 45% of predicted 8. Almost daily EtOH use without history of withdrawal 9. Bilateral carotid artery stenosis 50-69% 10. Acute blood loss anemia, expected 11. Preserved LV, EF 5055% on limited echo Plan: 1. Continue with aspirin, statin, Plavix, beta ricky therapy. Will increase beta ricky therapy as tolerated 2. Wean O2 as tolerated. Encourage incentive spirometry is 10 times every hour while awake. Bronchodilators, steroids per pulmonology, Zosyn started per pulmonology 3. Increase activity as tolerated, PT/OT/cardiac rehab following 4. Will monitor daily labs and x-rays. Electrolyte replacement per protocol. No transfusion. Will give 40 mg IV push Lasix 1 today 5. CIWA protocol. Continue thiamine, folic acid 6. GI/DVT prophylaxis 7. Pain control with current medication regimen. 8. Insulin management per primary care service. Patient is not diabetic, hemoglobin A1c 5.8% 9. Will discontinue chest tubes 10. Strict accurate intake and output. Daily weights 11. Continue to encourage smoking cessation 12. Will keep in the intensive care unit for 1 more day per pulmonology recommendations 13. More recommendations to follow Time with Patient: Greater than 30
[2020-06-01] MEDS: SODIUM CHLORIDE 0.9% 1,000 ML IV SCH (12:31)
[2020-06-01 12:46] LABS: Glucose,Whole Blood 153 mg/dL (75-99)
--- NOTE | 2020-06-01 13:07 | P.ARTDOP ---
Arterial Doppler Bilateral radial artery testing. Reason for study: Preop CABG Date of study: 05/24/2020 Findings: We see no significant right to left or segmental pressure gradient. Digital plethysmography with radial artery compression shows no pressure change in the index finger. However, we are unable to detect any pulse in the left thumb. Imaging shows the right radial to be 2 x 2 mm distally, 2 x 2 mm mid, and 3 x 3 mm proximally. The left is 2 x 2 mm distally, [id number] and 2 x 2 mm proximally. Impression: Both radial arteries are probably usable. There is some concern in regards to the lack of the signal in the left thumb, however,'s since there is no change in the index finger with compression is doesn't seem to be clinically significant. Clinical correlation recommended
--- NOTE | 2020-06-01 13:10 | P.VSCSTY ---
Greater Saphenous Vein Mapping This is bilateral lower extremity greater saphenous vein mapping. Date of service: 05/24/2020 Vein quality and ultrasound appearance: We see no intraluminal thrombus or wall changes.. Vein size groin right : 6.8 x 7.1 groin left: 5.2 x 4.2 High thigh right: 4.7 x 3.9 high thigh left: 4.0 3.4 Mid thigh right: 3.0 x 3.0 mid thigh left: 2.6 x 2.0 Above-knee right: 3.3 x 2.8 above-knee left: 3.2 x 2.7 Below knee right: 2.6 x 2.4 below-knee left: 2.9 x 2.3 Mid calf right: 1.8 x 1.8 mid calf left: 2.2 x 1.7 Ankle right: 2.3 x 2.1 ankle left: 2.3 x 1.9 Impression: Usable bilateral greater saphenous vein. Both lower legs may be somewhat small for use..
--- NOTE | 2020-06-01 14:59 | P.PN ---
Subjective Progress Note Date: 06/01/20 Principal diagnosis: Status post CABG, postoperative day #3 On 05/29/2020 patient seen in follow-up in the intensive care unit following her 3 vessel cardiac bypass surgery. Patient remains intubated, sedated on mechanical ventilator, initial vent settings were assist control with a rate of 14, tidal vital 450, FiO2 of 70% and PEEP of 5, postoperative blood gases were reviewed showing pH of 7.38, pCO2 44, and pO2 of 293, and this was done on FiO2 of 100%, and subsequently FiO2 was dropped down to 70%. Patient is on 0.9 normal saline at a rate of 50 ML per hour, Diprivan is a 25 mics per kilo per minute, nitroglycerin at 5 mics per kilo per minute, including PACs was started at 6 mg/h. Cardiac output is 4.0, and cardiac index is 2.4, PEEP pressures of 44/32, CVP is 25, patient is sinus mechanism, with a controlled rate, epicardial pacemaker wires to external pacemaker with the backup rate. Postoperative labs revealed a white blood cell count is 7.3, hemoglobin is 8.2, INR is 1.2, sodium is 141, potassium is 3.5, chloride is 115, CO2 is 27, B1 is 12 crit 0.63. Chest x-ray showed bilateral infiltrates and small pleural effusion with mild venous congestion, and fluid overload, ET tube was approximately 2-1/2 cm above the ilda, NG tube in appropriate position, patient has 3 chest tubes, right common mediastinal and left with small amount of sanguinous output in the Pleur-evac, no evidence of any leak, no evidence of pneumothorax on chest x-ray. [facility], however in the course of the following 2 hours patient was noted to be desaturating to 85, and her PEEP was increased to 10, and FiO2 was increased to 100%, repeat chest x-ray was obtained, showing persistent tiny left pleural effusion and bilateral int erstitial and alveolar edema. However patient is diuresing quite well, he has produced 2.2 L in urine output since arrival from the OR. Intraoperatively patient received 1 unit of packed red blood cells, current hemoglobin is 8.2. Patient was reevaluated today on 05/30/20, patient remains intubated and mechanically ventilated. Patient is status post CABG, postoperative day #1. Her ventilator settings are assist control rate of 18 tidal volume is 450 FiO2 50% and PEEP of 5. Patient remains on multiple drips including nitro glycerin drip at 5 per hour, she is also on IV fluid at 50 mL per hour, patient is on propofol which I have discontinued. Her cardiac output is 4.0, cardiac index is 2.4, CVP is 13. Mediastinal and chest tube drainage was noted, roughly in the range of 150-270 mL over night from each. Patient is on minimal dose of propofol, 20 mcg/kg/m, I recommended stopping the propofol as soon as the evaluating the patient, shortly after I came back and switch the patient to a pressure support of 8 and CPAP. 20 minutes later, came back and evaluated the patient, she was doing very well on pressure support and CPAP, and she was moving good tidal volume in the range of 500 mL, and her rate was in the low 20s. Chest x-ray showed mild interstitial edema. Patient was extubated uneventfully to a nasal cannula. Reevaluated today on 05/31/20, patient remains in the ICU, he was extubated yesterday, patient is relatively asymptomatic, sitting in bed, however she is re quiring more FiO2, she is on 8 L high flow nasal cannula, and O2 saturation is in the low 90s. Chest x-ray showed bilateral pulmonary interstitial edema/possible infiltrates. However considering the findings are overnight, I believe these are findings of interstitial edema, patient did receive Lasix earlier by thoracic surgery. Recommended increasing Lasix to twice a day and possibly repeat chest x-ray in the next 24 hours. In the meantime continue incentive spirometry, continue present bronchodilators. Continue present medications. And again will recommend repeat chest x-ray in the morning. If the chest x-ray improves significantly with diuretics, that will imply that the findings are mostly findings of interstitial edema and not interstitial infiltrates. Reevaluated today on 06/01/20, patient remains in the ICU, sitting up in a recliner, has mostly sinus tachycardia, but relatively normal blood pressure. She is not symptomatic, however her chest x-ray is showing significant infiltrates bilaterally. And the differential diagnoses includes congestive heart failure, noncardiogenic pulmonary edema, and possibly bilateral infiltrates/pneumonia, possible Covid 19 pneumonitis. Patient isn't requiring high flow nasal cannula, and her O2 saturation is in the low 90s. CBC does not show any leukocytosis, she does have relative lymphopenia, her electrolytes are normal. Renal profile is normal. Her BNP level is 8900. Hence I'm more inclined to consider that this is likely a picture of systolic congestive heart failure, echocardiogram is pending. Pro-calcitonin is pending. In the meantime I have recommended we empirically cover the patient with antibiotics, but I wou ld strongly recommend that we continue diuretics on this patient I have also recommended that we continue bronchodilators, and added Solu-Medrol. 3 mg IV push every 6 hours. Objective - Vital Signs Vital signs: Vital Signs Temp 98.2 F 06/01/20 12:00 Pulse 109 H 06/01/20 14:00 Resp 25 H 06/01/20 14:00 BP 95/54 06/01/20 14:00 Pulse Ox 92 L 06/01/20 14:00 Intake & Output 05/31/20 06/01/20 06/01/20 18:59 06:59 18:59 Intake Total 799 411 206 Output Total 1452 202 2348 Balance -[facility] -590 -031 Weight 69.1 kg 69.4 kg Intake: IV 799 261 206 Albumin Human 5% 250 ml 500 In Empty Bag 1 bag @ 250 mls/hr IVPB Q1HR PRN Rx#: [id number] Piperacillin-Tazobactam 3 100 .375 gm In Sodium Chloride 0.9% 100 ml @ 25 mls/hr IVPB Q8HR [facility] Rx# :[id number] Sodium Chloride 0.9% 1, 260 240 100 000 ml @ 20 mls/hr IV . Q24H [facility] Rx#:[id number] pressure bag 39 21 6 Oral 150 Output: Chest Tube Drainage 50 60 80 Left Pleural 30 30 50 Right Pleural 20 30 30 Urine 6905 738 9626 Post Void Residual 138 Other: Voiding Method Indwelling Catheter Bedside Commode Bedside Commode ABP, PAP, CO, CI - Last Documented Arterial Blood Pressure 92/79 Pulmonary Artery Pressure 33/18 Cardiac Output 4.3 Cardiac Index 2.6 - Exam GENERAL EXAM: Revealed a 59-year-old female, high flow nasal cannula. In no distress. HEAD: Normocephalic/atraumatic. EENT: PERRLA, EOMI, no icterus, moist mucous membranes. CHEST: No chest wall deformity. Symmetrical expansion. LUNGS: Crackles and rhonchi and wheezes noted bilaterally.. CVS: Regular rate and rhythm, normal S1 and S2, no gallops, no murmurs, no rubs ABDOMEN: Soft, nontender. No hepatosplenomegaly, normal bowel sounds, no guarding or rigidity. EXTREMITIES: No clubbing, no edema, no cyanosis, 2+ pulses and upper and lower extremities. MUSCULOSKELETAL: Muscle strength and tone normal. SPINE: No scoliosis or deformity SKIN: No rashes CENTRAL NERVOUS SYSTEM: Alert and oriented 3 focal deficits. - Labs CBC & Chem 7: 06/01/20 04:10 06/01/20 04:10 Labs: Abnormal Lab Results - Last 24 Hours (Table) 05/31/20 05/31/20 05/31/20 Range/Units 15:36 17:46 19:06 RBC (3.80-5.40) m/uL Hgb (11.4-16.0) gm/dL Hct (34.0-46.0) % Lymphocytes # (1.0-4.8) k/uL Chloride (98-107) mmol/L BUN (7-17) mg/dL Glucose (74-99) mg/dL POC Glucose (mg/dL) 165 H 137 H 120 H (75-99) mg/dL Total Protein (6.3-8.2) g/dL Albumin (3.5-5.0) g/dL 06/01/20 06/01/20 06/01/20 Range/Units 01:25 04:10 04:10 RBC 2.64 L (3.80-5.40) m/uL Hgb 8.4 L (11.4-16.0) gm/dL Hct 25.7 L (34.0-46.0) % Lymphocytes # 0.9 L (1.0-4.8) k/uL Chloride 110 H (98-107) mmol/L BUN 23 H (7-17) mg/dL Glucose 110 H (74-99) mg/dL POC Glucose (mg/dL) 114 H (75-99) mg/dL Total Protein 5.4 L (6.3-8.2) g/dL Albumin 3.2 L (3.5-5.0) g/dL 06/01/20 06/01/20 Range/Units 06:17 12:44 RBC (3.80-5.40) m/uL Hgb (11.4-16.0) gm/dL Hct (34.0-46.0) % Lymphocytes # (1.0-4.8) k/uL Chloride (98-107) mmol/L BUN (7-17) mg/dL Glucose (74-99) mg/dL POC Glucose (mg/dL) 130 H 153 H (75-99) mg/dL Total Protein (6.3-8.2) g/dL Albumin (3.5-5.0) g/dL Assessment and Plan Assessment: Impression: Status post CABG, three-vessel bypass surgery, JOSE to LAD, SVG to PDA, SVG to obtuse marginal 1. Postoperative day #3 Postoperative blood loss anemia, expected. Hypertension. Dyslipidemia. History of SVT. History of hyperthyroidism Postoperative fluid overload, no evidence of acute lung injury, resolved, expected. He required temporary increase in FiO2 on mechanical ventilation. However it has resolved overnight Acute diastolic congestive heart failure is strongly suspected. Doubt pneumonia based on chest x-ray findings and based on the clinical history. Possibility of noncardiogenic pulmonary edema is not entirely ruled out, and that means the patient may have sustained acute lung injury hence I have recommended that we empirically start the patient on steroids, also start the patient on antibiotics/Zosyn, and continue diuretics. If the patient shows significant improvement with diuresis, then this is a picture of diastolic CHF. Recommendation: Continue Lasix. Add Solu-Medrol 60 mg IV push every 6 hours. Check BNP level and check pro-calcitonin. Start Zosyn empirically although my click of suspicion for pneumonia is really low. Continue bronchodilators/DuoNeb updrafts. Continue GI and DVT prophylaxis. Continue aspirin statins Plavix and beta blockers Continue CIWA protocol. Continue pain control management. Continue sugar control management. Ambulate as tolerated. Follow-up chest x-ray in a.m. Keep patient in the ICU for now. We'll continue to follow. Time with Patient: Less than 30
--- NOTE | 2020-06-01 15:32 | P.PN ---
Subjective Progress Note Date: 06/01/20 (delayed charting seen at 1150) Principal diagnosis: chest pain Patient is a 59-year-old female with a history of A. fib not on anticoagulation secondary to no follow-up with PCP, tobacco abuse, and hypothyroidism who presented to the emergency Department complaints of chest pain. She was ultimately found have a non-ST segment elevated myocardial infarction. She was placed on a heparin drip and admitted. She was seen by cardiology and underwent cardiac catheterization. She underwent urgent 3 vessel cardiac bypass surgery on 05/29/2020. She returned to the ICU intubated. She remained intubated overnight on 05/29 and was successfully extubated on 05/30. Patient seen and examined at bedside. Feeling better after chest tubes removed. Breathing is a bit easier. Still not much appetite but coming back. No nausea or vomiting. General: non toxic, no distress, appears at stated age Derm: warm, dry, Head: atraumatic, normocephalic, symmetric Eyes: EOMI, no lid lag, anicteric sclera Mouth: no lip lesion, mucus membranes moist Cardiovascular: S1S2 reg, no murmur, positive posterior tibial pulse bilateral, Lungs: decreased bs bilateral, no rhonchi, no rales , no accessory muscle use Abdominal: soft, nontender to palpation, no guarding, no appreciable organomegaly Ext: no gross muscle atrophy, trace edema bilateral, no contractures Neuro: CN II-XI grossly intact, no focal neuro deficits Psych: Alert and oriented X 3, Appropriate affect Non-ST segment elevated myocardial infarction, triple vessel coronary artery disease s/p 3 vessel bypass. - Management per cardiothorasic surgery - ASA, plavix, lipitor, metoprolol Acute blood loss anemia, an anticipated outcome of surgery, stable and improving - follow CBC, s/p 1 unit pRBC - Transfuse as indicated Subclinical hypothyroidism, in the setting of prior Graves' disease with radioactive iodine - start levothyroxine 50 mcg on 06/01. -TSH is 15, this was repeated and confirmed at 15. Even though free T4 is normal she should be treated for the subclinical hypothyroidism as her TSH is greater than 10. She is suffering both from cardiovascular and dyslipidemia consequences of subclinical hypothyroidism and those in their 50s and 60s should be treated. Goal TSH of less than 10 with subclinical hypothyroidism to prevent further development of complications. I discussed with her at length that she should follow up with environmental engineer scientist for further identification. She has not had her TSH tested in 5 years. She was placed on Synthroid but stopped taking this when she was lost to follow-up. Dyslipidemia -Statin therapy Hypertension -controlled -Continue with metoprolol -Cozaar on hold Severe COPD with FEV1 45% of the predicted - pulmonary recommendations - on steroids Tobacco abuse -Cessation -Nicotine replacement EtOH misuse -Cessation encouraged Bilateral Carotid artery disease 50-69% -Aspirin, statin, outpatient follow-up thrombocytopenia, resolved History of SVT DVT prophylaxis: Heparin Discussed with: Patient, nursing Anticipated discharge: per CT surgery Anticipated discharge place: A total of 35 minutes was spent on the care of this complex patient more than 5 0% of the time was spent in counseling and care coordination. Objective - Vital Signs Vital signs: Vital Signs Temp 98.2 F 06/01/20 12:00 Pulse 109 H 06/01/20 14:00 Resp 25 H 06/01/20 14:00 BP 95/54 06/01/20 14:00 Pulse Ox 92 L 06/01/20 14:00 Intake & Output 05/31/20 06/01/20 06/01/20 18:59 06:59 18:59 Intake Total 799 411 206 Output Total 7924 664 1093 Balance -591 -003 -098 Weight 69.1 kg 69.4 kg Intake: IV 799 261 206 Albumin Human 5% 250 ml 500 In Empty Bag 1 bag @ 250 mls/hr IVPB Q1HR PRN Rx#: [id number] Piperacillin-Tazobactam 3 100 .375 gm In Sodium Chloride 0.9% 100 ml @ 25 mls/hr IVPB Q8HR [facility] Rx# :[id number] Sodium Chloride 0.9% 1, 260 240 100 000 ml @ 20 mls/hr IV . Q24H [facility] Rx#:[id number] pressure bag 39 21 6 Oral 150 Output: Chest Tube Drainage 50 60 80 Left Pleural 30 30 50 Right Pleural 20 30 30 Urine 6666 978 8066 Post Void Residual 138 Other: Voiding Method Indwelling Catheter Bedside Commode Bedside Commode ABP, PAP, CO, CI - Last Documented Arterial Blood Pressure 92/79 Pulmonary Artery Pressure 33/18 Cardiac Output 4.3 Cardiac Index 2.6 - Labs CBC & Chem 7: 06/01/20 04:10 06/01/20 04:10 Labs: Abnormal Lab Results - Last 24 Hours (Table) 05/31/20 05/31/20 05/31/20 Range/Units 15:36 17:46 19:06 RBC (3.80-5.40) m/uL Hgb (11.4-16.0) gm/dL Hct (34.0-46.0) % Lymphocytes # (1.0-4.8) k/uL Chloride (98-107) mmol/L BUN (7-17) mg/dL Glucose (74-99) mg/dL POC Glucose (mg/dL) 165 H 137 H 120 H (75-99) mg/dL Total Protein (6.3-8.2) g/dL Albumin (3.5-5.0) g/dL 06/01/20 06/01/20 06/01/20 Range/Units 01:25 04:10 04:10 RBC 2.64 L (3.80-5.40) m/uL Hgb 8.4 L (11.4-16.0) gm/dL Hct 25.7 L (34.0-46.0) % Lymphocytes # 0.9 L (1.0-4.8) k/uL Chloride 110 H (98-107) mmol/L BUN 23 H (7-17) mg/dL Glucose 110 H (74-99) mg/dL POC Glucose (mg/dL) 114 H (75-99) mg/dL Total Protein 5.4 L (6.3-8.2) g/dL Albumin 3.2 L (3.5-5.0) g/dL 06/01/20 06/01/20 Range/Units 06:17 12:44 RBC (3.80-5.40) m/uL Hgb (11.4-16.0) gm/dL Hct (34.0-46.0) % Lymphocytes # (1.0-4.8) k/uL Chloride (98-107) mmol/L BUN (7-17) mg/dL Glucose (74-99) mg/dL POC Glucose (mg/dL) 130 H 153 H (75-99) mg/dL Total Protein (6.3-8.2) g/dL Albumin (3.5-5.0) g/dL
[2020-06-01 17:14] LABS: Glucose,Whole Blood 257 mg/dL (75-99)
[2020-06-01] MEDS: SENNOSIDES-DOCUSATE SODIUM 1 EACH TAB PO SCH (20:19)
[2020-06-01] MEDS: ATORVASTATIN 80 MG TAB PO SCH (20:19)
[2020-06-01 20:52] LABS: Glucose,Whole Blood 207 mg/dL (75-99)
[2020-06-02] MEDS: PIPERACILLIN-TAZOBACTAM 3.375 GM in SODIUM CHLORIDE 0.9% 100 ML IVPB SCH ×4 (01:09→23:03)
[2020-06-02] MEDS: methylPREDNISolone SOD SUCCI 125 MG/2 ML VIAL IV SCH ×5 (01:10→23:03)
[2020-06-02] MEDS: KETOROLAC 15 MG/ML 1 ML VIAL IVP SCH ×4 (01:10→19:50)
[2020-06-02] MEDS ORDERED: FUROSEMIDE 10 MG/ML 4 ML VIAL IV STA (01:56)
[2020-06-02 02:20] LABS: Glucose,Whole Blood 173 mg/dL (75-99)
[2020-06-02 03:01] LABS: Glucose,Whole Blood 209 mg/dL (75-99)
[2020-06-02] MEDS ORDERED: INSULIN ASPART (NovoLOG) 100 UNIT/ML VIAL SQ ONE (03:12)
[2020-06-02 03:45] LABS: HCT 26.9 % (34.0-46.0); HGB 8.9 gm/dL (11.4-16.0); MCH 32.3 pg (25.0-35.0); MCHC 33.1 g/dL (31.0-37.0); MCV 97.5 fL (80.0-100.0); Mean Platelet Volume 8.9; Platelet Count 204 k/uL (150-450); RBC 2.75 m/uL (3.80-5.40); RDW 13.8 % (11.5-15.5)
[2020-06-02 03:56] LABS: African American GFR (CKD) >90 (>60 ml/min/1.73 sqM); Anion Gap 7 mmol/L; Blood Urea Nitrogen 27 mg/dL (7-17); Calcium 8.8 mg/dL (8.4-10.2); Carbon Dioxide 27 mmol/L (22-30); Chloride 109 mmol/L (98-107); Glucose 177 mg/dL (74-99); Non-African American GFR(CKD) 79 (>60 ml/min/1.73 sqM); Potassium 3.5 mmol/L (3.5-5.1); Sodium 143 mmol/L (137-145)
[2020-06-02] MEDS: POTASSIUM CHLORIDE ER 20 MEQ TAB.ER PO SCH ×2 (04:50→05:56)
[2020-06-02] MEDS: HEPARIN SODIUM,PORCINE 5,000 UNIT/ML 1 ML VIAL SQ SCH ×3 (05:56→19:52)
[2020-06-02] MEDS: LEVOTHYROXINE 50 MCG TAB PO SCH (05:56)
[2020-06-02 06:54] LABS: Glucose,Whole Blood 107 mg/dL (75-99)
[2020-06-02] MEDS: INSULIN ASPART (NovoLOG) 100 UNIT/ML VIAL SQ SCH ×4 (06:55→19:52)
[2020-06-02] MEDS: PANTOPRAZOLE 40 MG TABLET PO SCH (06:57)
[2020-06-02] MEDS ORDERED: ACETAMINOPHEN TAB 325 MG TAB PO PRN (07:41)
--- NOTE | 2020-06-02 08:31 | P.PN ---
Subjective Progress Note Date: 06/02/20 Principal diagnosis: Triple-vessel coronary artery disease with totally occluded chronic right coronary artery, nstemi this admission, moderate left ventricular dysfunction, moderate mitral valve regurgitation. Previous medical history of hypertension, hyperlipidemia, SVT, hypothyroidism, previous hyper-thyroid treated with radioactive dye, daily tobacco dependence, severe COPD with preoperative FEV1 45% of predicted, daily EtOH use without history of withdrawal. Bilateral internal carotid artery stenosis 50-69% POD #4 triple vessel coronary artery bypass grafting using the left internal mammary artery to the left anterior descending artery, reverse saphenous vein graft from the aorta to the first obtuse marginal artery before its bifurcation, reverse saphenous vein graft from the aorta to the posterior descending artery, exclusion of the left atrial appendage using a 35 mm AtriClip, intraoperative graft flow measurements using the [employer] system, endoscopic harvesting of the left greater saphenous vein from the groin to above the ankle level, intraoperative transesophageal echocardiogram and epi-aortic scanning. Acute blood loss anemia, expected outcome given hemodilution and cardiopulmonary bypass pump The patient is currently sitting up in a recliner in the intensive care unit in no acute distress. Remains in sinus rhythm, hemodynamically stable. Does complain of incisional type pain, denies short of breath. All lines and tubes were discontinued yesterday. Patient ambulate in the hallway 4 times distally without difficulty. Was transferred to [address] [place] [address] cardiac stepdown unit. This morning she was noted to be hypoxic as she was mouth breathing, switch to nonrebreather and given IV Lasix per pulmonology and transferred back to the intensive care unit. This morning she was placed back on high flow nasal cannula to eat breakfast and her oxygen saturation remains in the low 90s. Objective - Vital Signs Vital signs: Vital Signs Temp 97.8 F 06/02/20 03:00 Pulse 84 06/02/20 07:00 Resp 22 06/02/20 07:00 BP 112/77 06/02/20 07:00 Pulse Ox 93 L 06/02/20 07:00 Intake & Output 06/01/20 06/02/20 06/02/20 18:59 06:59 18:59 Intake Total 770 Output Total 1431 750 0 Balance -661 -750 0 Weight 67.6 kg Intake: IV 326 Piperacillin-Tazobactam 3 200 .375 gm In Sodium Chloride 0.9% 100 ml @ 25 mls/hr IVPB Q8HR [facility] Rx# :[id number] Sodium Chloride 0.9% 1, 120 000 ml @ 20 mls/hr IV . Q24H [facility] Rx#:[id number] pressure bag 6 Oral 444 Output: Chest Tube Drainage 80 Left Pleural 50 Right Pleural 30 Urine 1350 750 0 Urine/Stool Mix 1 Other: Voiding Method Toilet Toilet Bedside Commode # Voids 1 # Bowel Movements 2 ABP, PAP, CO, CI - Last Documented Arterial Blood Pressure 92/79 Pulmonary Artery Pressure 33/18 Cardiac Output 4.3 Cardiac Index 2.6 - Constitutional General appearance: Present: cooperative, no acute distress - Respiratory Details: Lungs sounds diminished bilaterally. Respirations even, nonlabored. Currently on 15 L high flow nasal cannula with oxygen saturation in the low to mid 90s. Able to achieve 500-750 mL on her incentive spirometry, better effort than yesterday. Strong, productive cough. - Cardiovascular Details: S1, S2 present. Regular rate and rhythm, sinus rhythm on telemetry with heart rate in the 80-90s. Sternum stable. Atrial epicardial pacemaker wires present, grounded. Palpable peripheral pulses bilaterally. No edema present. No calf pain or tenderness noted. Heart hugger in place with patient demonstrating appropriate use. Antiembolism stockings, SCDs present. - Gastrointestinal Gastrointestinal Comment(s): Abdomen soft, nontender, nondistended. Active bowel sounds present 4 quadrants. Tolerating diet. Positive bowel movement per patient - Genitourinary Genitourinary Comment(s): Continues to void clear, yellow urine - Integumentary Integumentary Comment(s): Skin is warm and dry with evidence of good perfusion. Anterior chest incision well approximated and covered with dry intact dressing. Left lower extremity EVH site well approximated without redness or drainage - Neurologic Neurologic: Present: CNII-XII intact - Musculoskeletal Musculoskeletal: Present: gait normal, strength equal bilaterally - Psychiatric Psychiatric: Present: A&O x's 3, appropriate affect, intact judgment & insight - Allied health notes Allied health notes reviewed: nursing - Labs CBC & Chem 7: 06/02/20 03:06 06/02/20 03:06 Labs: Abnormal Lab Results - Last 24 Hours (Table) 06/01/20 06/01/20 06/01/20 Range/Units 12:44 17:13 20:50 WBC (3.8-10.6) k/uL RBC (3.80-5.40) m/uL Hgb (11.4-16.0) gm/dL Hct (34.0-46.0) % Chloride (98-107) mmol/L BUN (7-17) mg/dL Glucose (74-99) mg/dL POC Glucose (mg/dL) 153 H 257 H 207 H (75-99) mg/dL 06/02/20 06/02/20 06/02/20 Range/Units 02:03 02:59 03:06 WBC 12.0 H (3.8-10.6) k/uL RBC 2.75 L (3.80-5.40) m/uL Hgb 8.9 L (11.4-16.0) gm/dL Hct 26.9 L (34.0-46.0) % Chloride (98-107) mmol/L BUN (7-17) mg/dL Glucose (74-99) mg/dL POC Glucose (mg/dL) 173 H 209 H (75-99) mg/dL 06/02/20 06/02/20 Range/Units 03:06 06:53 WBC (3.8-10.6) k/uL RBC (3.80-5.40) m/uL Hgb (11.4-16.0) gm/dL Hct (34.0-46.0) % Chloride 109 H (98-107) mmol/L BUN 27 H (7-17) mg/dL Glucose 177 H (74-99) mg/dL POC Glucose (mg/dL) 107 H (75-99) mg/dL - Imaging and Cardiology Chest x-ray: image reviewed Assessment and Plan Assessment: 1. Triple-vessel coronary artery disease, nstemi this admission, status post three-vessel CABG 2. Hypertension 3. Hyperlipidemia, cholesterol 304, LDL 221 4. History of SVT 5. Hypothyroidism, previous history of hyper-thyroid treated with radioactive dye, current TSH 15.5, T4 1.05, T3 2.6 6. Current daily tobacco dependence 7. Severe COPD with preoperative FEV1 45% of predicted 8. Almost daily EtOH use without history of withdrawal 9. Bilateral carotid artery stenosis 50-69% 10. Acute blood loss anemia, expected 11. Preserved LV, EF 50-55% on limited echo Plan: 1. Continue with aspirin, statin, Plavix, beta ricky therapy. Will increase beta ricky therapy as tolerated 2. Wean O2 as tolerated. Encourage incentive spirometry is 10 times every hour while awake. Bronchodilators, steroids per pulmonology, Zosyn per pulmonology 3. Increase activity as tolerated, PT/OT/cardiac rehab following 4. Will monitor daily labs and x-rays. Electrolyte replacement per protocol. No transfusion. 5. CIWA protocol. Continue thiamine, folic acid 6. GI/DVT prophylaxis 7. Pain control with current medication regimen. 8. Insulin management per primary care service. Patient is not diabetic, hemoglobin A1c 5.8% 9. Strict accurate intake and output. Daily weights 10. Continue to encourage smoking cessation 11. Will keep in the intensive care unit per pulmonology recommendations 12. More recommendations to follow Time with Patient: Greater than 30
[2020-06-02] MEDS: ASPIRIN 325 MG TAB PO SCH (08:51)
[2020-06-02] MEDS: THIAMINE 100 MG TAB PO SCH (08:51)
[2020-06-02] MEDS: CLOPIDOGREL 75 MG TAB PO SCH (08:51)
[2020-06-02] MEDS: METOPROLOL TARTRATE 25 MG TAB PO SCH ×3 (08:51→19:50)
[2020-06-02] MEDS: FOLIC ACID 1 MG TAB PO SCH (08:51)
[2020-06-02] MEDS ORDERED: POTASSIUM CHLORIDE ER 20 MEQ TAB.ER PO SCH (09:00)
[2020-06-02] MEDS: BUDESONIDE 1 MG/2 ML NEBU INHALATION SCH ×2 (09:57→19:57)
[2020-06-02] MEDS: IPRATROPIUM-ALBUTEROL 3 ML NEB INHALATION SCH ×4 (09:57→19:57)
--- NOTE | 2020-06-02 10:06 | XR ---
EXAMINATION TYPE: XR chest 2V DATE OF EXAM: 06/02/2020 COMPARISON: 06/01/2020 TECHNIQUE: PA and lateral views submitted. HISTORY: Post cardiac surgery FINDINGS: A postoperative changes are seen. Epicardial lead noted. Diffuse mixed alveolar and interstitial proc ess is similar to the prior exam. Chest tube has been removed. No sizable pneumothorax. Small bilater al effusions. IMPRESSION: 1. Diffuse bilateral airspace disease with pleural effusion correlate for CHF versus diffuse pneumoni a.
[2020-06-02] MEDS: INSULIN DETEMIR (LEVEMIR) 100 UNIT/ML SYR SQ SCH (10:07)
--- NOTE | 2020-06-02 11:59 | P.PN ---
Subjective Progress Note Date: 06/02/20 Principal diagnosis: chest pain Patient is a 59-year-old female with a history of A. fib not on anticoagulation secondary to no follow-up with PCP, tobacco abuse, and hypothyroidism who presented to the emergency Department complaints of chest pain. She was ultimately found have a non-ST segment elevated myocardial infarction. She was placed on a heparin drip and admitted. She was seen by cardiology and underwent cardiac catheterization. She underwent urgent 3 vessel cardiac bypass surgery on 05/29/2020. She returned to the ICU intubated. She remained intubated overnight on 05/29 and was successfully extubated on 05/30. She was transferred to [facility] on 06/01 but had an episode of hypoxia and was transferred back to the ICU. Patient seen and examined at bedside. Still feeling some shortness of breath. pain is manageable. No nausea, no vomiting, no diarrhea. Discuss that A1C is not consistent with DM but hyperglycemia form steroids and stress of surgery. She has a daughter who is a type 1 diabetic. General: non toxic, no distress, appears at stated age Derm: warm, dry, Head: atraumatic, normocephalic, symmetric Eyes: EOMI, no lid lag, anicteric sclera Mouth: no lip lesion, mucus membranes moist Cardiovascular: S1S2 reg, no murmur, positive posterior tibial pulse bilateral, Lungs: decreased bs bilateral, no rhonchi, no rales , no accessory muscle use Abdominal: soft, nontender to palpation, no guarding, no appreciable organomegaly Ext: no gross muscle atrophy, trace edema bilateral, no contractures Neuro: CN II-XI grossly intact, no focal neuro deficits Psych: Alert and oriented X 3, Appropriate affect Non-ST segment elevated myocardial infarction, triple vessel coronary artery disease s/p 3 vessel bypass. - Management per cardiothorasic surgery - ASA, plavix, lipitor, metoprolol Ischemic cardiomyopathy with EF 35-40% - Metoprolol - resume ACEI/ARB when okay with CT surgery - strict I and O daily weights Interstitial infiltrates - possible acute exacerbation of systolic CHF (most likely) vs non cardiogenic pulm edema vs PNA - BNP 8900 - on zosyn, check procalcitonin, COVID rapid, pulmomary has ordered antibody testing. - lasix again today, suggest scheduled lasix Hyperglycemia - due to steroids and stress from surgery - A1C 5.8 - Levemir added continue SSI - Anticipate will not need medications on discharge. Subclinical hypothyroidism, in the setting of prior Graves' disease with radioactive iodine - started levothyroxine 50 mcg on 06/01. -TSH is 15, this was repeated and confirmed at 15. Even though free T4 is normal she should be treated for the subclinical hypothyroidism as her TSH is greater than 10. She is suffering both from cardiovascular and dyslipidemia consequences of subclinical hypothyroidism and those in their 50s and 60s should be treated. Goal TSH of less than 10 with subclinical hypothyroidism to prevent further development of complications. I discussed with her at length that she should follow up with pricing intern for further identification. She has not had her TSH tested in 5 years. She was placed on Synthroid but stopped taking this when she was lost to follow-up. Dyslipidemia -Statin therapy Acute blood loss anemia, an anticipated outcome of surgery, stable and improving - follow CBC, s/p 1 unit pRBC - Transfuse as indicated Hypertension -controlled -Continue with metoprolol -Cozaar on hold Severe COPD with FEV1 45% of the predicted, with acute exacerbation - pulmonary recommendations - on steroids, pulmicort, duoneb Tobacco abuse -Cessation -Nicotine replacement EtOH misuse -Cessation encouraged Bilateral Carotid artery disease 50-69% -Aspirin, statin, outpatient follow-up thrombocytopenia, resolved History of SVT DVT prophylaxis: Heparin Discussed with: Patient, nursing Anticipated discharge: per CT surgery Anticipated discharge place: A total of 35 minutes was spent on the care of this complex patient more than 50% of the time was spent in counseling and care coordination. Objective - Vital Signs Vital signs: Vital Signs Temp 97.9 F 06/02/20 08:00 Pulse 87 06/02/20 10:13 Resp 31 H 06/02/20 10:00 BP 118/72 06/02/20 10:00 Pulse Ox 95 06/02/20 10:00 Intake & Output 06/01/20 06/02/20 06/02/20 18:59 06:59 18:59 Intake Total 770 290 Output Total 1431 750 1 Balance -661 -750 289 Weight 67.6 kg Intake: IV 326 50 Piperacillin-Tazobactam 3 200 50 .375 gm In Sodium Chloride 0.9% 100 ml @ 25 mls/hr IVPB Q8HR [facility] Rx# :[id number] Sodium Chloride 0.9% 1, 120 000 ml @ 20 mls/hr IV . Q24H [facility] Rx#:[id number] pressure bag 6 Oral 444 240 Output: Chest Tube Drainage 80 Left Pleural 50 Right Pleural 30 Urine 1350 750 0 Stool 1 Urine/Stool Mix 1 Other: Voiding Method Toilet Toilet Bedside Commode # Voids 1 1 # Bowel Movements 2 1 ABP, PAP, CO, CI - Last Documented Arterial Blood Pressure 92/79 Pulmonary Artery Pressure 33/18 Cardiac Output 4.3 Cardiac Index 2.6 - Labs CBC & Chem 7: 06/02/20 03:06 06/02/20 03:06 Labs: Abnormal Lab Results - Last 24 Hours (Table) 06/01/20 06/01/20 06/01/20 Range/Units 12:44 17:13 20:50 WBC (3.8-10.6) k/uL RBC (3.80-5.40) m/uL Hgb (11.4-16.0) gm/dL Hct (34.0-46.0) % Chloride (98-107) mmol/L BUN (7-17) mg/dL Glucose (74-99) mg/dL POC Glucose (mg/dL) 153 H 257 H 207 H (75-99) mg/dL 06/02/20 06/02/20 06/02/20 Range/Units 02:03 02:59 03:06 WBC 12.0 H (3.8-10.6) k/uL RBC 2.75 L (3.80-5.40) m/uL Hgb 8.9 L (11.4-16.0) gm/dL Hct 26.9 L (34.0-46.0) % Chloride (98-107) mmol/L BUN (7-17) mg/dL Glucose (74-99) mg/dL POC Glucose (mg/dL) 173 H 209 H (75-99) mg/dL 06/02/20 06/02/20 Range/Units 03:06 06:53 WBC (3.8-10.6) k/uL RBC (3.80-5.40) m/uL Hgb (11.4-16.0) gm/dL Hct (34.0-46.0) % Chloride 109 H (98-107) mmol/L BUN 27 H (7-17) mg/dL Glucose 177 H (74-99) mg/dL POC Glucose (mg/dL) 107 H (75-99) mg/dL
[2020-06-02 12:05] LABS: Glucose,Whole Blood 111 mg/dL (75-99)
--- NOTE | 2020-06-02 13:44 | P.PN ---
Subjective Progress Note Date: 06/02/20 Principal diagnosis: Status post CABG, postoperative day #4 On 05/29/2020 patient seen in follow-up in the intensive care unit following her 3 vessel cardiac bypass surgery. Patient remains intubated, sedated on mechanical ventilator, initial vent settings were assist control with a rate of 14, tidal vital 450, FiO2 of 70% and PEEP of 5, postoperative blood gases were reviewed showing pH of 7.38, pCO2 44, and pO2 of 293, and this was done on FiO2 of 100%, and subsequently FiO2 was dropped down to 70%. Patient is on 0.9 normal saline at a rate of 50 ML per hour, Diprivan is a 25 mics per kilo per minute, nitroglycerin at 5 mics per kilo per minute, including PACs was started at 6 mg/h. Cardiac output is 4.0, and cardiac index is 2.4, PEEP pressures of 44/32, CVP is 25, patient is sinus mechanism, with a controlled rate, epicardial pacemaker wires to external pacemaker with the backup rate. Postoperative labs revealed a white blood cell count is 7.3, hemoglobin is 8.2, INR is 1.2, sodium is 141, potassium is 3.5, chloride is 115, CO2 is 27, B1 is 12 crit 0.63. Chest x-ray showed bilateral infiltrates and small pleural effusion with mild venous congestion, and fluid overload, ET tube was approximately 2-1/2 cm above the ilda, NG tube in appropriate position, patient has 3 chest tubes, right common mediastinal and left with small amount of sanguinous output in the Pleur-evac, no evidence of any leak, no evidence of pneumothorax on chest x-ray. [facility] postoperative blood gas was satisfactory, however in the course of the following 2 hours patient was noted to be desaturating to 85, and her PEEP was increased to 10, and FiO2 was increased to 100%, repeat chest x-ray was obtained, showing persistent tiny left pleural effusion and bilateral int erstitial and alveolar edema. However patient is diuresing quite well, he has produced 2.2 L in urine output since arrival from the OR. Intraoperatively patient received 1 unit of packed red blood cells, current hemoglobin is 8.2. Patient was reevaluated today on 05/30/20, patient remains intubated and mechanically ventilated. Patient is status post CABG, postoperative day #1. Her ventilator settings are assist control rate of 18 tidal volume is 450 FiO2 50% and PEEP of 5. Patient remains on multiple drips including nitro glycerin drip at 5 per hour, she is also on IV fluid at 50 mL per hour, patient is on propofol which I have discontinued. Her cardiac output is 4.0, cardiac index is 2.4, CVP is 13. Mediastinal and chest tube drainage was noted, roughly in the range of 150-270 mL over night from each. Patient is on minimal dose of propofol, 20 mcg/kg/m, I recommended stopping the propofol as soon as the evaluating the patient, shortly after I came back and switch the patient to a pressure support of 8 and CPAP. 20 minutes later, came back and evaluated the patient, she was doing very well on pressure support and CPAP, and she was moving good tidal volume in the range of 500 mL, and her rate was in the low 20s. Chest x-ray showed mild interstitial edema. Patient was extubated uneventfully to a nasal cannula. Reevaluated today on 05/31/20, patient remains in the ICU, he was extubated yesterday, patient is relatively asymptomatic, sitting in bed, however she is re quiring more FiO2, she is on 8 L high flow nasal cannula, and O2 saturation is in the low 90s. Chest x-ray showed bilateral pulmonary interstitial edema/possible infiltrates. However considering the findings are overnight, I believe these are findings of interstitial edema, patient did receive Lasix earlier by thoracic surgery. Recommended increasing Lasix to twice a day and possibly repeat chest x-ray in the next 24 hours. In the meantime continue incentive spirometry, continue present bronchodilators. Continue present medications. And again will recommend repeat chest x-ray in the morning. If the chest x-ray improves significantly with diuretics, that will imply that the findings are mostly findings of interstitial edema and not interstitial infiltrates. Reevaluated today on 06/01/20, patient remains in the ICU, sitting up in a recliner, has mostly sinus tachycardia, but relatively normal blood pressure. She is not symptomatic, however her chest x-ray is showing significant infiltrates bilaterally. And the differential diagnoses includes congestive heart failure, noncardiogenic pulmonary edema, and possibly bilateral infiltrates/pneumonia, possible Covid 19 pneumonitis. Patient isn't requiring high flow nasal cannula, and her O2 saturation is in the low 90s. CBC does not show any leukocytosis, she does have relative lymphopenia, her electrolytes are normal. Renal profile is normal. Her BNP level is 8900. Hence I'm more inclined to consider that this is likely a picture of systolic congestive heart failure, echocardiogram is pending. Pro-calcitonin is pending. In the meantime I have recommended we empirically cover the patient with antibiotics, but I wou ld strongly recommend that we continue diuretics on this patient I have also recommended that we continue bronchodilators, and added Solu-Medrol. 3 mg IV push every 6 hours. Patient was reevaluated today on 06/02/20, patient was transferred yesterday out of the ICU, however early this morning the patient developed worsening shortness of breath, and worsening chest x-ray, required placement on a non-rebreather mask, recommended Lasix to be given, and I recommended transferring the patient back to ICU. Chest x-ray showed diffuse bilateral airspace disease with pleural effusions, the differential diagnoses includes congestive heart failure, ARDS, and pneumonia. Patient is on diuretics, IV steroids, antibiotics, and clinically she seems to look fine. She is relatively asymptomatic in spite of the fact that she is requiring high flow oxygen. Patient denies being short of breath, she denies any cough, no wheezing, denies any chest pain. WBC count today is 12 hemoglobin is 8.9. Electrolytes are normal renal profile is normal. BNP level is 8900 today. PCR is negative for Covid 19. Pro-calcitonin is pending. Objective - Vital Signs Vital signs: Vital Signs Temp 97.9 F 06/02/20 08:00 Pulse 91 06/02/20 13:28 Resp 31 H 06/02/20 10:00 BP 118/72 06/02/20 10:00 Pulse Ox 95 06/02/20 10:00 Intake & Output 06/01/20 06/02/20 06/02/20 18:59 06:59 18:59 Intake Total 770 580 Output Total 1431 750 1 Balance -661 -750 579 Weight 67.6 kg Intake: IV 326 100 Piperacillin-Tazobactam 3 200 100 .375 gm In Sodium Chloride 0.9% 100 ml @ 25 mls/hr IVPB Q8HR [facility] Rx# :[id number] Sodium Chloride 0.9% 1, 120 000 ml @ 20 mls/hr IV . Q24H [facility] Rx#:[id number] pressure bag 6 Oral 444 480 Output: Chest Tube Drainage 80 Left Pleural 50 Right Pleural 30 Urine 1350 750 0 Stool 1 Urine/Stool Mix 1 Other: Voiding Method Toilet Toilet Toilet Bedside Commode Bedside Commode # Voids 1 1 # Bowel Movements 2 1 ABP, PAP, CO, CI - Last Documented Arterial Blood Pressure 92/79 Pulmonary Artery Pressure 33/18 Cardiac Output 4.3 Cardiac Index 2.6 - Exam GENERAL EXAM: Revealed a 59-year-old female, high flow nasal cannula. In no distress. HEAD: Normocephalic/atraumatic. EENT: PERRLA, EOMI, no icterus, moist mucous membranes. CHEST: No chest wall deformity. Symmetrical expansion. LUNGS: Minimal fine crackles at the bases... CVS: Regular rate and rhythm, normal S1 and S2, no gallops, no murmurs, no rubs ABDOMEN: Soft, nontender. No hepatosplenomegaly, normal bowel sounds, no guard ing or rigidity. EXTREMITIES: No clubbing, no edema, no cyanosis, 2+ pulses and upper and lower extremities. MUSCULOSKELETAL: Muscle strength and tone normal. SPINE: No scoliosis or deformity SKIN: No rashes CENTRAL NERVOUS SYSTEM: Alert and oriented 3 focal deficits. - Labs CBC & Chem 7: 06/02/20 03:06 06/02/20 03:06 Labs: Abnormal Lab Results - Last 24 Hours (Table) 06/01/20 06/01/20 06/02/20 Range/Units 17:13 20:50 02:03 WBC (3.8-10.6) k/uL RBC (3.80-5.40) m/uL Hgb (11.4-16.0) gm/dL Hct (34.0-46.0) % Chloride (98-107) mmol/L BUN (7-17) mg/dL Glucose (74-99) mg/dL POC Glucose (mg/dL) 257 H 207 H 173 H (75-99) mg/dL 06/02/20 06/02/20 06/02/20 Range/Units 02:59 03:06 03:06 WBC 12.0 H (3.8-10.6) k/uL RBC 2.75 L (3.80-5.40) m/uL Hgb 8.9 L (11.4-16.0) gm/dL Hct 26.9 L (34.0-46.0) % Chloride 109 H (98-107) mmol/L BUN 27 H (7-17) mg/dL Glucose 177 H (74-99) mg/dL POC Glucose (mg/dL) 209 H (75-99) mg/dL 06/02/20 06/02/20 Range/Units 06:53 12:03 WBC (3.8-10.6) k/uL RBC (3.80-5.40) m/uL Hgb (11.4-16.0) gm/dL Hct (34.0-46.0) % Chloride (98-107) mmol/L BUN (7-17) mg/dL Glucose (74-99) mg/dL POC Glucose (mg/dL) 107 H 111 H (75-99) mg/dL Assessment and Plan Assessment: Impression: Status post CABG, three-vessel bypass surgery, JOSE to LAD, SVG to PDA, SVG to obtuse marginal 1. Postoperative day #4 Postoperative blood loss anemia, expected. Hypertension. Dyslipidemia. History of SVT. History of hyperthyroidism Postoperative fluid overload, no evidence of acute lung injury, resolved, expected. Acute diastolic congestive heart failure is strongly suspected. Doubt pneumonia based on chest x-ray findings and based on the clinical history. Possibility of noncardiogenic pulmonary edema is not entirely ruled out, and that means the patient may have sustained acute lung injury hence continue diuretics, antibiotics, and steroids for now. Considering the BNP level is elevated, I believe this is more of a cardiogenic pulmonary edema than true noncardiogenic pulmonary edema or infection/pneumonia Recommendation: Continue oxygen and titrate accordingly. Continue Lasix. Continue Solu-Medrol. Start Zosyn empirically Continue bronchodilators/DuoNeb updrafts. Continue GI and DVT prophylaxis. Continue aspirin statins Plavix and beta blockers Ambulate as tolerated. Follow-up chest x-ray in a.m. Continue to monitor in ICU We'll continue to follow. Time with Patient: Less than 30
--- NOTE | 2020-06-02 14:20 | PN ---
PROGRESS NOTE A 59-year-old female. Her blood pressure is 118/72 mmHg, pulse rate is in the 80s. Head and neck examination is normal, heart sounds S1, S2 are soft. Lungs reduced breath sounds bilaterally. She is using the incentive spirometer. LABS: Reviewed. impression CAD Status post coronary to bypass roxy COPD stable and recovering well post bypass surgery Medications reviewed. She is on aspirin, atorvastatin, Plavix, p.r.n. Lasix, subcu heparin, and metoprolol. She should be able to go up stairs to [address]. MMODL / IJN: [id number] / MTDD
[2020-06-02 16:58] LABS: Glucose,Whole Blood 128 mg/dL (75-99)
[2020-06-02 19:44] LABS: Glucose,Whole Blood 158 mg/dL (75-99)
[2020-06-02] MEDS: ATORVASTATIN 80 MG TAB PO SCH (19:50)
[2020-06-02] MEDS: SENNOSIDES-DOCUSATE SODIUM 1 EACH TAB PO SCH (19:51)
[2020-06-03] MEDS: KETOROLAC 15 MG/ML 1 ML VIAL IVP SCH ×4 (01:15→19:35)
[2020-06-03 03:57] LABS: Basophils % (A) 0 %; Eosinophils % (A) 0 %; HCT 24.5 % (34.0-46.0); HGB 8.3 gm/dL (11.4-16.0); Lymphocytes # (A) 0.7 k/uL (1.0-4.8); Lymphocytes % (A) 5 %; MCH 32.7 pg (25.0-35.0); MCHC 33.7 g/dL (31.0-37.0); MCV 96.9 fL (80.0-100.0); Mean Platelet Volume 8.6; Monocytes # (A) 0.7 k/uL (0-1.0); Monocytes % (A) 5 %; Neutrophils # (A) 12.7 k/uL (1.3-7.7); Neutrophils % (A) 89 %; Platelet Count 267 k/uL (150-450); RBC 2.53 m/uL (3.80-5.40); RDW 13.7 % (11.5-15.5); WBC 14.3 k/uL (3.8-10.6)
[2020-06-03 04:14] LABS: Albumin 3.3 g/dL (3.5-5.0); Calcium 8.7 mg/dL (8.4-10.2); Magnesium 2.6 mg/dL (1.6-2.3); Potassium 3.8 mmol/L (3.5-5.1); Total Bilirubin 0.4 mg/dL (0.2-1.3); Total Protein 5.7 g/dL (6.3-8.2)
[2020-06-03] MEDS ORDERED: POTASSIUM CHLORIDE ER 20 MEQ TAB.ER PO SCH (05:00)
[2020-06-03 06:13] LABS: Glucose,Whole Blood 133 mg/dL (75-99)
[2020-06-03] MEDS: LEVOTHYROXINE 50 MCG TAB PO SCH (06:56)
[2020-06-03] MEDS: methylPREDNISolone SOD SUCCI 125 MG/2 ML VIAL IV SCH (06:56)
[2020-06-03] MEDS: HEPARIN SODIUM,PORCINE 5,000 UNIT/ML 1 ML VIAL SQ SCH ×3 (06:56→19:35)
[2020-06-03] MEDS: INSULIN DETEMIR (LEVEMIR) 100 UNIT/ML SYR SQ SCH (06:56)
[2020-06-03] MEDS: PANTOPRAZOLE 40 MG TABLET PO SCH (06:56)
[2020-06-03] MEDS: INSULIN ASPART (NovoLOG) 100 UNIT/ML VIAL SQ SCH ×4 (06:56→19:29)
--- NOTE | 2020-06-03 07:40 | XR ---
EXAMINATION TYPE: XR chest 1V portable DATE OF EXAM: 06/03/2020 COMPARISON: 06/02/2020 HISTORY: Shortness of breath TECHNIQUE: Single frontal view of the chest is obtained. FINDINGS: Postoperative changes noted and there is diffuse interstitial pattern areas of subsegmenta l consolidation and small effusion. Heart enlarged. Arthropathy of the shoulders. No sizable pneumoth orax. IMPRESSION: Diffuse pleural-parenchymal changes again noted. Findings suggest CHF. Underlying atypic al pneumonia not excluded.
[2020-06-03] MEDS: THIAMINE 100 MG TAB PO SCH (08:16)
[2020-06-03] MEDS: CLOPIDOGREL 75 MG TAB PO SCH (08:16)
[2020-06-03] MEDS: ASPIRIN 325 MG TAB PO SCH (08:16)
[2020-06-03] MEDS: FOLIC ACID 1 MG TAB PO SCH (08:17)
[2020-06-03] MEDS: PIPERACILLIN-TAZOBACTAM 3.375 GM in SODIUM CHLORIDE 0.9% 100 ML IVPB SCH (08:22)
[2020-06-03] MEDS ORDERED: FUROSEMIDE 10 MG/ML 4 ML VIAL IV STA (08:26)
[2020-06-03] MEDS: IPRATROPIUM-ALBUTEROL 3 ML NEB INHALATION SCH ×4 (08:29→19:11)
[2020-06-03] MEDS: BUDESONIDE 1 MG/2 ML NEBU INHALATION SCH ×2 (08:33→19:11)
[2020-06-03] MEDS ORDERED: METOPROLOL TARTRATE 25 MG TAB PO STA (08:33)
--- NOTE | 2020-06-03 08:49 | P.PN ---
Subjective Progress Note Date: 06/03/20 Principal diagnosis: Triple-vessel coronary artery disease with a totally occluded chronic right coronary artery, non-ST elevated myocardial infarction this admission, moderate left ventricular dysfunction, moderate mitral valve regurgitation. Past medical history significant for hypertension, hyperlipidemia, SVT, hypothyroidism, previous hyperthyroid treated with radioactive dye, ongoing daily tobacco dependence, severe COPD with preoperative FEV1 45% of predicted, daily EtOH use without history of withdrawal. Bilateral internal carotid artery stenosis 50- 69%. POD #5 triple vessel coronary artery bypass grafting using the left internal mammary artery to the left anterior descending artery, a reverse greater saphenous vein graft from the aorta to the first obtuse marginal artery before its bifurcation, a reverse greater saphenous vein graft from the aorta to the p osterior descending coronary artery, exclusion of the left atrial appendage using a 35 mm AtriClip, intraoperative graft flow measurements using the Medistim system, endoscopic harvesting of the left greater saphenous vein from the groin to above the ankle level, intraoperative transesophageal echoc ardiogram and epi-aortic scanning. Acute blood loss anemia, expected outcome given hemodilution and cardiopulmonary bypass pump. The patient was seen in follow-up today on 06/03/2020 at her bedside in the intensive care unit. She is currently sitting up to the bedside chair, is awake, alert and is oriented 3. Currently she denies any complaints of pain or shortness of breath. She is complaining of some insomnia and occasional irritability. Bedside telemetry showing normal sinus rhythm heart rate 91 BPM. Oxygen saturation was 93% on 6 L nasal cannula and she is achieving 750 mL on her incentive spirometry. She is tolerating oral intake and reports her bowels moved this morning. She remains afebrile and her T-max temperature in the last 24 hours was 98.4F. The patient also reports that she had her postoperative shower yesterday and has been tolerating walking in the intensive care unit hallway with minimal assistance from nursing staff. Objective - Vital Signs Vital signs: Vital Signs Temp 97.8 F 06/03/20 04:00 Pulse 87 06/03/20 08:00 Resp 24 06/03/20 08:00 BP 135/91 06/03/20 08:00 Pulse Ox 97 06/03/20 08:00 Intake & Output 06/02/20 06/03/20 06/03/20 18:59 06:59 18:59 Intake Total 880 220 0 Output Total 352 550 0 Balance 528 -330 0 Weight 68.7 kg Intake: IV 200 100 0 Piperacillin-Tazobactam 3 200 100 .375 gm In Sodium Chloride 0.9% 100 ml @ 25 mls/hr IVPB Q8HR COUNTS INCLUDE 234 BEDS AT THE [facility] Rx# :[id number] Sodium Chloride 0.9% 1, 0 0 0 000 ml @ 20 mls/hr IV . Q24H [facility] Rx#:[id number] Oral 680 120 Output: Urine 350 550 0 Stool 2 Other: Voiding Method Toilet Toilet Bedside Commode Bedside Commode # Voids 1 # Bowel Movements 1 1 ABP, PAP, CO, CI - Last Documented Arterial Blood Pressure 92/79 Pulmonary Artery Pressure 33/18 Cardiac Output 4.3 Cardiac Index 2.6 - Constitutional General appearance: Present: average body habitus, cooperative, no acute distress - EENT Eyes: Present: PERRLA, normal appearance. Absent: scleral icterus ENT: Present: hearing grossly normal - Neck Details: Neck is supple, no JVD, no lymphadenopathy. - Respiratory Details: Lung sounds essentially clear throughout, diminished bilateral bases. No wheezes, rhonchi or crackles. Respirations are symmetrical and nonlabored. Oxygen saturation are 93% on 6 L nasal cannula. Achieving 750 mL with encouragement on her incentive spirometry. - Cardiovascular Details: Regular rhythm and rate. S1 and S2 present, negative for S3, gallop or murmur. Sternum is stable. Bedside telemetry showing normal sinus rhythm heart rate 91 BPM. Heart hugger is in place and she is demonstrating appropriate use. Atrial epicardial pacemaker wires in place and grounded. Knee-high MOE hose and sequential compression devices in place to her bilateral lower extremities. No edema present. - Gastrointestinal Gastrointestinal Comment(s): Abdomen is soft, nontender and nondistended. Active bowel sounds present in all 4 abdominal quadrants. No guarding or rigidity. No organomegaly appreciated. Tolerating oral intake. Bowel movement this a.m. - Genitourinary Genitourinary Comment(s): Continues to void. - Neurologic Neurologic: Present: CNII-XII intact - Musculoskeletal Musculoskeletal: Present: gait normal, strength equal bilaterally - Psychiatric Psychiatric: Present: A&O x's 3, appropriate affect, intact judgment & insight - Allied health notes Allied health notes reviewed: nursing - Labs CBC & Chem 7: 06/03/20 03:21 06/03/20 03:21 Labs: Abnormal Lab Results - Last 24 Hours (Table) 06/02/20 06/02/20 06/02/20 Range/Units 03:06 12:03 16:57 WBC (3.8-10.6) k/uL RBC (3.80-5.40) m/uL Hgb (11.4-16.0) gm/dL Hct (34.0-46.0) % Neutrophils # (1.3-7.7) k/uL Lymphocytes # (1.0-4.8) k/uL Chloride (98-107) mmol/L BUN (7-17) mg/dL Glucose (74-99) mg/dL POC Glucose (mg/dL) 111 H 128 H (75-99) mg/dL Magnesium (1.6-2.3) mg/dL AST (14-36) U/L Alkaline Phosphatase (38-126) U/L Total Protein (6.3-8.2) g/dL Albumin (3.5-5.0) g/dL Procalcitonin 0.14 H (0.02-0.09) ng/mL 06/02/20 06/03/20 06/03/20 Range/Units 19:42 03:21 03:21 WBC 14.3 H (3.8-10.6) k/uL RBC 2.53 L (3.80-5.40) m/uL Hgb 8.3 L (11.4-16.0) gm/dL Hct 24.5 L (34.0-46.0) % Neutrophils # 12.7 H (1.3-7.7) k/uL Lymphocytes # 0.7 L (1.0-4.8) k/uL Chloride 110 H (98-107) mmol/L BUN 31 H (7-17) mg/dL Glucose 173 H (74-99) mg/dL POC Glucose (mg/dL) 158 H (75-99) mg/dL Magnesium 2.6 H (1.6-2.3) mg/dL AST 38 H (14-36) U/L Alkaline Phosphatase 133 H (38-126) U/L Total Protein 5.7 L (6.3-8.2) g/dL Albumin 3.3 L (3.5-5.0) g/dL Procalcitonin (0.02-0.09) ng/mL 06/03/20 Range/Units 06:12 WBC (3.8-10.6) k/uL RBC (3.80-5.40) m/uL Hgb (11.4-16.0) gm/dL Hct (34.0-46.0) % Neutrophils # (1.3-7.7) k/uL Lymphocytes # (1.0-4.8) k/uL Chloride (98-107) mmol/L BUN (7-17) mg/dL Glucose (74-99) mg/dL POC Glucose (mg/dL) 133 H (75-99) mg/dL Magnesium (1.6-2.3) mg/dL AST (14-36) U/L Alkaline Phosphatase (38-126) U/L Total Protein (6.3-8.2) g/dL Albumin (3.5-5.0) g/dL Procalcitonin (0.02-0.09) ng/mL - Imaging and Cardiology Chest x-ray: report reviewed, image reviewed Assessment and Plan Assessment: 1. Triple-vessel coronary artery disease, non-ST elevated by color infarction this admission, status post three-vessel CABG 2. Hypertension 3. Hyperlipidemia, cholesterol 304, LDL 221 4. History of preoperative SVT 5. Hypothyroidism, previous history of hyper-thyroid treated with radioactive dye, current TSH 15.5, T4 1.05, T3 2.6 6. Current daily tobacco dependence 7. Severe COPD with preoperative FEV1 45% of predicted 8. Almost daily EtOH use without history of withdrawal 9. Bilateral carotid artery stenosis 50-69% 10. Acute blood loss anemia, expected 11. Preserved left ventricular, ejection fraction 50-55% on limited echo. Plan: 1. Continue with aspirin, statin, Plavix, beta ricky. Will increase metoprolol tartrate to 50 mg by mouth twice a day. 2. Wean oxygen as tolerated. Encourage incentive spirometry 10 times every hour while awake. Bronchodilators, corticosteroids, and inhaled steroids per pulmonology support/critical care management. 3. Increase activity as tolerated. Out of bed for all meals. PT/OT/cardiac rehab following. 4. Will monitor daily labs and chest x-rays. Electrolyte replacement per protocol. No transfusion. 5. CIWA protocol. Continue thiamine, folic acid. 6. GI/DVT prophylaxis. 7. Pain control with current medication regimen. 8. Insulin management per primary care service. Patient is not diabetic, preoperative hemoglobin A1c 5.8%. 9. Transfer 3 cardiac stepdown unit. 10. Continue to encourage smoking cessation. 11. More recommendations to follow based on patient's clinical course. Time with Patient: Greater than 30
[2020-06-03] MEDS ORDERED: METOPROLOL TARTRATE 50 MG TAB PO SCH (09:00)
--- NOTE | 2020-06-03 11:14 | P.PN ---
Subjective Progress Note Date: 06/03/20 Patient doing well today. She denies any shortness of breath or chest pain. No acute events overnight reported by nursing staff. Objective - Vital Signs Vital signs: Vital Signs Temp 97.8 F 06/03/20 04:00 Pulse 83 06/03/20 10:00 Resp 12 06/03/20 10:00 BP 128/68 06/03/20 10:00 Pulse Ox 91 L 06/03/20 10:00 Intake & Output 06/02/20 06/03/20 06/03/20 18:59 06:59 18:59 Intake Total 880 220 100 Output Total 352 550 225 Balance 528 -330 -125 Weight 68.7 kg Intake: IV 200 100 100 Piperacillin-Tazobactam 3 200 100 100 .375 gm In Sodium Chloride 0.9% 100 ml @ 25 mls/hr IVPB Q8HR ON LICENSE OF [facility] Rx# :[id number] Sodium Chloride 0.9% 1, 0 0 0 000 ml @ 20 mls/hr IV . Q24H ON LICENSE OF [facility] Rx#:[id number] Oral 680 120 Output: Urine 350 550 225 Stool 2 Other: Voiding Method Toilet Toilet Bedside Commode Bedside Commode # Voids 1 # Bowel Movements 1 1 ABP, PAP, CO, CI - Last Documented Arterial Blood Pressure 92/79 Pulmonary Artery Pressure 33/18 Cardiac Output 4.3 Cardiac Index 2.6 - Exam General: The patient is awake and alert, in no distress Eye: there is normal conjunctiva bilaterally. Neck: The neck is supple, there is no JVD. Cardiovascular: Normal S1-S2, no S3-S4, no murmurs. Respiratory: Lungs clear to auscultation bilaterally Gastrointestinal: Abdomen is soft, nontender Musculoskeletal: There is no pedal edema. Neurological:. Speech is normal. Skin: Skin is warm and dry - Labs CBC & Chem 7: 06/03/20 03:21 06/03/20 03:21 Labs: Abnormal Lab Results - Last 24 Hours (Table) 06/02/20 06/02/20 06/02/20 Range/Units 03:06 12:03 16:57 WBC (3.8-10.6) k/uL RBC (3.80-5.40) m/uL Hgb (11.4-16.0) gm/dL Hct (34.0-46.0) % Neutrophils # (1.3-7.7) k/uL Lymphocytes # (1.0-4.8) k/uL Chloride (98-107) mmol/L BUN (7-17) mg/dL Glucose (74-99) mg/dL POC Glucose (mg/dL) 111 H 128 H (75-99) mg/dL Magnesium (1.6-2.3) mg/dL AST (14-36) U/L Alkaline Phosphatase (38-126) U/L Total Protein (6.3-8.2) g/dL Albumin (3.5-5.0) g/dL Procalcitonin 0.14 H (0.02-0.09) ng/mL 06/02/20 06/03/20 06/03/20 Range/Units 19:42 03:21 03:21 WBC 14.3 H (3.8-10.6) k/uL RBC 2.53 L (3.80-5.40) m/uL Hgb 8.3 L (11.4-16.0) gm/dL Hct 24.5 L (34.0-46.0) % Neutrophils # 12.7 H (1.3-7.7) k/uL Lymphocytes # 0.7 L (1.0-4.8) k/uL Chloride 110 H (98-107) mmol/L BUN 31 H (7-17) mg/dL Glucose 173 H (74-99) mg/dL POC Glucose (mg/dL) 158 H (75-99) mg/dL Magnesium 2.6 H (1.6-2.3) mg/dL AST 38 H (14-36) U/L Alkaline Phosphatase 133 H (38-126) U/L Total Protein 5.7 L (6.3-8.2) g/dL Albumin 3.3 L (3.5-5.0) g/dL Procalcitonin (0.02-0.09) ng/mL 06/03/20 Range/Units 06:12 WBC (3.8-10.6) k/uL RBC (3.80-5.40) m/uL Hgb (11.4-16.0) gm/dL Hct (34.0-46.0) % Neutrophils # (1.3-7.7) k/uL Lymphocytes # (1.0-4.8) k/uL Chloride (98-107) mmol/L BUN (7-17) mg/dL Glucose (74-99) mg/dL POC Glucose (mg/dL) 133 H (75-99) mg/dL Magnesium (1.6-2.3) mg/dL AST (14-36) U/L Alkaline Phosphatase (38-126) U/L Total Protein (6.3-8.2) g/dL Albumin (3.5-5.0) g/dL Procalcitonin (0.02-0.09) ng/mL Assessment and Plan Assessment: Patient is a 59-year-old female with a history of A. fib not on anticoagulation secondary to no follow-up with PCP, tobacco abuse, and hypothyroidism who presented to the emergency Department complaints of chest pain. She was ultimately found have a non-ST segment elevated myocardial infarction. She was placed on a heparin drip and admitted. She was seen by cardiology and underwent cardiac catheterization. She underwent urgent 3 vessel cardiac bypass surgery on 05/29/2020. She returned to the ICU intubated. She remained intubated overnight on 05/29 and was successfully extubated on 05/30. She was transferred to [facility]01 but had an episode of hypoxia and was transferred back to the ICU. Non-ST segment elevated myocardial infarction, triple vessel coronary artery disease s/p 3 vessel bypass. - Management per cardiothorasic surgery - ASA, plavix, lipitor, metoprolol Ischemic cardiomyopathy with EF 35-40% - Metoprolol - resume ACEI/ARB when okay with CT surgery - strict I and O daily weights Interstitial infiltrates - possible acute exacerbation of systolic CHF (most likely) vs non cardiogenic pulm edema vs PNA - BNP 8900 - on zosyn, check procalcitonin, COVID rapid, pulmomary has ordered antibody testing. - lasix again today, suggest scheduled lasix Subclinical hypothyroidism, in the setting of prior Graves' disease with radioactive iodine - started levothyroxine 50 mcg on 06/01. 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% of the predicted, with acute exacerbation - pulmonary recommendations - on steroids, pulmicort, duoneb Hyperglycemia - due to steroids - A1C 5.8 - SSI Tobacco abuse -Cessation -Nicotine replacement EtOH misuse -Cessation encouraged Bilateral Carotid artery disease 50-69% -Aspirin, statin, outpatient follow-up thrombocytopenia, resolved History of SVT DVT prophylaxis: Heparin Discussed with: Patient, nursing Anticipated discharge: per CT surgery Anticipated discharge place: A total of 35 minutes was spent on the care of this complex patient more than 50% of the time was spent in counseling and care coordination.
[2020-06-03 11:58] LABS: Glucose,Whole Blood 130 mg/dL (75-99)
--- NOTE | 2020-06-03 12:24 | P.PN ---
Subjective Progress Note Date: 06/03/20 Principal diagnosis: Status post CABG, postoperative day #5 On 05/29/2020 patient seen in follow-up in the intensive care unit following her 3 vessel cardiac bypass surgery. Patient remains intubated, sedated on mechanical ventilator, initial vent settings were assist control with a rate of 14, tidal vital 450, FiO2 of 70% and PEEP of 5, postoperative blood gases were reviewed showing pH of 7.38, pCO2 44, and pO2 of 293, and this was done on FiO2 of 100%, and subsequently FiO2 was dropped down to 70%. Patient is on 0.9 normal saline at a rate of 50 ML per hour, Diprivan is a 25 mics per kilo per minute, nitroglycerin at 5 mics per kilo per minute, including PACs was started at 6 mg/h. Cardiac output is 4.0, and cardiac index is 2.4, PEEP pressures of 44/32, CVP is 25, patient is sinus mechanism, with a controlled rate, epicardial pacemaker wires to external pacemaker with the backup rate. Postoperative labs revealed a white blood cell count is 7.3, hemoglobin is 8.2, INR is 1.2, sodium is 141, potassium is 3.5, chloride is 115, CO2 is 27, B1 is 12 crit 0.63. Chest x-ray showed bilateral infiltrates and small pleural effusion with mild venous congestion, and fluid overload, ET tube was approximately 2-1/2 cm above the ilda, NG tube in appropriate position, patient has 3 chest tubes, right common mediastinal and left with small amount of sanguinous output in the Pleur-evac, no evidence of any leak, no evidence of pneumothorax on chest x-ray. [facility] gas was satisfactory, however in the course of the following 2 hours patient was noted to be desaturating to 85, and her PEEP was increased to 10, and FiO2 was increased to 100%, repeat chest x-ray was obtained, showing persistent tiny left pleural effusion and bilateral int erstitial and alveolar edema. However patient is diuresing quite well, he has produced 2.2 L in urine output since arrival from the OR. Intraoperatively patient received 1 unit of packed red blood cells, current hemoglobin is 8.2. Patient was reevaluated today on 05/30/20, patient remains intubated and mechanically ventilated. Patient is status post CABG, postoperative day #1. Her ventilator settings are assist control rate of 18 tidal volume is 450 FiO2 50% and PEEP of 5. Patient remains on multiple drips including nitro glycerin drip at 5 per hour, she is also on IV fluid at 50 mL per hour, patient is on propofol which I have discontinued. Her cardiac output is 4.0, cardiac index is 2.4, CVP is 13. Mediastinal and chest tube drainage was noted, roughly in the range of 150-270 mL over night from each. Patient is on minimal dose of propofol, 20 mcg/kg/m, I recommended stopping the propofol as soon as the evaluating the patient, shortly after I came back and switch the patient to a pressure support of 8 and CPAP. 20 minutes later, came back and evaluated the patient, she was doing very well on pressure support and CPAP, and she was moving good tidal volume in the range of 500 mL, and her rate was in the low 20s. Chest x-ray showed mild interstitial edema. Patient was extubated uneventfully to a nasal cannula. Reevaluated today on 05/31/20, patient remains in the ICU, he was extubated yesterday, patient is relatively asymptomatic, sitting in bed, however she is re quiring more FiO2, she is on 8 L high flow nasal cannula, and O2 saturation is in the low 90s. Chest x-ray showed bilateral pulmonary interstitial edema/possible infiltrates. However considering the findings are overnight, I believe these are findings of interstitial edema, patient did receive Lasix earlier by thoracic surgery. Recommended increasing Lasix to twice a day and possibly repeat chest x-ray in the next 24 hours. In the meantime continue incentive spirometry, continue present bronchodilators. Continue present medications. And again will recommend repeat chest x-ray in the morning. If the chest x-ray improves significantly with diuretics, that will imply that the findings are mostly findings of interstitial edema and not interstitial infiltrates. Reevaluated today on 06/01/20, patient remains in the ICU, sitting up in a recliner, has mostly sinus tachycardia, but relatively normal blood pressure. She is not symptomatic, however her chest x-ray is showing significant infiltrates bilaterally. And the differential diagnoses includes congestive heart failure, noncardiogenic pulmonary edema, and possibly bilateral infiltrates/pneumonia, possible Covid 19 pneumonitis. Patient isn't requiring high flow nasal cannula, and her O2 saturation is in the low 90s. CBC does not show any leukocytosis, she does have relative lymphopenia, her electrolytes are normal. Renal profile is normal. Her BNP level is 8900. Hence I'm more inclined to consider that this is likely a picture of systolic congestive heart failure, echocardiogram is pending. Pro-calcitonin is pending. In the meantime I have recommended we empirically cover the patient with antibiotics, but I wou jose l strongly recommend that we continue diuretics on this patient I have also recommended that we continue bronchodilators, and added Solu-Medrol. 3 mg IV push every 6 hours. Patient was reevaluated today on 06/02/20, patient was transferred yesterday out of the ICU, however early this morning the patient developed worsening shortness of breath, and worsening chest x-ray, required placement on a non-rebreather mask, recommended Lasix to be given, and I recommended transferring the patient back to ICU. Chest x-ray showed diffuse bilateral airspace disease with pleural effusions, the differential diagnoses includes congestive heart failure, ARDS, and pneumonia. Patient is on diuretics, IV steroids, antibiotics, and clinically she seems to look fine. She is relatively asymptomatic in spite of the fact that she is requiring high flow oxygen. Patient denies being short of breath, she denies any cough, no wheezing, denies any chest pain. WBC count today is 12 hemoglobin is 8.9. Electrolytes are normal renal profile is normal. BNP level is 8900 today. PCR is negative for Covid 19. Pro-calcitonin is pending. Reevaluated today on 06/03/20, patient remains in the ICU, feeling much better today, breathing easier, chest x-ray showed significant improvement, continues to have some interstitial edema but improved compared to the last couple of days. Patient is now on 6 L high flow nasal cannula, patient is -2 L in the last 24-48 hours. She remains empirically on antibiotics, she remains on Lasix and she will be given another dose of Lasix today. Patient is doing well and mu ch better with incentive spirometry. Hence I would likely transfer the patient out of the ICu later today. Labs were reviewed she has a relatively normal electrolytes normal CBC. And again chest x-ray is improved but did not show complete clearance of her interstitial edema Objective - Vital Signs Vital signs: Vital Signs Temp 98.3 F 06/03/20 12:00 Pulse 79 06/03/20 12:00 Resp 28 H 12/19/20 12:00 BP 121/78 06/03/20 12:00 Pulse Ox 90 L 06/03/20 12:00 Intake & Output 06/02/20 06/03/20 06/03/20 18:59 06:59 18:59 Intake Total 880 220 100 Output Total 352 550 725 Balance 528 330 -625 Weight 68.7 kg Intake: IV 200 100 100 Piperacillin-Tazobactam 3 200 100 100 .375 gm In Sodium Chloride 0.9% 100 ml @ 25 mls/hr IVPB Q8HR [facility] Rx# :[id number] Sodium Chloride 0.9% 1, 0 0 0 000 ml @ 20 mls/hr IV . Q24H [facility] Rx#:[id number] Oral 680 120 Output: Urine 350 550 725 Stool 2 Other: Voiding Method Toilet Toilet Toilet Bedside Commode Bedside Commode Bedside Commode # Voids 1 1 # Bowel Movements 1 1 1 ABP, PAP, CO, CI - Last Documented Arterial Blood Pressure 92/79 Pulmonary Artery Pressure 33/18 Cardiac Output 4.3 Cardiac Index 2.6 - Exam GENERAL EXAM: Revealed a 59-year-old female, on 6 L high flow nasal cannula, in no distress. HEAD: Normocephalic/atraumatic. EENT: PERRLA, EOMI, no icterus, moist mucous membranes. CHEST: No chest wall deformity. Symmetrical expansion. LUNGS: Diminished breath sounds at the bases no crackles or rhonchi or wheezes. CVS: Regular rate and rhythm, normal S1 and S2, no gallops, no murmurs, no rubs ABDOMEN: Soft, nontender. No hepatosplenomegaly, normal bowel sounds, no guarding or rigidity. EXTREMITIES: No clubbing, no edema, no cyanosis, 2+ pulses and upper and lower extremities. MUSCULOSKELETAL: Muscle strength and tone normal. SPINE: No scoliosis or deformity SKIN: No rashes CENTRAL NERVOUS SYSTEM: Alert and oriented 3 focal deficits. - Labs CBC & Chem 7: 06/03/20 03:21 06/03/20 03:21 Labs: Abnormal Lab Results - Last 24 Hours (Table) 06/02/20 06/02/20 06/02/20 Range/Units 03:06 16:57 19:42 WBC (3.8-10.6) k/uL RBC (3.80-5.40) m/uL Hgb (11.4-16.0) gm/dL Hct (34.0-46.0) % Neutrophils # (1.3-7.7) k/uL Lymphocytes # (1.0-4.8) k/uL Chloride (98-107) mmol/L BUN (7-17) mg/dL Glucose (74-99) mg/dL POC Glucose (mg/dL) 128 H 158 H (75-99) mg/dL Magnesium (1.6-2.3) mg/dL AST (14-36) U/L Alkaline Phosphatase (38-126) U/L Total Protein (6.3-8.2) g/dL Albumin (3.5-5.0) g/dL Procalcitonin 0.14 H (0.02-0.09) ng/mL 06/03/20 06/03/20 06/03/20 Range/Units 03:21 03:21 06:12 WBC 14.3 H (3.8-10.6) k/uL RBC 2.53 L (3.80-5.40) m/uL Hgb 8.3 L (11.4-16.0) gm/dL Hct 24.5 L (34.0-46.0) % Neutrophils # 12.7 H (1.3-7.7) k/uL Lymphocytes # 0.7 L (1.0-4.8) k/uL Chloride 110 H (98-107) mmol/L BUN 31 H (7-17) mg/dL Glucose 173 H (74-99) mg/dL POC Glucose (mg/dL) 133 H (75-99) mg/dL Magnesium 2.6 H (1.6-2.3) mg/dL AST 38 H (14-36) U/L Alkaline Phosphatase 133 H (38-126) U/L Total Protein 5.7 L (6.3-8.2) g/dL Albumin 3.3 L (3.5-5.0) g/dL Procalcitonin (0.02-0.09) ng/mL 06/03/20 Range/Units 11:56 WBC (3.8-10.6) k/uL RBC (3.80-5.40) m/uL Hgb (11.4-16.0) gm/dL Hct (34.0-46.0) % Neutrophils # (1.3-7.7) k/uL Lymphocytes # (1.0-4.8) k/uL Chloride (98-107) mmol/L BUN (7-17) mg/dL Glucose (74-99) mg/dL POC Glucose (mg/dL) 130 H (75-99) mg/dL Magnesium (1.6-2.3) mg/dL AST (14-36) U/L Alkaline Phosphatase (38-126) U/L Total Protein (6.3-8.2) g/dL Albumin (3.5-5.0) g/dL Procalcitonin (0.02-0.09) ng/mL Assessment and Plan Assessment: Impression: Status post CABG, three-vessel bypass surgery, JOSE to LAD, SVG to PDA, SVG to obtuse marginal 1. Postoperative day #5 Postoperative blood loss anemia, expected. Hypertension. Dyslipidemia. History of SVT. History of hyperthyroidism Postoperative fluid overload, no evidence of acute lung injury, resolved, expected. Acute diastolic congestive heart failure is strongly suspected. Doubt pneumonia hence we will discontinue Zosyn. Recommendation: Continue oxygen and titrate accordingly. Continue Lasix. Wrote for 40 mg IV push to be given today. Continue Solu-Medrol. Discontinue Zosyn. Continue bronchodilators/DuoNeb updrafts. Continue GI and DVT prophylaxis. Continue aspirin statins Plavix and beta blockers Can potentially transfer the patient out of the ICU later today. We'll continue to follow. Time with Patient: Less than 30
[2020-06-03 16:44] LABS: Glucose,Whole Blood 110 mg/dL (75-99)
[2020-06-03 19:28] LABS: Glucose,Whole Blood 101 mg/dL (75-99)
[2020-06-03] MEDS: ATORVASTATIN 80 MG TAB PO SCH (19:35)
[2020-06-03] MEDS: SENNOSIDES-DOCUSATE SODIUM 1 EACH TAB PO SCH (19:35)
[2020-06-03] MEDS: METOPROLOL TARTRATE 50 MG TAB PO SCH (19:35)
--- NOTE | 2020-06-03 20:37 | P.PN ---
Subjective A she is doing well. She is ablating around the room. Denies any chest discomfort. No dizziness no lightheadedness. Normal rhythm She is on intermittent IV Lasix and using spirometry Blood pressure 121/78 mmHg pulse rate 79 respirations 20 Breath sounds are reduced but are clear no rhonchi no crackles reduced breath sounds at the bases Normal heart sounds No lower extremity edema Impression Coronary artery disease status post coronary artery bypass grafting COPD with reduced FEV1 Progressing well Maintain sinus rhythm Suggest Continue antiplatelet therapy statins beta blockers and current ICU management Objective - Vital Signs Vital signs: Vital Signs Temp 98.3 F 06/03/20 16:00 Pulse 88 06/03/20 19:25 Resp 16 06/03/20 19:25 BP 142/82 06/03/20 19:00 Pulse Ox 98 06/03/20 19:00 Intake & Output 06/03/20 06/03/20 06/04/20 06:59 18:59 06:59 Intake Total 220 300 0 Output Total 550 1325 Balance -330 -1025 0 Weight 68.7 kg Intake: IV 100 100 0 Piperacillin-Tazobactam 3 100 100 .375 gm In Sodium Chloride 0.9% 100 ml @ 25 mls/hr IVPB Q8HR [facility] Rx# :[id number] Sodium Chloride 0.9% 1, 0 0 0 000 ml @ 20 mls/hr IV . Q24H [facility] Rx#:[id number] Oral 120 200 Output: Urine 550 1325 Other: Voiding Method Toilet Toilet Bedside Commode # Voids 1 # Bowel Movements 1 1 ABP, PAP, CO, CI - Last Documented Arterial Blood Pressure 92/79 Pulmonary Artery Pressure 33/18 Cardiac Output 4.3 Cardiac Index 2.6 - Labs CBC & Chem 7: 06/03/20 03:21 06/03/20 03:21 Labs: Abnormal Lab Results - Last 24 Hours (Table) 06/03/20 06/03/20 06/03/20 Range/Units 03:21 03:21 06:12 WBC 14.3 H (3.8-10.6) k/uL RBC 2.53 L (3.80-5.40) m/uL Hgb 8.3 L (11.4-16.0) gm/dL Hct 24.5 L (34.0-46.0) % Neutrophils # 12.7 H (1.3-7.7) k/uL Lymphocytes # 0.7 L (1.0-4.8) k/uL Chloride 110 H (98-107) mmol/L BUN 31 H (7-17) mg/dL Glucose 173 H (74-99) mg/dL POC Glucose (mg/dL) 133 H (75-99) mg/dL Magnesium 2.6 H (1.6-2.3) mg/dL AST 38 H (14-36) U/L Alkaline Phosphatase 133 H (38-126) U/L Total Protein 5.7 L (6.3-8.2) g/dL Albumin 3.3 L (3.5-5.0) g/dL 06/03/20 06/03/20 06/03/20 Range/Units 11:56 16:43 19:27 WBC (3.8-10.6) k/uL RBC (3.80-5.40) m/uL Hgb (11.4-16.0) gm/dL Hct (34.0-46.0) % Neutrophils # (1.3-7.7) k/uL Lymphocytes # (1.0-4.8) k/uL Chloride (98-107) mmol/L BUN (7-17) mg/dL Glucose (74-99) mg/dL POC Glucose (mg/dL) 130 H 110 H 101 H (75-99) mg/dL Magnesium (1.6-2.3) mg/dL AST (14-36) U/L Alkaline Phosphatase (38-126) U/L Total Protein (6.3-8.2) g/dL Albumin (3.5-5.0) g/dL
[2020-06-04] MEDS: KETOROLAC 15 MG/ML 1 ML VIAL IVP SCH ×2 (00:42→08:12)
[2020-06-04 05:24] LABS: Basophils % (A) 0 %; Eosinophils # (A) 0.2 k/uL (0-0.7); Eosinophils % (A) 1 %; HCT 25.7 % (34.0-46.0); HGB 8.6 gm/dL (11.4-16.0); Lymphocytes # (A) 2.4 k/uL (1.0-4.8); Lymphocytes % (A) 16 %; MCH 32.4 pg (25.0-35.0); MCHC 33.5 g/dL (31.0-37.0); MCV 96.6 fL (80.0-100.0); Mean Platelet Volume 8.5; Monocytes # (A) 1.4 k/uL (0-1.0); Monocytes % (A) 9 %; Neutrophils # (A) 11.3 k/uL (1.3-7.7); Neutrophils % (A) 73 %; Platelet Count 306 k/uL (150-450); RBC 2.66 m/uL (3.80-5.40); RDW 13.8 % (11.5-15.5); WBC 15.6 k/uL (3.8-10.6)
[2020-06-04 05:57] LABS: Calcium 8.8 mg/dL (8.4-10.2); Potassium 3.4 mmol/L (3.5-5.1)
[2020-06-04] MEDS: INSULIN ASPART (NovoLOG) 100 UNIT/ML VIAL SQ SCH ×4 (06:05→20:57)
[2020-06-04] MEDS: LEVOTHYROXINE 50 MCG TAB PO SCH (06:12)
[2020-06-04] MEDS: PANTOPRAZOLE 40 MG TABLET PO SCH (06:12)
[2020-06-04] MEDS: HEPARIN SODIUM,PORCINE 5,000 UNIT/ML 1 ML VIAL SQ SCH ×3 (06:12→20:49)
[2020-06-04] MEDS: POTASSIUM CHLORIDE ER 20 MEQ TAB.ER PO SCH ×2 (06:23→07:58)
--- NOTE | 2020-06-04 07:30 | XR ---
EXAMINATION TYPE: XR chest 1V portable DATE OF EXAM: 06/04/2020 HISTORY: Shortness of breath. COMPARISON: None. TECHNIQUE: Single view of the chest is submitted. FINDINGS: Demonstrated are scattered senescent parenchymal change. There is no evidence for focal infiltrate. Changes of the median sternotomy and CABG. The heart is mildly enlarged. Pulmonary vascular congestio n is noted without overt failure. Overall slight improvement relative to prior examination. Hilar and mediastinal structures are within normal limits. Degenerative changes are seen of the dorsal spine. IMPRESSION: 1. Changes of the median sternotomy and CABG. The heart is mildly enlarged. Pulmonary vascular conge stion is noted without overt failure. Overall slight improvement relative to prior examination.
[2020-06-04] MEDS: ASPIRIN 325 MG TAB PO SCH (07:57)
[2020-06-04] MEDS: predniSONE 20 MG TAB PO SCH (07:58)
[2020-06-04] MEDS: FOLIC ACID 1 MG TAB PO SCH (07:58)
[2020-06-04] MEDS: THIAMINE 100 MG TAB PO SCH (07:58)
[2020-06-04] MEDS: METOPROLOL TARTRATE 50 MG TAB PO SCH ×2 (07:58→20:49)
[2020-06-04] MEDS: CLOPIDOGREL 75 MG TAB PO SCH (07:58)
[2020-06-04] MEDS: IPRATROPIUM-ALBUTEROL 3 ML NEB INHALATION SCH ×4 (08:25→20:43)
[2020-06-04] MEDS: BUDESONIDE 1 MG/2 ML NEBU INHALATION SCH ×2 (08:25→20:43)
--- NOTE | 2020-06-04 08:59 | P.PN ---
Subjective Progress Note Date: 06/04/20 Principal diagnosis: Triple-vessel coronary artery disease with a totally occluded chronic right coronary artery, non-ST elevated myocardial infarction this admission, moderate left ventricular dysfunction, moderate mitral valve regurgitation. Past medical history significant for hypertension, hyperlipidemia, SVT, hypothyroidism, previous hyperthyroid treated with radioactive dye, ongoing daily tobacco dependence, severe COPD with preoperative FEV1 45% of predicted, daily EtOH use without history of withdrawal. Bilateral internal carotid artery stenosis 50- 69%. POD #6 triple vessel coronary artery bypass grafting using the left internal mammary artery to the left anterior descending artery, a reverse greater saphenous vein graft from the aorta to the first obtuse marginal artery before its bifurcation, a reverse greater saphenous vein graft from the aorta to the p osterior descending coronary artery, exclusion of the left atrial appendage using a 35 mm AtriClip, intraoperative graft flow measurements using the Medistim system, endoscopic harvesting of the left greater saphenous vein from the groin to above the ankle level, intraoperative transesophageal echoc ardiogram and epi-aortic scanning. Acute blood loss anemia, expected outcome given hemodilution and cardiopulmonary bypass pump. The patient was seen in follow-up today on 06/04/2020 at her bedside in the intensive care unit. She is currently sitting up to the bedside chair, is awake, alert and is oriented 3. Currently she denies any complaints of pain or shortness of breath. She reports that she slept much better last night. The patient continues to walk in the intensive care unit hallway with minimal assistance from nursing staff. Continues to shower daily. Remains afebrile in the last 24 hours. Oxygen saturations 95% on 3 L nasal cannula. Achieving 500- 750 mL on her incentive spirometry. Objective - Vital Signs Vital signs: Vital Signs Temp 97.7 F 06/04/20 04:00 Pulse 84 06/04/20 08:28 Resp 26 H 06/04/20 08:00 BP 157/81 06/04/20 08:00 Pulse Ox 95 06/04/20 08:00 Intake & Output 06/03/20 06/04/20 06/04/20 18:59 06:59 18:59 Intake Total 300 480 Output Total 1325 700 Balance -1025 -220 Weight 68.8 kg Intake: IV 100 0 Piperacillin-Tazobactam 3 100 .375 gm In Sodium Chloride 0.9% 100 ml @ 25 mls/hr IVPB Q8HR [facility] Rx# :[id number] Sodium Chloride 0.9% 1, 0 0 000 ml @ 20 mls/hr IV . Q24H [facility] Rx#:[id number] Oral 200 480 Output: Urine 1325 700 Other: Voiding Method Toilet Toilet # Voids 1 # Bowel Movements 1 ABP, PAP, CO, CI - Last Documented Arterial Blood Pressure 92/79 Pulmonary Artery Pressure 33/18 Cardiac Output 4.3 Cardiac Index 2.6 - Constitutional General appearance: Present: average body habitus, cooperative, no acute distress - EENT Eyes: Present: PERRLA, normal appearance. Absent: scleral icterus ENT: Present: hearing grossly normal - Neck Details: Neck is supple, No JVD, no lymphadenopathy. - Respiratory Details: Lungs sounds are essentially clear throughout, few scattered crackles to her bilateral bases. No wheezes or rhonchi. Respirations are symmetrical and nonlabored. Oxygen saturation is 95% on 3 L nasal cannula. Achieving 500-750 mL on her incentive spirometry. - Cardiovascular Details: Regular rhythm and rate. S1 and S2 present, negative for S3, gallop or murmur. Sternum is stable. Bedside telemetry showing normal sinus rhythm heart rate 84 BPM. Heart hugger is in place and she is demonstrating appropriate use. Knee- high MOE hose and sequential compression devices in place to bilateral lower extremities. - Gastrointestinal Gastrointestinal Comment(s): Abdomen is soft, nontender and nondistended. Active bowel sounds present in all 4 abdominal quadrants. No guarding or rigidity. No organomegaly appreciated. Tolerating oral intake. Bowel movement this a.m. - Genitourinary Genitourinary Comment(s): Continues to void. - Integumentary Integumentary Comment(s): Skin is warm and dry. No clubbing or cyanosis is present. Midline sternal incision is clean, dry and approximated. No drainage or redness is present. Left lower extremity EVH site is clean, dry and approximated. No drainage or redness is present. - Neurologic Neurologic: Present: CNII-XII intact - Musculoskeletal Musculoskeletal: Present: gait normal, strength equal bilaterally - Psychiatric Psychiatric: Present: A&O x's 3, appropriate affect, intact judgment & insight - Allied health notes Allied health notes reviewed: nursing - Labs CBC & Chem 7: 06/04/20 04:39 06/04/20 04:39 Labs: Abnormal Lab Results - Last 24 Hours (Table) 06/03/20 06/03/20 06/03/20 Range/Units 11:56 16:43 19:27 WBC (3.8-10.6) k/uL RBC (3.80-5.40) m/uL Hgb (11.4-16.0) gm/dL Hct (34.0-46.0) % Neutrophils # (1.3-7.7) k/uL Monocytes # (0-1.0) k/uL Potassium (3.5-5.1) mmol/L Chloride (98-107) mmol/L BUN (7-17) mg/dL POC Glucose (mg/dL) 130 H 110 H 101 H (75-99) mg/dL 06/04/20 06/04/20 Range/Units 04:39 04:39 WBC 15.6 H (3.8-10.6) k/uL RBC 2.66 L (3.80-5.40) m/uL Hgb 8.6 L (11.4-16.0) gm/dL Hct 25.7 L (34.0-46.0) % Neutrophils # 11.3 H (1.3-7.7) k/uL Monocytes # 1.4 H (0-1.0) k/uL Potassium 3.4 L (3.5-5.1) mmol/L Chloride 110 H (98-107) mmol/L BUN 38 H (7-17) mg/dL POC Glucose (mg/dL) (75-99) mg/dL - Imaging and Cardiology Chest x-ray: report reviewed, image reviewed Assessment and Plan Assessment: 1. Triple-vessel coronary artery disease, non-ST elevated by color infarction this admission, status post three-vessel CABG 2. Hypertension 3. Hyperlipidemia, cholesterol 304, LDL 221 4. History of preoperative SVT 5. Hypothyroidism, previous history of hyper-thyroid treated with radioactive dye, current TSH 15.5, T4 1.05, T3 2.6 6. Current daily tobacco dependence 7. Severe COPD with preoperative FEV1 45% of predicted 8. Almost daily EtOH use without history of withdrawal 9. Bilateral carotid artery stenosis 50-69% 10. Acute blood loss anemia, expected 11. Preserved left ventricular, ejection fraction 50-55% on limited echo. Plan: 1. Continue with aspirin, statin, Plavix, beta ricky. Will increase metoprolol tartrate as tolerated. 2. Wean oxygen as tolerated. Encourage incentive spirometry 10 times every hour while awake. Bronchodilators, corticosteroids, and inhaled steroids per pulmonology support/critical care management. 3. Increase activity as tolerated. Out of bed for all meals. PT/OT/cardiac rehab following. 4. Will continue to monitor daily labs and chest x-rays. Electrolyte replacement per protocol. No transfusion. 5. CIWA protocol. Continue thiamine, folic acid. 6. GI/DVT prophylaxis. 7. Pain control with current medication regimen. 8. Insulin management per primary care service. Patient is not diabetic, preoperative hemoglobin A1c 5.8%. 9. Transfer orders placed for 3 cardiac stepdown unit. 10. Continue to encourage smoking cessation. 11. No diuresis today. 12. More recommendations to follow based on patient's clinical course. Time with Patient: Greater than 30
--- NOTE | 2020-06-04 10:26 | P.PN ---
Subjective Progress Note Date: 06/04/20 Patient is doing well today. She was up in the chair when I saw her. Oxygen supplement decreased to 2 L via nasal cannula since yesterday. Patient denies any shortness of breath. Objective - Vital Signs Vital signs: Vital Signs Temp 97.7 F 06/04/20 04:00 Pulse 95 06/04/20 09:00 Resp 16 06/04/20 09:00 BP 141/78 06/04/20 09:00 Pulse Ox 92 L 06/04/20 09:00 Intake & Output 06/03/20 06/04/20 06/04/20 18:59 06:59 18:59 Intake Total 300 480 200 Output Total 1325 700 Balance -1025 -220 200 Weight 68.8 kg Intake: IV 100 0 Piperacillin-Tazobactam 3 100 .375 gm In Sodium Chloride 0.9% 100 ml @ 25 mls/hr IVPB Q8HR [facility] Rx# :[id number] Sodium Chloride 0.9% 1, 0 0 000 ml @ 20 mls/hr IV . Q24H [facility] Rx#:[id number] Oral 200 480 200 Output: Urine 1325 700 Other: Voiding Method Toilet Toilet Toilet # Voids 1 # Bowel Movements 1 ABP, PAP, CO, CI - Last Documented Arterial Blood Pressure 92/79 Pulmonary Artery Pressure 33/18 Cardiac Output 4.3 Cardiac Index 2.6 - Exam General: The patient is awake and alert, in no distress Eye: there is normal conjunctiva bilaterally. Neck: The neck is supple, there is no JVD. Cardiovascular: Normal S1-S2, no S3-S4, no murmurs. Respiratory: Lungs clear to auscultation bilaterally Gastrointestinal: Abdomen is soft, nontender Musculoskeletal: There is no pedal edema. Neurological:. Speech is normal. Skin: Skin is warm and dry - Labs CBC & Chem 7: 06/04/20 04:39 06/04/20 04:39 Labs: Abnormal Lab Results - Last 24 Hours (Table) 06/03/20 06/03/20 06/03/20 Range/Units 11:56 16:43 19:27 WBC (3.8-10.6) k/uL RBC (3.80-5.40) m/uL Hgb (11.4-16.0) gm/dL Hct (34.0-46.0) % Neutrophils # (1.3-7.7) k/uL Monocytes # (0-1.0) k/uL Potassium (3.5-5.1) mmol/L Chloride (98-107) mmol/L BUN (7-17) mg/dL POC Glucose (mg/dL) 130 H 110 H 101 H (75-99) mg/dL 06/04/20 06/04/20 Range/Units 04:39 04:39 WBC 15.6 H (3.8-10.6) k/uL RBC 2.66 L (3.80-5.40) m/uL Hgb 8.6 L (11.4-16.0) gm/dL Hct 25.7 L (34.0-46.0) % Neutrophils # 11.3 H (1.3-7.7) k/uL Monocytes # 1.4 H (0-1.0) k/uL Potassium 3.4 L (3.5-5.1) mmol/L Chloride 110 H (98-107) mmol/L BUN 38 H (7-17) mg/dL POC Glucose (mg/dL) (75-99) mg/dL Assessment and Plan Assessment: Patient is a 59-year-old female with a history of A. fib not on anticoagulation secondary to no follow-up with PCP, tobacco abuse, and hypothyroidism who presented to the emergency Department complaints of chest pain. She was ultimately found have a non-ST segment elevated myocardial infarction. She was placed on a heparin drip and admitted. She was seen by cardiology and underwent cardiac catheterization. She underwent urgent 3 vessel cardiac bypass surgery on 05/29/2020. She returned to the ICU intubated. She remained intubated overnight on 05/29 and was successfully extubated on 05/30. [facility] but had an episode of hypoxia and was transferred back to the ICU. Non-ST segment elevated myocardial infarction, triple vessel coronary artery disease s/p 3 vessel bypass. - Management per cardiothorasic surgery - ASA, plavix, lipitor, metoprolol Ischemic cardiomyopathy with EF 35-40% - Metoprolol - resume ACEI/ARB when okay with CT surgery - strict I and O daily weights Interstitial infiltrates - possible acute exacerbation of systolic CHF (most likely) - BNP 8900 - Started on antibiotic then discontinued as clinical picture does not fit underlying pneumonia and progressive tone and is only slightly elevated Subclinical hypothyroidism, in the setting of prior Graves' disease with radioactive iodine - started levothyroxine 50 mcg on 06/01. 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% of the predicted, with acute exacerbation - pulmonary recommendations - on steroids, pulmicort, duoneb - D Solu-Medrol transitioned to oral prednisone on 06/04 Hyperglycemia - due to steroids - A1C 5.8 - SSI Tobacco abuse -Cessation -Nicotine replacement EtOH misuse -Cessation encouraged Bilateral Carotid artery disease 50-69% -Aspirin, statin, outpatient follow-up thrombocytopenia, resolved History of SVT DVT prophylaxis: Heparin Discussed with: Patient, nursing Anticipated discharge: per CT surgery Anticipated discharge place: A total of 35 minutes was spent on the care of this complex patient more than 50% of the time was spent in counseling and care coordination.
[2020-06-04] MEDS: guaiFENesin 600 MG TABLET.ER PO SCH ×2 (11:49→20:48)
[2020-06-04] MEDS: LOSARTAN 25 MG TAB PO SCH (11:51)
[2020-06-04 12:16] LABS: Glucose,Whole Blood 117 mg/dL (75-99)
--- NOTE | 2020-06-04 16:13 | P.PN ---
Subjective Progress Note Date: 06/04/20 Principal diagnosis: Status post CABG, postoperative day #6 On 05/29/2020 patient seen in follow-up in the intensive care unit following her 3 vessel cardiac bypass surgery. Patient remains intubated, sedated on mechanical ventilator, initial vent settings were assist control with a rate of 14, tidal vital 450, FiO2 of 70% and PEEP of 5, postoperative blood gases were reviewed showing pH of 7.38, pCO2 44, and pO2 of 293, and this was done on FiO2 of 100%, and subsequently FiO2 was dropped down to 70%. Patient is on 0.9 normal saline at a rate of 50 ML per hour, Diprivan is a 25 mics per kilo per minute, nitroglycerin at 5 mics per kilo per minute, including PACs was started at 6 mg/h. Cardiac output is 4.0, and cardiac index is 2.4, PEEP pressures of 44/32, CVP is 25, patient is sinus mechanism, with a controlled rate, epicardial pacemaker wires to external pacemaker with the backup rate. Postoperative labs revealed a white blood cell count is 7.3, hemoglobin is 8.2, INR is 1.2, sodium is 141, potassium is 3.5, chloride is 115, CO2 is 27, B1 is 12 crit 0.63. Chest x-ray showed bilateral infiltrates and small pleural effusion with mild venous congestion, and fluid overload, ET tube was approximately 2-1/2 cm above the ilda, NG tube in appropriate position, patient has 3 chest tubes, right common mediastinal and left with small amount of sanguinous output in the Pleur-evac, no evidence of any leak, no evidence of pneumothorax on chest x-ray. [facility] postoperative blood gas was satisfactory, however in the course of the following 2 hours patient was noted to be desaturating to 85, and her PEEP was increased to 10, and FiO2 was increased to 100%, repeat chest x-ray was obtained, showing persistent tiny left pleural effusion and bilateral int erstitial and alveolar edema. However patient is diuresing quite well, he has produced 2.2 L in urine output since arrival from the OR. Intraoperatively patient received 1 unit of packed red blood cells, current hemoglobin is 8.2. Patient was reevaluated today on 05/30/20, patient remains intubated and mechanically ventilated. Patient is status post CABG, postoperative day #1. Her ventilator settings are assist control rate of 18 tidal volume is 450 FiO2 50% and PEEP of 5. Patient remains on multiple drips including nitro glycerin drip at 5 per hour, she is also on IV fluid at 50 mL per hour, patient is on propofol which I have discontinued. Her cardiac output is 4.0, cardiac index is 2.4, CVP is 13. Mediastinal and chest tube drainage was noted, roughly in the range of 150-270 mL over night from each. Patient is on minimal dose of propofol, 20 mcg/kg/m, I recommended stopping the propofol as soon as the evaluating the patient, shortly after I came back and switch the patient to a pressure support of 8 and CPAP. 20 minutes later, came back and evaluated the patient, she was doing very well on pressure support and CPAP, and she was moving good tidal volume in the range of 500 mL, and her rate was in the low 20s. Chest x-ray showed mild interstitial edema. Patient was extubated uneventfully to a nasal cannula. Reevaluated today on 05/31/20, patient remains in the ICU, he was extubated yesterday, patient is relatively asymptomatic, sitting in bed, however she is re quiring more FiO2, she is on 8 L high flow nasal cannula, and O2 saturation is in the low 90s. Chest x-ray showed bilateral pulmonary interstitial edema/possible infiltrates. However considering the findings are overnight, I believe these are findings of interstitial edema, patient did receive Lasix earlier by thoracic surgery. Recommended increasing Lasix to twice a day and possibly repeat chest x-ray in the next 24 hours. In the meantime continue incentive spirometry, continue present bronchodilators. Continue present medications. And again will recommend repeat chest x-ray in the morning. If the chest x-ray improves significantly with diuretics, that will imply that the findings are mostly findings of interstitial edema and not interstitial infiltrates. Reevaluated today on 06/01/20, patient remains in the ICU, sitting up in a recliner, has mostly sinus tachycardia, but relatively normal blood pressure. She is not symptomatic, however her chest x-ray is showing significant infiltrates bilaterally. And the differential diagnoses includes congestive heart failure, noncardiogenic pulmonary edema, and possibly bilateral infiltrates/pneumonia, possible Covid 19 pneumonitis. Patient isn't requiring high flow nasal cannula, and her O2 saturation is in the low 90s. CBC does not show any leukocytosis, she does have relative lymphopenia, her electrolytes are normal. Renal profile is normal. Her BNP level is 8900. Hence I'm more inclined to consider that this is likely a picture of systolic congestive heart failure, echocardiogram is pending. Pro-calcitonin is pending. In the meantime I have recommended we empirically cover the patient with antibiotics, but I wou ld strongly recommend that we continue diuretics on this patient I have also recommended that we continue bronchodilators, and added Solu-Medrol. 3 mg IV push every 6 hours. Patient was reevaluated today on 06/02/20, patient was transferred yesterday out of the ICU, however early this morning the patient developed worsening shortness of breath, and worsening chest x-ray, required placement on a non-rebreather mask, recommended Lasix to be given, and I recommended transferring the patient back to ICU. Chest x-ray showed diffuse bilateral airspace disease with pleural effusions, the differential diagnoses includes congestive heart failure, ARDS, and pneumonia. Patient is on diuretics, IV steroids, antibiotics, and clinically she seems to look fine. She is relatively asymptomatic in spite of the fact that she is requiring high flow oxygen. Patient denies being short of breath, she denies any cough, no wheezing, denies any chest pain. WBC count today is 12 hemoglobin is 8.9. Electrolytes are normal renal profile is normal. BNP level is 8900 today. PCR is negative for Covid 19. Pro-calcitonin is pending. Reevaluated today on 06/03/20, patient remains in the ICU, feeling much better today, breathing easier, chest x-ray showed significant improvement, continues to have some interstitial edema but improved compared to the last couple of days. Patient is now on 6 L high flow nasal cannula, patient is -2 L in the last 24-48 hours. She remains empirically on antibiotics, she remains on Lasix and she will be given another dose of Lasix today. Patient is doing well and mu ch better with incentive spirometry. Hence I would likely transfer the patient out of the ICu later today. Labs were reviewed she has a relatively normal electrolytes normal CBC. And again chest x-ray is improved but did not show complete clearance of her interstitial edema Reevaluated today on 06/04/20, patient remains in the ICU this morning, feeling much better, she is sitting in a bedside chair, on 3 L nasal cannula, O2 sats is 95%. Patient denies being short of breath, she is achieving about 750 ML on her incentive spirometer. Patient continues to walk in the intensive care unit [place] with minimal assistance by nursing staff. Chest x-ray continues to show cardiomegaly, mild pulmonary vascular congestion without overt failure. Overall improvement is noted on the chest x-ray today compared to previous x-rays. Objective - Vital Signs Vital signs: Vital Signs Temp 98.5 F 06/04/20 12:09 Pulse 84 06/04/20 15:42 Resp 24 06/04/20 14:00 BP 141/78 06/04/20 09:00 Pulse Ox 93 L 06/04/20 12:09 Intake & Output 06/03/20 06/04/20 06/04/20 18:59 06:59 18:59 Intake Total 300 480 440 Output Total 1325 700 300 Balance -1025 -220 140 Weight 68.8 kg Intake: IV 100 0 0 Piperacillin-Tazobactam 3 100 .375 gm In Sodium Chloride 0.9% 100 ml @ 25 mls/hr IVPB Q8HR [facility] Rx# :[id number] Sodium Chloride 0.9% 1, 0 0 0 000 ml @ 20 mls/hr IV . Q24H [facility] Rx#:[id number] Oral 200 480 440 Output: Urine 1325 700 300 Other: Voiding Method Toilet Toilet Toilet # Voids 1 1 # Bowel Movements 1 ABP, PAP, CO, CI - Last Documented Arterial Blood Pressure 92/79 Pulmonary Artery Pressure 33/18 Cardiac Output 4.3 Cardiac Index 2.6 - Exam GENERAL EXAM: Revealed a 59-year-old female, on 3 L nasal cannula. In no distress. HEAD: Normocephalic/atraumatic. EENT: PERRLA, EOMI, no icterus, moist mucous membranes. CHEST: No chest wall deformity. Symmetrical expansion. LUNGS: Diminished breath sounds at the bases minimal crackles persists. CVS: Regular rate and rhythm, normal S1 and S2, no gallops, no murmurs, no rubs ABDOMEN: Soft, nontender. No hepatosplenomegaly, normal bowel sounds, no guarding or rigidity. EXTREMITIES: No clubbing, no edema, no cyanosis, 2+ pulses and upper and lower extremities. MUSCULOSKELETAL: Muscle strength and tone normal. SPINE: No scoliosis or deformity SKIN: No rashes CENTRAL NERVOUS SYSTEM: Alert and oriented 3 focal deficits. - Labs CBC & Chem 7: 06/04/20 04:39 06/04/20 14:12 Labs: Abnormal Lab Results - Last 24 Hours (Table) 06/03/20 06/03/20 06/04/20 Range/Units 16:43 19:27 04:39 WBC 15.6 H (3.8-10.6) k/uL RBC 2.66 L (3.80-5.40) m/uL Hgb 8.6 L (11.4-16.0) gm/dL Hct 25.7 L (34.0-46.0) % Neutrophils # 11.3 H (1.3-7.7) k/uL Monocytes # 1.4 H (0-1.0) k/uL Potassium (3.5-5.1) mmol/L Chloride (98-107) mmol/L BUN (7-17) mg/dL POC Glucose (mg/dL) 110 H 101 H (75-99) mg/dL 06/04/20 06/04/20 Range/Units 04:39 12:13 WBC (3.8-10.6) k/uL RBC (3.80-5.40) m/uL Hgb (11.4-16.0) gm/dL Hct (34.0-46.0) % Neutrophils # (1.3-7.7) k/uL Monocytes # (0-1.0) k/uL Potassium 3.4 L (3.5-5.1) mmol/L Chloride 110 H (98-107) mmol/L BUN 38 H (7-17) mg/dL POC Glucose (mg/dL) 117 H (75-99) mg/dL Assessment and Plan Assessment: Impression: Status post CABG, three-vessel bypass surgery, JOSE to LAD, SVG to PDA, SVG to obtuse marginal 1. Postoperative day #6 Postoperative blood loss anemia, expected. Hypertension. Dyslipidemia. History of SVT. History of hyperthyroidism Postoperative fluid overload, no evidence of acute lung injury, resolved, expected. Acute diastolic congestive heart failure is strongly suspected. Recommendation: Continue oxygen and titrate accordingly. Continue Lasix. When necessary daily. Continue oral prednisone for her underlying COPD. Continue bronchodilators/DuoNeb updrafts. Continue GI and DVT prophylaxis. Continue aspirin statins Plavix and beta blockers Transfer to a monitor bed on the cardiac unit today Continue to ambulate. Continue incentive spirometer. We'll continue to follow. Time with Patient: Less than 30
--- NOTE | 2020-06-04 16:26 | P.PN ---
Subjective Patient is doing well she is resting comfortably in bed Pulse rate in the 80s, afebrile 98.5F, respirations are normal Blood pressure 141/78 mmHg Respirations 16, pulse rate in the 80s Breath sounds are reduced bilaterally especially at bases Heart sounds S1 and S2 are normal Abdomen soft Extremity is warm Impression History of CAD triple-vessel Status post coronary artery bypass grafting COPD, reduced lung function at baseline Plan Aspirin atorvastatin Plavix to continue When necessary IV Lasix Continue metoprolol tartrate 50 g twice daily May be transferred to [facility] Objective - Vital Signs Vital signs: Vital Signs Temp 98.5 F 06/04/20 12:09 Pulse 84 06/04/20 15:42 Resp 24 06/04/20 14:00 BP 141/78 06/04/20 09:00 Pulse Ox 93 L 06/04/20 12:09 Intake & Output 06/03/20 06/04/20 06/04/20 18:59 06:59 18:59 Intake Total 300 480 440 Output Total 1325 700 300 Balance -1025 -220 140 Weight 68.8 kg Intake: IV 100 0 0 Piperacillin-Tazobactam 3 100 .375 gm In Sodium Chloride 0.9% 100 ml @ 25 mls/hr IVPB Q8HR [facility] Rx# :[id number] Sodium Chloride 0.9% 1, 0 0 0 000 ml @ 20 mls/hr IV . Q24H [facility] Rx#:[id number] Oral 200 480 440 Output: Urine 1325 700 300 Other: Voiding Method Toilet Toilet Toilet # Voids 1 1 # Bowel Movements 1 ABP, PAP, CO, CI - Last Documented Arterial Blood Pressure 92/79 Pulmonary Artery Pressure 33/18 Cardiac Output 4.3 Cardiac Index 2.6 - Labs CBC & Chem 7: 06/04/20 04:39 06/04/20 14:12 Labs: Abnormal Lab Results - Last 24 Hours (Table) 06/03/20 06/03/20 06/04/20 Range/Units 16:43 19:27 04:39 WBC 15.6 H (3.8-10.6) k/uL RBC 2.66 L (3.80-5.40) m/uL Hgb 8.6 L (11.4-16.0) gm/dL Hct 25.7 L (34.0-46.0) % Neutrophils # 11.3 H (1.3-7.7) k/uL Monocytes # 1.4 H (0-1.0) k/uL Potassium (3.5-5.1) mmol/L Chloride (98-107) mmol/L BUN (7-17) mg/dL POC Glucose (mg/dL) 110 H 101 H (75-99) mg/dL 06/04/20 06/04/20 Range/Units 04:39 12:13 WBC (3.8-10.6) k/uL RBC (3.80-5.40) m/uL Hgb (11.4-16.0) gm/dL Hct (34.0-46.0) % Neutrophils # (1.3-7.7) k/uL Monocytes # (0-1.0) k/uL Potassium 3.4 L (3.5-5.1) mmol/L Chloride 110 H (98-107) mmol/L BUN 38 H (7-17) mg/dL POC Glucose (mg/dL) 117 H (75-99) mg/dL
[2020-06-04 16:40] LABS: Glucose,Whole Blood 164 mg/dL (75-99)
[2020-06-04 20:40] LABS: Glucose,Whole Blood 115 mg/dL (75-99)
[2020-06-04] MEDS: ATORVASTATIN 80 MG TAB PO SCH (20:48)
[2020-06-04] MEDS: SENNOSIDES-DOCUSATE SODIUM 1 EACH TAB PO SCH (20:49)
[2020-06-05] MEDS: LEVOTHYROXINE 50 MCG TAB PO SCH (06:15)
[2020-06-05] MEDS: INSULIN ASPART (NovoLOG) 100 UNIT/ML VIAL SQ SCH ×2 (06:15→12:42)
[2020-06-05] MEDS: PANTOPRAZOLE 40 MG TABLET PO SCH (06:15)
[2020-06-05] MEDS: HEPARIN SODIUM,PORCINE 5,000 UNIT/ML 1 ML VIAL SQ SCH ×2 (06:15→13:07)
[2020-06-05 06:25] LABS: Glucose,Whole Blood 94 mg/dL (75-99)
[2020-06-05] MEDS: IPRATROPIUM-ALBUTEROL 3 ML NEB INHALATION SCH ×3 (07:37→15:17)
[2020-06-05] MEDS: BUDESONIDE 1 MG/2 ML NEBU INHALATION SCH (07:37)
[2020-06-05] MEDS: SODIUM CHLORIDE 0.9% 1,000 ML IV SCH ×2 (08:04→08:05)
--- NOTE | 2020-06-05 08:29 | XR ---
EXAMINATION TYPE: XR chest 1V portable DATE OF EXAM: 06/05/2020 COMPARISON: Prior chest x-ray 06/04/2020 HISTORY: Postop coronary artery bypass graft TECHNIQUE: Single frontal view of the chest is obtained. FINDINGS: Patient is post median sternotomy and left atrial appendage clipping placement. Cardiac me diastinal silhouette is stable. No evident pneumothorax or sizable effusion. There are overlying lead s. Suspect improvement in aeration compared to prior exam. IMPRESSION: Improvement in aeration. Follow-up PA and lateral chest x-ray may be of benefit.
[2020-06-05] MEDS: guaiFENesin 600 MG TABLET.ER PO SCH (08:36)
[2020-06-05] MEDS: CLOPIDOGREL 75 MG TAB PO SCH (08:36)
[2020-06-05] MEDS: ASPIRIN 325 MG TAB PO SCH (08:36)
[2020-06-05] MEDS: FOLIC ACID 1 MG TAB PO SCH (08:36)
[2020-06-05] MEDS: METOPROLOL TARTRATE 50 MG TAB PO SCH (08:36)
[2020-06-05] MEDS: predniSONE 20 MG TAB PO SCH (08:37)
[2020-06-05] MEDS: THIAMINE 100 MG TAB PO SCH (08:37)
[2020-06-05 08:44] LABS: HCT 29.3 % (34.0-46.0); HGB 9.7 gm/dL (11.4-16.0); MCH 32.6 pg (25.0-35.0); MCV 98.9 fL (80.0-100.0); Mean Platelet Volume 8.1; Platelet Count 372 k/uL (150-450); RBC 2.96 m/uL (3.80-5.40); RDW 13.8 % (11.5-15.5); WBC 18.5 k/uL (3.8-10.6)
[2020-06-05 08:54] LABS: Calcium 9.3 mg/dL (8.4-10.2); Potassium 3.7 mmol/L (3.5-5.1)
--- NOTE | 2020-06-05 10:31 | P.PN ---
Subjective Progress Note Date: 06/05/20 Patient is doing well today. She was up in the chair when I saw her. Patient denies any shortness of breath. Objective - Vital Signs Vital signs: Vital Signs Temp 97.9 F 06/05/20 04:00 Pulse 88 06/05/20 07:38 Resp 18 06/05/20 04:00 BP 152/89 06/05/20 04:00 Pulse Ox 94 L 06/05/20 07:38 Intake & Output 06/04/20 06/05/20 06/05/20 18:59 06:59 18:59 Intake Total 884 600 660 Output Total 300 Balance 584 600 660 Weight 69.2 kg Intake: IV 0 Sodium Chloride 0.9% 1, 0 000 ml @ 20 mls/hr IV . Q24H [facility] Rx#:[id number] Oral 884 600 660 Output: Urine 300 Other: Voiding Method Toilet Toilet # Voids 1 1 1 # Bowel Movements 1 ABP, PAP, CO, CI - Last Documented Arterial Blood Pressure 92/79 Pulmonary Artery Pressure 33/18 Cardiac Output 4.3 Cardiac Index 2.6 - Exam General: The patient is awake and alert, in no distress Eye: there is normal conjunctiva bilaterally. Neck: The neck is supple, there is no JVD. Cardiovascular: Normal S1-S2, no S3-S4, no murmurs. Respiratory: Lungs clear to auscultation bilaterally Gastrointestinal: Abdomen is soft, nontender Musculoskeletal: There is no pedal edema. Neurological:. Speech is normal. Skin: Skin is warm and dry - Labs CBC & Chem 7: 06/05/20 08:14 06/05/20 08:14 Labs: Abnormal Lab Results - Last 24 Hours (Table) 06/04/20 06/04/20 06/04/20 Range/Units 12:13 16:39 20:38 WBC (3.8-10.6) k/uL RBC (3.80-5.40) m/uL Hgb (11.4-16.0) gm/dL Hct (34.0-46.0) % Chloride (98-107) mmol/L BUN (7-17) mg/dL POC Glucose (mg/dL) 117 H 164 H 115 H (75-99) mg/dL 06/05/20 06/05/20 Range/Units 08:14 08:14 WBC 18.5 H (3.8-10.6) k/uL RBC 2.96 L (3.80-5.40) m/uL Hgb 9.7 L (11.4-16.0) gm/dL Hct 29.3 L (34.0-46.0) % Chloride 113 H (98-107) mmol/L BUN 27 H (7-17) mg/dL POC Glucose (mg/dL) (75-99) mg/dL Assessment and Plan Assessment: Patient is a 59-year-old female with a history of A. fib not on anticoagulation secondary to no follow-up with PCP, tobacco abuse, and hypothyroidism who presented to the emergency Department complaints of chest pain. She was ultimately found have a non-ST segment elevated myocardial infarction. She was placed on a heparin drip and admitted. She was seen by cardiology and underwent cardiac catheterization. She underwent urgent 3 vessel cardiac bypass surgery on 05/29/2020. She returned to the ICU intubated. She remained intubated overnight on 05/29 and was successfully extubated on 05/30. She was transferred to [facility] on 06/01 but had an episode of hypoxia and was transferred back to the ICU. Non-ST segment elevated myocardial infarction, triple vessel coronary artery disease s/p 3 vessel bypass. - Management per cardiothorasic surgery - ASA, plavix, lipitor, metoprolol Ischemic cardiomyopathy with EF 35-40% - Metoprolol - resume ACEI/ARB when okay with CT surgery - strict I and O daily weights Interstitial infiltrates - possible acute exacerbation of systolic CHF (most likely) - BNP 8900 - Started on antibiotic then discontinued as clinical picture does not fit underlying pneumonia and progressive tone and is only slightly elevated Subclinical hypothyroidism, in the setting of prior Graves' disease with radioactive iodine - started levothyroxine 50 mcg on 06/01. 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% of the predicted, with acute exacerbation - pulmonary recommendations - on steroids, pulmicort, duoneb - D Solu-Medrol transitioned to oral prednisone on 06/04 Hyperglycemia - due to steroids - A1C 5.8 - SSI Tobacco abuse -Cessation -Nicotine replacement EtOH misuse -Cessation encouraged Bilateral Carotid artery disease 50-69% -Aspirin, statin, outpatient follow-up thrombocytopenia, resolved History of SVT Discharge planning today per primary team I sent a prescription for Synthroid to her pharmacy Cardiac medications prescription to be sent by primary team Prednisone can be discontinued without tapered dose
[2020-06-05] MEDS: ASPIRIN 81 MG PO SCH (10:40)
[2020-06-05] MEDS: METOPROLOL TARTRATE 25 MG TAB PO SCH (10:40)
[2020-06-05] MEDS: MUPIROCIN 2% OINT 22 GM TUBE NASAL SCH (10:40)
[2020-06-05 11:13] VITALS: TEMP 98.2
[2020-06-05 11:56] LABS: Glucose,Whole Blood 110 mg/dL (75-99)
--- NOTE | 2020-06-05 12:52 | P.PN ---
Subjective Progress Note Date: 06/05/20 HISTORY OF PRESENT ILLNESS: Patient is status post CABG 3. Patient examined this morning at the bedside. Patient states she was ambulating this morning in the hallway. She denies chest pain or pressure. Denies shortness of breath. Vital signs are stable. PHYSICAL EXAM: VITAL SIGNS: Reviewed. GENERAL: Well-developed in no acute distress. NECK: Supple. No JVD or thyromegaly LUNGS: Respirations even and unlabored. Lungs essentially clear to auscultation bilaterally, diminished. HEART: Regular rate and rhythm. S1 and S2 heard. Heart hugger in place. EXTREMITIES: Normal range of motion. No clubbing or cyanosis. Peripheral pulses intact. No lower extremity edema ASSESSMENT: Triple vessel coronary artery disease, s/p CABG Hypertension Hyperlipidemia PLAN: Continue current cardiac medications Patient is stable for discharge today from a cardiac perspective She is to follow up outpatient with Dr. Flower Nurse practitioner note has been reviewed by physician. Signing provider agrees with the documented findings, assessment, and plan of care. Objective - Vital Signs Vital signs: Vital Signs Temp 98.2 F 06/05/20 08:30 Pulse 88 06/05/20 11:22 Resp 18 06/05/20 08:30 BP 129/72 06/05/20 08:30 Pulse Ox 94 L 06/05/20 08:30 Intake & Output 06/04/20 06/05/20 06/05/20 18:59 06:59 18:59 Intake Total 884 600 660 Output Total 300 1 Balance 584 600 659 Weight 69.2 kg Intake: IV 0 Sodium Chloride 0.9% 1, 0 000 ml @ 20 mls/hr IV . Q24H [facility] Rx#:[id number] Oral 884 600 660 Output: Urine 300 Stool 1 Other: Voiding Method Toilet Toilet Toilet # Voids 1 1 1 # Bowel Movements 1 ABP, PAP, CO, CI - Last Documented Arterial Blood Pressure 92/79 Pulmonary Artery Pressure 33/18 Cardiac Output 4.3 Cardiac Index 2.6 - Labs CBC & Chem 7: 06/05/20 08:14 06/05/20 08:14 Labs: Abnormal Lab Results - Last 24 Hours (Table) 06/04/20 06/04/20 06/05/20 Range/Units 16:39 20:38 08:14 WBC 18.5 H (3.8-10.6) k/uL RBC 2.96 L (3.80-5.40) m/uL Hgb 9.7 L (11.4-16.0) gm/dL Hct 29.3 L (34.0-46.0) % Chloride (98-107) mmol/L BUN (7-17) mg/dL POC Glucose (mg/dL) 164 H 115 H (75-99) mg/dL 06/05/20 06/05/20 Range/Units 08:14 11:54 WBC (3.8-10.6) k/uL RBC (3.80-5.40) m/uL Hgb (11.4-16.0) gm/dL Hct (34.0-46.0) % Chloride 113 H (98-107) mmol/L BUN 27 H (7-17) mg/dL POC Glucose (mg/dL) 110 H (75-99) mg/dL
[2020-06-05] MEDS: LOSARTAN 25 MG TAB PO SCH (13:07)
[2020-06-05 13:21] VITALS: BP 135/73; PULSE 85; RESP 16
--- NOTE | 2020-06-05 15:24 | P.DS ---
Providers Date of admission: 05/23/20 23:22 Expected date of discharge: 06/05/20 Attending physician: Jason Contreras Consults: 05/23/20 23:20 Consult Physician Urgent Consulting Provider: Leif Lemon Consult Reason/Comments: nstemi, narrow complex tachycardia Do you want consulting provider notified?: Already Contacted 05/24/20 09:46 Consult Physician Urgent Consulting Provider: Jagjit Fernandes Consult Reason/Comments: URGENT CABG CAD Do you want consulting provider notified?: Already Contacted 05/24/20 15:43 Consult Physician Routine Consulting Provider: Brad Queen Consult Reason/Comments: preop cabg Do you want consulting provider notified?: Already Contacted 05/27/20 08:40 Consult to Anesthesia Routine Consulting Provider: Anesthesia,Services Consult Reason/Comments: Cardiac Surgery Pre-Op 05/29/20 13:46 Consult Physician Routine Consulting Provider: Nitesh Tong Consult Reason/Comments: med mgmt Do you want consulting provider notified?: Already Contacted Primary care physician: Stated None Hospital Course: FINAL DIAGNOSIS: 1. Triple-vessel coronary artery disease, non-ST elevated myocardial infarction this admission, status post three-vessel CABG 2. Hypertension 3. Hyperlipidemia, cholesterol 304, LDL 221 4. History of preoperative SVT 5. Moderate left ventricular dysfunction, preoperative EF 35-40%, postoperatively her overall left ventricular systolic function is low normal with an ejection fraction between 50 and 55% 6. Hypothyroidism, previous history of hyper-thyroid treated with radioactive dye, current TSH 15.5, T4 1.05, T3 2.6 7. Current daily tobacco dependence 8. Severe COPD with preoperative FEV1 45% of predicted 9. Almost daily EtOH use without history of withdrawal 10. Bilateral carotid artery stenosis 50-69% 11. Acute blood loss anemia, expected 12. Postoperative infiltrate, likely fluid overload, no evidence of acute lung injury, resolved PRINCIPAL PROCEDURE: 1. Triple-vessel coronary artery bypass grafting using the left internal mammary artery to left anterior descending coronary artery, a reverse greater saphenous vein graft from the aorta to the first obtuse marginal coronary artery before its bifurcation, a reverse greater saphenous vein graft from the aorta to the posterior descending coronary artery. 2. Exclusion of the left atrial appendage using a 35 mm Atriclip. 3. Intraoperative graft flow measurements using the [employer] system. 4. Endoscopic harvesting of the left greater saphenous vein from the groin to above the ankle level. 5. Intraoperative transesophageal echocardiogram. 6. Intraoperative epi-aortic scanning. HISTORY OF PRESENT ILLNESS: This is a 59-year-old female patient who does not follow with a primary care physician on a regular basis. She reports she had a appointment with Dr. Becky Mccann prior to her hospitalization. Her past medical history is significant for SVT in 2015, hyperthyroidism treated with radioactive dye followed by hypothyroidism with initiation of Synthroid, hyperlipidemia, chronic ongoing tobacco dependence, and near daily EtOH use. She presented to the em ergency department here at [facility] with complaints of aching to her chest with radiation to her jaw and her bilateral upper extremities and associated with shortness of breath and nausea. The patient has been experiencing these types of symptoms off and on with activity and relieved with rest over the past year. Prior to her presenting to the emergency department she was sitting in her garage at rest smoking a cigarette and the chest pain was not being relieved. In the emergency department a 12-lead EKG was completed which showed sinus tachycardia with a rate in the 130s with ST depression in the inferior leads. She did have positive troponins willing her in for a non-ST elevated myocardial infarction. Subsequently, due to her presenting symptoms and elevated troponins she was admitted to the hospital for further workup and evaluation. She was seen by cardiology and underwent a heart catheterization on 05/24/2012 which demonstrated her to have severe calcific triple-vessel coronary artery disease with a totally occluded right coronary artery, a 90% stenosis to her proximal left anterior descending coronary artery, an 80-90% stenosis to her mid left anterior descending coronary artery, and an 80-90% stenosis to her proximal circumflex coronary artery. Patient also underwent a 2-D echocardiogram which demonstrated an overall left ventricular systolic function to be moderately impaired with an ejection fraction between 35 and 40%, moderate to severe mitral valve regurgitation and mild tricuspid valve regurgitation. Due to the findings on the heart catheterization and the patient's presenting symptoms a consult was placed to Dr. Jagjit Fernandes from cardiothoracic surgery for further evaluation and treatment recommendations including myocardial rev ascularization surgery. Dr. Fernandes met with the patient, discussed the findings on her cardiac catheterization films, discussed treatment options with the patient including myocardial revascularization surgery. Risks and benefits of myocardial revascularization surgery were discussed with the patient, including the STS risk score and knowing these risks and benefits the patient wished to proceed with the surgical option. HOSPITAL COURSE: The patient was admitted to the hospital and on 05/29/2020 after obtaining consent, the patient was taken to the preoperative area, prepared in the usual fashion and subsequently taken to the operating room where Dr. Jason Contreras performed a triple-vessel coronary artery bypass grafting using the left internal mammary artery to left anterior descending coronary artery, a reverse greater saphenous vein graft from the aorta to the first obtuse marginal coronary artery before its bifurcation, and a reverse greater saphenous vein graft from aorta to the posterior descending coronary artery. She also underwent exclusion of the left atrial appendage using a 35 mm Atriclip, endoscopic harvesting of the left greater saphenous vein from the groin to above the ankle level, intraoperative transesophageal echocardiogram, intraoperative epi-aortic scanning and intraoperative graft flow measurements using the [employer] system. Upon completion of the surgery the patient was transferred to the cardiovascular intensive care unit where she was recovered, monitored hemodynamically and where she progressed to cardiac rehabilitation phase 1. She was extubated, all lines, tubes and supportive drips were discontinued when appropriate and she was transferred to the third floor cardiac stepdown unit for further monitoring and rehabilitation. Her oxygen was titrated down, she continued to work with physical/occupational therapy and cardiac rehab, she was tolerating an oral diet, her pain was well-controlled and she was ready be discharged home with [facility] on postoperative day #7. She has received written and verbal instructions regarding her medications, activity restrictions, signs and symptoms requiring physician on occasion and her follow- up appointments. COMPLICATIONS: There were no postoperative complications. CONSULTATIONS: 1. Dr. URVASHI Flower for cardiology management. 2. Dr. Dr. Henson for pulmonary and ventilator management. 3. Dr. Tong for medical management. Plan - Discharge Summary Discharge Rx Participant: No New Discharge Prescriptions: New Levothyroxine Sodium [Synthroid] 50 mcg PO DAILY@0630 #30 tab Ipratropium-Albuterol Nebulize [Duoneb 0.5 mg-3 mg/3 ml Soln] 3 ml INHALATION QID 30 Days #5 box Budesonide-Formot 160-4.5 Mcg [Symbicort 160-4.5 Mcg Inhaler] 2 puff INHALATION BID 30 Days #1 inhaler Aspirin 325 mg PO DAILY tab Losartan [Cozaar] 25 mg PO DAILY@1200 #30 tab Folic Acid 1 mg PO DAILY #30 tab Atorvastatin [Lipitor] 80 mg PO HS #30 tab Metoprolol Tartrate [Lopressor] 50 mg PO BID #60 tab guaiFENesin [Mucinex] 1,200 mg PO Q12HR #14 tablet.er Clopidogrel [Plavix] 75 mg PO DAILY #30 tab Pantoprazole [Protonix] 40 mg PO AC-BRKFST #30 tablet.dr Mejia-Docusate Sodium [Senokot-S] 2 each PO HS #7 tab Acetaminophen Tab [Tylenol] 650 mg PO Q4HR PRN tab PRN Reason: Fever And/ Or Pain Thiamine [Vitamin B-1] 100 mg PO DAILY #30 tab Discharge Medication List Acetaminophen Tab [Tylenol] 650 mg PO Q4HR PRN tab 06/05/20 [Rx] Aspirin 325 mg PO DAILY tab 06/05/20 [Rx] Atorvastatin [Lipitor] 80 mg PO HS #30 tab 06/05/20 [Rx] Budesonide-Formot 160-4.5 Mcg [Symbicort 160-4.5 Mcg Inhaler] 2 puff INHALATION BID 30 Days #1 inhaler 06/05/20 [Rx] Clopidogrel [Plavix] 75 mg PO DAILY #30 tab 06/05/20 [Rx] Folic Acid 1 mg PO DAILY #30 tab 06/05/20 [Rx] Ipratropium-Albuterol Nebulize [Duoneb 0.5 mg-3 mg/3 ml Soln] 3 ml INHALATION QID 30 Days #5 box 06/05/20 [Rx] Levothyroxine Sodium [Synthroid] 50 mcg PO DAILY@0630 #30 tab 06/05/20 [Rx] Losartan [Cozaar] 25 mg PO DAILY@1200 #30 tab 06/05/20 [Rx] Metoprolol Tartrate [Lopressor] 50 mg PO BID #60 tab 06/05/20 [Rx] Pantoprazole [Protonix] 40 mg PO AC-BRKFST #30 tablet. 06/05/20 [Rx] Sennosides-Docusate Sodium [Senokot-S] 2 each PO HS #7 tab 06/05/20 [Rx] Thiamine [Vitamin B-1] 100 mg PO DAILY #30 tab 06/05/20 [Rx] guaiFENesin [Mucinex] 1,200 mg PO Q12HR #14 tablet.er 06/05/20 [Rx] Follow up Appointment(s)/Referral(s): Mikel Flower MD [STAFF PHYSICIAN] - 10 Days (office will call with a follow up appointment, per Katelyn.) Rehab [facility],Cardiac [NON-STAFF] - 4 Weeks (You will be called approximately 4-6 weeks after surgery for cardiac rehab evaluation) Jason Contreras MD [STAFF PHYSICIAN] - 06/30/20 10:00 am Dakota Sanders NPC [Nurse Practitioner] - 06/12/20 11:15 am Jose Mccann DO [STAFF PHYSICIAN] - 2 Weeks None,Stated [Primary Care Provider] - 1-2 days Brad Queen MD [STAFF PHYSICIAN] - 06/19/20 1:00 pm Ambulatory/Diagnostic Orders: Complete Blood Count w/diff [LAB.AMB] Time Frame: 06/08/20, Facility: [facility], Location: [facility] Comprehensive Metabolic Panel [LAB.AMB] Time Frame: 06/08/20, Facility: [facility], Location: [facility] Activity/Diet/Wound Care/Special Instructions: Patient will require oxygen and a nebulizer at discharge for dx: COPD DISCHARGE INSTRUCTIONS: 1. No driving for 4 weeks, or until physician gives their ok. 2. The patient should sleep in their own bed, no medical bed needed. 3. Stairs are not an issue. If the bedroom is upstairs, it is advised that the patient go up at night and down in the morning for the first week. Go slowly, using handrail and take 1 step at a time. 4. MOE hose are to be worn for 30 days or until physician discontinues. 5. Heart hugger is to be worn 100% of the time until physician discontinues.(except when showering) 6. No lifting, pushing, or pulling more than 10 pounds for 12 weeks. The physician will advise of any restriction changes. 7. The patient is expected to continue the prescribed walking program. 8. Continue pain control per as needed orders. 9. Continue with incentive spirometry and splinting/heart hugger until othe rwise directed by the physician. 10. Must shower daily using liquid antibacterial soap and a separate white washcloth for each individual incision. 11. Routine sternal incision care. No powders, lotions, ointments on incisions. No dressings are necessary on incisions unless they are draining. Dermabond tape is to remain on sternal incision until surgeon follow-up. 12. Please call surgeon/CONSTRUCTION LINEMAN for temp greater than 101 F or purulent drainage from incisions. 13. All prescriptions given by surgeon for 30 days. Refills need to be filled through plant chief/primary care physician. 14. A Red armband has been placed on the patient. It should be worn for 30 days post surgery and will be removed by the cardiac surgeons. If an ER visit is necessary, please make sure the number on the Red armband is called. 15. You have been referred to and are expected to begin Cardiac Rehab in approximately 4-6 weeks. HOME HEALTH SERVICES TO PROVIDE: RN SKILLED HOME CARE SERVICES FOR POST-OP SURGICAL PATIENTS WITH THE FOLLOWING: Coronary Artery Bypass Surgery (CABG), Mitral Valve Replacement/Repair ( MVR), Aortic Valve Replacement/Repair (AVR) RN TO CONTINUE EDUCATION FROM ``ROAD TO A HEALTH HEART PATIENT EDUCATION MANUAL (GIVEN TO PATIENT IN THE HOSPITAL) MEDICATION RECONCILIATION WITH EDUCATION NEEDED ON FIRST HOME VISIT EMPHASIZE IMPORTANCE OF WEARING BREAST SUPPORT/HEART HUGGER ENCOURAGE USE OF INCENTIVE SPIROMETER 10 X EVERY HOUR WHILE AWAKE ENCOURAGE UTILIZATION OF LOWER EXTREMITY COMPRESSION STOCKINGS/MOE HOSE and ELEVATE LEGS ABOVE LEVEL OF HEART WHILE AT REST. ENCOURAGE AMBULATION 3-5x/day INCREASING TOLERATES, WHILE AVOIDING EXTREMES IN TEMPERATURE FREQUENCY: RN TO OPEN THE PATIENT WITHIN 24 HOURS OF DISCHARGE FROM THE HOSPITAL WITH TELEHEALTH INSTALLED AT [facility] [place], RN TO VISIT 2-3 X A WEEK FOR 4 WEEKS ESTABLISHED BY PATIENT NEEDS. LABORATORY: CBC, CMP TO BE DRAWN ON THE THIRD DAY HOME, (RAN STAT) FAX RESULTS TO [phone]. TELEHEALTH PARAMETERS: WEIGHT: NOTIFY MD OF WEIGHT GAIN OF 2 LBS IN 24 HOURS OR 5 LBS IN ONE WEEK HR: NOTIFY MD OF HR <55 BPM OR HR>100 BPM BP: NOTIFY MD IF BP <90/55 OR BP>140/100 O2 SAT: NOTIFY MD IF PO2<93% ON ROOM AIR SEND TELEHEALTH REPORT TO CERAMICS INSTRUCTOR AND CARDIOVASCULAR SURGEON THE FIRST WEEK OF CARE AND THEN BI-WEEKLY. PLEASE ADDITIONALLY COMMUNICATE ANY ABNORMALS AND NEW FINDINGS TO THE SURGEONS OFFICE. For any questions or concerns please call corporate specialist Ginette @ or Phong @ Discharge Disposition: HOME WITH HOME HEALTH SERVICES
--- NOTE | 2020-06-05 16:13 | PN ---
PROGRESS NOTE PULMONARY/CRITICAL CARE PROGRESS NOTE: DATE OF SERVICE: 06/05/2020 This patient is a 59-year-old female, postoperative day number 7, status post 3-vessel bypass grafting, including JOSE to LAD, SVG to PDA, and SVG to obtuse marginal. The patient had postoperative blood loss anemia, which was expected, underwent postoperative ventilator management, as expected, and carries with her a diagnosis of hypertension, hyperlipidemia, SVT, hyperthyroidism, and some postoperative fluid overload which responded to diuretics. Anyway, the patient is doing much better. She likely will be discharged home on oxygen therapy. In addition, the patient smoked from the age of 19 to the age of 59; 40 years of tobacco use. She likely has some underlying COPD. She will be discharged home on some DuoNeb q.i.d. and p.r.n. and Symbicort 160/4.5 two puffs twice a day. PHYSICAL EXAMINATION: VITAL SIGNS: Current vital signs are reviewed. Temperature 98.2, heart rate 85, respiratory rate 16, blood pressure 135/73, and room-air saturation 90%. Two-liter saturation is 94%. GENERAL APPEARANCE: Appears in no acute distress. HEENT: Examination is grossly unremarkable. NECK: Supple. Full range of motion. No adenopathy. Neck veins are flat. CARDIOVASCULAR: Examination reveals regular rhythm and rate. Heart rate in the 80s. S1, S2 normal. Heart sounds are distant. No murmur. LUNGS: Lungs reveal a few scattered rhonchi. No wheezes or crackles. ABDOMEN: Soft. Bowel sounds are heard. EXTREMITIES: Intact. No edema. SKIN: Without rash. NEUROLOGIC: Neurologic examination is nonfocal. LABS/IMAGING: Reviewed. White count 18.5, hemoglobin 9.7, hematocrit 29.3, platelet count normal. Sodium and potassium normal. Chloride is 113, CO2 27. Anion gap is 5. BUN and creatinine were 27 and 0.85. Microbiology is negative. The most recent chest x-ray shows some mild fluid overload/interstitial edema with small effusions, left greater than right. CURRENT MEDICATIONS: Reviewed. The patient is currently on Tylenol, aspirin, Lipitor, Cepacol lozenges, Dulcolax, Pulmicort, Plavix, folic acid, Mucinex, subcutaneous heparin, insulin, DuoNeb, levothyroxine, Cozaar, milk of magnesia, magnesium per protocol, Reglan, metoprolol, Zofran, Protonix, potassium and phosphorus replacement protocols, Senna, and thiamine. ASSESSMENT: 1. Postoperative day number 7, status post three-vessel bypass grafting including JOSE to LAD, SVG to PDA, and SVG to obtuse marginal. 2. Routine postoperative ventilator management. 3. Postoperative blood loss anemia, improved. 4. Hypertension. 5. Hyperlipidemia. 6. History of supraventricular tachycardia. 7. History of hyperthyroidism. 8. Postoperative fluid overload. 9. Acute diastolic heart failure. PLAN: Currently the patient is doing well. She was counseled about the importance of smoking cessation. She will follow up with us in the office. She will be discharged home on oxygen be used p.r.n. In addition, we will send her home with DuoNeb as well as Symbicort 160/4.5 two puffs twice a day. Additional recommendations and suggestions are forthcoming. Prognosis is guarded. MMODL / IJN: [id number] /
--- NOTE | 2020-06-07 05:39 | CDI ---
Documentation Clarification Form Date: 06/07/20 From: Neno Flower Phone: If you have a question about this query, please contact Faye Burkett Chief Nursing Executive at [phone] between 8am and 5pm. Admit Date: 05/23/2020 11:22:00 PM Patient Name: Lacie Mack Visit Number: [id number] Discharge Date: 06/05/2020 05:55:00 PM ATTENTION: The Clinical Documentation Specialists (CDI) and [facility] Coding Staff appreciate your assistance in clarifying documentation. Please respond to the clarification below the line at the bottom and electronically sign. The CDI & [facility] Coding staff will review the response and follow-up if needed. Please note: Queries are made part of the Legal Health Record. If you have any questions, please contact the author of this message via ITS. Dr. Jason Contreras MD., CHF is documented in 05/31 progress note as "Acute diastolic congestive heart failure is strongly suspected". 06/[address] Geo Corbett DO stated as "Acute diastolic congestive heart failure ". History/Risk Factors: CHF, Atrial fibrillation, ventricular tachycardia, NSTEMI CAD. Clinical Indicators: Hence I'm more inclin ed to consider that this is likely a picture of systolic congestive heart failure, echocardiogram is pending. VS/Pulse OX: Pulse Ox 95 06/02/20 10:00 BNP:- BNP 8900 Echocardiogram Results: 05/24 "Overall left ventricular systolic function is moderately impaired w ith, an EF between 35 - 40 %." 06/01 Overall left ventricular systolic function is low-normal with, an EF between 50- 55 %. Chest X Ray: 06/02 Chest X ray "Diffuse bilateral airspace disease with pleural effusion correlate for CHF versus diffuse pneumonia. Treatment: IV lasix In your professional opinion, can you please clarify the acuity and type of CHF if known? Systolic Heart Failure: Acute Chronic Acute on Chronic Diastolic Heart Failure: Acute Chronic Acute on Chronic Systolic & Diastolic Heart Failure: Acute Chronic Acute on Chronic Heart Failure Unable to Determine Other, please specify Systolic chronic heart failure MTDD
== END 2020-06-05 17:55 | disposition home health service (06) | DRG 233 ==
LOC: EC 21:23 → 3SCARD 23:22 → 2SICU 05-24 13:42 → 3SCARD 05-25 22:41 → 2SICU 05-29 07:41 → 3SCARD 06-01 17:10 → 2SICU 06-02 02:42 → 3SCARD 06-04 12:19
PROVIDERS: ADMIT Internal Medicine; ATTEND Surgery
PROC: 4A023N7 Measurement of Cardiac Sampling and Pressure, Left Heart, Percutaneous Approach (ICD-10-PCS; 2020-05-24)
PROC: B2111ZZ Fluoroscopy of Multiple Coronary Arteries using Low Osmolar Contrast (ICD-10-PCS; 2020-05-24)
PROC: B246ZZ4 Ultrasonography of Right and Left Heart, Transesophageal (ICD-10-PCS; principal; 2020-05-29 08:00)
PROC: 06BQ0ZZ Excision of Left Saphenous Vein, Open Approach (ICD-10-PCS; principal; 2020-05-29 08:00)
PROC: 021109W Bypass Coronary Artery, Two Arteries from Aorta with Autologous Venous Tissue, Open Approach (ICD-10-PCS; principal; 2020-05-29 08:00)
PROC: 02L70CK Occlusion of Left Atrial Appendage with Extraluminal Device, Open Approach (ICD-10-PCS; principal; 2020-05-29 08:00)
PROC: 02100Z9 Bypass Coronary Artery, One Artery from Left Internal Mammary, Open Approach (ICD-10-PCS; principal; 2020-05-29 08:00)
PROC: 30233N1 Transfusion of Nonautologous Red Blood Cells into Peripheral Vein, Percutaneous Approach (ICD-10-PCS; 2020-05-30)
DX: I21.4 Non-ST elevation (NSTEMI) myocardial infarction (principal); J96.01 Acute respiratory failure with hypoxia; I25.810 Atherosclerosis of coronary artery bypass graft(s) without angina pectoris; I47.2 Ventricular tachycardia; D62 Acute posthemorrhagic anemia; I47.1 Supraventricular tachycardia; I50.22 Chronic systolic (congestive) heart failure; D69.6 Thrombocytopenia, unspecified; I11.0 Hypertensive heart disease with heart failure; I25.5 Ischemic cardiomyopathy; I25.82 Chronic total occlusion of coronary artery; E03.9 Hypothyroidism, unspecified; E78.5 Hyperlipidemia, unspecified; F17.210 Nicotine dependence, cigarettes, uncomplicated; I48.91 Unspecified atrial fibrillation; Z20.828 Contact with and (suspected) exposure to other viral communicable diseases; I25.10 Atherosclerotic heart disease of native coronary artery without angina pectoris; J44.9 Chronic obstructive pulmonary disease, unspecified; T38.0X5A Adverse effect of glucocorticoids and synthetic analogues, initial encounter; I34.0 Nonrheumatic mitral (valve) insufficiency; E05.90 Thyrotoxicosis, unspecified without thyrotoxic crisis or storm; I65.23 Occlusion and stenosis of bilateral carotid arteries; Z79.82 Long term (current) use of aspirin; Z79.01 Long term (current) use of anticoagulants; Z91.19 Patient's noncompliance with other medical treatment and regimen; Z82.0 Family history of epilepsy and other diseases of the nervous system; Z80.8 Family history of malignant neoplasm of other organs or systems; Z79.899 Other long term (current) drug therapy; Z90.89 Acquired absence of other organs; Z98.51 Tubal ligation status
CPT/HCPCS: 36415; 36430; 71045; 71046; 80048; 80053; 80061; 80074; 81001; 82330; 82805; 83036; 83735; 83880; 84132; 84145; 84439; 84443; 84481; 84484; 85025; 85027; 85049; 85379; 85520; 85610; 85730; 86769; 86850; 86891; 86900; 86901; 86920; 87070; 87635; 93005; 93306; 93308; 93458; 93880; 93923; 93930; 93970; 94002; 94003; 94150; 94640; 94760; 96365; 96376; 99291

== ENCOUNTER → 2020-06-08 | Outpatient (CLI) | payer BC ==
[2020-06-08 09:37] LABS: Basophils # (A) 0.1 k/uL (0-0.2); Basophils % (A) 1 %; Eosinophils # (A) 0.6 k/uL (0-0.7); Eosinophils % (A) 4 %; HCT 29.3 % (34.0-46.0); HGB 9.6 gm/dL (11.4-16.0); Hypochromasia Slight; Lymphocytes # (A) 1.4 k/uL (1.0-4.8); Lymphocytes % (A) 9 %; MCH 32.2 pg (25.0-35.0); MCHC 32.9 g/dL (31.0-37.0); MCV 97.8 fL (80.0-100.0); Mean Platelet Volume 7.6; Monocytes # (A) 0.9 k/uL (0-1.0); Monocytes % (A) 6 %; Neutrophils # (A) 12.2 k/uL (1.3-7.7); Neutrophils % (A) 79 %; Platelet Count 470 k/uL (150-450); RBC 2.99 m/uL (3.80-5.40); RDW 14.1 % (11.5-15.5); WBC 15.4 k/uL (3.8-10.6)
[2020-06-08 14:45] LABS: African American GFR (CKD) 110.7 (60.0-200.0); Albumin 3.9 g/dL (3.80-4.90); Albumin/Globulin Ratio 2.44 (1.60-3.17); Anion Gap 6.6 mmol/L (4.00-12.00); BUN/Creat Ratio 21.43 Ratio (12.00-20.00); Calcium 8.7 mg/dL (8.7-10.3); Carbon Dioxide 26.4 mmol/L (21.6-31.8); Globulin 1.6 g/dL (1.6-3.3); Non-African American GFR(CKD) 95.5 (60.0-200.0); Potassium 5.2 mmol/L (3.5-5.5); Total Bilirubin 0.4 mg/dL (0.3-1.2); Total Protein 5.5 g/dL (6.2-8.2)
== END | disposition home or self-care (01) ==
LOC: LABWHC1 09:11
PROVIDERS: ATTEND Nurse Practitioner Family
DX: Z95.1 Presence of aortocoronary bypass graft (principal)
CPT/HCPCS: 36415; 80053; 85025

== ENCOUNTER → 2020-11-10 | Outpatient (CLI) | payer BC ==
[2020-11-11 06:11] LABS: T4, Free (Free Thyroxine) 0.8 ng/dL (0.80-1.80)
== END | disposition home or self-care (01) ==
LOC: LABWHC1 15:54
PROVIDERS: ATTEND Internal Medicine Interventional Cardiology
DX: E03.9 Hypothyroidism, unspecified (principal); I25.10 Atherosclerotic heart disease of native coronary artery without angina pectoris
CPT/HCPCS: 36415; 84439; 84443

== ENCOUNTER → 2020-12-08 | Outpatient (CLI) | payer BC ==
--- NOTE | 2020-12-08 11:55 | US ---
EXAMINATION TYPE: US carotid duplex BILAT DATE OF EXAM: 12/08/2020 COMPARISON: NONE CLINICAL HISTORY: R42 DIZZINESS. Dizziness high cholesterol EXAM MEASUREMENTS: RIGHT: Peak Systolic Velocity (PSV) cm/sec ----- Right CCA: 73.5 ----- Right ICA: 96.8 ----- Right ECA: 104 ICA/CCA ratio: 1.3 RIGHT: End Diastole cm/sec ----- Right CCA: 18.3 ----- Right ICA: 29.9 ----- Right ECA: 15.4 LEFT: Peak Systolic Velocity (PSV) cm/sec ----- Left CCA: 64.8 ----- Left ICA: 146.3 ----- Left ECA: 76.9 ICA/CCA ratio: 2.3 LEFT: End Diastole cm/sec ----- Left CCA: 14 ----- Left ICA: 44.6 ----- Left ECA: 10.7 VERTEBRALS (direction of flow): Right Vertebral: Antegrade Left Vertebral: Antegrade Rhythm: Normal Atherosclerotic plaque is seen bilaterally. IMPRESSION: 50-69% stenosis of the left internal carotid artery by peak systolic velocity criteria. Criteria for Assigning % of Stenosis / Diameter reduction (Estimation based on the indirect measurements of the internal carotid artery velocities (ICA PSV). 1. Normal (no stenosis)=ICA PSV < 125 cm/s: ratio < 2.0: ICA EDV<40 cm/s. 2. Less than 50% stenosis=ICA PSV < 125 cm/s: ratio < 2.0: ICA EDV<40 cm/s. 3. 50 to 69% stenosis=ICA PSV of 125 to 230 cm/s: ration 2.0 ? 4.0: ICA EDV 40-100 cm/s. 4. Greater than 70% stenosis to near occlusion= ICA PSV > 230 cm/s: ratio > 4.0: ICA EDV > 100 cm/s. 5. Near occlusion= ICA PSV velocities may be low or undetectable: variable ratio and ICA EDV. 6. Total occlusion=unable to detect flow.
== END | disposition home or self-care (01) ==
LOC: RADUSWWP 10:56
PROVIDERS: ATTEND Internal Medicine
DX: I65.22 Occlusion and stenosis of left carotid artery (principal)
CPT/HCPCS: 93880

== ENCOUNTER → 2021-08-10 | Outpatient (CLI) | payer BC ==
--- NOTE | 2021-08-10 12:57 | XR ---
Cervical spine HISTORY: Neck pain, left arm numbness and tingling 5 views of the cervical spine Cervical vertebral bodies show preserved height and bone mineralization. There is a retrolisthesis gr negar 1 C3-4, C4-5 and C5-C6. Facet arthropathy changes are present. There is multilevel spondylosis. L oss of disc height is present at C3-4, C4-5, C5-6 and C6-7. Prevertebral soft tissues are within norm al limits. Patient is post median sternotomy. Oblique images show foraminal encroachment at C3-4, C4- 5, C5-6 and C6-7 on the right, C5-6 on the left. IMPRESSION: Degenerative disease, facet arthropathy, multilevel foraminal encroachment as described.
== END | disposition home or self-care (01) ==
LOC: RADXRMAIN 10:31
PROVIDERS: ATTEND Nurse Practitioner Family
DX: M47.812 Spondylosis without myelopathy or radiculopathy, cervical region (principal)
CPT/HCPCS: 72050

== ENCOUNTER → 2022-01-10 | Outpatient (CLI) | payer BC ==
--- NOTE | 2022-01-10 16:40 | MR ---
EXAMINATION TYPE: MR brain wo/w con DATE OF EXAM: 01/10/2022 COMPARISON: NONE HISTORY: Cerebral infarction, unspecified TECHNIQUE: Multiplanar, multisequence images of the brain and brainstem is performed without and with IV contras t, utilizing 6.5 mL intravenous Gadavist . FINDINGS: Diffusion weighted images demonstrate no evidence of a recent infarct or other diffusion ab normality. There is mild ventricular and sulcal prominence. A few small scattered foci of T2 hyperin tensity are seen throughout the white matter bilaterally. Approximately 10-15 small scattered lesions are seen. Lesions are nonspecific in appearance and distribution. Midline structures demonstrate normal morphology. The craniocervical junction appears within normal limits. Post contrast images demonstrate no abnormal enhancement. The dural venous sinuses appear pa tent. The visualized sinuses are clear and the globes are intact. IMPRESSION: No MRI evidence for recent infarct. There is mild diffuse cerebral atrophy and mild chron ic small vessel ischemic change appreciated.
== END | disposition home or self-care (01) ==
LOC: RADMRIMAIN 14:29
PROVIDERS: ATTEND Internal Medicine Geriatric Medicine
DX: G31.9 Degenerative disease of nervous system, unspecified (principal); I67.82 Cerebral ischemia
CPT/HCPCS: 70553; A9585

== ENCOUNTER → 2022-02-21 | Outpatient (CLI) | payer BC ==
--- NOTE | 2022-02-22 15:19 | CT ---
EXAMINATION TYPE: CT orbits wo/w con DATE OF EXAM: 02/21/2022 COMPARISON: None HISTORY: per patient droopy eyes. paralytic strabismus, thyrotoxicosis CT DLP: 775.30 mGycm Automated exposure control for dose reduction was used. Contrast: None Technique: Axial images 2 mm thick sections. Reconstructed images in the coronal plane. Study perform ed without and with contrast. FINDINGS: Bilateral proptosis is present. There appears to be some fullness of the right lacrimal gland anterio r to the right greater wing of the sphenoid. Left lacrimal gland likewise is anteriorly displaced in relation to the greater wing of the sphenoid from the proptosis. Greater wing of sphenoid appears int act. Zygomatic arches appear intact. Medial dumont of the orbit are intact. Nasal bones are intact. Or bital fissures appear unremarkable. Orbital floors appear normal Minimal mucosal thickening within the maxillary sinuses. Ethmoid air cells sphenoid sinuses and front al sinuses appear normal. Portion of the mastoid air cells within the field of view are clear. The globes are symmetrical. Extraocular muscles appear normal and symmetrical. Note is made to left s eptal deviation. The ostiomeatal units are patent. IMPRESSION: 1. BILATERAL PROPTOSIS. 2. MINIMAL MUCOSAL THICKENING WITHIN INFERIOR MAXILLARY SINUSES..
== END | disposition home or self-care (01) ==
LOC: RADCTMAIN 13:51
PROVIDERS: ATTEND Ophthalmology
DX: H05.20 Unspecified exophthalmos (principal); J34.89 Other specified disorders of nose and nasal sinuses; H49.9 Unspecified paralytic strabismus; E05.00 Thyrotoxicosis with diffuse goiter without thyrotoxic crisis or storm
CPT/HCPCS: 70482; Q9967

== ENCOUNTER → 2022-05-08 | Outpatient (CLI) | payer BC ==
[2022-05-08 22:26] LABS: Chol/HDL Ratio 1.95 Ratio; LDL Cholesterol,Calculated 44.8 mg/dL (0.0-131.0)
== END | disposition home or self-care (01) ==
LOC: LABWHC1 10:10
PROVIDERS: ATTEND Nurse Practitioner
DX: E78.5 Hyperlipidemia, unspecified (principal)
CPT/HCPCS: 36415; 80061

== ENCOUNTER 2022-12-25 07:24 | Day surgery (SDC) | payer BC ==
[~2022-12-25 07:24] MED LIST: DEXAMETHASONE SOD PHOSPHATE 4 MG/ML 1 ML VIAL IV ONE; LACTATED RINGERS 1,000 ML IV SCH; LIDOCAINE 1% (10MG/ML) FOR IV START INTRADERMA PRN; MOXIFLOXACIN HCL 0.5% DROPS 3 ML BTL OP PRN; ONDANSETRON 4 MG/2 ML VIAL IVP ONE; TETRACAINE 0.5% OPHTH (PF) DROPS 4 ML BTL OP PRN; TIMOLOL 0.5% OPHTH DROPS 5 ML BTL OP PRN
[2022-12-25] MEDS: CYCLOPENTOLATE 1% OPHTH SOLN 2 ML BTL OP PRN ×3 (08:05→08:19)
[2022-12-25] MEDS: PHENYLEPHRINE 2.5% OPHTH DRP 2ML OP PRN ×3 (08:08→08:22)
[2022-12-25 08:24] VITALS: TEMP 97.8
[2022-12-25] MEDS ORDERED: MIDAZOLAM 2 MG/2 ML VIAL ONE (09:02)
[2022-12-25] MEDS ORDERED: EPINEPHrine (PF) 0.3 ML in BALANCED SALT IRRIG SOLN COMB2 500 ML IRRIGATION ONE (09:10)
[2022-12-25] MEDS ORDERED: LIDOCAINE 1% (PF) 10MG/ML VIAL MISCELLANE ONE (09:11)
[2022-12-25] MEDS ORDERED: HYALURONATE SODIUM INTRAOCULAR 1 EACH SYRINGE (12MG/ML) INTRAOCULA ONE (09:11)
[2022-12-25] MEDS ORDERED: BALANCED SALT IRRIG SOLN COMB2 15 ML IRRIG.SOLN IRRIGATION ONE (09:11)
--- NOTE | 2022-12-25 09:31 | P.OP ---
Date of Procedure: 12/25/22 Preoperative Diagnosis: NS & cS & PSC Postoperative Diagnosis: same Procedure(s) Performed: PIOL, OS Implants: MX60E 16.50 Anesthesia: MAC Surgeon: Tommy Marques Pathology: none sent Condition: stable Disposition: same day Indications for Procedure: blurry vision Operative Findings: no complications
[2022-12-25 09:53] VITALS: BP 158/78; PULSE 73; RESP 14
--- NOTE | 2022-12-26 02:32 | OP ---
OPERATIVE REPORT DATE OF SERVICE : 12/25/2022 PREOPERATIVE DIAGNOSES: Nuclear sclerosis, cortical sclerosis, posterior subcapsular cataract. POSTOPERATIVE DIAGNOSES: Nuclear sclerosis, cortical sclerosis, posterior subcapsular cataract. OPERATION: Phacoemulsification of cataract and intraocular lens implant, left eye. ESTIMATED BLOOD LOSS: Zero. SPECIMEN TAKEN: None. NARRATIVE: After obtaining the appropriate consent, the patient was brought to the operating room where the patient was placed under cardiac monitoring and prepped and draped in the usual sterile manner. At the 5 o'clock position, a 15-degree super sharp blade was used to create a paracentesis followed by instillation of 1% Xylocaine MPF 50:50 mix with BSS into the anterior chamber. This was followed by Duovisc viscoelastic to stabilize the anterior chamber. At the 3 o'clock position a self-sealing corneal flap incision was created using 2.8 mm guillermina keratome. A cystotome was used to initiate a continuous tear capsulorrhexis which was completed with the Utrata forceps. A Binkhorst cannula was used to hydrodissect the lens nucleus followed by hydrodelineation. Phacoemulsification of the lens was performed utilizing phacochop in 16.18 seconds at 17% power. The remaining cortical material was removed using the irrigation aspiration mode followed by additional 1% Xylocaine MPF into the anterior chamber followed by viscoelastic to stabilize the capsular bag. A [employer] MX60E, 16.5 diopters posterior chamber lens was placed into the capsular bag without difficulty. The remaining viscoelastic material was removed from the anterior chamber with the irrigation/aspiration. Balanced salt solution was used to normalize the intraocular pressure. The incision was checked for watertight integrity. The patient then received 2 drops of 0.5% timolol followed by 2 drops Vigamox, was lightly patched and shielded in the usual manner. There were no complications from the procedure. The patient tolerated the procedure well and was returned to recovery in good condition. MMODL / IJN: [id number] /
== END 2022-12-25 10:03 | disposition home or self-care (01) ==
LOC: OR 07:24
PROVIDERS: ATTEND Ophthalmology
DX: H25.12 Age-related nuclear cataract, left eye (principal); E05.00 Thyrotoxicosis with diffuse goiter without thyrotoxic crisis or storm; H91.03 Ototoxic hearing loss, bilateral; H40.233 Intermittent angle-closure glaucoma, bilateral; H52.4 Presbyopia; I10 Essential (primary) hypertension; J44.9 Chronic obstructive pulmonary disease, unspecified; E03.9 Hypothyroidism, unspecified; K21.9 Gastro-esophageal reflux disease without esophagitis; Z79.890 Hormone replacement therapy; Z98.890 Other specified postprocedural states
CPT/HCPCS: 66984; C1780; J2250; J0171; J2001

== ENCOUNTER 2023-01-08 07:40 | Day surgery (SDC) | payer BC ==
[2023-01-06 15:43] VITALS: BMI 26.0
[~2023-01-08 07:40] MED LIST changes: -DEXAMETHASONE SOD PHOSPHATE 4 MG/ML 1 ML VIAL IV ONE; -ONDANSETRON 4 MG/2 ML VIAL IVP ONE
[2023-01-08] MEDS: CYCLOPENTOLATE 1% OPHTH SOLN 2 ML BTL OP PRN ×3 (07:55→08:07)
[2023-01-08] MEDS: PHENYLEPHRINE 2.5% OPHTH DRP 2ML OP PRN ×3 (07:58→08:10)
[2023-01-08 08:04] VITALS: TEMP 98.6
[2023-01-08] MEDS ORDERED: fentaNYL (PF) 50 MCG/ML 2 ML AMP ONE (09:00)
[2023-01-08] MEDS ORDERED: MIDAZOLAM 2 MG/2 ML VIAL ONE (09:00)
[2023-01-08] MEDS ORDERED: HYALURONATE SODIUM INTRAOCULAR 1 EACH SYRINGE (12MG/ML) INTRAOCULA ONE ×2 (09:00→09:12)
[2023-01-08] MEDS ORDERED: LIDOCAINE 1% (PF) 10MG/ML VIAL SQ ONE ×2 (09:00→09:12)
[2023-01-08] MEDS ORDERED: BALANCED SALT IRRIG SOLN COMB2 15 ML IRRIG.SOLN INTRAOCULA ONE ×2 (09:00→09:12)
[2023-01-08] MEDS ORDERED: EPINEPHrine (PF) 0.3 ML in BALANCED SALT IRRIG SOLN COMB2 500 ML IRRIGATION ONE (09:12)
--- NOTE | 2023-01-08 09:29 | P.OP ---
Date of Procedure: 01/08/23 Preoperative Diagnosis: NS & PSC Postoperative Diagnosis: same Procedure(s) Performed: PIOL< OD Implants: MX60E 16.00 Anesthesia: MAC Surgeon: Tommy Marques Pathology: none sent Condition: stable Disposition: same day Indications for Procedure: blurry vision Operative Findings: no complications
[2023-01-08 09:48] VITALS: BP 158/80; PULSE 61; RESP 14
--- NOTE | 2023-01-08 13:13 | OP ---
OPERATIVE REPORT DATE OF SERVICE : 01/08/2023 PREOPERATIVE DIAGNOSIS: Nuclear sclerosis, cortical sclerosis, right eye. POSTOPERATIVE DIAGNOSIS: Nuclear sclerosis, cortical sclerosis, right eye. PROCEDURES PERFORMED: Phacoemulsification of cataract and intraocular lens implant of the right eye. ESTIMATED BLOOD LOSS: Zero. SPECIMEN TAKEN: None. NARRATIVE: After obtaining the appropriate consent, the patient was brought to the operating room where the patient was placed under cardiac monitoring and prepped and draped in the usual sterile manner. At the 11 o'clock position, a 15-degree super sharp blade was used to create a paracentesis followed by instillation of 1% Xylocaine MPF 50:50 mix with BSS into the anterior chamber. This was followed by Amvisc viscoelastic to stabilize the anterior chamber. At the 9 o'clock position a self-sealing corneal flap incision was created using 2.8 mm guillermina keratome. A cystotome was used to initiate a continuous tear capsulorrhexis which was completed with the Utrata forceps. A Binkhorst cannula was used to hydrodissect the lens nucleus followed by hydrodelineation. Phacoemulsification of the lens was performed utilizing phacochop in 8.71 seconds at 12% power. The remaining cortical material was removed using the irrigation aspiration mode followed by additional 1% Xylocaine MPF into the anterior chamber followed by viscoelastic to stabilize the capsular bag. A [employer]ch [employer] Lomb MX 60E 16.0 posterior chamber lens was placed into the capsular bag without difficulty. The remaining viscoelastic material was removed from the anterior chamber with the irrigation/aspiration. Balanced salt solution was used to normalize the intraocular pressure. The incision was checked for watertight integrity. The patient then received 2 drops of 0.5% timolol followed by 2 drops Vigamox, was lightly patched and shielded in the usual manner. There were no complications from the procedure. The patient tolerated the procedure well and was returned to recovery in good condition. MMODL / IJN: [id number] /
== END 2023-01-08 10:01 | disposition home or self-care (01) ==
LOC: OR 07:40
PROVIDERS: ATTEND Ophthalmology
DX: H25.11 Age-related nuclear cataract, right eye (principal); I25.10 Atherosclerotic heart disease of native coronary artery without angina pectoris; I25.2 Old myocardial infarction; I10 Essential (primary) hypertension; E78.5 Hyperlipidemia, unspecified; I48.91 Unspecified atrial fibrillation; J44.9 Chronic obstructive pulmonary disease, unspecified; E03.9 Hypothyroidism, unspecified; K21.9 Gastro-esophageal reflux disease without esophagitis; Z79.899 Other long term (current) drug therapy
CPT/HCPCS: 66984; C1780; J2250; J0171; J3010; J2001

== ENCOUNTER → 2023-05-07 | Outpatient (CLI) | payer BC ==
[2023-05-07 17:19] LABS: ALT 20 U/L (8-44); AST 23 U/L (13-35); Chol/HDL Ratio 2.61 Ratio; Creatine Kinase 149 U/L (26-186); LDL Cholesterol,Calculated 95.1 mg/dL (0.0-131.0)
== END | disposition home or self-care (01) ==
LOC: LABWHC1 08:28
PROVIDERS: ATTEND Internal Medicine
DX: Z00.00 Encounter for general adult medical examination without abnormal findings (principal); I25.10 Atherosclerotic heart disease of native coronary artery without angina pectoris; E78.5 Hyperlipidemia, unspecified
CPT/HCPCS: 36415; 80061; 82550; 84450; 84460

== ENCOUNTER → 2024-05-14 | Outpatient (CLI) | payer BC ==
[2024-05-14 15:49] LABS: ALT 16 U/L (8-44); AST 19 U/L (13-35); Chol/HDL Ratio 2.68 Ratio; Creatine Kinase 102 U/L (26-186); LDL Cholesterol,Calculated 92.4 mg/dL (0.0-131.0)
== END | disposition home or self-care (01) ==
LOC: LABWHC1 09:47
PROVIDERS: ATTEND Internal Medicine Interventional Cardiology
DX: E78.5 Hyperlipidemia, unspecified (principal); I25.10 Atherosclerotic heart disease of native coronary artery without angina pectoris
CPT/HCPCS: 36415; 80061; 82550; 84450; 84460